=== PATIENT | male | born 1950 | race Caucasian/White ===

== ENCOUNTER 2017-11-10 11:09 | Inpatient (IN) | payer MEDICARE, SELFPAY ==
[2017-11-10] VITALS (29 sets, daily range): BP systolic 94–154; BP diastolic 46–95; PULSE 80–116; RESP 12–24; TEMP 36.6–37.8; O2SAT 67–99; BMI 50.5; BMI 50.2
--- NOTE | 2017-11-10 11:15 | EKG12_ITS ---
Test Reason : SOB Blood Pressure : / mmHG Vent. Rate : 111 BPM Atrial Rate : 111 BPM P-R Int : 150 ms QRS Dur : 100 ms QT Int : 326 ms P-R-T Axes : 054 042 058 degrees QTc Int : 443 ms Sinus tachycardia Low voltage QRS Borderline ECG Confirmed by BRENDAN LUIS, MCKINLEY ([id number]), editor news CAROLINE CAMARENA ([id number]) on 11/13/2017 8:38:24 AM Referred By: JAMES Confirmed By:MCKINLEY CARDONA MD
--- NOTE | 2017-11-10 11:15 | RAD_ITS ---
STUDY: X-RAY CHEST REASON FOR EXAM: Male, 67 years old. Shortness of breath TECHNIQUE: Single AP portable view of the chest. COMPARISON: None. FINDINGS: Hypoinflated lungs. Patchy airspace disease in both lower lobes likely represents vascular congestion. Developing right lower lobe infiltrate. There is borderline cardiomegaly. Normal mediastinum and gustavo. Normal visualized pulmonary arteries. Normal visualized aortic arch and descending thoracic aorta. Normal visualized thoracic spine. Normal visualized ribs, clavicles, and shoulders. There is no demonstrated abnormality of the visualized soft tissue structures of the upper abdomen. RAD/Chest 1 View (Portable) IMPRESSION: Hypoinflated lungs. Patchy airspace disease in both lower lobes. Probable right lower lobe infiltrate Electronically Signed: Jose Antonio Perrin DO at 12:41 EST Tel , Service support ,
--- NOTE | 2017-11-10 11:26 | NURSING ---
CALLED FOR POST SURGERY LABS AND DC SUMMARY
[2017-11-10] MEDS: Ipratropium/Albuterol Sulfate 3 ML AMPUL.NEB INHALATION (11:36)
[2017-11-10] MEDS: 0.9% Normal Saline 1,000 ML 1000 ML IV (11:36)
--- NOTE | 2017-11-10 11:47 | NURSING ---
VASCULAR CALLED BACK. SHE IS IN THE HOSPITAL
--- NOTE | 2017-11-10 11:47 | NURSING ---
RECEIVED FAX FROM [facility]
[2017-11-10 11:55] LABS: Absolute Lymphocyte Count 1.48 X10^3/ul (0.83-4.51); Absolute Neutrophil Count 11.4 X10^3/uL (2.0-7.7); Basophil# 0.03 X10^3/uL; Basophil% 0.2 % (0-1); Eosinophil# 0.16 X10^3/uL; Eosinophils% 1.1 % (0-5); Hematocrit 38.9 % (40-54); Lymphocyte # 1.48 X10^3/ul (4.0); Lymphocyte % 10.2 % (19-41); Mean Corp Hgb Conc 30.8 g/gl (32-36); Mean Corpuscular Hgb 29.1 pg (27.0-32.0); Mean Corpuscular Volume 94.2 fL (80-94); Monocyte# 1.28 X10^3/uL; Monocyte% 8.8 % (0-10); Neutrophil # 11.42 X10^3/uL (2.7-7.7); Neutrophil % 78.8 % (47-70); Platelet Count 220 K/mm3 (150-450); RBC Distribution Width CV 14.3 % (11.6-14.6); RBC Distribution Width SD 48.3 fl (35.1-43.9); Red Blood Count 4.13 M/mm3 (4.6-6.2); White Blood Count 14.5 K/mm3 (4.4-11.0)
[2017-11-10 11:57] LABS: Differential Indicated SCAN CRITERIA MET; POSITIVE COUNT NO; POSITIVE DIFFERENTIAL NO; POSITIVE MORPHOLOGY YES
[2017-11-10 12:00] LABS: ALB/GLOB Ratio 0.7 RATIO (0.9-2.4); AST(SGOT) 44 U/L (15-37); Alanine Aminotransfer ALT/SGPT 41 U/L (16-61); Albumin, Serum 2.7 g/dL (3.2-5.0); Alkaline Phosphatase 98 U/L (45-117); Anion Gap 9 (5-15); BUN 39 mg/dL (7-18); BUN/Creat Ratio 18.2 RATIO (10-20); Calcium,Total 7.9 mg/dL (8.5-10.1); Chloride 109 mmol/L (98-107); Creatinine, Serum 2.14 mg/dL (0.70-1.30); EST Glomerular Filtration Rate 33 mL/min (>60); Est Glom Filt Rate - Afr Amer 40 mL/min (>60); Estimated Creatinine Clearance 31.75 ml/min; Globulin 3.7 g/dL (2.2-4.2); Glucose 159 mg/dL (74-106); Potassium 4.4 mmol/L (3.5-5.1); Protein, Total 6.4 g/dL (6.4-8.2); Sodium Level 142 mmol/L (136-145)
--- NOTE | 2017-11-10 12:10 | VDLE_ITS ---
Reason For Study: Edema/Pain RIGHT LEFT GSV is normal. GSV is normal. CFV is compressible, spontaneous, phasic, CFV is compressible, spontaneous, phasic, competent and demonstrates normal competent, and demonstrates normal augmentation. augmentation. FV is compressible, spontaneous, phasic, FV is compressible, spontaneous, phasic, competent and demonstrates normal competent and demonstrates normal augmentation. augmentation. POP V is compressible, spontaneous, phasic, POP V is compressible, spontaneous, phasic, competent and demonstrates normal competent and demonstrates normal augmentation. augmentation. T/P Trunk is compressible. T/P Trunk is compressible. PTV is compressible. PTV is compressible. RT PerV is compressible. LT PerV is compressible. Rt GSV mislabeled as Rt PeroV. Difficult to visualize distal Lt FV due to Procedure swelling and patient body habitus; relied on Exam performed portable in ED. color doppler. A preliminary report was called and/or faxed to Dr. Larson. Interpretation Summary No evidence for acute deep venous thrombosis bilateral lower extremities with patent and compressible bilateral great saphenous veins. Technically difficult examnination secondary to body habitus and swelling. Ordering Physician: Maciej Larson Referring Physician: Chhaya Bills Performed By: Katja Smith, SARAN, RVT
[2017-11-10 12:11] LABS: Lactic Acid 2.5 mmol/L (0.4-2.0)
--- NOTE | 2017-11-10 12:12 | ED.RN ---
LACTATE 2.5. AWARE.
[2017-11-10 12:16] LABS: Allen Test POS; Base Excess -6 mmol/L (-2 to +2); Bicarbonate 21.6 mmol/L (22-26); Blood Gas Specimen Type ART; O2 Delivery Device Nasal Can; PO2 62 mmHG (75-100); SITE R Radial; SO2 86 % (95-99); Time Given 1208; Total Carbon Dioxide 23 mmol/L; pCO2 51.5 mmHg (35-45); pH 7.23 (7.35-7.45)
[2017-11-10] MEDS: 0.9% Normal Saline 1,000 ML 999 ML IV (13:07)
--- NOTE | 2017-11-10 13:08 | NURSING ---
DR RONAL RAMIREZ
--- NOTE | 2017-11-10 13:14 | NURSING ---
ICU ACUTE RESP FAILURE, PNEUMONIA SEMENTI
--- NOTE | 2017-11-10 13:22 | ED.DCSUM_ITS ---
- ER Visit Summary Date of Service: 11/10/17 Chief Complaint: Shortness of breath and cough History of Present Illness: The patient is a 67 M who is postop left knee replacement 5 days ago at [facility] presenting with productive cough and shortness of breath that started last evening. He apparently had some respiratory issues in the immediate postoperative course and he was felt to likely have untreated obstructive sleep apnea. His creatinine increased as high as 1.4 while he was in the hospital as well. He was essentially back at baseline when he returned home this past Sunday. Starting yesterday, he began having a productive cough of yellow sputum and was complaining of shortness of breath. He had altered mental status throughout the evening that was much worse this morning when he was quite confused according to his . On arrival, his pulse ox is in the 50s and he is in fairly significant respiratory distress. Physical Examination: Pulse ox is in the low 60s on room air. He is in severe distress. Neck is supple. He is tachycardic. No murmur. Breath sounds diminished at the bases. Abdomen not distended or tender. Left knee incision clean, dry, and intact. Strong pulses in all extremities. No tenderness along the venous system. He is alert to self and hospital but is somewhat confused. He is still following commands however. Test Results: He has bibasilar infiltrates on chest x-ray as well as a leukocytosis. His creatinine is elevated at 2.4. Pulmonary embolism is certainly high on my differential and we discussed the risks and benefits of performing a CT angiogram with his elevated creatinine. Since his symptoms appear to be more infectious at this time, especially in light of the bilateral infiltrates on chest x-ray, I elected to perform bilateral ultrasounds of his lower extremity is to rule out DVT. There were both negative. No evidence of DVT. This makes pulmonary embolism much less likely and I do not think it is worth the risk of performing a CTA at this time. He was started on BiPAP because on his ABG, he was hypoxic in the 80s as well as hypoxemic. He improved markedly after starting BiPAP in terms of his mental status and was nearly back at baseline however he was unable to be weaned. He was covered with broad-spectrum antibiotics for healthcare associated pneumonia and admitted to the ICU. Emergency Department Course and Treatment: He was admitted to the ICU, critical care time 40 minutes Treatment Plan: IV antibiotics, admit to ICU, continue BiPAP Disposition: Admit to ICU in critical but improved condition Impression: Initial encounter for acute respiratory failure secondary to healthcare associated pneumonia, sepsis This note was generated with [employer] dictation software. It may contain incorrect words, spelling, and punctuation that were not noted in review of the chart prior to signing ED Disposition - Plan for ED Patient: Chief Complaint: Shortness of Breath Referrals: Chhaya Bills MD [Primary Care Provider] -
--- NOTE | 2017-11-10 13:49 | NURSING ---
ICU 6
--- NOTE | 2017-11-10 15:06 | CT_ITS ---
STUDY: CT CHEST WITHOUT CONTRAST REASON FOR EXAM: Male, 67 years old. Acute respiratory failure with hypoxemia RADIATION DOSAGE (If Supplied By Facility): CTDIvol = ( ) mGy, DLP = ( ) mGycm TECHNIQUE: Transaxial imaging was performed without the administration of intravenous contrast material. Pulmonary embolism cannot be excluded without IV contrast Individualized dose optimization techniques were used for this CT. COMPARISON: None. FINDINGS: The lungs are adequately inflated. Patchy airspace disease noted in both lower lobes; right greater than left suggesting infection. Aspiration pneumonia cannot be excluded. No effusions at this time. Normal heart and pericardium. Normal mediastinum. Normal hilar regions. Normal unenhanced pulmonary arteries. Normal aorta arch and descending thoracic aorta. There are multi-level degenerative changes of the thoracic spine. There is no demonstrated abnormality of the visualized upper abdomen. CT/Chest without Contrast IMPRESSION: Bibasilar infiltrates and patchy airspace disease; right greater than left. Likely infection Electronically Signed: Jose Antonio Perrin DO at 16:06 EST Tel , Service support ,
--- NOTE | 2017-11-10 15:23 | PCM.HP.STD ---
Problem List (1) HCAP (healthcare-associated pneumonia) Status: Acute (2) Acute respiratory failure with hypoxia and hypercapnia Status: Acute (3) Morbid obesity Status: Chronic (4) Osteoarthritis Status: Chronic (5) Hypertension Status: Chronic (6) Acute kidney injury Status: Acute (7) Anemia Status: Acute Qualifiers: Anemia type: other cause (8) Benzodiazepine dependence Status: Chronic (9) Hypothyroidism Status: Chronic (10) Obstructive sleep apnea Status: Suspected (11) Severe sepsis Status: Acute (12) Status post total right knee replacement Status: Acute Comment: 11/05/[address] Jase Lopez at [facility] (13) Former smoker Status: Chronic (14) Chronic anxiety Status: Chronic History of Present Illness Date of Admission: 11/10/17 Chief Complaint: Shortness of breath associated with cough and confusion The patient is a 67 year old M with a past medical history of morbid obesity, osteoarthritis, hypertension, hypothyroidism, chronic back pain with radicular pain into his legs and chronic diazepam use who had a left TKR on 11/05/17 at [facility] done by Dr. Lopez. Post operative course was complicated by mental status changes and respiratory issues that were attributed to suspected ROSIO. He has never had a sleep study. He is currently on multiple sedating medications that include gabapentin 600 mg 3 times daily, Flexeril 10 mg 3 times daily, alprazolam ER 1 mg daily and morphine sulfate ER 10 milligrams twice daily. He presented to the emergency room at [facility] on 11/10/2017 with complaint of shortness of breath, confusion and cough. Vital signs at presentation to the emergency room are temperature 97.8, pulse rate 116, blood pressure 125/64, respiratory rate 24 and he was 67% saturated on room air. Significant lab included an elevated white blood cell count at 14.5 with 79% neutrophils. Hemoglobin was 12 and platelets were 220,000. ABG on a 6 L nasal cannula showed pH of 7.23, PCO2 of 51 and a PO2 of 62. Serum bicarb was 24 and the BUN was 39 with a creatinine of 2.14. Lactic acid was 2.5 and LFTs were unremarkable. Chest x-ray was taken in expiration and is a poor study. Cannot rule out pneumonia versus pulmonary edema. Influenza swab was negative and 2 blood cultures were drawn in the emergency room. He was given vancomycin and Zosyn in the emergency room. He was placed on BiPAP and currently he is alert and appropriate. Past Medical History Past Medical History (Chronic Problems): Chronic Problems Morbid obesity (Chronic) Osteoarthritis (Chronic) Hypertension (Chronic) Benzodiazepine dependence (Chronic) Hypothyroidism (Chronic) Former smoker (Chronic) Chronic anxiety (Chronic) Allergies bacitracin [From Neosporin ([id number])] Allergy (Verified 07/18/14 16:28) Rash bacitracin zinc [From Neosporin ([id number])] Allergy (Verified 07/18/14 16:28) Rash neomycin sulfate [From Neosporin ([id number])] Allergy (Verified 07/18/14 16:28) Rash Penicillins [PCN] Allergy (Verified 07/18/14 16:28) Rash polymyxin B [From Neosporin ([id number])] Allergy (Verified 07/18/14 16:28) Rash Home Medications: Ambulatory Orders Medication Instructions Recorded Albuterol Sulfate [Ventolin Hfa] 2 inh INHALATION DAILY 11/10/17 Alprazolam [Xanax Xr] 1 mg PO DAILY 11/10/17 Aspirin 325 mg PO BID 11/10/17 Aspirin 325 mg PO DAILY@0800 11/10/17 Cyclobenzaprine [Flexeril] 10 mg PO TID 11/10/17 Fluconazole 150 mg PO QWEEK 11/10/17 Gabapentin [Neurontin] 600 mg PO TID 11/10/17 Hydrocodone/Acetaminophen 1 each PO BID 11/10/17 [Hydrocodon-Acetaminophn 10-325] Ibuprofen [Motrin] 800 mg PO Q8H 11/10/17 Levothyroxine [Synthroid] 150 mcg PO DAILY 11/10/17 Lisinopril [Zestril] 1 tab PO DAILY 11/10/17 Morphine Sulfate [Morphine Sulfate 15 mg PO BID 11/10/17 ER] Oxycodone HCl/Acetaminophen 1 - 2 tablet PO Q4H PRN PRN 11/10/17 [Percocet 5/325] Paroxetine HCl [Paxil] 40 mg PO DAILY 11/10/17 Topiramate [Topamax] 25 mg PO QHS 11/10/17 Verapamil [Calan Sr] 1 tab PO DAILY 11/10/17 Surgical History: total knee arthroplasty Psychiatric History: Anxiety Lives: Spouse/ Significant Other Smoking Status: Former smoker Tobacco Use: Non-smoker Alcohol: Rare Drugs: None - *Family History Maternal History Items: No pertinent history Paternal History Items: No pertinent history Review of Systems Constitutional: Denies: Anorexia, Chills, Fever HEENT: Denies: Difficulty Hearing, Difficulty Swallowing Cardiovascular: Reports: Edema. Denies: Chest Pain, Light Headedness, Orthopnea, Palpitations, Paroxysmal Noc. Dyspnea, Syncope Respiratory: Reports: Cough, Shortness of Breath, Sputum production. Denies: Wheezing Gastrointestinal: Denies: Abdominal Pain, Nausea, Vomiting Genitourinary: Denies: Dysuria Musculoskeletal: Reports: Leg Pain - Left knee - he is day #5 postop L TKR Skin: Reports: Wounds - Left knee secondary to L TKR on 11/05/17. Denies: Jaundice, Rash Neurological: Reports: Confusion. Denies: Difficulty swallowing, Focal weakness, Seizures Psychiatric: Denies: Anxiety, Depression, Homicidal Ideations, Suicidal Ideations Endocrine: Denies: Hx of Thyroiditis Hematologic/ Lymphatic: Denies: Hx of blood clot VTE Information - Inpt Only VTE Present on Admission: No VTE Mechan Device Prophylaxis: SCD's, Knee High ALBERT Hose VTE Pharm Prophylaxis ordered?: Yes Patient Problems: Active and Suspected Problems HCAP (healthcare-associated pneumonia) (Acute) Acute respiratory failure with hypoxia and hypercapnia (Acute) Acute kidney injury (Acute) Anemia (Acute) Obstructive sleep apnea (Suspected) Severe sepsis (Acute) Status post total right knee replacement (Acute) 11/05/[address] Jase Lopez at [facility] - Physical Exam General: Alert, Cooperative, Confused, - - On BIPAP HEENT: Atraumatic, PERRLA, EOMI, Normocephalic Oral: Moist Mucosa Neck: Supple, Trachea Midline, - - short thick neck Lungs: Clear to auscultation, No rhonchi, No wheeze, No rales, Diminished Cardiovascular: Regular Rhythm, Normal S1, Normal S2, No murmurs, No Gallop, Tachycardic, - - he has increased AP diameter of the chst Abdomen: Bowel Sounds Present, Soft, Non Tender, Obese Extremities: No cyanosis, Edema, Peripheral Pulses Normal, - - incision over the Left knee is intact... small amount of pink discoloration around the dressing.....no dried DC on the dressing Skin: No rashes, No breakdown Musculoskeletal: Arthritic Changes Neurological: Cranial nerves II-XII grossly intact, Neuro grossly intact Vital Signs Temp Pulse Resp BP Pulse Ox 97.8 F 102 H 16 140/78 H 97 11/10/17 11:10 11/10/17 14:08 11/10/17 14:08 11/10/17 14:08 11/10/17 14:08 Oxygen Delivery Method Bi-pap Laboratory Tests Past 24 Hrs 11/10/17 15:10 MRSA (PCR) Pending Assessment/Plan Active and Suspected Problems HCAP (healthcare-associated pneumonia) (Acute) Acute respiratory failure with hypoxia and hypercapnia (Acute) Acute kidney injury (Acute) Anemia (Acute) Obstructive sleep apnea (Suspected) Severe sepsis (Acute) Status post total right knee replacement (Acute) 11/05/[address] Jase Lopez at [facility] Impressions 1. Severe sepsis due to hospital-acquired pneumonia 2. Acute respiratory failure with hypoxia and hypercapnia 3. Respiratory acidosis 4. Sleep disordered breathing-suspect ROSIO 5. Morbid obesity 6. Hypertension 7. Hypothyroidism 8. Anemia-likely secondary to blood loss from recent left total knee replacement 9. Acute kidney injury 10. Glucose intolerance with a hemoglobin A1c of 6.5 11. Metabolic encephalopathy secondary to acute respiratory failure and hospital-acquired pneumonia Admitted to the intensive care unit and continue BiPAP and adjust settings as needed Cefepime and vancomycin day #1 DVT prophylaxis with Lovenox 30 mg subcu daily, SCDs and ALBERT angele Postvoid bladder scan to rule out urine retention as etiology of elevated creatinine Consult Dr. Dakota Ken to participate in management Will need PFTs and PSG going forward N.p.o. tonight except for meds recheck lab in the a.m. When he is started on a diet will start on a calorie diet Consult dietitian when the patient is less confused for education regarding carbohydrate control and weight loss Discontinue Flexeril, decrease the dose of gabapentin and discontinue MS Contin. Will utilize a fentanyl patch and as needed OxyIR for pain control Albuterol aerosols as needed for wheezing Echocardiogram Sunday to evaluate for pulmonary hypertension and right heart function Bilateral venous ultrasounds of the lower extremities are negative for DVT-low suspicion for pulmonary embolus. CT scan is consistent with bibasilar pneumonia, right greater than left IS
--- NOTE | 2017-11-10 15:31 | HP.PCM_ITS ---
Problem List (1) HCAP (healthcare-associated pneumonia) Status: Acute (2) Acute respiratory failure with hypoxia and hypercapnia Status: Acute (3) Morbid obesity Status: Chronic (4) Osteoarthritis Status: Chronic (5) Hypertension Status: Chronic (6) Acute kidney injury Status: Acute (7) Anemia Status: Acute Qualifiers: Anemia type: other cause (8) Benzodiazepine dependence Status: Chronic (9) Hypothyroidism Status: Chronic (10) Obstructive sleep apnea Status: Suspected (11) Severe sepsis Status: Acute (12) Status post total right knee replacement Status: Acute Comment: 11/05/[address] Jase Lopez at [facility] (13) Former smoker Status: Chronic (14) Chronic anxiety Status: Chronic History of Present Illness Date of Admission: 11/10/17 Chief Complaint: Shortness of breath associated with cough and confusion The patient is a 67 year old M with a past medical history of morbid obesity, osteoarthritis, hypertension, hypothyroidism, chronic back pain with radicular pain into his legs and chronic diazepam use who had a left TKR on 11/05/17 at [facility] done by Dr. Lopez. Post operative course was complicated by mental status changes and respiratory issues that were attributed to suspected ROSIO. He has never had a sleep study. He is currently on multiple sedating medications that include gabapentin 600 mg 3 times daily, Flexeril 10 mg 3 times daily, alprazolam ER 1 mg daily and morphine sulfate ER 10 milligrams twice daily. He presented to the emergency room at [facility] on 11/10/2017 with complaint of shortness of breath, confusion and cough. Vital signs at presentation to the emergency room are temperature 97.8, pulse rate 116, blood pressure 125/64, respiratory rate 24 and he was 67% saturated on room air. Significant lab included an elevated white blood cell count at 14.5 with 79% neutrophils. Hemoglobin was 12 and platelets were 220, 000. ABG on a 6 L nasal cannula showed pH of 7.23, PCO2 of 51 and a PO2 of 62. Serum bicarb was 24 and the BUN was 39 with a creatinine of 2.14. Lactic acid was 2.5 and LFTs were unremarkable. Chest x-ray was taken in expiration and is a poor study. Cannot rule out pneumonia versus pulmonary edema. Influenza swab was negative and 2 blood cultures were drawn in the emergency room. He was given vancomycin and Zosyn in the emergency room. He was placed on BiPAP and currently he is alert and appropriate. Past Medical History Past Medical History (Chronic Problems): Chronic Problems Morbid obesity (Chronic) Osteoarthritis (Chronic) Hypertension (Chronic) Benzodiazepine dependence (Chronic) Hypothyroidism (Chronic) Former smoker (Chronic) Chronic anxiety (Chronic) Allergies bacitracin [From Neosporin ([id number])] Allergy (Verified 07/18/14 16:28) Rash bacitracin zinc [From Neosporin ([id number])] Allergy (Verified 07/18/14 16: 28) Rash neomycin sulfate [From Neosporin ([id number]-ryo-matcs)] Allergy (Verified 07/18/14 16: 28) Rash Penicillins [PCN] Allergy (Verified 07/18/14 16:28) Rash polymyxin B [From Neosporin ([id number])] Allergy (Verified 07/18/14 16:28) Rash Home Medications: Ambulatory Orders Medication Instructions Recorded Albuterol Sulfate [Ventolin Hfa] 2 inh INHALATION DAILY 11/10/17 Alprazolam [Xanax Xr] 1 mg PO DAILY 11/10/17 Aspirin 325 mg PO BID 11/10/17 Aspirin 325 mg PO DAILY@0800 11/10/17 Cyclobenzaprine [Flexeril] 10 mg PO TID 11/10/17 Fluconazole 150 mg PO QWEEK 11/10/17 Gabapentin [Neurontin] 600 mg PO TID 11/10/17 Hydrocodone/Acetaminophen 1 each PO BID 11/10/17 [Hydrocodon-Acetaminophn 10-325] Ibuprofen [Motrin] 800 mg PO Q8H 11/10/17 Levothyroxine [Synthroid] 150 mcg PO DAILY 11/10/17 Lisinopril [Zestril] 1 tab PO DAILY 11/10/17 Morphine Sulfate [Morphine Sulfate 15 mg PO BID 11/10/17 ER] Oxycodone HCl/Acetaminophen 1 - 2 tablet PO Q4H PRN PRN 11/10/17 [Percocet 5/325] Paroxetine HCl [Paxil] 40 mg PO DAILY 11/10/17 Topiramate [Topamax] 25 mg PO QHS 11/10/17 Verapamil [Calan Sr] 1 tab PO DAILY 11/10/17 Surgical History: total knee arthroplasty Psychiatric History: Anxiety Lives: Spouse/ Significant Other Smoking Status: Former smoker Tobacco Use: Non-smoker Alcohol: Rare Drugs: None - *Family History Maternal History Items: No pertinent history Paternal History Items: No pertinent history Review of Systems Constitutional: Denies: Anorexia, Chills, Fever HEENT: Denies: Difficulty Hearing, Difficulty Swallowing Cardiovascular: Reports: Edema. Denies: Chest Pain, Light Headedness, Orthopnea , Palpitations, Paroxysmal Noc. Dyspnea, Syncope Respiratory: Reports: Cough, Shortness of Breath, Sputum production. Denies: Wheezing Gastrointestinal: Denies: Abdominal Pain, Nausea, Vomiting Genitourinary: Denies: Dysuria Musculoskeletal: Reports: Leg Pain - Left knee - he is day #5 postop L TKR Skin: Reports: Wounds - Left knee secondary to L TKR on 11/05/17. Denies: Jaundice, Rash Neurological: Reports: Confusion. Denies: Difficulty swallowing, Focal weakness , Seizures Psychiatric: Denies: Anxiety, Depression, Homicidal Ideations, Suicidal Ideations Endocrine: Denies: Hx of Thyroiditis Hematologic/ Lymphatic: Denies: Hx of blood clot VTE Information - Inpt Only VTE Present on Admission: No VTE Mechan Device Prophylaxis: SCD's, Knee High ALBERT Hose VTE Pharm Prophylaxis ordered?: Yes Patient Problems: Active and Suspected Problems HCAP (healthcare-associated pneumonia) (Acute) Acute respiratory failure with hypoxia and hypercapnia (Acute) Acute kidney injury (Acute) Anemia (Acute) Obstructive sleep apnea (Suspected) Severe sepsis (Acute) Status post total right knee replacement (Acute) 11/05/[address] Jase Lopez at [facility] - Physical Exam General: Alert, Cooperative, Confused, - - On BIPAP HEENT: Atraumatic, PERRLA, EOMI, Normocephalic Oral: Moist Mucosa Neck: Supple, Trachea Midline, - - short thick neck Lungs: Clear to auscultation, No rhonchi, No wheeze, No rales, Diminished Cardiovascular: Regular Rhythm, Normal S1, Normal S2, No murmurs, No Gallop, Tachycardic, - - he has increased AP diameter of the chst Abdomen: Bowel Sounds Present, Soft, Non Tender, Obese Extremities: No cyanosis, Edema, Peripheral Pulses Normal, - - incision over the Left knee is intact... small amount of pink discoloration around the dressing.....no dried DC on the dressing Skin: No rashes, No breakdown Musculoskeletal: Arthritic Changes Neurological: Cranial nerves II-XII grossly intact, Neuro grossly intact Vital Signs Temp Pulse Resp BP Pulse Ox 97.8 F 102 H 16 140/78 H 97 11/10/17 11:10 11/10/17 14:08 11/10/17 14:08 11/10/17 14:08 11/10/17 14:08 Oxygen Delivery Method Bi-pap Laboratory Tests Past 24 Hrs 11/10/17 15:10 MRSA (PCR) Pending Assessment/Plan Active and Suspected Problems HCAP (healthcare-associated pneumonia) (Acute) Acute respiratory failure with hypoxia and hypercapnia (Acute) Acute kidney injury (Acute) Anemia (Acute) Obstructive sleep apnea (Suspected) Severe sepsis (Acute) Status post total right knee replacement (Acute) 11/05/[address] Jase Lopez at [facility] Impressions 1. Severe sepsis due to hospital-acquired pneumonia 2. Acute respiratory failure with hypoxia and hypercapnia 3. Respiratory acidosis 4. Sleep disordered breathing-suspect ROSIO 5. Morbid obesity 6. Hypertension 7. Hypothyroidism 8. Anemia-likely secondary to blood loss from recent left total knee replacement 9. Acute kidney injury 10. Glucose intolerance with a hemoglobin A1c of 6.5 11. Metabolic encephalopathy secondary to acute respiratory failure and hospital-acquired pneumonia Admitted to the intensive care unit and continue BiPAP and adjust settings as needed Cefepime and vancomycin day #1 DVT prophylaxis with Lovenox 30 mg subcu daily, SCDs and ALBERT angele Postvoid bladder scan to rule out urine retention as etiology of elevated creatinine Consult Dr. Dakota Ken to participate in management Will need PFTs and PSG going forward N.p.o. tonight except for meds recheck lab in the a.m. When he is started on a diet will start on a calorie diet Consult dietitian when the patient is less confused for education regarding carbohydrate control and weight loss Discontinue Flexeril, decrease the dose of gabapentin and discontinue MS Contin. Will utilize a fentanyl patch and as needed OxyIR for pain control Albuterol aerosols as needed for wheezing Echocardiogram Sunday to evaluate for pulmonary hypertension and right heart function Bilateral venous ultrasounds of the lower extremities are negative for DVT-low suspicion for pulmonary embolus. CT scan is consistent with bibasilar pneumonia , right greater than left IS
[2017-11-10 15:33] LABS: Reflex Lactate? Y
[2017-11-10] MEDS: oxyCODONE 5 MG Tablet PO ×2 (16:35→21:00)
[2017-11-10] MEDS: fentaNYL 25 MCG Patch TRANSDERM. (16:36)
[2017-11-10] MEDS: 0.45% Normal Saline 1,000 ML 100 ML IV (16:36)
[2017-11-10] MEDS: 0.9% NaCl Peripheral Flush Adult/Peds IV ×2 (16:36→21:06)
[2017-11-10 16:58] LABS: M R Staph aureus DNA By PCR Negative (Negative); Probe Check PASS; Specimen Processing Control PASS
[2017-11-10 17:05] LABS: Hemoglobin A1c 6.5 % (4.2-6.3)
[2017-11-10 17:25] LABS: Allen Test POS; Base Excess -3 mmol/L (-2 to +2); Bicarbonate 23.6 mmol/L (22-26); Blood Gas Specimen Type ART; EPAP 6; FI02 30; IPAP 12; PO2 70 mmHG (75-100); RR 22; SITE L Radial; SO2 91 % (95-99); Time Given 1717; Total Carbon Dioxide 25 mmol/L; pCO2 50.2 mmHg (35-45); pH 7.28 (7.35-7.45)
[2017-11-10] MEDS: Gabapentin 100 MG Capsule 200 MG PO (17:41)
--- NOTE | 2017-11-10 17:43 | CPS ---
settings changed after ABG.
[2017-11-10] MEDS: guaiFENesin 1,200 MG Tablet 1200 MG PO (21:00)
[2017-11-10] MEDS: Topiramate 25 MG Tablet PO (21:00)
--- NOTE | 2017-11-10 21:51 | NURSING ---
Teaching of pt's chronic conditions postponed until pt clinical status less critical.
[2017-11-11] VITALS (37 sets, daily range): BP systolic 120–182; BP diastolic 58–122; PULSE 85–117; RESP 12–25; TEMP 35.7–37.7; O2SAT 92–100
[2017-11-11] MEDS: CHLORHEXIDINE GLUC 2% CLOTH 1 EACH TOWELETTE TOPICAL (01:17)
[2017-11-11] MEDS: oxyCODONE 5 MG Tablet PO ×3 (01:17→11:23)
[2017-11-11] MEDS: 0.45% Normal Saline 1,000 ML 100 ML IV ×2 (02:03→12:57)
[2017-11-11 04:53] LABS: Anion Gap 6 (5-15); BUN 30 mg/dL (7-18); BUN/Creat Ratio 24.2 RATIO (10-20); Calcium,Total 7.9 mg/dL (8.5-10.1); Chloride 108 mmol/L (98-107); Cholesterol 116 mg/dL (200); Creatinine, Serum 1.24 mg/dL (0.70-1.30); EST Glomerular Filtration Rate 62 mL/min (>60); Est Glom Filt Rate - Afr Amer 75 mL/min (>60); Estimated Creatinine Clearance 54.79 ml/min; Glucose 129 mg/dL (74-106); High Density Lipoprotein 37 mg/dL; Phosphorus 2.5 mg/dL (2.5-4.9); Potassium 4.4 mmol/L (3.5-5.1); Sodium Level 140 mmol/L (136-145); Triglycerides 99 mg/dL; Very Low Density Lipoprotein 20 mg/dL (5-40)
[2017-11-11 05:00] LABS: Hematocrit 35.3 % (40-54); Hemoglobin 11.1 g/dl (13.0-16.5); Mean Corp Hgb Conc 31.4 g/gl (32-36); Mean Corpuscular Hgb 29.6 pg (27.0-32.0); Mean Corpuscular Volume 94.1 fL (80-94); Mean Platelet Vol. 9.2 fl (6.2-12.0); POSITIVE COUNT NO; POSITIVE DIFFERENTIAL NO; POSITIVE MORPHOLOGY NO; Platelet Count 211 K/mm3 (150-450); RBC Distribution Width SD 45.8 fl (35.1-43.9); Red Blood Count 3.75 M/mm3 (4.6-6.2)
[2017-11-11 05:01] LABS: Absolute Lymphocyte Count 0.93 X10^3/ul (0.83-4.51); Basophil# 0.03 X10^3/uL; Basophil% 0.2 % (0-1); Eosinophil# 0.43 X10^3/uL; Eosinophils% 3.3 % (0-5); Lymphocyte # 0.93 X10^3/ul (4.0); Lymphocyte % 7.2 % (19-41); Monocyte# 1.37 X10^3/uL; Monocyte% 10.6 % (0-10); Neutrophil % 77.2 % (47-70)
--- NOTE | 2017-11-11 05:17 | CON.PCM_ITS ---
Reason for Consult Date of Consultation: 11/11/17 Reason for Consultation: Respiratory failure History of Present Illness: The patient is a 67-year-old male, with a history as outlined below, who presented to the emergency department on November 10 with complaints of shortness of breath and cough. The patient recently underwent a left total knee replacement on November [address] [facility] [address] Lopez. Postoperatively, the patient developed respiratory issues related to sedating medication use in the setting of suspected sleep disordered breathing. The patient is currently utilizing extensive number of sedating medications in his home environment. All the patient has never undergone a polysomnogram, he does voice concern over the potential presence of sleep disordered breathing and in particular obstructive sleep apnea. He does have a prior smoking history. On presentation to the emergency department, the patient was noted to be afebrile, tachycardic and hemodynamically stable. Laboratory evaluation revealed an elevated white blood cell count to 15,000. Initial arterial blood gas on nasal cannula revealed acute hypercarbic and hypoxemic respiratory failure with a pH of 7.23, PCO2 of 51 and PO2 of 62. Chemistry profile was notable for acute kidney injury with a creatinine of 2.14. Serum lactate was mildly elevated to 2.5. AST was increased to 44. A CT chest without contrast was obtained and revealed evidence of bilateral lower lobe pneumonia. The patient was given supplemental IV fluids and started on broad-spectrum antimicrobials. Given his respiratory status, he was started on BiPAP therapy. He was subsequently transferred to the medical intensive care unit for ongoing management. Past Medical History Past Medical History (Chronic Problems): Chronic Problems Morbid obesity (Chronic) Osteoarthritis (Chronic) Hypertension (Chronic) Benzodiazepine dependence (Chronic) Hypothyroidism (Chronic) Former smoker (Chronic) Chronic anxiety (Chronic) Allergies bacitracin [From Neosporin ([id number])] Allergy (Verified 07/18/14 16:28) Rash bacitracin zinc [From Neosporin (mly-svj-[id number])] Allergy (Verified 07/18/14 16: 28) Rash neomycin sulfate [From Neosporin (yye-dyf-cdhvs)] Allergy (Verified 07/18/14 16: 28) Rash Penicillins [PCN] Allergy (Verified 07/18/14 16:28) Rash polymyxin B [From Neosporin ([id number]-qhk-[id number])] Allergy (Verified 07/18/14 16:28) Rash Home Medications: Ambulatory Orders Medication Instructions Recorded Albuterol Sulfate [Ventolin Hfa] 2 inh INHALATION DAILY 11/10/17 Alprazolam [Xanax Xr] 1 mg PO DAILY 11/10/17 Aspirin 325 mg PO BID 11/10/17 Aspirin 325 mg PO DAILY@0800 11/10/17 Cyclobenzaprine [Flexeril] 10 mg PO TID 11/10/17 Fluconazole 150 mg PO QWEEK 11/10/17 Gabapentin [Neurontin] 600 mg PO TID 11/10/17 Hydrocodone/Acetaminophen 1 each PO BID 11/10/17 [Hydrocodon-Acetaminophn 10-325] Ibuprofen [Motrin] 800 mg PO Q8H 11/10/17 Levothyroxine [Synthroid] 150 mcg PO DAILY 11/10/17 Lisinopril [Zestril] 1 tab PO DAILY 11/10/17 Morphine Sulfate [Morphine Sulfate 15 mg PO BID 11/10/17 ER] Oxycodone HCl/Acetaminophen 1 - 2 tablet PO Q4H PRN PRN 11/10/17 [Percocet 5/325] Paroxetine HCl [Paxil] 40 mg PO DAILY 11/10/17 Topiramate [Topamax] 25 mg PO QHS 11/10/17 Verapamil [Calan Sr] 1 tab PO DAILY 11/10/17 Surgical History: total knee arthroplasty Psychiatric History: Anxiety Lives: Spouse/ Significant Other Smoking Status: Former smoker Tobacco Use: Non-smoker Alcohol: Rare Drugs: None - *Family History Maternal History Items: No pertinent history Paternal History Items: No pertinent history Review of Systems Constitutional: Denies: Chills, Fever Eyes: Denies: Blurred vision, Double vision HEENT: Denies: Head Aches, Sinus Congestion, Sinus Drainage Cardiovascular: Denies: Chest Pain, Palpitations Respiratory: Reports: Cough, Shortness of Breath Gastrointestinal: Denies: Abdominal Pain, Nausea, Vomiting Genitourinary: Denies: Dysuria Musculoskeletal: Reports: Leg Pain Skin: Denies: Rash, Wounds Neurological: Reports: Confusion Psychiatric: Reports: Anxiety, Depression Hematologic/ Lymphatic: Denies: Easy Bruising, Easy Bleeding Patient Problems: Active and Suspected Problems HCAP (healthcare-associated pneumonia) (Acute) Acute respiratory failure with hypoxia and hypercapnia (Acute) Acute kidney injury (Acute) Anemia (Acute) Obstructive sleep apnea (Suspected) Severe sepsis (Acute) Status post total right knee replacement (Acute) 11/05/[address] Jase Lopez at [facility] Objective: The patient's most recent lab work, culture data and imaging studies have all been personally reviewed. Strep and urine Legionella antigens were both negative. Expectorated sputum culture is pending. Rapid influenza screen was negative. Blood cultures are pending. - Physical Exam General: - - Somnolent but arousable to verbal stimulation on BiPAP HEENT: Atraumatic, PERRLA, Normocephalic Oral: No Gingival or Mucosal Lesions/ Ulcerations, Dry Mucosa Neck: Supple, No Nodes, Trachea Midline, - - Large neck circumference with redundant soft tissue. Lungs: No rhonchi, No wheeze, Diminished, Short of Breath Cardiovascular: Normal S1, Normal S2, No murmurs, Tachycardic Abdomen: Bowel Sounds Present, Soft, Non Tender, Obese Extremities: No clubbing, No cyanosis, No edema Skin: - - Well-healing incision over left knee Musculoskeletal: No Muscle Wasting Lymphatic: No Cervical, Supraclavicular, or Inguinal Adenopathy Neurological: Neuro grossly intact Vital Signs Temp Pulse Resp BP Pulse Ox 96.9 F L 101 H 22 H 151/92 H 96 11/11/17 04:00 11/11/17 05:00 11/11/17 05:00 11/11/17 05:00 11/11/17 05:00 Oxygen Flow Rate 6 Oxygen Delivery Method Bi-pap Weight: 320 lb 12.361 oz Body Mass Index (BMI) 50.2 Intake and Output for Last 24 Hours 11/09/17 11/10/17 11/11/17 23:59 23:59 23:59 Intake Total 1699 / 1699 Output Total 800 / 800 Balance 899 / 899 Microbiology Past 72 Hours 11/10/17 23:50 Streptococcus pneumoniae Antigen (M - Final Urine, Clean Catch 11/10/17 23:50 Legionella Antigen - Final Urine, Clean Catch Laboratory Tests Past 24 Hrs 11/10/17 11/10/17 11/10/17 15:10 16:00 17:22 WBC RBC Hgb Hct MCV MCH MCHC RDW RDW Differential Plt Count MPV Immature Gran % (Auto) Neut % (Auto) Lymph % (Auto) [place] % (Auto) Eos % (Auto) Baso % (Auto) Absolute Neuts (auto) Absolute Lymphs (auto) Total Counted Specimen Type ART Sample Site L Radial pH 7.28 L Bicarbonate Actual 23.6 POC Total CO2 25 Base Excess -3 L O2 Saturation 91 L O2 % 30 ABG pCO2 50.2 H ABG pO2 70 L Niranjan Test POS Respiration Rate 22 O2 Delivery Device Bi / C PAP EPAP 6 IPAP 12 Blood Gas Notified Whom [facility] Blood Gas Notified Time 1717 Sodium Potassium Chloride Carbon Dioxide Anion Gap BUN Creatinine Estim Creat Clear Calc Est GFR (MDRD) Af Amer Est GFR (MDRD) Non-Af BUN/Creatinine Ratio Glucose Lactic Acid 1.0 Calcium Phosphorus Magnesium Triglycerides Cholesterol LDL Cholesterol VLDL Cholesterol HDL Cholesterol MRSA (PCR) Negative 11/11/17 11/11/17 04:00 04:00 WBC 13.0 H RBC 3.75 L Hgb 11.1 L Hct 35.3 L MCV 94.1 H MCH 29.6 MCHC 31.4 L RDW 14.0 RDW Differential 45.8 H Plt Count 211 MPV 9.2 Immature Gran % (Auto) 1.500 H Neut % (Auto) 77.2 H Lymph % (Auto) 7.2 L [place] % (Auto) 10.6 H Eos % (Auto) 3.3 Baso % (Auto) 0.2 Absolute Neuts (auto) 10.0 H Absolute Lymphs (auto) 0.93 Total Counted Not Reportable Specimen Type Sample Site pH Bicarbonate Actual POC Total CO2 Base Excess O2 Saturation O2 % ABG pCO2 ABG pO2 Niranjan Test Respiration Rate O2 Delivery Device EPAP IPAP Blood Gas Notified Whom Blood Gas Notified Time Sodium 140 Potassium 4.4 Chloride 108 H Carbon Dioxide 26.0 Anion Gap 6 BUN 30 H Creatinine 1.24 Estim Creat Clear Calc 54.79 Est GFR (MDRD) Af Amer 75 Est GFR (MDRD) Non-Af 62 BUN/Creatinine Ratio 24.2 H Glucose 129 H Lactic Acid Calcium 7.9 L Phosphorus 2.5 Magnesium 2.0 Triglycerides 99 Cholesterol 116 LDL Cholesterol 59 VLDL Cholesterol 20 HDL Cholesterol 37 L MRSA (PCR) Clinical Impression(s) from Imaging Studies Chest X-Ray 11/10/17 11:15 IMPRESSION: Hypoinflated lungs. Patchy airspace disease in both lower lobes. Probable right lower lobe infiltrate Electronically Signed: Jose Antonio Perrin DO at 12:41 EST Tel , Service support , Chest CT 11/10/17 15:06 IMPRESSION: Bibasilar infiltrates and patchy airspace disease; right greater than left. Likely infection Electronically Signed: Jose Antonio Perrin DO at 16:06 EST Tel , Service support , Assessment/Plan Active and Suspected Problems HCAP (healthcare-associated pneumonia) (Acute) Acute respiratory failure with hypoxia and hypercapnia (Acute) Acute kidney injury (Acute) Anemia (Acute) Obstructive sleep apnea (Suspected) Severe sepsis (Acute) Status post total right knee replacement (Acute) 11/05/[address] Jase Lopez at [facility] RECOMMENDATIONS: 1. Continue BiPAP with naps and nightly. The patient can be given a break this morning. 2. Scale back sedating medication utilization. 3. Continue antibiotics, pending finalized infectious workup 4. Start Pepcid and continue Lovenox for prophylaxis 5. Encourage incentive spirometer use and mobilize patient as tolerated IMPRESSIONS: 1. Acute hypoxemic and hypercarbic respiratory failure Concern for underlying aspiration/healthcare associated pneumonia along with respiratory depression induced by polypharmacy. Sedating medications have been scaled back accordingly. The patient appears to be responding to BiPAP therapy. Continue to monitor blood gas accordingly. The patient can be given a break from noninvasive positive pressure ventilation this morning. However, would recommend continued BiPAP utilization with naps and nightly. 2. Sepsis secondary to aspiration/HCAP Continue antibiotics, pending finalized infectious workup. Avoid oversedation. 3. Hypercarbic encephalopathy Improving with the use of BiPAP. As above, recommend limiting sedating medications. 4. Suspected sleep disordered breathing Strongly recommend outpatient pulmonary follow-up and dedicated polysomnogram upon discharge. 5. Acute kidney injury Likely prerenal in etiology, as the patient responded to volume resuscitation. Urine output remains appropriate. There is no indication for renal replacement therapy. 6. Morbid obesity/hypertension/hypothyroidism Complicates care, management, recovery and prognosis. Continue home medications as indicated. Physical therapy to evaluate patient. This note was generated with Dragon dictation software. It may contain incorrect words, spelling, and punctuation that were not noted in checking the note before signing. Code Visit Inpatient E&M: 44080 Init Hosp L3
[2017-11-11] MEDS: Enoxaparin 30 MG/0.3 ML Syringe SC (05:23)
[2017-11-11] MEDS: Levothyroxine 150 MCG Tablet PO (05:23)
[2017-11-11] MEDS: 0.9% NaCl Peripheral Flush Adult/Peds IV (05:27)
[2017-11-11] MEDS: Gabapentin 100 MG Capsule 200 MG PO ×3 (08:15→17:08)
[2017-11-11] MEDS: Verapamil SR 240 MG Tablet PO (09:08)
[2017-11-11] MEDS: Lisinopril 10 MG Tablet PO (09:08)
[2017-11-11] MEDS: guaiFENesin 1,200 MG Tablet 1200 MG PO ×2 (09:08→21:23)
--- NOTE | 2017-11-11 10:19 | PCM.PROGNOTE ---
Patient Problems: Active and Suspected Problems HCAP (healthcare-associated pneumonia) (Acute) Acute respiratory failure with hypoxia and hypercapnia (Acute) Acute kidney injury (Acute) Anemia (Acute) Obstructive sleep apnea (Suspected) Severe sepsis (Acute) Status post total right knee replacement (Acute) 11/05/[address] Jase Lopez at [facility] Subjective: The patient is a 67 year old M with a past medical history of morbid obesity, osteoarthritis, hypertension, hypothyroidism, chronic back pain with radicular pain into his legs and chronic diazepam use who had a left TKR on 11/05/17 at [facility] done by Dr. Lopez. Post operative course was complicated by mental status changes and respiratory issues that were attributed to suspected ROSIO. He was admitted to [facility] ICU on 11/10/2017 with acute combined respiratory failure and placed on BiPAP. Chest CT showed patchy infiltrates. He is being treated for hospital-acquired pneumonia. Legionella and streptococcal antigens were negative. Sputum culture is positive for normal respiratory karyn. There were 3+ white blood cells on the Gram stain. T-max is 100?F. Blood pressures are high and not adequately controlled. Patient tolerated BiPAP through the night. He is currently on a 3 L nasal cannula and maintaining a 93-94% saturation but is having pursed lip breathing and mild conversational dyspnea. Respiratory rate is ranging from 19-25. Fluid balance since admission is +946. All lab was personally reviewed. White blood cell count today is down to 13,000 with 77% neutrophils. Hemoglobin is 11.1 and platelets are 211,000. BMP shows a serum bicarb of 26, up from 24 yesterday. BUN is 30 and the creatinine is down to 1.24 with mild hydration. Repeat lactic acid was 1.0. Hemoglobin A1c is 6.5. Lipid panel shows triglycerides of 99, total cholesterol 116, LDL 59 and the HDL is 37. MRSA nasal swab was negative. Vancomycin was discontinued. He is complaining of 9/10 pain in his left knee and also some pain in his chest when coughing. He is currently on a fentanyl patch 25 mcg and OxyIR and has been getting 10 mg regularly. His tells me that he always weighed between 220-225 but a few years ago he fell out of a tree and his ankle foot and then has had both knees done and he is now mostly immobile and is always hungry. He is on Alprazolam and Paxil but Paxil tends to stimulate appetite. Dr. Bills has spent a good deal f time with Vance discussing diet and she put him on Topamax in an attempt to suppress his appetite but it has not been effective. He was ordered PT at home.....he would benefit from PT in the pool to offload his weight but either Dr. Lopez or Dr. Bills would need to refer him for PT in the pool at [facility] - Physical Exam General: - - He wakes up easily. He is still somewhat confused but is oriented X 3 HEENT: Atraumatic, PERRLA, EOMI, Normocephalic Oral: Dry Mucosa Neck: Supple, No Nodes, No Nuchal Rigidity, Trachea Midline Lungs: No wheeze, No rales, Diminished, Tachypneic, - - pursed lip breathing and mild conversational dypnea on the NC Cardiovascular: Regular Rhythm, Normal S1, Normal S2, No murmurs, No Gallop, Tachycardic, - - heart sounds are distant due to body habitus Abdomen: Bowel Sounds Present, Soft, Non Tender, Obese Extremities: No clubbing, No cyanosis, No edema Skin: No rashes, No breakdown Neurological: Cranial nerves II-XII grossly intact, Neuro grossly intact Vital Signs Temp Pulse Resp BP Pulse Ox 98.4 F 117 H 19 H 151/66 H 94 11/11/17 08:00 11/11/17 10:00 11/11/17 10:00 11/11/17 10:00 11/11/17 10:00 Oxygen Flow Rate 3 Oxygen Delivery Method Nasal Cannula Weight: 323 lb 10.217 oz Body Mass Index (BMI) 50.2 Intake and Output for Last 24 Hours 11/09/17 11/10/17 11/11/17 23:59 23:59 23:59 Intake Total 1699 / 1699 747 / 747 Output Total 800 / 800 700 / 700 Balance 899 / 899 47 / 47 Microbiology Past 72 Hours 11/10/17 16:30 Gram Stain - Final Sputum, Expectorated/Coughed Respiratory Culture - Preliminary Appears to be normal respiratory karyn. Further studies to follow. 11/10/17 23:50 Streptococcus pneumoniae Antigen (M - Final Urine, Clean Catch 02/03/18 23:50 Legionella Antigen - Final Urine, Clean Catch Laboratory Tests Past 24 Hrs 11/10/17 11/10/17 11/10/17 15:10 16:00 17:22 WBC RBC Hgb Hct MCV MCH MCHC RDW RDW Differential Plt Count MPV Immature Gran % (Auto) Neut % (Auto) Lymph % (Auto) [place] % (Auto) Eos % (Auto) Baso % (Auto) Absolute Neuts (auto) Absolute Lymphs (auto) Total Counted Specimen Type ART Sample Site L Radial pH 7.28 L Bicarbonate Actual 23.6 POC Total CO2 25 Base Excess -3 L O2 Saturation 91 L O2 % 30 ABG pCO2 50.2 H ABG pO2 70 L Niranjan Test POS Respiration Rate 22 O2 Delivery Device Bi / C PAP EPAP 6 IPAP 12 Blood Gas Notified Whom [facility] Blood Gas Notified Time 1717 Sodium Potassium Chloride Carbon Dioxide Anion Gap BUN Creatinine Estim Creat Clear Calc Est GFR (MDRD) Af Amer Est GFR (MDRD) Non-Af BUN/Creatinine Ratio Glucose Lactic Acid 1.0 Calcium Phosphorus Magnesium Triglycerides Cholesterol LDL Cholesterol VLDL Cholesterol HDL Cholesterol MRSA (PCR) Negative 11/11/17 11/11/17 04:00 04:00 WBC 13.0 H RBC 3.75 L Hgb 11.1 L Hct 35.3 L MCV 94.1 H MCH 29.6 MCHC 31.4 L RDW 14.0 RDW Differential 45.8 H Plt Count 211 MPV 9.2 Immature Gran % (Auto) 1.500 H Neut % (Auto) 77.2 H Lymph % (Auto) 7.2 L [place] % (Auto) 10.6 H Eos % (Auto) 3.3 Baso % (Auto) 0.2 Absolute Neuts (auto) 10.0 H Absolute Lymphs (auto) 0.93 Total Counted Not Reportable Specimen Type Sample Site pH Bicarbonate Actual POC Total CO2 Base Excess O2 Saturation O2 % ABG pCO2 ABG pO2 Niranjan Test Respiration Rate O2 Delivery Device EPAP IPAP Blood Gas Notified Whom Blood Gas Notified Time Sodium 140 Potassium 4.4 Chloride 108 H Carbon Dioxide 26.0 Anion Gap 6 BUN 30 H Creatinine 1.24 Estim Creat Clear Calc 54.79 Est GFR (MDRD) Af Amer 75 Est GFR (MDRD) Non-Af 62 BUN/Creatinine Ratio 24.2 H Glucose 129 H Lactic Acid Calcium 7.9 L Phosphorus 2.5 Magnesium 2.0 Triglycerides 99 Cholesterol 116 LDL Cholesterol 59 VLDL Cholesterol 20 HDL Cholesterol 37 L MRSA (PCR) Assessment/Plan Active and Suspected Problems HCAP (healthcare-associated pneumonia) (Acute) Acute respiratory failure with hypoxia and hypercapnia (Acute) Acute kidney injury (Acute) Anemia (Acute) Obstructive sleep apnea (Suspected) Severe sepsis (Acute) Status post total right knee replacement (Acute) 11/05/[address] Jase Lopez at [facility] Cefepime day #2 Impressions 1. Severe sepsis due to hospital-acquired pneumonia - On Cefepime, MRSA nasal swab was negative so vancomycin was discontinued 2. Acute respiratory failure with hypoxia and hypercapnia -being maintained on BiPAP for naps and while sleeping at night 3. Respiratory acidosis 4. Sleep disordered breathing-suspect ROSIO but has never had a sleep study 5. Morbid obesity 6. Hypertension 7. Hypothyroidism - has been treated for Grave's disease in the past 8. Anemia-likely secondary to blood loss from recent left total knee replacement 11/05/17 9. Acute kidney injury - improved with fluids 10. Glucose intolerance with a hemoglobin A1c of 6.5 11. Metabolic encephalopathy secondary to acute respiratory failure and hospital-acquired pneumonia Continue cefepime BiPAP anytime he is sleeping Check a TSH Has been seen by data scientist and I recommended to him that he follow up with the [facility] program run by the dieticians after DC....will need a referral from Dr. Bills....should also get a referral from Dr. Bills for PT in the pool at [facility] and it must say for the pool on the referral, not just PT Would have Dr. Lopez check his knee this coming week Will need PFT's and psg in the future and is going to follow up with Dr. Ken within 2 weeks after DC......may need O2 at [place] Recheck BMP tomorrow I have decreased the dose of the Gabapentin due to somnolence at admission and the Flexeril and MS Contin were DC'd. Alprazolam Exar was discontinued as well but will need to monitor closely for any signs of acute benzodiazepine withdrawal. Will increase the Fentanyl to 50 mcg patch and continue the Oxy IR.....Fentanyl is the least likely to suppress the respiration. Keep NPO today because of tachypnea and pursed lip breathing and conversational dypnea - re-evaluate in the AM. BedSide swallow eval today Code Visit Inpatient E&M: 31744 Subs Hosp L3
--- NOTE | 2017-11-11 10:39 | PN_ITS ---
Patient Problems: Active and Suspected Problems HCAP (healthcare-associated pneumonia) (Acute) Acute respiratory failure with hypoxia and hypercapnia (Acute) Acute kidney injury (Acute) Anemia (Acute) Obstructive sleep apnea (Suspected) Severe sepsis (Acute) Status post total right knee replacement (Acute) 11/05/[address] Jase Lopez at [facility] Subjective: The patient is a 67 year old M with a past medical history of morbid obesity, osteoarthritis, hypertension, hypothyroidism, chronic back pain with radicular pain into his legs and chronic diazepam use who had a left TKR on 11/05/17 at [facility] done by Dr. Lopez. Post operative course was complicated by mental status changes and respiratory issues that were attributed to suspected ROSIO. He was admitted to [facility] ICU on 11/10/2017 with acute combined respiratory failure and placed on BiPAP. Chest CT showed patchy infiltrates. He is being treated for hospital-acquired pneumonia. Legionella and streptococcal antigens were negative. Sputum culture is positive for normal respiratory karyn. There were 3+ white blood cells on the Gram stain. T-max is 100?F. Blood pressures are high and not adequately controlled. Patient tolerated BiPAP through the night. He is currently on a 3 L nasal cannula and maintaining a 93-94% saturation but is having pursed lip breathing and mild conversational dyspnea. Respiratory rate is ranging from 19-25. Fluid balance since admission is +946. All lab was personally reviewed. White blood cell count today is down to 13, 000 with 77% neutrophils. Hemoglobin is 11.1 and platelets are 211,000. BMP shows a serum bicarb of 26, up from 24 yesterday. BUN is 30 and the creatinine is down to 1.24 with mild hydration. Repeat lactic acid was 1.0. Hemoglobin A1c is 6.5. Lipid panel shows triglycerides of 99, total cholesterol 116, LDL 59 and the HDL is 37. MRSA nasal swab was negative. Vancomycin was discontinued. He is complaining of 9/10 pain in his left knee and also some pain in his chest when coughing. He is currently on a fentanyl patch 25 mcg and OxyIR and has been getting 10 mg regularly. His tells me that he always weighed between 220-225 but a few years ago he fell out of a tree and his ankle foot and then has had both knees done and he is now mostly immobile and is always hungry. He is on Alprazolam and Paxil but Paxil tends to stimulate appetite. Dr. Bills has spent a good deal f time with V[place] discussing diet and she put him on Topamax in an attempt to suppress his appetite but it has not been effective. He was ordered PT at home.....he would benefit from PT in the pool to offload his weight but either Dr. Lopez or Dr. Bills would need to refer him for PT in the pool at [facility] - Physical Exam General: - - He wakes up easily. He is still somewhat confused but is oriented X 3 HEENT: Atraumatic, PERRLA, EOMI, Normocephalic Oral: Dry Mucosa Neck: Supple, No Nodes, No Nuchal Rigidity, Trachea Midline Lungs: No wheeze, No rales, Diminished, Tachypneic, - - pursed lip breathing and mild conversational dypnea on the NC Cardiovascular: Regular Rhythm, Normal S1, Normal S2, No murmurs, No Gallop, Tachycardic, - - heart sounds are distant due to body habitus Abdomen: Bowel Sounds Present, Soft, Non Tender, Obese Extremities: No clubbing, No cyanosis, No edema Skin: No rashes, No breakdown Neurological: Cranial nerves II-XII grossly intact, Neuro grossly intact Vital Signs Temp Pulse Resp BP Pulse Ox 98.4 F 117 H 19 H 151/66 H 94 11/11/17 08:00 11/11/17 10:00 11/11/17 10:00 11/11/17 10:00 11/11/17 10:00 Oxygen Flow Rate 3 Oxygen Delivery Method Nasal Cannula Weight: 323 lb 10.217 oz Body Mass Index (BMI) 50.2 Intake and Output for Last 24 Hours 11/09/17 11/10/17 11/11/17 23:59 23:59 23:59 Intake Total 1699 / 1699 747 / 747 Output Total 800 / 800 700 / 700 Balance 899 / 899 47 / 47 Microbiology Past 72 Hours 11/10/17 16:30 Gram Stain - Final Sputum, Expectorated/Coughed Respiratory Culture - Preliminary Appears to be normal respiratory karyn. Further studies to follow. 11/10/17 23:50 Streptococcus pneumoniae Antigen (M - Final Urine, Clean Catch 02/03/18 23:50 Legionella Antigen - Final Urine, Clean Catch Laboratory Tests Past 24 Hrs 11/10/17 11/10/17 11/10/17 15:10 16:00 17:22 WBC RBC Hgb Hct MCV MCH MCHC RDW RDW Differential Plt Count MPV Immature Gran % (Auto) Neut % (Auto) Lymph % (Auto) [place] % (Auto) Eos % (Auto) Baso % (Auto) Absolute Neuts (auto) Absolute Lymphs (auto) Total Counted Specimen Type ART Sample Site L Radial pH 7.28 L Bicarbonate Actual 23.6 POC Total CO2 25 Base Excess -3 L O2 Saturation 91 L O2 % 30 ABG pCO2 50.2 H ABG pO2 70 L Niranjan Test POS Respiration Rate 22 O2 Delivery Device Bi / C PAP EPAP 6 IPAP 12 Blood Gas Notified Whom [facility] Blood Gas Notified Time 1717 Sodium Potassium Chloride Carbon Dioxide Anion Gap BUN Creatinine Estim Creat Clear Calc Est GFR (MDRD) Af Amer Est GFR (MDRD) Non-Af BUN/Creatinine Ratio Glucose Lactic Acid 1.0 Calcium Phosphorus Magnesium Triglycerides Cholesterol LDL Cholesterol VLDL Cholesterol HDL Cholesterol MRSA (PCR) Negative 11/11/17 11/11/17 04:00 04:00 WBC 13.0 H RBC 3.75 L Hgb 11.1 L Hct 35.3 L MCV 94.1 H MCH 29.6 MCHC 31.4 L RDW 14.0 RDW Differential 45.8 H Plt Count 211 MPV 9.2 Immature Gran % (Auto) 1.500 H Neut % (Auto) 77.2 H Lymph % (Auto) 7.2 L [place] % (Auto) 10.6 H Eos % (Auto) 3.3 Baso % (Auto) 0.2 Absolute Neuts (auto) 10.0 H Absolute Lymphs (auto) 0.93 Total Counted Not Reportable Specimen Type Sample Site pH Bicarbonate Actual POC Total CO2 Base Excess O2 Saturation O2 % ABG pCO2 ABG pO2 Niranjan Test Respiration Rate O2 Delivery Device EPAP IPAP Blood Gas Notified Whom Blood Gas Notified Time Sodium 140 Potassium 4.4 Chloride 108 H Carbon Dioxide 26.0 Anion Gap 6 BUN 30 H Creatinine 1.24 Estim Creat Clear Calc 54.79 Est GFR (MDRD) Af Amer 75 Est GFR (MDRD) Non-Af 62 BUN/Creatinine Ratio 24.2 H Glucose 129 H Lactic Acid Calcium 7.9 L Phosphorus 2.5 Magnesium 2.0 Triglycerides 99 Cholesterol 116 LDL Cholesterol 59 VLDL Cholesterol 20 HDL Cholesterol 37 L MRSA (PCR) Assessment/Plan Active and Suspected Problems HCAP (healthcare-associated pneumonia) (Acute) Acute respiratory failure with hypoxia and hypercapnia (Acute) Acute kidney injury (Acute) Anemia (Acute) Obstructive sleep apnea (Suspected) Severe sepsis (Acute) Status post total right knee replacement (Acute) 11/05/[address] Jase Lopez at [facility] Cefepime day #2 Impressions 1. Severe sepsis due to hospital-acquired pneumonia - On Cefepime, MRSA nasal swab was negative so vancomycin was discontinued 2. Acute respiratory failure with hypoxia and hypercapnia -being maintained on BiPAP for naps and while sleeping at night 3. Respiratory acidosis 4. Sleep disordered breathing-suspect ROSIO but has never had a sleep study 5. Morbid obesity 6. Hypertension 7. Hypothyroidism - has been treated for Grave's disease in the past 8. Anemia-likely secondary to blood loss from recent left total knee replacement 11/05/17 9. Acute kidney injury - improved with fluids 10. Glucose intolerance with a hemoglobin A1c of 6.5 11. Metabolic encephalopathy secondary to acute respiratory failure and hospital-acquired pneumonia Continue cefepime BiPAP anytime he is sleeping Check a TSH Has been seen by certified cytotechnologist and I recommended to him that he follow up with the [facility] program run by the dieticians after DC....will need a referral from Dr. Bills....should also get a referral from Dr. Bills for PT in the pool at [facility] and it must say for the pool on the referral, not just PT Would have Dr. Lopez check his knee this coming week Will need PFT's and psg in the future and is going to follow up with Dr. Ken within 2 weeks after DC......may need O2 at [place] Recheck BMP tomorrow I have decreased the dose of the Gabapentin due to somnolence at admission and the Flexeril and MS Contin were DC'd. Alprazolam Exar was discontinued as well but will need to monitor closely for any signs of acute benzodiazepine withdrawal. Will increase the Fentanyl to 50 mcg patch and continue the Oxy IR.....Fentanyl is the least likely to suppress the respiration. Keep NPO today because of tachypnea and pursed lip breathing and conversational dypnea - re-evaluate in the AM. BedSide swallow eval today Code Visit Inpatient E&M: 36486 Subs Hosp L3
[2017-11-11 11:38] LABS: Thyroid Stim Hormone (TSH) 1.35 uIU/mL (0.358-3.74)
[2017-11-11 14:06] LABS: Allen Test POS; Base Excess -5 mmol/L (-2 to +2); Bicarbonate 22.8 mmol/L (22-26); Blood Gas Specimen Type ART; EPAP 6; FI02 30; IPAP 12; PO2 75 mmHG (75-100); RR 12; SITE R Radial; SO2 92 % (95-99); Time Given 1357; Total Carbon Dioxide 24 mmol/L; pCO2 53.4 mmHg (35-45); pH 7.24 (7.35-7.45)
[2017-11-11] MEDS: Ipratropium/Albuterol Sulfate 3 ML AMPUL.NEB INHALATION ×3 (14:11→23:10)
[2017-11-11] MEDS: Polyethylene Glycol 3350 17 GM PACKET PO (14:36)
[2017-11-11] MEDS: Topiramate 25 MG Tablet PO (21:23)
[2017-11-12] VITALS (32 sets, daily range): BP systolic 112–172; BP diastolic 64–107; PULSE 87–102; RESP 12–26; TEMP 36.6–37.7; O2SAT 90–98
[2017-11-12] MEDS: 0.45% Normal Saline 1,000 ML 100 ML IV (01:14)
[2017-11-12] MEDS: Ipratropium/Albuterol Sulfate 3 ML AMPUL.NEB INHALATION ×6 (02:55→22:43)
[2017-11-12 04:12] LABS: Absolute Lymphocyte Count 1.14 X10^3/ul (0.83-4.51); Absolute Neutrophil Count 8.6 X10^3/uL (2.0-7.7); Basophil# 0.03 X10^3/uL; Basophil% 0.3 % (0-1); Eosinophil# 0.37 X10^3/uL; Eosinophils% 3.2 % (0-5); Hematocrit 33.4 % (40-54); Hemoglobin 10.6 g/dl (13.0-16.5); Lymphocyte # 1.14 X10^3/ul (4.0); Lymphocyte % 9.8 % (19-41); Mean Corp Hgb Conc 31.7 g/gl (32-36); Mean Corpuscular Hgb 29.7 pg (27.0-32.0); Mean Corpuscular Volume 93.6 fL (80-94); Mean Platelet Vol. 8.8 fl (6.2-12.0); Monocyte# 1.24 X10^3/uL; Monocyte% 10.7 % (0-10); Neutrophil # 8.58 X10^3/uL (2.7-7.7); POSITIVE COUNT YES; POSITIVE DIFFERENTIAL NO; POSITIVE MORPHOLOGY YES; Platelet Count 214 K/mm3 (150-450); RBC Distribution Width SD 45.5 fl (35.1-43.9); Red Blood Count 3.57 M/mm3 (4.6-6.2); White Blood Count 11.6 K/mm3 (4.4-11.0)
[2017-11-12 04:18] LABS: Anion Gap 9 (5-15); BUN 25 mg/dL (7-18); BUN/Creat Ratio 25.1 RATIO (10-20); Chloride 106 mmol/L (98-107); EST Glomerular Filtration Rate 80 mL/min (>60); Est Glom Filt Rate - Afr Amer 96 mL/min (>60); Estimated Creatinine Clearance 67.94 ml/min; Glucose 100 mg/dL (74-106); Magnesium 2.1 mg/dL (1.6-2.6); Potassium 4.4 mmol/L (3.5-5.1); Sodium Level 141 mmol/L (136-145)
[2017-11-12 04:27] LABS: Phosphorus 2.6 mg/dL (2.5-4.9)
[2017-11-12] MEDS: Enoxaparin 40 MG/0.4 ML Syringe SC (06:14)
[2017-11-12] MEDS: Levothyroxine 150 MCG Tablet PO (06:16)
[2017-11-12] MEDS: CHLORHEXIDINE GLUC 2% CLOTH 1 EACH TOWELETTE TOPICAL (06:16)
[2017-11-12] MEDS: 0.9% NaCl Peripheral Flush Adult/Peds IV (07:26)
[2017-11-12] MEDS: Gabapentin 100 MG Capsule 200 MG PO ×3 (07:27→17:02)
--- NOTE | 2017-11-12 10:13 | PCM.PROGNOTE ---
Patient Problems: Active and Suspected Problems HCAP (healthcare-associated pneumonia) (Acute) Acute respiratory failure with hypoxia and hypercapnia (Acute) Acute kidney injury (Acute) Anemia (Acute) Obstructive sleep apnea (Suspected) Severe sepsis (Acute) Status post total right knee replacement (Acute) 11/05/[address] Jase Lopez at [facility] Subjective: Chief complaint: Follow-up after admission for hospital-acquired pneumonia with severe sepsis, acute hypoxic and hypercapnic respiratory failure, acute kidney injury and anemia. Patient seen and examined. No acute events overnight. His was at the bedside. He reported improvement of his breathing, remained on 3 L of oxygen. He complained of mild cough with minimal sputum. Denied chest pain or palpitation. Denied abdominal pain, nausea vomiting. Maximum temperature overnight was 99.5, blood pressure slightly elevated, pulse ox is 97% on 3 L. - Physical Exam General: Alert, Oriented x3, Cooperative, - - Mildly short of breath. HEENT: Atraumatic, PERRLA, EOMI Oral: Moist Mucosa, No Gingival or Mucosal Lesions/ Ulcerations Neck: Supple, No JVD, Negative Carotid Bruits, Trachea Midline, Thyroid Normal Size and Texture Lungs: No wheeze, No rales, Diminished, Rhonchi, - - Decreased breath sounds bilateral, scattered rhonchi. Cardiovascular: Regular rate, Regular Rhythm, Normal S1, Normal S2, PMI Normal Abdomen: Bowel Sounds Present, Soft, Non Tender, Non-Distended, No Hepato-splenomegaly Extremities: No clubbing, No cyanosis, Edema - Nonpitting edema. Skin: No rashes, No breakdown Lymphatic: No Cervical, Supraclavicular, or Inguinal Adenopathy Neurological: Cranial nerves II-XII grossly intact, Neuro grossly intact Psych/Mental Status: Normal Affect, Appropriate Vital Signs Temp Pulse Resp BP Pulse Ox 99.5 F H 94 21 H 159/85 H 97 11/12/17 09:00 11/12/17 09:00 11/12/17 09:00 11/12/17 09:00 11/12/17 09:00 Oxygen Flow Rate 3 Oxygen Delivery Method Nasal Cannula Weight: 320 lb 1.779 oz Body Mass Index (BMI) 50.2 Intake and Output for Last 24 Hours 11/10/17 11/11/17 11/12/17 23:59 23:59 23:59 Intake Total 1699 / 1699 2307 / 2307 1317 / 1317 Output Total 800 / 800 1375 / 1375 700 / 700 Balance 899 / 899 932 / 932 617 / 617 Microbiology Past 72 Hours 11/11/17 07:39 Respiratory Panel (PCR) - Final Mucosa - Nose 11/10/17 16:30 Gram Stain - Final Sputum, Expectorated/Coughed Respiratory Culture - Preliminary Appears to be normal respiratory karyn. Further studies to follow. 11/10/17 23:50 Streptococcus pneumoniae Antigen (M - Final Urine, Clean Catch 11/10/17 23:50 Legionella Antigen - Final Urine, Clean Catch Laboratory Tests Past 24 Hrs 11/11/17 11/11/17 11/12/17 04:00 13:58 03:53 WBC RBC Hgb Hct MCV MCH MCHC RDW RDW Differential Plt Count MPV Immature Gran % (Auto) Neut % (Auto) Lymph % (Auto) [place] % (Auto) Eos % (Auto) Baso % (Auto) Absolute Neuts (auto) Absolute Lymphs (auto) Total Counted Diff Path Review Specimen Type ART Sample Site R Radial pH 7.24 L Bicarbonate Actual 22.8 POC Total CO2 24 Base Excess -5 L O2 Saturation 92 L O2 % 30 ABG pCO2 53.4 H ABG pO2 75 Niranjan Test POS Respiration Rate 12 O2 Delivery Device Bi / C PAP EPAP 6 IPAP 12 Blood Gas Notified Whom ICU Blood Gas Notified Time 1357 Sodium 141 Potassium 4.4 Chloride 106 Carbon Dioxide 26.0 Anion Gap 9 BUN 25 H Creatinine 1.00 Estim Creat Clear Calc 67.94 Est GFR (MDRD) Af Amer 96 Est GFR (MDRD) Non-Af 80 BUN/Creatinine Ratio 25.1 H Glucose 100 Calcium 8.0 L Phosphorus Magnesium 2.1 TSH 1.35 11/12/17 11/12/17 03:53 03:53 WBC 11.6 H RBC 3.57 L Hgb 10.6 L Hct 33.4 L MCV 93.6 MCH 29.7 MCHC 31.7 L RDW 14.0 RDW Differential 45.5 H Plt Count 214 MPV 8.8 Immature Gran % (Auto) 2.000 H Neut % (Auto) 74.0 H Lymph % (Auto) 9.8 L [place] % (Auto) 10.7 H Eos % (Auto) 3.2 Baso % (Auto) 0.3 Absolute Neuts (auto) 8.6 H Absolute Lymphs (auto) 1.14 Total Counted Not Reportable Diff Path Review May foll Specimen Type Sample Site pH Bicarbonate Actual POC Total CO2 Base Excess O2 Saturation O2 % ABG pCO2 ABG pO2 Niranjan Test Respiration Rate O2 Delivery Device EPAP IPAP Blood Gas Notified Whom Blood Gas Notified Time Sodium Potassium Chloride Carbon Dioxide Anion Gap BUN Creatinine Estim Creat Clear Calc Est GFR (MDRD) Af Amer Est GFR (MDRD) Non-Af BUN/Creatinine Ratio Glucose Calcium Phosphorus 2.6 Magnesium TSH Assessment/Plan Active and Suspected Problems HCAP (healthcare-associated pneumonia) (Acute) Acute respiratory failure with hypoxia and hypercapnia (Acute) Acute kidney injury (Acute) Anemia (Acute) Obstructive sleep apnea (Suspected) Severe sepsis (Acute) Status post total right knee replacement (Acute) 11/05/[address] Jase Lopez at [facility] This is a 67 years old male patient admitted because of shortness of breath, productive cough and confusion, found to have severe sepsis due to healthcare associated pneumonia, acute hypoxic hypercapnic respiratory failure, acute kidney injury and anemia. #1 healthcare associated pneumonia versus aspiration/severe sepsis: Patient was on IV antibiotics empirically for 48 hours. Today, antibiotics discontinued, patient remained afebrile. White blood cell count is trending down. Pneumococcal and Legionella antigen were negative. Nasal swab for influenza a and B were negative. Respiratory panel for viruses were negative. Blood cultures pending. Sputum cultures pending. Plan: Transfer to PCU, continue current treatment. #2 acute hypoxic and hypercapnic respiratory failure/respiratory acidosis: Secondary to above in addition to suspected obstructive sleep apnea and morbid obesity. Patient has been tolerating BiPAP. This morning, his pulse ox is 94% on 3 L. ABG from yesterday reviewed, showed pH of 7.34, PCO2 of 53 and PCO2 of 75. #3 acute kidney injury: Secondary to acute illness and infection. Creatinine improved, came down to 1 mg/dL today. Admission creatinine was 2.14. #4 acute metabolic encephalopathy: Secondary to acute illness and infection. Today, he is alert and oriented ?3. His mentioned that his mentation also improving, less confused. #5 anemia: This is fairly acute which is likely because of blood loss during recent surgery that he had. Today's hemoglobin is 10.6 g/dL, Stable, no indication for transfusion. #6 hypertension: Blood pressure stable, continue current medications. #7 hypothyroidism: Continue levothyroxine. TSH was normal. #8 suspected obstructive sleep apnea: Recommend sleep study as outpatient. #9 DVT prophylaxis: Subcu Lovenox. This note was generated with [employer] dictation software. It may contain incorrect words, spelling, and punctuation that were not noted in checking the note before signing. Code Visit Inpatient E&M: 31039 Subs Hosp L2
--- NOTE | 2017-11-12 10:21 | PN_ITS ---
Subjective: Patient did okay overnight. Patient was able to tolerate BiPAP therapy without complication. Patient did need to be redirected a couple times overnight. Patient with no complaints this morning, but is CAM positive. Patient continues to have fentanyl patch. Patient did have to have a Lake placed secondary to urinary retention. Patient's was updated at the bedside during family rounds. Objective: CT scan of the chest was personally reviewed and does show bilateral infiltrates. General: Alert, Cooperative, No apparent distress, Disoriented, - - Morbidly obese. HEENT: Atraumatic, PERRLA, EOMI, Normocephalic, - - Right scleral injection without icterus Oral: Moist Mucosa, No Gingival or Mucosal Lesions/ Ulcerations, - - Mallampati 4 Neck: Supple, No Nodes, Trachea Midline, - - Redundant tissue noted of the neck Lungs: No rhonchi, No wheeze, No rales, Diminished, - - Symmetric expansion. No dullness to percussion. Cardiovascular: Regular rate, Regular Rhythm, Normal S1, Normal S2, No murmurs, No rub noted, No Gallop Abdomen: Bowel Sounds Present, Soft, Non Tender, Non-Distended, Obese Extremities: No clubbing, No cyanosis, Edema - 2+ Skin: No rashes, No breakdown, Incision - Left knee is clean, dry and intact. Musculoskeletal: No Muscle Wasting Lymphatic: No Cervical, Supraclavicular, or Inguinal Adenopathy Neurological: Cranial nerves II-XII grossly intact, Neuro grossly intact, Motor Exam 5/5 strength throughout Psych/Mental Status: Flat Affect Vital Signs Temp Pulse Resp BP Pulse Ox 37.5 C H 94 21 H 159/85 H 97 11/12/17 09:00 11/12/17 09:00 11/12/17 09:00 11/12/17 09:00 11/12/17 09:00 Oxygen Flow Rate 3 Oxygen Delivery Method Nasal Cannula Weight: 145.2 kg Body Mass Index (BMI) 50.2 Intake and Output for Last 24 Hours 11/10/17 11/11/17 11/12/17 23:59 23:59 23:59 Intake Total 1699 / 1699 2307 / 2307 1317 / 1317 Output Total 800 / 800 1375 / 1375 700 / 700 Balance 899 / 899 932 / 932 617 / 617 Labs (Last 48 Hours) 11/10/17 11/10/17 11/10/17 15:10 16:00 17:22 WBC RBC Hgb Hct MCV MCH MCHC RDW RDW Differential Plt Count MPV Immature Gran % (Auto) Neut % (Auto) Lymph % (Auto) Hartley % (Auto) Eos % (Auto) Baso % (Auto) Absolute Neuts (auto) Absolute Lymphs (auto) Total Counted Diff Path Review Specimen Type ART Sample Site L Radial pH 7.28 L Bicarbonate Actual 23.6 POC Total CO2 25 Base Excess -3 L O2 Saturation 91 L O2 % 30 ABG pCO2 50.2 H ABG pO2 70 L Niranjan Test POS Respiration Rate 22 O2 Delivery Device Bi / C PAP EPAP 6 IPAP 12 Blood Gas Notified Whom [facility] Blood Gas Notified Time 1717 Sodium Potassium Chloride Carbon Dioxide Anion Gap BUN Creatinine Estim Creat Clear Calc Est GFR (MDRD) Af Amer Est GFR (MDRD) Non-Af BUN/Creatinine Ratio Glucose Lactic Acid 1.0 Calcium Phosphorus Magnesium Triglycerides Cholesterol LDL Cholesterol VLDL Cholesterol HDL Cholesterol TSH MRSA (PCR) Negative 11/11/17 11/11/17 11/11/17 04:00 04:00 04:00 WBC 13.0 H RBC 3.75 L Hgb 11.1 L Hct 35.3 L MCV 94.1 H MCH 29.6 MCHC 31.4 L RDW 14.0 RDW Differential 45.8 H Plt Count 211 MPV 9.2 Immature Gran % (Auto) 1.500 H Neut % (Auto) 77.2 H Lymph % (Auto) 7.2 L Hartley % (Auto) 10.6 H Eos % (Auto) 3.3 Baso % (Auto) 0.2 Absolute Neuts (auto) 10.0 H Absolute Lymphs (auto) 0.93 Total Counted Not Reportable Diff Path Review Specimen Type Sample Site pH Bicarbonate Actual POC Total CO2 Base Excess O2 Saturation O2 % ABG pCO2 ABG pO2 Niranjan Test Respiration Rate O2 Delivery Device EPAP IPAP Blood Gas Notified Whom Blood Gas Notified Time Sodium 140 Potassium 4.4 Chloride 108 H Carbon Dioxide 26.0 Anion Gap 6 BUN 30 H Creatinine 1.24 Estim Creat Clear Calc 54.79 Est GFR (MDRD) Af Amer 75 Est GFR (MDRD) Non-Af 62 BUN/Creatinine Ratio 24.2 H Glucose 129 H Lactic Acid Calcium 7.9 L Phosphorus 2.5 Magnesium 2.0 Triglycerides 99 Cholesterol 116 LDL Cholesterol 59 VLDL Cholesterol 20 HDL Cholesterol 37 L TSH 1.35 MRSA (PCR) 11/11/17 11/12/17 11/12/17 13:58 03:53 03:53 WBC 11.6 H RBC 3.57 L Hgb 10.6 L Hct 33.4 L MCV 93.6 MCH 29.7 MCHC 31.7 L RDW 14.0 RDW Differential 45.5 H Plt Count 214 MPV 8.8 Immature Gran % (Auto) 2.000 H Neut % (Auto) 74.0 H Lymph % (Auto) 9.8 L Hartley % (Auto) 10.7 H Eos % (Auto) 3.2 Baso % (Auto) 0.3 Absolute Neuts (auto) 8.6 H Absolute Lymphs (auto) 1.14 Total Counted Not Reportable Diff Path Review May foll Specimen Type ART Sample Site R Radial pH 7.24 L Bicarbonate Actual 22.8 POC Total CO2 24 Base Excess -5 L O2 Saturation 92 L O2 % 30 ABG pCO2 53.4 H ABG pO2 75 Niranjan Test POS Respiration Rate 12 O2 Delivery Device Bi / C PAP EPAP 6 IPAP 12 Blood Gas Notified Whom ICU MD Blood Gas Notified Time 1357 Sodium 141 Potassium 4.4 Chloride 106 Carbon Dioxide 26.0 Anion Gap 9 BUN 25 H Creatinine 1.00 Estim Creat Clear Calc 67.94 Est GFR (MDRD) Af Amer 96 Est GFR (MDRD) Non-Af 80 BUN/Creatinine Ratio 25.1 H Glucose 100 Lactic Acid Calcium 8.0 L Phosphorus Magnesium 2.1 Triglycerides Cholesterol LDL Cholesterol VLDL Cholesterol HDL Cholesterol TSH MRSA (PCR) 11/12/17 03:53 WBC RBC Hgb Hct MCV MCH MCHC RDW RDW Differential Plt Count MPV Immature Gran % (Auto) Neut % (Auto) Lymph % (Auto) Hartley % (Auto) Eos % (Auto) Baso % (Auto) Absolute Neuts (auto) Absolute Lymphs (auto) Total Counted Diff Path Review Specimen Type Sample Site pH Bicarbonate Actual POC Total CO2 Base Excess O2 Saturation O2 % ABG pCO2 ABG pO2 Niranjan Test Respiration Rate O2 Delivery Device EPAP IPAP Blood Gas Notified Whom Blood Gas Notified Time Sodium Potassium Chloride Carbon Dioxide Anion Gap BUN Creatinine Estim Creat Clear Calc Est GFR (MDRD) Af Amer Est GFR (MDRD) Non-Af BUN/Creatinine Ratio Glucose Lactic Acid Calcium Phosphorus 2.6 Magnesium Triglycerides Cholesterol LDL Cholesterol VLDL Cholesterol HDL Cholesterol TSH MRSA (PCR) Microbiology 11/11/17 07:39 Mucosa - Nose Respiratory Panel (PCR) - Final 11/10/17 16:30 Sputum, Expectorated/Coughed Gram Stain - Final 11/10/17 16:30 Sputum, Expectorated/Coughed Respiratory Culture - Preliminary Appears to be normal respiratory karyn. Further studies to follow. 11/10/17 23:50 Urine, Clean Catch Streptococcus pneumoniae Antigen (M - Final 11/10/17 23:50 Urine, Clean Catch Legionella Antigen - Final Assessment/Plan Active and Suspected Problems HCAP (healthcare-associated pneumonia) (Acute) Acute respiratory failure with hypoxia and hypercapnia (Acute) Acute kidney injury (Acute) Anemia (Acute) Obstructive sleep apnea (Suspected) Severe sepsis (Acute) Status post total right knee replacement (Acute) 11/05/[address] Jase Lopez at [facility] RECOMMENDATIONS: 1. Continue BiPAP with naps and nightly. Breaks as tolerated through the day. 2. Continue with fentanyl only, monitor for withdrawal. 3. Continue antibiotics, pending finalized infectious workup 4. Continue Pepcid and continue Lovenox for prophylaxis 5. Encourage incentive spirometer use and mobilize patient as tolerated IMPRESSIONS: 1. Acute hypoxemic and hypercarbic respiratory failure Concern for underlying aspiration/healthcare associated pneumonia along with respiratory depression induced by polypharmacy. Sedating medications have been scaled back accordingly. The patient appears to be responding to BiPAP therapy. Continue to monitor blood gas accordingly. Patient should continue with BiPAP utilization during naps and with sleep. Patient is improved compared to yesterday.. 2. Sepsis secondary to aspiration/HCAP Patient treated empirically for 48 hours. Patient currently off of antibiotics. We will continue to monitor clinically. Patient with no fevers noted overnight. 3. Hypercarbic encephalopathy Patient not seen initially, but is currently responding at this time. Patient is slow to respond, but shows no signs of respiratory distress. As necessary for decreased mentation. 4. Suspected sleep disordered breathing Strongly recommend outpatient pulmonary follow-up and dedicated polysomnogram upon discharge. 5. Acute kidney injury RESOLVED> unclear if prerenal in etiology versus possible postobstructive. Patient did have a Lake placed secondary to urinary retention. Patient to be placed on Flomax therapy. Possibly discontinue Lake tomorrow. Electrolyte repletion as indicated. 6. Morbid obesity/hypertension/hypothyroidism Complicates care, management, recovery and prognosis. Continue home medications as indicated. Physical therapy to evaluate patient. This note was generated with [employer] dictation software. It may contain incorrect words, spelling, and punctuation that were not noted in checking the note before signing. Code Visit Inpatient E&M: 32757 Subs Hosp L3
--- NOTE | 2017-11-12 10:21 | CASEMGMT ---
See NIK STERN Assessment. DC Plan: return home with [facility] for physical therapy. - Will need evaluation for Home oxygen prior to dc. -Resume [facility] for PT (RN can be added if appropriate). NIK STERN called to update re: pt admission. - is able to assist pt with care, driving, getting prescriptions. Jo-Ann LAWRENCE RN ACM
[2017-11-12] MEDS: guaiFENesin 1,200 MG Tablet 1200 MG PO ×2 (10:36→21:54)
[2017-11-12] MEDS: Polyethylene Glycol 3350 17 GM PACKET PO (10:36)
[2017-11-12] MEDS: Verapamil SR 240 MG Tablet PO (10:36)
[2017-11-12] MEDS: Lisinopril 10 MG Tablet PO (10:37)
[2017-11-12] MEDS: oxyCODONE 5 MG Tablet PO (12:38)
[2017-11-12 15:14] LABS: Pathologist Review Reviewed
[2017-11-12] MEDS: Tamsulosin HCl 0.4 MG Capsule PO (17:02)
[2017-11-12] MEDS: Topiramate 25 MG Tablet PO (21:54)
[2017-11-13] VITALS (11 sets, daily range): BP systolic 150–162; BP diastolic 78–81; PULSE 91–99; RESP 12–18; TEMP 36.9–37; O2SAT 84–95
[2017-11-13] MEDS: Ipratropium/Albuterol Sulfate 3 ML AMPUL.NEB INHALATION ×3 (02:57→11:23)
[2017-11-13] MEDS: Levothyroxine 150 MCG Tablet PO (05:21)
[2017-11-13] MEDS: Enoxaparin 40 MG/0.4 ML Syringe SC (05:21)
[2017-11-13 05:54] LABS: Hematocrit 34.1 % (40-54); Hemoglobin 10.8 g/dl (13.0-16.5); Mean Corp Hgb Conc 31.7 g/gl (32-36); Mean Corpuscular Hgb 29.2 pg (27.0-32.0); Mean Corpuscular Volume 92.2 fL (80-94); Mean Platelet Vol. 8.8 fl (6.2-12.0); Platelet Count 258 K/mm3 (150-450); RBC Distribution Width CV 14.2 % (11.6-14.6); RBC Distribution Width SD 46.1 fl (35.1-43.9); White Blood Count 10.8 K/mm3 (4.4-11.0)
[2017-11-13 05:55] LABS: Differential Indicated MANUAL DIFF; POSITIVE COUNT YES; POSITIVE DIFFERENTIAL NO; POSITIVE MORPHOLOGY YES
[2017-11-13] MEDS: oxyCODONE 5 MG Tablet PO (06:15)
[2017-11-13 06:18] LABS: Eosinophil 3 % (0-5); Lymphocyte 4 % (19-41); Metamyelocyte 3 % (0-1); Monocyte 6 % (0-10); Neutrophil-Band 2 % (0-5); Neutrophil-Segmented 82 % (47-70); Platelet Estimate ADEQUATE (ADEQ); Red Cell Morphology NORM C+C NORMAL (NORM C&C); Total Cells Counted 100 (MANUAL DIFF)
[2017-11-13 06:19] LABS: Absolute Lymphocyte Count 0.43 X10^3/ul (0.83-4.51); Absolute Neutrophil Count 9.1 X10^3/uL (2.0-7.7); Lymphocyte # 0.43 X10^3/ul (4.0); Neutrophil # 9.07 X10^3/uL (2.7-7.7)
[2017-11-13] MEDS: levoFLOXacin 750 MG Tablet PO (06:58)
--- NOTE | 2017-11-13 07:51 | PCM.PROGNOTE ---
Patient Problems: Active and Suspected Problems HCAP (healthcare-associated pneumonia) (Acute) Acute respiratory failure with hypoxia and hypercapnia (Acute) Acute kidney injury (Acute) Anemia (Acute) Obstructive sleep apnea (Suspected) Severe sepsis (Acute) Status post total right knee replacement (Acute) 11/05/[address] Jase Lopez at [facility] Subjective: Chief complaint: Follow-up after admission for healthcare associated pneumonia with severe sepsis, acute hypoxic hypercarbic respiratory failure, acute kidney injury and anemia. Patient seen and examined. No acute events overnight. Shortness of breath is stable and improving, has been tolerating BiPAP overnight. His vital signs are stable, pulse ox is 94% on 2 L. - Physical Exam General: Alert, Oriented x3, Cooperative, - - Minimal shortness of breath. HEENT: Atraumatic, PERRLA, EOMI Oral: Moist Mucosa, No Gingival or Mucosal Lesions/ Ulcerations Neck: Supple, No JVD, Negative Carotid Bruits, Thyroid Normal Size and Texture Lungs: Clear to auscultation, No wheeze, No rales, Diminished Cardiovascular: Regular rate, Regular Rhythm, Normal S1, Normal S2, PMI Normal Abdomen: Bowel Sounds Present, Soft, Non Tender, Non-Distended, No Hepato-splenomegaly, Obese Extremities: No clubbing, No cyanosis, Edema - Trace edema, stasis dermatitis. Skin: No rashes, No breakdown Neurological: Cranial nerves II-XII grossly intact, Motor Exam 5/5 strength throughout Psych/Mental Status: Normal Affect, Appropriate Vital Signs Temp Pulse Resp BP Pulse Ox 98.6 F 94 18 162/81 H 94 11/13/17 06:00 11/13/17 07:06 11/13/17 06:00 11/13/17 06:00 11/13/17 06:00 Oxygen Flow Rate 2 Oxygen Delivery Method Nasal Cannula Weight: 328 lb 6.4 oz Body Mass Index (BMI) 50.2 Intake and Output for Last 24 Hours 11/11/17 11/12/17 11/13/17 23:59 23:59 23:59 Intake Total 2307 / 2307 1884 / 1884 600 / 600 Output Total 1375 / 1375 1999 / 1999 450 / 450 Balance 932 / 932 -116 / -116 150 / 150 Microbiology Past 72 Hours 11/10/17 16:30 Gram Stain - Final Sputum, Expectorated/Coughed Respiratory Culture - Final Moraxella(Donte.)Catarrhalis 11/11/17 07:39 Respiratory Panel (PCR) - Final Mucosa - Nose 11/10/17 23:50 Streptococcus pneumoniae Antigen (M - Final Urine, Clean Catch 11/10/17 23:50 Legionella Antigen - Final Urine, Clean Catch Laboratory Tests Past 24 Hrs 11/12/17 11/13/17 03:53 05:15 WBC 10.8 RBC 3.70 L Hgb 10.8 L Hct 34.1 L MCV 92.2 MCH 29.2 MCHC 31.7 L RDW 14.2 RDW Differential 46.1 H Plt Count 258 MPV 8.8 Neut % (Auto) Not Reportable Absolute Neuts (auto) 9.1 H Absolute Lymphs (auto) 0.43 L Total Counted 100 Neutrophils % (Manual) 82 H Band Neutrophils % 2 Lymphocytes % (Manual) 4 L Monocytes % (Manual) 6 Eosinophils % (Manual) 3 Metamyelocytes % 3 H Diff Path Review Reviewed May foll Platelet Estimate ADEQUATE RBC Morphology NORM C+C Assessment/Plan Active and Suspected Problems HCAP (healthcare-associated pneumonia) (Acute) Acute respiratory failure with hypoxia and hypercapnia (Acute) Acute kidney injury (Acute) Anemia (Acute) Obstructive sleep apnea (Suspected) Severe sepsis (Acute) Status post total right knee replacement (Acute) 11/05/[address] Jase Lopez at [facility] This is a 67 years old male patient admitted because of shortness of breath, productive cough and confusion, found to have severe sepsis due to healthcare associated pneumonia, acute hypoxic hypercapnic respiratory failure, acute kidney injury and anemia. #1 healthcare associated pneumonia versus aspiration/severe sepsis: At this time, he is on oral Levaquin. He remained afebrile overnight, other vital signs are stable, pulse ox is 94% on 2 L. White blood cell count is back to normal. Pneumococcal and Legionella antigen were negative. Nasal swab for influenza a and B were negative. Respiratory panel for viruses were negative. Blood cultures with no growth in 48 hours.. Sputum cultures showed Moraxella catarrhalis, sensitivity reviewed. Plan: Continue same treatment, possible DC home versus placement to detention facility later today or tomorrow. #2 acute hypoxic and hypercapnic respiratory failure/respiratory acidosis: Secondary to above in addition to suspected obstructive sleep apnea and morbid obesity. Patient has been tolerating BiPAP. This morning, his pulse ox is 94% on 2 L. Oxygen requirement has been decreasing, improving. #3 acute kidney injury: Secondary to acute illness and infection. Creatinine improved, came down to 1 mg/dL yesterday. Admission creatinine was 2.14. #4 acute metabolic encephalopathy: Secondary to acute illness and infection. Today, he is alert and oriented ?3. His mentioned that his mentation also improving, less confused. #5 anemia: This is fairly acute which is likely because of blood loss during recent surgery that he had. Today's hemoglobin is 10.8 g/dL, Stable, no indication for transfusion. #6 hypertension: Blood pressure stable, continue current medications. #7 hypothyroidism: Continue levothyroxine. TSH was normal. #8 suspected obstructive sleep apnea: Recommend sleep study as outpatient. #9 DVT prophylaxis: Subcu Lovenox. This note was generated with [employer] dictation software. It may contain incorrect words, spelling, and punctuation that were not noted in checking the note before signing.
--- NOTE | 2017-11-13 07:56 | PN_ITS ---
Patient Problems: Active and Suspected Problems HCAP (healthcare-associated pneumonia) (Acute) Acute respiratory failure with hypoxia and hypercapnia (Acute) Acute kidney injury (Acute) Anemia (Acute) Obstructive sleep apnea (Suspected) Severe sepsis (Acute) Status post total right knee replacement (Acute) 11/05/[address] Jase Lopez at [facility] Subjective: Chief complaint: Follow-up after admission for healthcare associated pneumonia with severe sepsis, acute hypoxic hypercarbic respiratory failure, acute kidney injury and anemia. Patient seen and examined. No acute events overnight. Shortness of breath is stable and improving, has been tolerating BiPAP overnight. His vital signs are stable, pulse ox is 94% on 2 L. - Physical Exam General: Alert, Oriented x3, Cooperative, - - Minimal shortness of breath. HEENT: Atraumatic, PERRLA, EOMI Oral: Moist Mucosa, No Gingival or Mucosal Lesions/ Ulcerations Neck: Supple, No JVD, Negative Carotid Bruits, Thyroid Normal Size and Texture Lungs: Clear to auscultation, No wheeze, No rales, Diminished Cardiovascular: Regular rate, Regular Rhythm, Normal S1, Normal S2, PMI Normal Abdomen: Bowel Sounds Present, Soft, Non Tender, Non-Distended, No Hepato- splenomegaly, Obese Extremities: No clubbing, No cyanosis, Edema - Trace edema, stasis dermatitis. Skin: No rashes, No breakdown Neurological: Cranial nerves II-XII grossly intact, Motor Exam 5/5 strength throughout Psych/Mental Status: Normal Affect, Appropriate Vital Signs Temp Pulse Resp BP Pulse Ox 98.6 F 94 18 162/81 H 94 11/13/17 06:00 11/13/17 07:06 11/13/17 06:00 11/13/17 06:00 11/13/17 06:00 Oxygen Flow Rate 2 Oxygen Delivery Method Nasal Cannula Weight: 328 lb 6.4 oz Body Mass Index (BMI) 50.2 Intake and Output for Last 24 Hours 11/11/17 11/12/17 11/13/17 23:59 23:59 23:59 Intake Total 2307 / 2307 1884 / 1884 600 / 600 Output Total 1375 / 1375 1999 / 1999 450 / 450 Balance 932 / 932 -116 / -116 150 / 150 Microbiology Past 72 Hours 11/10/17 16:30 Gram Stain - Final Sputum, Expectorated/Coughed Respiratory Culture - Final Moraxella(Donte.)Catarrhalis 11/11/17 07:39 Respiratory Panel (PCR) - Final Mucosa - Nose 11/10/17 23:50 Streptococcus pneumoniae Antigen (M - Final Urine, Clean Catch 11/10/17 23:50 Legionella Antigen - Final Urine, Clean Catch Laboratory Tests Past 24 Hrs 11/12/17 11/13/17 03:53 05:15 WBC 10.8 RBC 3.70 L Hgb 10.8 L Hct 34.1 L MCV 92.2 MCH 29.2 MCHC 31.7 L RDW 14.2 RDW Differential 46.1 H Plt Count 258 MPV 8.8 Neut % (Auto) Not Reportable Absolute Neuts (auto) 9.1 H Absolute Lymphs (auto) 0.43 L Total Counted 100 Neutrophils % (Manual) 82 H Band Neutrophils % 2 Lymphocytes % (Manual) 4 L Monocytes % (Manual) 6 Eosinophils % (Manual) 3 Metamyelocytes % 3 H Diff Path Review Reviewed May foll Platelet Estimate ADEQUATE RBC Morphology NORM C+C Assessment/Plan Active and Suspected Problems HCAP (healthcare-associated pneumonia) (Acute) Acute respiratory failure with hypoxia and hypercapnia (Acute) Acute kidney injury (Acute) Anemia (Acute) Obstructive sleep apnea (Suspected) Severe sepsis (Acute) Status post total right knee replacement (Acute) 11/05/[address] Jase Lopez at [facility] This is a 67 years old male patient admitted because of shortness of breath, productive cough and confusion, found to have severe sepsis due to healthcare associated pneumonia, acute hypoxic hypercapnic respiratory failure, acute kidney injury and anemia. #1 healthcare associated pneumonia versus aspiration/severe sepsis: At this time , he is on oral Levaquin. He remained afebrile overnight, other vital signs are stable, pulse ox is 94% on 2 L. White blood cell count is back to normal. Pneumococcal and Legionella antigen were negative. Nasal swab for influenza a and B were negative. Respiratory panel for viruses were negative. Blood cultures with no growth in 48 hours.. Sputum cultures showed Moraxella catarrhalis, sensitivity reviewed. Plan: Continue same treatment, possible DC home versus placement to longterm facility later today or tomorrow. #2 acute hypoxic and hypercapnic respiratory failure/respiratory acidosis: Secondary to above in addition to suspected obstructive sleep apnea and morbid obesity. Patient has been tolerating BiPAP. This morning, his pulse ox is 94% on 2 L. Oxygen requirement has been decreasing, improving. #3 acute kidney injury: Secondary to acute illness and infection. Creatinine improved, came down to 1 mg/dL yesterday. Admission creatinine was 2.14. #4 acute metabolic encephalopathy: Secondary to acute illness and infection. Today, he is alert and oriented ?3. His mentioned that his mentation also improving, less confused. #5 anemia: This is fairly acute which is likely because of blood loss during recent surgery that he had. Today's hemoglobin is 10.8 g/dL, Stable, no indication for transfusion. #6 hypertension: Blood pressure stable, continue current medications. #7 hypothyroidism: Continue levothyroxine. TSH was normal. #8 suspected obstructive sleep apnea: Recommend sleep study as outpatient. #9 DVT prophylaxis: Subcu Lovenox. This note was generated with [employer] dictation software. It may contain incorrect words, spelling, and punctuation that were not noted in checking the note before signing.
[2017-11-13] MEDS: Gabapentin 100 MG Capsule 200 MG PO ×2 (09:13→12:09)
[2017-11-13] MEDS: Verapamil SR 240 MG Tablet PO (09:13)
[2017-11-13] MEDS: Lisinopril 10 MG Tablet PO (09:14)
[2017-11-13] MEDS: guaiFENesin 1,200 MG Tablet 1200 MG PO (09:14)
[2017-11-13] MEDS: Polyethylene Glycol 3350 17 GM PACKET PO (09:14)
--- NOTE | 2017-11-13 09:39 | PCM.PN.INT ---
Subjective: Patient transferred out of the intensive care unit yesterday. No acute issues were reported overnight. Patient feels subjectively improved compared to previous. Patient continues to have a periodic cough and appears more interactive today compared to yesterday. No pain is reported. Objective: Patient sputum cultures come back with Moraxella catarrhalis. General: Alert, Cooperative, No apparent distress, - - Morbidly obese. Speaking in full sentences. HEENT: Atraumatic, PERRLA, EOMI, Normocephalic, - - Pleural icterus or injection noted. No breakdown of the mask interface noted. Oral: Moist Mucosa, No Gingival or Mucosal Lesions/ Ulcerations Neck: Supple, No JVD, No Nodes, Trachea Midline Lungs: No rhonchi, No rales, Diminished, Wheezes - At end exhalation, - - Symmetric expansion. No dullness to percussion. Cardiovascular: Regular rate, Regular Rhythm, Normal S1, Normal S2, No murmurs, No rub noted, No Gallop Abdomen: Bowel Sounds Present, Soft, Non Tender, Non-Distended, Obese Extremities: No clubbing, No cyanosis, Capillary Refill Less than 3 Seconds, Edema Skin: No rashes, No breakdown, Incision - Clean, dry and intact Musculoskeletal: No Tenderness to Palpation of Joints or Extremities Lymphatic: No Cervical, Supraclavicular, or Inguinal Adenopathy Neurological: Cranial nerves II-XII grossly intact, Neuro grossly intact, Motor Exam 5/5 strength throughout Psych/Mental Status: Normal Affect, Appropriate Vital Signs Temp Pulse Resp BP Pulse Ox 37.0 C 93 16 162/81 H 94 11/13/17 06:00 11/13/17 07:09 11/13/17 07:09 11/13/17 06:00 11/13/17 07:09 Oxygen Flow Rate 2 Oxygen Delivery Method Nasal Cannula Weight: 148.96 kg Body Mass Index (BMI) 50.2 Intake and Output for Last 24 Hours 11/11/17 11/12/17 11/13/17 23:59 23:59 23:59 Intake Total 2307 / 2307 1884 / 1884 600 / 600 Output Total 1375 / 1375 1999 / 1999 450 / 450 Balance 932 / 932 -116 / -116 150 / 150 Labs (Last 48 Hours) 11/11/17 11/11/17 11/12/17 04:00 13:58 03:53 WBC RBC Hgb Hct MCV MCH MCHC RDW RDW Differential Plt Count MPV Immature Gran % (Auto) Neut % (Auto) Lymph % (Auto) [place] % (Auto) Eos % (Auto) Baso % (Auto) Absolute Neuts (auto) Absolute Lymphs (auto) Total Counted Neutrophils % (Manual) Band Neutrophils % Lymphocytes % (Manual) Monocytes % (Manual) Eosinophils % (Manual) Metamyelocytes % Diff Path Review Platelet Estimate RBC Morphology Specimen Type ART Sample Site R Radial pH 7.24 L Bicarbonate Actual 22.8 POC Total CO2 24 Base Excess -5 L O2 Saturation 92 L O2 % 30 ABG pCO2 53.4 H ABG pO2 75 Niranjan Test POS Respiration Rate 12 O2 Delivery Device Bi / C PAP EPAP 6 IPAP 12 Blood Gas Notified Whom ICU Blood Gas Notified Time 1357 Sodium 141 Potassium 4.4 Chloride 106 Carbon Dioxide 26.0 Anion Gap 9 BUN 25 H Creatinine 1.00 Estim Creat Clear Calc 67.94 Est GFR (MDRD) Af Amer 96 Est GFR (MDRD) Non-Af 80 BUN/Creatinine Ratio 25.1 H Glucose 100 Calcium 8.0 L Phosphorus Magnesium 2.1 TSH 1.35 11/12/17 11/12/17 11/13/17 03:53 03:53 05:15 WBC 11.6 H 10.8 RBC 3.57 L 3.70 L Hgb 10.6 L 10.8 L Hct 33.4 L 34.1 L MCV 93.6 92.2 MCH 29.7 29.2 MCHC 31.7 L 31.7 L RDW 14.0 14.2 RDW Differential 45.5 H 46.1 H Plt Count 214 258 MPV 8.8 8.8 Immature Gran % (Auto) 2.000 H Neut % (Auto) 74.0 H Not Reportable Lymph % (Auto) 9.8 L Ziebach % (Auto) 10.7 H Eos % (Auto) 3.2 Baso % (Auto) 0.3 Absolute Neuts (auto) 8.6 H 9.1 H Absolute Lymphs (auto) 1.14 0.43 L Total Counted Not Reportable 100 Neutrophils % (Manual) 82 H Band Neutrophils % 2 Lymphocytes % (Manual) 4 L Monocytes % (Manual) 6 Eosinophils % (Manual) 3 Metamyelocytes % 3 H Diff Path Review Reviewed February foll Platelet Estimate ADEQUATE RBC Morphology NORM C+C Specimen Type Sample Site pH Bicarbonate Actual POC Total CO2 Base Excess O2 Saturation O2 % ABG pCO2 ABG pO2 Niranjan Test Respiration Rate O2 Delivery Device EPAP IPAP Blood Gas Notified Whom Blood Gas Notified Time Sodium Potassium Chloride Carbon Dioxide Anion Gap BUN Creatinine Estim Creat Clear Calc Est GFR (MDRD) Af Amer Est GFR (MDRD) Non-Af BUN/Creatinine Ratio Glucose Calcium Phosphorus 2.6 Magnesium TSH Microbiology 11/10/17 16:30 Sputum, Expectorated/Coughed Gram Stain - Final 11/10/17 16:30 Sputum, Expectorated/Coughed Respiratory Culture - Final Moraxella(Donte.)Catarrhalis 11/11/17 07:39 Mucosa - Nose Respiratory Panel (PCR) - Final Assessment/Plan Active and Suspected Problems HCAP (healthcare-associated pneumonia) (Acute) Acute respiratory failure with hypoxia and hypercapnia (Acute) Acute kidney injury (Acute) Anemia (Acute) Obstructive sleep apnea (Suspected) Severe sepsis (Acute) Status post total right knee replacement (Acute) 11/05/[address] Jase Lopez at [facility] RECOMMENDATIONS: 1. Continue BiPAP with naps and nightly. 2. Continue with fentanyl only, monitor for withdrawal. 3. Complete 5 days of antibiotic therapy 4. Continue Pepcid and continue Lovenox for prophylaxis 5. Encourage incentive spirometer use and mobilize patient as tolerated IMPRESSIONS: 1. Acute hypoxemic and hypercarbic respiratory failure Concern for underlying aspiration/healthcare associated pneumonia along with respiratory depression induced by polypharmacy. Sedating medications have been scaled back accordingly. The patient appears to be responding to BiPAP therapy. Continue to monitor blood gas accordingly. Patient should continue with BiPAP utilization during naps and with sleep. Patient is improved compared to yesterday. Patient is growing Moraxella from the sputum culture and that should be treated with 5 days of antibiotics. 2. Sepsis secondary to aspiration/HCAP Patient treated empirically for 48 hours. Patient was off of antibiotics, but these were reinitiated secondary to cultures coming back positive with a pathologic organism. We will continue to monitor clinically. Patient with no fevers noted overnight. 3. Hypercarbic encephalopathy Patient not seen initially, but is currently responding at this time. Patient is quicker to respond, but shows no signs of respiratory distress. ABG as necessary for decreased mentation. 4. Suspected sleep disordered breathing Strongly recommend outpatient pulmonary follow-up and dedicated polysomnogram upon discharge. 5. Acute kidney injury RESOLVED> unclear if prerenal in etiology versus possible postobstructive. Patient did have a Lake placed secondary to urinary retention. Patient to be placed on Flomax therapy. Possibly discontinue Lake tomorrow. Electrolyte repletion as indicated. 6. Morbid obesity/hypertension/hypothyroidism/recent knee surgery Complicates care, management, recovery and prognosis. Continue home medications as indicated. Physical therapy to evaluate patient. This note was generated with [employer] dictation software. It may contain incorrect words, spelling, and punctuation that were not noted in checking the note before signing. Code Visit Inpatient E&M: 14509 Subs Hosp L2
--- NOTE | 2017-11-13 11:18 | DCINST_ITS ---
- Discharge Diagnoses Current Active Problems: Current Active and Chronic Problems HCAP (healthcare-associated pneumonia) (Acute) Acute respiratory failure with hypoxia and hypercapnia (Acute) Morbid obesity (Chronic) Osteoarthritis (Chronic) Hypertension (Chronic) Acute kidney injury (Acute) Anemia (Acute) Benzodiazepine dependence (Chronic) Hypothyroidism (Chronic) Severe sepsis (Acute) Status post total right knee replacement (Acute) 11/05/[address] Jase Lopez at [facility] Former smoker (Chronic) Chronic anxiety (Chronic) You will use the following diet at home:: Cardiac Your food should be the consistency of: Regular Weight Bearing Status: Weight bearing as tolerated Call your doctor if you observe: Fever of 101 or Higher, Shortness of breath, Dizziness, Fainting spells, Chest pain, Increased palpitations (irregular heartbeat), Uncontrolled pain Allergies/Adverse Reactions: Allergies bacitracin [From Neosporin ([id number])] Allergy (Verified 07/18/14 16:28) Rash bacitracin zinc [From Neosporin ([id number])] Allergy (Verified 07/18/14 16: 28) Rash neomycin sulfate [From Neosporin ([id number])] Allergy (Verified 07/18/14 16: 28) Rash Penicillins [PCN] Allergy (Verified 07/18/14 16:28) Rash polymyxin B [From Neosporin ([id number])] Allergy (Verified 07/18/14 16:28) Rash Medications to take at Discharge Albuterol Sulfate [Ventolin Hfa] 2 inh INHALATION DAILY 11/10/17 Aspirin 325 mg PO DAILY@0800 11/10/17 Cyclobenzaprine [Flexeril] 10 mg PO TID 11/10/17 Fluconazole 150 mg PO QWEEK 11/10/17 Levothyroxine [Synthroid] 150 mcg PO DAILY 11/10/17 Lisinopril [Zestril] 1 tab PO DAILY 11/10/17 Paroxetine HCl [Paxil] 40 mg PO DAILY 11/10/17 Verapamil [Calan Sr] 1 tab PO DAILY 11/10/17 ALPRAZolam [Xanax] 0.5 mg PO BID PRN PRN #30 tab 11/13/17 BuPROPion [Wellbutrin] 75 mg PO BID #30 tab 11/13/17 Fentanyl [Duragesic] 50 mcg TRANSDERM. Q3D #7 patch 11/13/17 Gabapentin [Neurontin] 200 mg PO TIDCM #30 cap 11/13/17 Levofloxacin [Levaquin] 750 mg PO DAILY@0600 #5 tab 11/13/17 Oxycodone [Oxyir] 5 - 10 mg PO Q4H PRN PRN #30 tab 11/13/17 Oxygen, Home [Home Oxygen] 2 lpm NASAL CONT #1 unit 11/13/17 Polyethylene Glycol 3350 [Miralax] 17 gm PO DAILY #30 packet 11/13/17 Tamsulosin HCl [Flomax] 0.4 mg PO DAILY@1730 #30 cap 11/13/17 The following prescriptions were given: Oxycodone [Oxyir] 5 - 10 mg PO Q4H PRN PRN #30 tab PRN Reason: Severe Pain (6-07/17) ALPRAZolam [Xanax] 0.5 mg PO BID PRN PRN #30 tab PRN Reason: Anxiety/Agitation Fentanyl [Duragesic] 50 mcg TRANSDERM. Q3D #7 patch Levofloxacin [Levaquin] 750 mg PO DAILY@0600 #5 tab Oxygen, Home [Home Oxygen] 2 lpm NASAL CONT #1 unit Polyethylene Glycol 3350 [Miralax] 17 gm PO DAILY #30 packet Tamsulosin HCl [Flomax] 0.4 mg PO DAILY@1730 #30 cap BuPROPion [Wellbutrin] 75 mg PO BID #30 tab Gabapentin [Neurontin] 200 mg PO TIDCM #30 cap Primary Care Physician: Chhaya Bills MD [Primary Care Provider] - Please follow up with your Primary Care Physician in: 1 week or as scheduled. Please Follow Up With: Dany Mike MD When: 2 weeks. please call his office.
--- NOTE | 2017-11-13 11:25 | CASEMGMT ---
This RN CM placed call to [facility] and per Denita, pt had not actually started PT with them and a new order is required. Order placed for RN, PT/OT at this time. Referral will be faxed to [facility] after F2F signed by Dr. Malik. Ranjit ZARAGOZA CM
--- NOTE | 2017-11-13 12:22 | CASEMGMT ---
Referral faxed to [facility] at this time with order, face sheet and F2F. Ranjit ZARAGOZA CM
[2017-11-13 14:53] LABS: Pathologist Review Reviewed
--- NOTE | 2017-11-13 15:54 | CASEMGMT ---
Addendum entered by Charleen Kennedy 11/13/17 16:18: Per pt's , they have a tank to use to go home. F2F faxed to [facility] at this time. Call to Kaelyn at [facility] to verify received and to notify them that they will just need home set up for pt, voices understanding at this time. Ranjit ZARAGOZA CM Original Note: Referral faxed to [facility] for home oxygen at this time. Awaiting F2F by Dr. Malik and then will fax as well. Call placed to [facility] to verify referral received and per Denita, referral received and she is aware that pt is discharging today, voices no concerns. Pt updated on all at this time and voices understanding. Ranjit ZARAGOZA CM
--- NOTE | 2017-11-14 11:45 | PCM.DC.SUM ---
Discharge Date and Diagnosis Date of Admission: 11/10/17 Date of Discharge: 11/13/17 - Primary Discharge Diagnosis #1 Moraxella catarrhalis healthcare associated versus aspiration pneumonia #2 severe sepsis. #3 acute hypoxic and hypercapnic respiratory failure/respiratory acidosis. #4 acute kidney injury. #5 acute metabolic encephalopathy, resolved. - Secondary Discharge Diagnosis Chronic Problems Hypothyroidism (Chronic) Benzodiazepine dependence (Chronic) Hypertension (Chronic) Osteoarthritis (Chronic) Morbid obesity (Chronic) Chronic anxiety (Chronic) Former smoker (Chronic) Hospital Course and Treatment Imaging Results: Clinical Impression(s) from Imaging Studies Chest X-Ray 11/10/17 11:15 IMPRESSION: Hypoinflated lungs. Patchy airspace disease in both lower lobes. Probable right lower lobe infiltrate Electronically Signed: Jose Antonio Perrin DO at 12:41 EST Tel , Service support , Chest CT 11/10/17 15:06 IMPRESSION: Bibasilar infiltrates and patchy airspace disease; right greater than left. Likely infection Electronically Signed: Jose Antonio Perrin DO at 16:06 EST Tel , Service support , Dr. Ken/Dr. Mike, critical care. Operations: None Procedures: EKG Summary of Care Provided: The patient is a 67 year old M admitted because of shortness of breath, productive cough and confusion and he was found to have healthcare associated versus aspiration pneumonia with severe sepsis, complicated by acute hypoxic and hypercapnic respiratory failure as well as acute kidney injury. Initially, patient was treated in intensive care unit with IV antibiotics, bronchodilators and BiPAP therapy. His initial ABG revealed pH of 7.23, PCO2 of 51 and PO2 of 62. With IV antibiotic therapy, patient symptoms improved and his white blood cell count returned back to normal. Pneumococcal and Legionella antigen were negative. Nasal swab for influenza a and B were negative. Blood culture showed no growth in 48 hours. Sputum culture revealed oxacillin catarrhalis. Patient was switched to oral Levaquin. His BMP was normal. His lactic acid return back to normal. Ambulatory pulse oximeter revealed that his pulse ox dropped down to 84% with ambulation on room air and he did qualify for home oxygen to be able to ambulate freely at home. Patient was on multiple pain medications for chronic back pain as well as for recent history of left total knee replacement. His pain medication adjusted and he was discharged on fentanyl patch as well as oxycodone as needed for pain. Previously, patient was on MS Contin as well as Percocet and Vicodin. Patient was on Topamax and I am not sure why exactly he was on Topamax which was discontinued and was started on Wellbutrin. Patient discharged home with home health in a stable medical condition, discharged on home oxygen at 2 L, discharged on Levaquin 750 mg p.o. daily to complete 7 days of treatment, dose of Neurontin decreased down to 200 mg p.o. 3 times daily, Topamax discontinued, Wellbutrin initiated, discharged on fentanyl patch every 3 days and oxycodone as needed for pain, plan to follow-up with PCP in 1 week and follow-up with pulmonology in 2 weeks and patient will probably need outpatient sleep study. Weight Bearing Status: Weight bearing as tolerated Call your doctor if you observe: Fever of 101 or Higher, Shortness of breath, Dizziness, Fainting spells, Chest pain, Increased palpitations (irregular heartbeat), Uncontrolled pain Home Medications: Medications to take at Discharge Albuterol Sulfate [Ventolin Hfa] 2 inh INHALATION DAILY 11/10/17 Aspirin 325 mg PO DAILY@0800 11/10/17 Cyclobenzaprine [Flexeril] 10 mg PO TID 11/10/17 Fluconazole 150 mg PO QWEEK 11/10/17 Levothyroxine [Synthroid] 150 mcg PO DAILY 11/10/17 Lisinopril [Zestril] 1 tab PO DAILY 11/10/17 Paroxetine HCl [Paxil] 40 mg PO DAILY 11/10/17 Verapamil [Calan Sr] 1 tab PO DAILY 11/10/17 ALPRAZolam [Xanax] 0.5 mg PO BID PRN PRN #30 tab 11/13/17 BuPROPion [Wellbutrin] 75 mg PO BID #30 tab 11/13/17 Fentanyl [Duragesic] 50 mcg TRANSDERM. Q3D #7 patch 11/13/17 Gabapentin [Neurontin] 200 mg PO TIDCM #30 cap 11/13/17 Levofloxacin [Levaquin] 750 mg PO DAILY@0600 #5 tab 11/13/17 Oxycodone [Oxyir] 5 - 10 mg PO Q4H PRN PRN #30 tab 11/13/17 Oxygen, Home [Home Oxygen] 2 lpm NASAL CONT #1 unit 11/13/17 Polyethylene Glycol 3350 [Miralax] 17 gm PO DAILY #30 packet 11/13/17 Tamsulosin HCl [Flomax] 0.4 mg PO DAILY@1730 #30 cap 11/13/17 Following Prescrptions Were Given to Patient: Oxycodone [Oxyir] 5 - 10 mg PO Q4H PRN PRN #30 tab PRN Reason: Severe Pain (-07/17) ALPRAZolam [Xanax] 0.5 mg PO BID PRN PRN #30 tab PRN Reason: Anxiety/Agitation Fentanyl [Duragesic] 50 mcg TRANSDERM. Q3D #7 patch Levofloxacin [Levaquin] 750 mg PO DAILY@0600 #5 tab Oxygen, Home [Home Oxygen] 2 lpm NASAL CONT #1 unit Polyethylene Glycol 3350 [Miralax] 17 gm PO DAILY #30 packet Tamsulosin HCl [Flomax] 0.4 mg PO DAILY@1730 #30 cap BuPROPion [Wellbutrin] 75 mg PO BID #30 tab Gabapentin [Neurontin] 200 mg PO TIDCM #30 cap Primary Care Physician: Chhaya Bills MD [Primary Care Provider] - Please follow up with your Primary Care Physician in: 1 week or as scheduled. Please Follow Up With: Dany Mike MD When: 2 weeks. please call his office. Disposition: Home with Home Health Minutes spent on discharge:: 35 Patient Condition:: Stable Meaningful Use Info Meaningful Use Diagnoses (Choose all that apply): None applicable Code Visit Inpatient E&M: 14764 Disch Hosp
== END 2017-11-13 16:48 | disposition home health service (06) | DRG 871 ==
LOC: ED 13:47 → ICU 13:50 → PCU 11-13 07:36 → ICU 11-13 13:24 → PCU 11-13 13:24
PROVIDERS: Internal Medicine Critical Care Medicine; Admitting Provider Internal Medicine; Emergency Provider Emergency Medicine; Family Provider Internal Medicine; PCP Internal Medicine; Visit Provider Hospitalist
DX: A41.9 Sepsis, unspecified organism (principal); J96.02 Acute respiratory failure with hypercapnia; J69.0 Pneumonitis due to inhalation of food and vomit; J96.01 Acute respiratory failure with hypoxia; N17.9 Acute kidney failure, unspecified; G93.41 Metabolic encephalopathy; J15.6 Pneumonia due to other Gram-negative bacteria; F13.20 Sedative, hypnotic or anxiolytic dependence, uncomplicated; Z68.43 Body mass index [BMI] 50.0-59.9, adult; R65.20 Severe sepsis without septic shock; E66.01 Morbid (severe) obesity due to excess calories; M19.90 Unspecified osteoarthritis, unspecified site; I10 Essential (primary) hypertension; E03.9 Hypothyroidism, unspecified; Y95 Nosocomial condition; M54.9 Dorsalgia, unspecified; G89.29 Other chronic pain; Z96.651 Presence of right artificial knee joint; Z79.899 Other long term (current) drug therapy; Z87.891 Personal history of nicotine dependence; F41.9 Anxiety disorder, unspecified; D64.9 Anemia, unspecified
CPT/HCPCS: 36415; 36600; 71045; 71250; 80048; 80053; 80061; 82803; 83036; 83605; 83735; 84100; 84443; 84484; 85025; 87040; 87070; 87205; 87449; 87633; 87641; 87804; 93005; 93970; 94002; 94003; 94640; 97110; 97162; 97166; 97530; 97535; 97802; 99284; J7030; A4216

== ENCOUNTER → 2017-12-18 10:35 | Outpatient (CLI) | payer MEDICARE, SELFPAY | PROVIDERS: Family Provider Internal Medicine; PCP Internal Medicine; Visit Provider Nurse Practitioner Acute Care | DX: Z46.89 Encounter for fitting and adjustment of other specified devices (principal) ==

== ENCOUNTER → 2017-12-21 07:55 | Outpatient (CLI) | payer MEDICARE, SELFPAY ==
--- NOTE | 2017-12-21 10:47 | PFT ---
INTRODUCTION: The patient is a 67-year-old male currently under the care of Desirae Campos NP that presents for pulmonary function testing secondary to a diagnosis of respiratory failure. Respiratory therapy reports good patient effort reports no other concerns. Bronchodilators were used during testing. INTERPRETATION: Forced expiration spirometry demonstrates the presence of a moderately severe large airways obstructive ventilatory defect. There was a significant response to aerosolized bronchodilators noted based on change in FVC. Spirograms are of good quality and do not plateau indicating slow emptying of the lungs. Body plethysmography was performed and reveals an elevated RV to 128% of predicted, indicative of air trapping. Diffusing capacity by single breath CO is moderately reduced at 61% of predicted. IMPRESSION: These pulmonary function studies demonstrate the presence of an irreversible moderately severe large airways obstructive ventilatory defect with associated air trapping and reduction in diffusing capacity. There are no previous pulmonary function studies available for comparison.
== END ==
PROVIDERS: Family Provider Internal Medicine; PCP Internal Medicine; Visit Provider Nurse Practitioner Acute Care
DX: J96.01 Acute respiratory failure with hypoxia (principal); J96.02 Acute respiratory failure with hypercapnia
CPT/HCPCS: 94060; 94726; 94729

== ENCOUNTER → 2017-12-24 10:42 | Outpatient (CLI) | payer MEDICARE, SELFPAY ==
[2017-12-24 11:22] VITALS: PULSE 105; PULSE 107; PULSE 114; PULSE 117; PULSE 130; PULSE 135; PULSE 136; O2SAT 91; O2SAT 92; O2SAT 93; O2SAT 95; O2SAT 97
--- NOTE | 2017-12-25 06:05 | WT_ITS ---
PSN 6 Minute Walk Test - 6 Minute Walk Test 6 Minute Walk Test: 6 Minute Walk Test PSN:6-Minute Walk Test Start: 12/24/17 11: 21 Freq: Status: Active Protocol: RESP.6MINW Document 12/24/17 11:22 BELIA (Rec: 12/24/17 11:24 BELIA [id number]) 6 Minute Walk Test Date Performed 12/24/17 Time Performed 10:55 Height 5 ft 8 in Weight: 127.006 kg Weight in Pounds 280.[address]: Desirae Campos Assistive device used: Cane Pre-test Oxygen Delivery Method Room Air Pulse Ox (%) 97 Pulse Rate (60-100 beats/min) 105 H Dyspnea Aydee Scale (0-10) 0.5 Exertion Aydee Scale (6-20) 6 1st minute Oxygen Delivery Method Room Air Pulse Ox (%) 95 Pulse Rate (60-100 beats/min) 114 H 2nd minute Oxygen Delivery Method Room Air Pulse Ox (%) 93 Pulse Rate (60-100 beats/min) 117 H 3rd minute Oxygen Delivery Method Room Air Pulse Ox (%) 91 Pulse Rate (60-100 beats/min) 130 H 4th minute Oxygen Delivery Method Room Air Pulse Ox (%) 92 Pulse Rate (60-100 beats/min) 136 H 5th minute Oxygen Delivery Method Room Air Pulse Ox (%) 93 Pulse Rate (60-100 beats/min) 135 H 6th minute Oxygen Delivery Method Room Air Pulse Ox (%) 95 Pulse Rate (60-100 beats/min) 130 H Dyspnea Aydee Scale (0-10) 3 Exertion Aydee Scale (6-20) 14 Post-test Oxygen Delivery Method Room Air Pulse Ox (%) 97 Pulse Rate (60-100 beats/min) 107 H Full Laps Walked 8 Partial Lap, Number of Tiles Walked 20 Total Distance Walked (ft) 492 - Interpretation Interpretation: The patient was able to ambulate only 492 feet over the course of 6 minutes on room air with the assistance of a cane. Patient did experience significant desaturation from 97% to as low as 91% with ambulation. Significant tachycardia with a peak heart rate of 136 bpm were noted during testing. These findings are consistent with a multifactorial limitation exercise tolerance. - Recommendations Recommendations: No supplemental oxygen is indicated at this time. However, patient will need to be followed closely given level of desaturation. Patient would benefit from weight loss.
== END ==
PROVIDERS: Family Provider Internal Medicine; PCP Internal Medicine; Visit Provider Nurse Practitioner Acute Care
DX: J96.01 Acute respiratory failure with hypoxia (principal); J96.02 Acute respiratory failure with hypercapnia
CPT/HCPCS: 94618

== ENCOUNTER → 2018-03-29 12:56 | Outpatient (CLI) | payer MEDICARE, SELFPAY ==
[2018-03-29 14:03] LABS: Vancomycin, Trough Level 7.9 ug/mL (5.0-15.0)
[2018-03-29 14:04] LABS: Vancomycin, Peak Level 24.3 ug/mL
== END ==
LOC: LABSPEC 12:57 → HHLAB 12:58
PROVIDERS: Family Provider Internal Medicine; PCP Internal Medicine; Visit Provider Internal Medicine Infectious Disease
DX: Z79.2 Long term (current) use of antibiotics (principal)
CPT/HCPCS: 80202

== ENCOUNTER → 2018-03-31 09:41 | Outpatient (CLI) | payer MEDICARE, SELFPAY ==
[2018-03-31 10:03] LABS: Anion Gap 5 (5-15); BUN 15 mg/dL (7-18); BUN/Creat Ratio 14.4 RATIO (10-20); Calcium,Total 8.4 mg/dL (8.5-10.1); Chloride 107 mmol/L (98-107); Creatinine, Serum 1.04 mg/dL (0.70-1.30); EST Glomerular Filtration Rate 76 mL/min (>60); Est Glom Filt Rate - Afr Amer 92 mL/min (>60); Glucose 103 mg/dL (74-106); Potassium 4.2 mmol/L (3.5-5.1); Sodium Level 143 mmol/L (136-145)
[2018-03-31 10:05] LABS: Vancomycin, Trough Level 7.4 ug/mL (5.0-15.0)
[2018-03-31 10:43] LABS: Hematocrit 36.2 % (40-54); Hemoglobin 11.4 g/dl (13.0-16.5); Mean Corp Hgb Conc 31.5 g/gl (32-36); Mean Corpuscular Hgb 28.9 pg (27.0-32.0); Mean Corpuscular Volume 91.6 fL (80-94); Mean Platelet Vol. 8.4 fl (6.2-12.0); Platelet Count 250 K/mm3 (150-450); RBC Distribution Width CV 13.6 % (11.6-14.6); RBC Distribution Width SD 45.6 fl (35.1-43.9); Red Blood Count 3.95 M/mm3 (4.6-6.2); White Blood Count 7.9 K/mm3 (4.4-11.0)
[2018-03-31 10:58] LABS: Differential Indicated MANUAL DIFF; POSITIVE COUNT YES; POSITIVE DIFFERENTIAL NO; POSITIVE MORPHOLOGY YES
[2018-03-31 11:10] LABS: Eosinophil 3 % (0-5); Lymphocyte 24 % (19-41); Metamyelocyte 1 % (0-1); Monocyte 3 % (0-10); Myelocyte 2 (0-0); Neutrophil-Segmented 67 % (47-70); Platelet Estimate ADEQUATE (ADEQ); Red Cell Morphology NORM C+C NORMAL (NORM C&C); Total Cells Counted 100 (MANUAL DIFF)
[2018-03-31 11:11] LABS: Absolute Neutrophil Count 5.5 X10^3/uL (2.0-7.7)
[2018-03-31 11:12] LABS: Erythrocyte Sedimentation Rate 24 mm/hr (0-20)
[2018-04-02 11:37] LABS: Pathologist Review Reviewed
== END ==
PROVIDERS: Family Provider Internal Medicine; PCP Internal Medicine; Visit Provider Internal Medicine Infectious Disease
DX: M00.9 Pyogenic arthritis, unspecified (principal)
CPT/HCPCS: 80048; 80202; 85025; 85652; 86140

== ENCOUNTER 2018-04-02 11:50 | Outpatient (RCR) | payer MEDICARE, SELFPAY ==
[2018-04-04 09:14] LABS: Absolute Lymphocyte Count 1.19 X10^3/ul (0.83-4.51); Absolute Neutrophil Count 5.8 X10^3/uL (2.0-7.7); Basophil# 0.03 X10^3/uL; Basophil% 0.3 % (0-1); Eosinophil# 0.59 X10^3/uL; Eosinophils% 6.6 % (0-5); Lymphocyte # 1.19 X10^3/ul (4.0); Lymphocyte % 13.3 % (19-41); Mean Corp Hgb Conc 31.6 g/gl (32-36); Mean Corpuscular Hgb 28.4 pg (27.0-32.0); Mean Platelet Vol. 8.5 fl (6.2-12.0); Monocyte% 12.3 % (0-10); Neutrophil # 5.84 X10^3/uL (2.7-7.7); Neutrophil % 65.6 % (47-70); Platelet Count 262 K/mm3 (150-450); RBC Distribution Width CV 14.1 % (11.6-14.6); RBC Distribution Width SD 46.1 fl (35.1-43.9); Red Blood Count 4.22 M/mm3 (4.6-6.2); White Blood Count 8.9 K/mm3 (4.4-11.0)
[2018-04-04 09:15] LABS: Anion Gap 5 (5-15); BUN 17 mg/dL (7-18); BUN/Creat Ratio 14.8 RATIO (10-20); Calcium,Total 8.6 mg/dL (8.5-10.1); Chloride 109 mmol/L (98-107); Creatinine, Serum 1.15 mg/dL (0.70-1.30); EST Glomerular Filtration Rate 68 mL/min (>60); Est Glom Filt Rate - Afr Amer 82 mL/min (>60); Glucose 115 mg/dL (74-106); Sodium Level 143 mmol/L (136-145); Vancomycin, Trough Level 7.6 ug/mL (5.0-15.0)
[2018-04-04 09:23] LABS: POSITIVE COUNT NO; POSITIVE DIFFERENTIAL NO; POSITIVE MORPHOLOGY NO
[2018-04-04 09:24] LABS: Erythrocyte Sedimentation Rate 29 mm/hr (0-20)
== END 2018-04-06 23:59 ==
LOC: HHLAB 11:50
PROVIDERS: Family Provider Internal Medicine; PCP Internal Medicine; Visit Provider Internal Medicine Infectious Disease
DX: M00.869 Arthritis due to other bacteria, unspecified knee (principal)
CPT/HCPCS: 80048; 80202; 85025; 85652; 86140

== ENCOUNTER 2018-04-29 11:14 | Outpatient (RCR) | payer MEDICARE, SELFPAY ==
[2018-04-08 13:03] LABS: Erythrocyte Sedimentation Rate 25 mm/hr (0-20)
[2018-04-08 13:07] LABS: Anion Gap 6 (5-15); BUN 20 mg/dL (7-18); BUN/Creat Ratio 15.6 RATIO (10-20); Calcium,Total 8.4 mg/dL (8.5-10.1); Chloride 109 mmol/L (98-107); Creatinine, Serum 1.28 mg/dL (0.70-1.30); EST Glomerular Filtration Rate 60 mL/min (>60); Est Glom Filt Rate - Afr Amer 72 mL/min (>60); Glucose 112 mg/dL (74-106); Potassium 4.7 mmol/L (3.5-5.1); Sodium Level 142 mmol/L (136-145)
[2018-04-08 13:10] LABS: Absolute Lymphocyte Count 1.06 X10^3/ul (0.83-4.51); Absolute Neutrophil Count 5.5 X10^3/uL (2.0-7.7); Basophil# 0.03 X10^3/uL; Basophil% 0.4 % (0-1); Eosinophil# 0.71 X10^3/uL; Eosinophils% 8.7 % (0-5); Hematocrit 37.9 % (40-54); Hemoglobin 11.9 g/dl (13.0-16.5); Lymphocyte # 1.06 X10^3/ul (4.0); Lymphocyte % 13.1 % (19-41); Mean Corp Hgb Conc 31.4 g/gl (32-36); Mean Corpuscular Hgb 28.5 pg (27.0-32.0); Mean Corpuscular Volume 90.9 fL (80-94); Mean Platelet Vol. 8.8 fl (6.2-12.0); Monocyte# 0.75 X10^3/uL; Monocyte% 9.2 % (0-10); Neutrophil # 5.51 X10^3/uL (2.7-7.7); Neutrophil % 67.9 % (47-70); Platelet Count 271 K/mm3 (150-450); RBC Distribution Width CV 14.4 % (11.6-14.6); RBC Distribution Width SD 47.2 fl (35.1-43.9); Red Blood Count 4.17 M/mm3 (4.6-6.2); White Blood Count 8.1 K/mm3 (4.4-11.0)
[2018-04-08 13:11] LABS: POSITIVE COUNT NO; POSITIVE DIFFERENTIAL NO; POSITIVE MORPHOLOGY NO
[2018-04-15 11:44] LABS: Absolute Lymphocyte Count 1.08 X10^3/ul (0.83-4.51); Absolute Neutrophil Count 4.9 X10^3/uL (2.0-7.7); Basophil# 0.04 X10^3/uL; Basophil% 0.5 % (0-1); Eosinophil# 0.92 X10^3/uL; Eosinophils% 11.8 % (0-5); Hematocrit 39.2 % (40-54); Hemoglobin 12.7 g/dl (13.0-16.5); Lymphocyte # 1.08 X10^3/ul (4.0); Lymphocyte % 13.9 % (19-41); Mean Corp Hgb Conc 32.4 g/gl (32-36); Mean Corpuscular Hgb 29.6 pg (27.0-32.0); Mean Corpuscular Volume 91.4 fL (80-94); Mean Platelet Vol. 9.2 fl (6.2-12.0); Monocyte# 0.83 X10^3/uL; Monocyte% 10.7 % (0-10); Neutrophil # 4.88 X10^3/uL (2.7-7.7); Neutrophil % 62.6 % (47-70); Platelet Count 271 K/mm3 (150-450); RBC Distribution Width SD 46.4 fl (35.1-43.9); Red Blood Count 4.29 M/mm3 (4.6-6.2); White Blood Count 7.8 K/mm3 (4.4-11.0)
[2018-04-15 11:47] LABS: Erythrocyte Sedimentation Rate 26 mm/hr (0-20)
[2018-04-15 11:48] LABS: POSITIVE COUNT NO; POSITIVE DIFFERENTIAL NO; POSITIVE MORPHOLOGY NO
[2018-04-15 12:36] LABS: Anion Gap 7 (5-15); BUN 14 mg/dL (7-18); BUN/Creat Ratio 12.8 RATIO (10-20); Calcium,Total 8.7 mg/dL (8.5-10.1); Chloride 106 mmol/L (98-107); Creatinine, Serum 1.09 mg/dL (0.70-1.30); EST Glomerular Filtration Rate 72 mL/min (>60); Est Glom Filt Rate - Afr Amer 87 mL/min (>60); Glucose 119 mg/dL (74-106); Potassium 4.3 mmol/L (3.5-5.1); Sodium Level 144 mmol/L (136-145)
[2018-04-15 12:39] LABS: Vancomycin, Trough Level 16.9 ug/mL (5.0-15.0)
[2018-04-22 13:56] LABS: Erythrocyte Sedimentation Rate 9 mm/hr (0-20); Vancomycin, Trough Level 20.1 ug/mL (5.0-15.0)
[2018-04-22 13:57] LABS: Absolute Lymphocyte Count 0.98 X10^3/ul (0.83-4.51); Absolute Neutrophil Count 4.2 X10^3/uL (2.0-7.7); Basophil# 0.04 X10^3/uL; Basophil% 0.6 % (0-1); Eosinophil# 0.81 X10^3/uL; Eosinophils% 11.7 % (0-5); Hemoglobin 13.9 g/dl (13.0-16.5); Lymphocyte # 0.98 X10^3/ul (4.0); Lymphocyte % 14.1 % (19-41); Mean Corp Hgb Conc 33.1 g/gl (32-36); Mean Corpuscular Hgb 29.8 pg (27.0-32.0); Mean Corpuscular Volume 90.1 fL (80-94); Mean Platelet Vol. 9.5 fl (6.2-12.0); Monocyte# 0.83 X10^3/uL; Neutrophil % 60.6 % (47-70); Platelet Count 251 K/mm3 (150-450); RBC Distribution Width CV 13.9 % (11.6-14.6); RBC Distribution Width SD 45.7 fl (35.1-43.9); Red Blood Count 4.66 M/mm3 (4.6-6.2); White Blood Count 6.9 K/mm3 (4.4-11.0)
[2018-04-22 13:58] LABS: Anion Gap 9 (5-15); BUN 29 mg/dL (7-18); BUN/Creat Ratio 21.8 RATIO (10-20); Calcium,Total 8.6 mg/dL (8.5-10.1); Chloride 104 mmol/L (98-107); Creatinine, Serum 1.33 mg/dL (0.70-1.30); EST Glomerular Filtration Rate 57 mL/min (>60); Est Glom Filt Rate - Afr Amer 69 mL/min (>60); Glucose 110 mg/dL (74-106); Sodium Level 144 mmol/L (136-145)
[2018-04-22 14:10] LABS: POSITIVE COUNT NO; POSITIVE DIFFERENTIAL NO; POSITIVE MORPHOLOGY NO
[2018-04-29 11:49] LABS: Erythrocyte Sedimentation Rate 7 mm/hr (0-20)
[2018-04-29 11:54] LABS: Anion Gap 6 (5-15); BUN 24 mg/dL (7-18); BUN/Creat Ratio 17.1 RATIO (10-20); Calcium,Total 9.1 mg/dL (8.5-10.1); Chloride 102 mmol/L (98-107); EST Glomerular Filtration Rate 54 mL/min (>60); Est Glom Filt Rate - Afr Amer 65 mL/min (>60); Glucose 119 mg/dL (74-106); Potassium 4.7 mmol/L (3.5-5.1); Sodium Level 142 mmol/L (136-145)
[2018-04-29 11:55] LABS: Absolute Lymphocyte Count 1.12 X10^3/ul (0.83-4.51); Absolute Neutrophil Count 5.2 X10^3/uL (2.0-7.7); Basophil# 0.02 X10^3/uL; Basophil% 0.3 % (0-1); Eosinophil# 0.62 X10^3/uL; Eosinophils% 7.9 % (0-5); Hematocrit 40.6 % (40-54); Hemoglobin 13.1 g/dl (13.0-16.5); Lymphocyte # 1.12 X10^3/ul (4.0); Lymphocyte % 14.4 % (19-41); Mean Corp Hgb Conc 32.3 g/gl (32-36); Mean Corpuscular Hgb 29.3 pg (27.0-32.0); Mean Corpuscular Volume 90.8 fL (80-94); Monocyte# 0.85 X10^3/uL; Monocyte% 10.9 % (0-10); Neutrophil # 5.16 X10^3/uL (2.7-7.7); Neutrophil % 66.1 % (47-70); Platelet Count 233 K/mm3 (150-450); RBC Distribution Width CV 13.6 % (11.6-14.6); Red Blood Count 4.47 M/mm3 (4.6-6.2); White Blood Count 7.8 K/mm3 (4.4-11.0)
[2018-04-29 11:56] LABS: POSITIVE COUNT NO; POSITIVE DIFFERENTIAL NO; POSITIVE MORPHOLOGY NO; Vancomycin, Trough Level 15.7 ug/mL (5.0-15.0)
== END 2018-05-07 23:59 ==
LOC: HHLAB 11:14
PROVIDERS: Family Provider Internal Medicine; PCP Internal Medicine; Visit Provider Internal Medicine Infectious Disease
DX: T84.53XA Infection and inflammatory reaction due to internal right knee prosthesis, initial encounter (principal); Z45.2 Encounter for adjustment and management of vascular access device; Z51.81 Encounter for therapeutic drug level monitoring
CPT/HCPCS: 80048; 80202; 85025; 85652; 86140

== ENCOUNTER → 2019-01-16 | Outpatient (CLI) | payer MEDICARE, SELFPAY ==
[2019-01-16 14:52] VITALS: BMI 50.2
[2019-01-16 16:20] LABS: RBC /Synovial Fluid 0.004 10^6/uL (0); Synovial Fld Mononuclear WBC % 7.1 %; Synovial Fld Polynuclear WBC # 8.127 10^3/ul; Synovial Fld Polynuclear WBC % 92.9 %
[2019-01-16 17:09] LABS: AUTO B FLUID DILUENT BKGD CT WBC <0.1 RBC <0.01 (W<.1,R<.01)
[2019-01-16 17:12] LABS: Appearance /Synovial Fluid Hazy (CLEAR); Color / Synovial Fluid Yellow (Pale Yellow); Viscosity / Synovial Fluid Sl. Viscous (HIGH)
[2019-01-16 17:36] LABS: Erythrocyte Sedimentation Rate 14 mm/hr (0-20)
[2019-01-16 17:38] LABS: Absolute Lymphocyte Count 0.78 X10^3/ul (0.83-4.51); Absolute Neutrophil Count 8.3 X10^3/uL (2.0-7.7); Basophil# 0.03 X10^3/uL; Basophil% 0.3 % (0-1); Eosinophil# 0.63 X10^3/uL; Hematocrit 46.8 % (40-54); Hemoglobin 14.8 g/dl (13.0-16.5); Lymphocyte # 0.78 X10^3/ul (4.0); Lymphocyte % 7.4 % (19-41); Mean Corp Hgb Conc 31.6 g/gl (32-36); Mean Corpuscular Hgb 28.1 pg (27.0-32.0); Mean Corpuscular Volume 88.8 fL (80-94); Mean Platelet Vol. 10.1 fl (6.2-12.0); Monocyte# 0.69 X10^3/uL; Monocyte% 6.6 % (0-10); Neutrophil # 8.28 X10^3/uL (2.7-7.7); Platelet Count 238 K/mm3 (150-450); RBC Distribution Width CV 13.9 % (11.6-14.6); RBC Distribution Width SD 44.7 fl (35.1-43.9); Red Blood Count 5.27 M/mm3 (4.6-6.2); White Blood Count 10.5 K/mm3 (4.4-11.0)
[2019-01-16 17:44] LABS: POSITIVE COUNT NO; POSITIVE DIFFERENTIAL NO; POSITIVE MORPHOLOGY NO
[2019-01-16 17:53] LABS: Body Fluid QC Type(s) BF4Q
[2019-01-16 18:14] LABS: Lymph 2 %; Monocyte /Synovial Fluid 5 %; Neutrophil 93 % (0-25)
[2019-01-17 11:57] LABS: Pathologist Comment Reviewed
== END | disposition home or self-care (01) ==
LOC: MTLAB 14:54
PROVIDERS: Family Provider Internal Medicine; PCP Internal Medicine; Referring Provider Specialist; Visit Provider Specialist
DX: M25.561 Pain in right knee (principal); M25.461 Effusion, right knee; Z96.651 Presence of right artificial knee joint
CPT/HCPCS: 36415; 85025; 85652; 86140; 87015; 87070; 87075; 87077; 87101; 87116; 87186; 87205; 87206; 89050; 89051

== ENCOUNTER 2019-01-29 21:33 | Emergency (ER) | payer MEDICARE, SELFPAY ==
[2019-01-29 13:19] VITALS: BMI 46.8
[2019-01-29 21:33] VITALS: BP 125/57; PULSE 96; RESP 16; TEMP 36.5; O2SAT 92; BMI 45.4
[2019-01-29 22:04] VITALS: BP 149/86; PULSE 97; RESP 18; O2SAT 88
--- NOTE | 2019-01-29 22:28 | RAD_ITS ---
STUDY: X-RAY - RIGHT KNEE REASON FOR EXAM: Male, 68 years old. Knee replacement. Infection. TECHNIQUE: 2 view(s) of the knee. COMPARISON: None. FINDINGS: Normal visualized distal femur. Normal visualized proximal tibia and fibula. Normal proximal tibiofibular articulation. There is no demonstrated fracture. There is a satisfactory appearance of the tibial and femoral components of a total knee arthroplasty. Normal alignment. No evidence for loosening. Normal appearance and position of the patella. The soft tissue structures are unremarkable. RAD/Knee 1 or 2 Views IMPRESSION: No definite acute abnormality. Electronically Signed: Salty Schroeder MD at 23:14 EDT , Service support ,
--- NOTE | 2019-01-29 22:28 | EKG12_ITS ---
Test Reason : HYPOTENSION Blood Pressure : / mmHG Vent. Rate : 100 BPM Atrial Rate : 100 BPM P-R Int : 142 ms QRS Dur : 080 ms QT Int : 334 ms P-R-T Axes : 057 062 056 degrees QTc Int : 430 ms Normal sinus rhythm Normal ECG Confirmed by CHRISSY LUIS, BROOK ([id number]), television news video editor JUVENAL RUBIN ([id number]) on 02/03/2019 10:51:28 AM Referred By: MR Confirmed By:BROOK LOWE MD
[2019-01-29 23:02] LABS: Bacteria 0 SEEN /hpf (None Seen); Mucous, Urine 0 SEEN /hpf (<or=2+); Red Blood Cells-Urine 0 SEEN /hpf (0-5); Squamous Epithelial Cells - UA 0 SEEN /hpf (0-5); White Blood Cells 0 SEEN /hpf (0-5)
[2019-01-29 23:12] LABS: Absolute Neutrophil Count 8.5 X10^3/uL (2.0-7.7); Basophil# 0.04 X10^3/uL; Basophil% 0.4 % (0-1); Eosinophil# 0.39 X10^3/uL; Eosinophils% 3.5 % (0-5); Hematocrit 44.2 % (40-54); Hemoglobin 14.4 g/dl (13.0-16.5); Lymphocyte % 9.7 % (19-41); Mean Corp Hgb Conc 32.6 g/gl (32-36); Mean Corpuscular Hgb 29.6 pg (27.0-32.0); Mean Corpuscular Volume 90.9 fL (80-94); Mean Platelet Vol. 9.5 fl (6.2-12.0); Monocyte# 1.19 X10^3/uL; Monocyte% 10.5 % (0-10); Neutrophil # 8.52 X10^3/uL (2.7-7.7); Neutrophil % 75.4 % (47-70); POSITIVE COUNT NO; POSITIVE DIFFERENTIAL NO; POSITIVE MORPHOLOGY NO; Platelet Count 240 K/mm3 (150-450); RBC Distribution Width CV 14.5 % (11.6-14.6); RBC Distribution Width SD 48.5 fl (35.1-43.9); Red Blood Count 4.86 M/mm3 (4.6-6.2); White Blood Count 11.3 K/mm3 (4.4-11.0)
[2019-01-29 23:16] LABS: Color, Urine Yellow (Yellow); Glucose, Dipstick Normal (Normal); Ketone-Dipstick Negative (Negative); Leukocyte Esterase-Dipstick 25 /ul (Negative); Nitrite-Dipstick Negative (Negative); Occult Blood-Urine Negative /ul (Negative); Protein-Dipstick 15 mg/dl (Negative); Urine Clarity Clear (Clear); Urine Urobilinogen Normal (Normal)
[2019-01-29 23:17] LABS: Urine Bilirubin Dipstick 1 mg/dL (Negative)
[2019-01-29 23:28] LABS: Anion Gap 7 (5-15); BUN 65 mg/dL (7-18); BUN/Creat Ratio 16.3 RATIO (10-20); Calcium,Total 8.5 mg/dL (8.5-10.1); Chloride 104 mmol/L (98-107); Creatinine, Serum 3.99 mg/dL (0.70-1.30); EST Glomerular Filtration Rate 16 mL/min (>60); Est Glom Filt Rate - Afr Amer 19 mL/min (>60); Glucose 130 mg/dL (74-106); Potassium 5.2 mmol/L (3.5-5.1); Sodium Level 137 mmol/L (136-145)
[2019-01-29 23:38] LABS: Lactic Acid 2.3 mmol/L (0.4-2.0)
--- NOTE | 2019-01-29 23:38 | ED.RN ---
lab called with critical lab results. Lactic acid 2.3. Dr. Dsouza made aware. No new orders at this time
--- NOTE | 2019-01-29 23:49 | ED.VIS.GEN ---
History of Present Illness Chief Complaint: Hypotension Informant: Patient Onset: Today Context: Sudden Onset Timing: Waxes and wanes Current Severity: gone Maximum Severity: Moderate Narrative: Patient presenting for evaluation secondary to hypotension. 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 He currently is undergoing preoperative testing for placement of antibiotic spacers in his knee. Patient was at his preoperative testing appointment and was noted to be hypotensive with blood pressures of 80s over 60s. Patient states that he really was asymptomatic with that and denied being lightheaded having chest pain shortness of breath. The pain in his knee was at baseline and he currently is on antibiotics for that. Patient reports that [facility] took his blood pressure there and was also noted to be hypotensive. He contacted his primary care physician who recommended that he take his blood pressure a couple times at home and if he is persistently hypotensive he needs to come in to be ruled out for sepsis. He was persistently hypotensive at home, so he is presenting to the emergency department now. He denies any other infectious signs or symptoms. Review of systems otherwise negative. Past Medical History - Allergies and Home Meds Allergies/Adverse Reactions: Allergies bacitracin [From Neosporin ([id number])] Allergy (Verified 01/29/19 21:36) Rash bacitracin zinc [From Neosporin ([id number]-dis-hcdmn)] Allergy (Verified 01/29/19 21:36) Rash doxycycline Allergy (Verified 01/29/19 21:36) Rash neomycin sulfate [From Neosporin (ayi-xoo-[id number])] Allergy (Verified 01/29/19 21:36) Rash Penicillins [PCN] Allergy (Verified 01/29/19 21:36) Rash polymyxin B [From Neosporin (cir-fld-watex)] Allergy (Verified 01/29/19 21:36) Rash Primary Care Physician: Chhaya Bills MD [Primary Care Provider] - Surgical History: total knee arthroplasty Smoking Status: Former smoker - Family History Maternal Family History: Family History (Last Updated 12/10/17 @ 08:22 by Ashley Newsome) Mother Diabetes Family History: Reports: No pertinent history Paternal Family History: Family History (Last Updated 12/10/17 @ 08:22 by Ashley Newsome) Mother Diabetes Family History: Reports: No pertinent history Review of Systems All systems negative except as indicated General: Denies: Fever ENT: Denies: Sore throat Cardiovascular: Denies: Chest pain, Palpitations Respiratory: Denies: Dyspnea, Cough Gastrointestinal: Denies: Nausea, Vomiting Musculoskeletal: Reports: Extremity Pain Skin: Denies: Rash Neurological: Denies: Headache Physical Exam Vital Signs/Narrative: Vital Signs Temp Pulse Resp BP Pulse Ox 01/29/19 22:04 97 18 149/86 H 88 01/29/19 21:33 97.7 F L 96 16 125/57 H 92 General: Well nourished, Well developed, No Acute Distress Eyes: Perrl, EOMI ENT: Moist mucous membranes, No rhinorrhea Neck: Supple, Nontender Cardiovascular: Regular rate, Regular rhythm, No murmurs, - - 2+ radial pulses bilaterally symmetric Respiratory: No distress - Patient is not dyspneic, and is on his baseline nasal cannula, CTA bilaterally, Chest nontender Abdomen: Soft, Nontender, Nondistended, Normal bowel sounds Extremities: - - Right knee exam shows warmth and erythema of the joint with tenderness to palpation. Skin: Normal color, No rash Neurological: Alert, Oriented x3, Cranial nerves II-XII grossly intact, Normal Strength, Normal Sensation Psychological: Normal affect, Normal Mood Diagnostic/Tx/Re-eval - Medical Decision Making Patient presented for evaluation secondary to hypotension. Upon arrival to the emergency department and the patient's entire stay in the emergency department he was never hypotensive and typically had blood pressures in the 140s to 120s. Patient was evaluated for the possibility of sepsis. He was found to have a slight leukocytosis of 11. Lactic acid was mildly elevated at 2.3. Patient has chronic kidney disease, his renal function appears at baseline. His potassium was 5.2. Urinalysis was negative. Neck x-ray shows chronic changes. I discussed patient's case in telephone with his orthopedics physician Dr. Thompson, and he states that the patient's cultures are sensitive to doxycycline and he currently is on that and he does not recommend that the patient requires admission for emergent incision and drainage of the knee. Patient does not meet sepsis criteria at this point. I believe that he is appropriate for discharge. Patient is recommended to follow-up with primary care and orthopedics. ED Disposition - Plan for ED Patient: Disposition: Home or Assisted Living Diagnosis: Chronic infection of right knee, Transient hypotension, Chronic kidney disease Instructions: ED Hypotension All Causes Referrals: Chhaya Bills MD [Primary Care Provider] - Jalen Thompson MD [STAFF PHYSICIAN] - (As scheduled)
--- NOTE | 2019-01-29 23:54 | ED.DCSUM_ITS ---
History of Present Illness Chief Complaint: Hypotension Informant: Patient Onset: Today Context: Sudden Onset Timing: Waxes and wanes Current Severity: gone Maximum Severity: Moderate Narrative: Patient presenting for evaluation secondary to hypotension. 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 He currently is undergoing preoperative testing for placement of antibiotic spacers in his knee. Patient was at his preoperative testing appointment and was noted to be hypotensive with blood pressures of 80s over 60s. Patient states that he really was asymptomatic with that and denied being lightheaded having chest pain shortness of breath. The pain in his knee was at baseline and he currently is on antibiotics for that. Patient reports that [facility] took his blood pressure there and was also noted to be hypotensive. He contacted his primary care physician who recommended that he take his blood pressure a couple times at home and if he is persistently hypotensive he needs to come in to be ruled out for sepsis. He was persistently hypotensive at home, so he is presenting to the emergency department now. He denies any other infectious signs or symptoms. Review of systems otherwise negative. Past Medical History - Allergies and Home Meds Allergies/Adverse Reactions: Allergies bacitracin [From Neosporin (nwb-zof-irsit)] Allergy (Verified 01/29/19 21:36) Rash bacitracin zinc [From Neosporin (ruz-oim-bqqdp)] Allergy (Verified 01/29/19 21:36) Rash doxycycline Allergy (Verified 01/29/19 21:36) Rash neomycin sulfate [From Neosporin (qef-eqq-hzdhz)] Allergy (Verified 01/29/19 21:36) Rash Penicillins [PCN] Allergy (Verified 01/29/19 21:36) Rash polymyxin B [From Neosporin ([id number]-vkx-wfbjt)] Allergy (Verified 01/29/19 21:36) Rash Primary Care Physician: Chhaya Bills MD [Primary Care Provider] - Surgical History: total knee arthroplasty Smoking Status: Former smoker - Family History Maternal Family History: Family History (Last Updated 12/10/17 @ 08:22 by Ashley Newsome) Mother Diabetes Family History: Reports: No pertinent history Paternal Family History: Family History (Last Updated 12/10/17 @ 08:22 by Ashley Newsome) Mother Diabetes Family History: Reports: No pertinent history Review of Systems All systems negative except as indicated General: Denies: Fever ENT: Denies: Sore throat Cardiovascular: Denies: Chest pain, Palpitations Respiratory: Denies: Dyspnea, Cough Gastrointestinal: Denies: Nausea, Vomiting Musculoskeletal: Reports: Extremity Pain Skin: Denies: Rash Neurological: Denies: Headache Physical Exam Vital Signs/Narrative: Vital Signs Temp Pulse Resp BP Pulse Ox 01/29/19 22:04 97 18 149/86 H 88 01/29/19 21:33 97.7 F L 96 16 125/57 H 92 General: Well nourished, Well developed, No Acute Distress Eyes: Perrl, EOMI ENT: Moist mucous membranes, No rhinorrhea Neck: Supple, Nontender Cardiovascular: Regular rate, Regular rhythm, No murmurs, - - 2+ radial pulses bilaterally symmetric Respiratory: No distress - Patient is not dyspneic, and is on his baseline nasal cannula, CTA bilaterally, Chest nontender Abdomen: Soft, Nontender, Nondistended, Normal bowel sounds Extremities: - - Right knee exam shows warmth and erythema of the joint with tenderness to palpation. Skin: Normal color, No rash Neurological: Alert, Oriented x3, Cranial nerves II-XII grossly intact, Normal Strength, Normal Sensation Psychological: Normal affect, Normal Mood Diagnostic/Tx/Re-eval - Medical Decision Making Patient presented for evaluation secondary to hypotension. Upon arrival to the emergency department and the patient's entire stay in the emergency department he was never hypotensive and typically had blood pressures in the 140s to 120s. Patient was evaluated for the possibility of sepsis. He was found to have a slight leukocytosis of 11. Lactic acid was mildly elevated at 2.3. Patient has chronic kidney disease, his renal function appears at baseline. His potassium was 5.2. Urinalysis was negative. Neck x-ray shows chronic changes. I discussed patient's case in telephone with his orthopedics physician Dr. Thompson, and he states that the patient's cultures are sensitive to doxycycline and he currently is on that and he does not recommend that the patient requires admission for emergent incision and drainage of the knee. Patient does not meet sepsis criteria at this point. I believe that he is appropriate for discharge. Patient is recommended to follow-up with primary care and orthopedics. ED Disposition - Plan for ED Patient: Disposition: Home or Assisted Living Diagnosis: Chronic infection of right knee, Transient hypotension, Chronic kidney disease Instructions: ED Hypotension All Causes Referrals: Chhaya Bills MD [Primary Care Provider] - Jalen Thompson MD [STAFF PHYSICIAN] - (As scheduled)
[2019-01-30 00:38] VITALS: BP 124/61; PULSE 78; RESP 19; O2SAT 94
[2019-01-30] MEDS: HYDROcodone Bitartrate/Apap 5/325 Tablet PO (00:43)
[2019-01-30 03:04] LABS: Reflex Lactate? Y
== END 2019-01-30 00:45 | disposition home or self-care (01) ==
PROVIDERS: Emergency Provider Emergency Medicine; Family Provider Internal Medicine; PCP Internal Medicine
DX: I95.9 Hypotension, unspecified (principal); T84.53XA Infection and inflammatory reaction due to internal right knee prosthesis, initial encounter; N18.9 Chronic kidney disease, unspecified; Z96.651 Presence of right artificial knee joint; Z79.2 Long term (current) use of antibiotics
CPT/HCPCS: 73560; 80048; 81001; 83605; 84484; 85025; 93005; 99283; A4216

== ENCOUNTER 2019-01-31 23:37 | Inpatient (IN) | payer MEDICARE, SELFPAY ==
[2019-01-31 23:38] VITALS: BP 146/75; PULSE 89; RESP 16; TEMP 36.2; O2SAT 95; BMI 45.6
--- NOTE | 2019-01-31 23:53 | EKG12_ITS ---
Test Reason : ABNORMAL LABS Blood Pressure : / mmHG Vent. Rate : 081 BPM Atrial Rate : 081 BPM P-R Int : 166 ms QRS Dur : 092 ms QT Int : 338 ms P-R-T Axes : 059 049 056 degrees QTc Int : 392 ms Normal sinus rhythm Low voltage QRS Borderline ECG Confirmed by CHRISSY LUIS, BROOK ([id number]), editor farm journal JUVENAL RUBIN ([id number]) on 02/03/2019 11:55:54 AM Referred By: NENITA Confirmed By:BROOK LOWE MD
[2019-02-01] VITALS (14 sets, daily range): BP systolic 113–153; BP diastolic 55–75; PULSE 72–90; RESP 12–18; TEMP 36.5–36.9; O2SAT 90–97; BMI 47.2
[2019-02-01 00:13] LABS: Absolute Lymphocyte Count 0.74 X10^3/ul (0.83-4.51); Absolute Neutrophil Count 8.5 X10^3/uL (2.0-7.7); Basophil# 0.03 X10^3/uL; Basophil% 0.3 % (0-1); Eosinophil# 0.14 X10^3/uL; Eosinophils% 1.4 % (0-5); Hematocrit 40.6 % (40-54); Hemoglobin 13.2 g/dl (13.0-16.5); Lymphocyte # 0.74 X10^3/ul (4.0); Lymphocyte % 7.3 % (19-41); Mean Corp Hgb Conc 32.5 g/gl (32-36); Mean Corpuscular Hgb 29.3 pg (27.0-32.0); Mean Platelet Vol. 9.4 fl (6.2-12.0); Monocyte# 0.78 X10^3/uL; Monocyte% 7.7 % (0-10); Neutrophil # 8.45 X10^3/uL (2.7-7.7); Neutrophil % 82.8 % (47-70); Platelet Count 232 K/mm3 (150-450); RBC Distribution Width CV 14.3 % (11.6-14.6); RBC Distribution Width SD 46.6 fl (35.1-43.9); Red Blood Count 4.51 M/mm3 (4.6-6.2); White Blood Count 10.2 K/mm3 (4.4-11.0)
[2019-02-01 00:15] LABS: POSITIVE COUNT NO; POSITIVE DIFFERENTIAL NO; POSITIVE MORPHOLOGY NO
[2019-02-01 00:18] LABS: Anion Gap 7 (5-15); BUN 79 mg/dL (7-18); BUN/Creat Ratio 19.6 RATIO (10-20); Calcium,Total 8.5 mg/dL (8.5-10.1); Chloride 103 mmol/L (98-107); Creatinine, Serum 4.04 mg/dL (0.70-1.30); EST Glomerular Filtration Rate 16 mL/min (>60); Est Glom Filt Rate - Afr Amer 19 mL/min (>60); Estimated Creatinine Clearance 16.59 ml/min; Glucose 112 mg/dL (74-106); Potassium 6.5 mmol/L (3.5-5.1); Sodium Level 132 mmol/L (136-145)
--- NOTE | 2019-02-01 00:18 | ED.RN ---
DR GUTIERRES NOTIFIED OF K+ RESULTS
[2019-02-01] MEDS: Albuterol 2.5 MG/3 ML VIAL.NEB. INHALATION ×2 (00:29→20:00)
[2019-02-01] MEDS: Dextrose 50%-Water 25 GM/50 ML DISP.SYRIN IV (00:53)
[2019-02-01] MEDS: Sodium Polystyrene Sulfonate 15 GM/60 ML UDC 30 GM PO (01:02)
--- NOTE | 2019-02-01 01:41 | PCM.HP.STD ---
Problem List (1) Hyperkalemia Status: Acute (2) Acute renal failure Status: Acute (3) History of total bilateral knee replacement (TKR) Status: Resolved (4) Hypothyroidism Status: Chronic (5) Hypertension Status: Chronic (6) Morbid obesity Status: Chronic History of Present Illness Date of Admission: 02/01/19 Chief Complaint: Abnormal labs The patient is a 68 year old M with PMH as below who presents with abnormal labs. He had outpatient labs done and was found to have a potassium of 6.5 as well as a worst creatinine at 4.04, and his primary care physician sent him into the hospital. He states that for about a year now he has been on multiple different antibiotics because he cut his leg on the right and that led to a right knee infection with hardware. He is slated to have surgery in a week for removal of hardware and the insertion of an antibiotic spacer and has been on Bactrim double strength twice daily for the last few weeks to months. He was also on Lasix at least since the summertime when his creatinine was at its normal baseline of 1.4, and he was just recently started on metformin. He had labs done a few days ago and his creatinine was found to be elevated and his primary care doctor had stopped his Lasix however his renal function is continued to worsen. He is otherwise asymptomatic though he does have right knee pain secondary to the infection which is being managed by infectious disease and outside hospital as well as orthopedic surgery. In the ER he received albuterol and Kayexalate, and EKG was unremarkable. Past Medical History Past Medical History (Chronic Problems): Chronic Problems Hypothyroidism (Chronic) Benzodiazepine dependence (Chronic) Hypertension (Chronic) Osteoarthritis (Chronic) Morbid obesity (Chronic) Chronic anxiety (Chronic) Former smoker (Chronic) Medical History: Medical History (Last Reviewed 12/10/17 @ 08:07 by Ashley Newsome) Hypothyroidism (Chronic) E03.9 Benzodiazepine dependence (Chronic) F13.20 Anemia (Acute) D64.9 Acute kidney injury (Acute) N17.9 Hypertension (Chronic) I10 Osteoarthritis (Chronic) M19.90 Morbid obesity (Chronic) E66.01 Acute respiratory failure with hypoxia and hypercapnia (Acute) J96.01, J96.02 Chronic anxiety (Chronic) F41.9 Former smoker (Chronic) Z87.891 Severe sepsis (Acute) A41.9, R65.20 Obstructive sleep apnea (Suspected) G47.33 HCAP (healthcare-associated pneumonia) (Acute) J18.9 Allergies bacitracin [From Neosporin ([id number])] Allergy (Verified 01/31/19 23:40) Rash bacitracin zinc [From Neosporin ([id number])] Allergy (Verified 01/31/19 23:40) Rash doxycycline Allergy (Verified 01/31/19 23:40) Rash neomycin sulfate [From Neosporin ([id number])] Allergy (Verified 01/31/19 23:40) Rash Penicillins [PCN] Allergy (Verified 01/31/19 23:40) Rash polymyxin B [From Neosporin (dvq-sns-pzxdt)] Allergy (Verified 01/31/19 23:40) Rash Home Medications: Ambulatory Orders Medication Instructions Recorded Albuterol Sulfate [Ventolin Hfa] 2 inh INHALATION DAILY PRN 11/10/17 Cyclobenzaprine [Flexeril] 10 mg PO TID PRN 11/10/17 Fluconazole 150 mg PO QWEEK 11/10/17 Levothyroxine [Synthroid] 150 mcg PO DAILY 11/10/17 Lisinopril [Zestril] 1 tab PO DAILY 11/10/17 Paroxetine HCl [Paxil] 40 mg PO DAILY 11/10/17 Verapamil [Calan Sr] 1 tab PO DAILY 11/10/17 ALPRAZolam [Xanax] 1 mg PO BID PRN PRN 01/29/19 Docusate Sodium [Stool Softener] 100 mg PO QHS 01/29/19 Fluticasone 0.05% [Flonase Nasal 2 spray NASAL DAILY PRN 01/29/19 [place]] Fluticasone 110 Mcg [Flovent (SP)] 2 puff INHALATION BID 01/29/19 Furosemide [Lasix] 20 mg PO QODAY 01/29/19 Gabapentin [Neurontin] 600 mg PO TIDCM 01/29/19 Hydrocodone/Acetaminophen 1 each PO TID PRN 01/29/19 [Hydrocodon-Acetaminophn 10-325] Ibuprofen 800 mg PO TID PRN 01/29/19 Melatonin 5 mg PO QHS PRN 01/29/19 Metformin HCl 500 mg PO DAILY 01/29/19 Sulfamethoxazole/Trimethoprim 1 each PO BID 01/29/19 [Bactrim Ds Tablet] Tamsulosin HCl [Flomax] 0.4 mg PO DAILY@1730 01/29/19 Surgical History: Surgical History (Last Updated 12/10/17 @ 08:22 by Ashley Newsome) History of total bilateral knee replacement (TKR) (Resolved) Z96.653 Status post total right knee replacement (Acute) Z96.651 11/05/[address] Jase Lopez at [facility] Surgical History: total knee arthroplasty Smoking Status: Former smoker Tobacco Use: Cigarettes Alcohol: None Drugs: None - *Family History Maternal Family History: Family History (Last Updated 12/10/17 @ 08:22 by Ashley Newsome) Mother Diabetes History Items: No pertinent history Paternal Family History: Family History (Last Updated 12/10/17 @ 08:22 by Ashley Newsome) Mother Diabetes History Items: No pertinent history Review of Systems Constitutional: Denies: Chills, Fever, Weight Change HEENT: Denies: Head Aches, Sinus Congestion, Sinus Drainage Cardiovascular: Denies: Chest Pain, Palpitations Respiratory: Denies: Cough, Shortness of breath at rest, Sputum production Gastrointestinal: Denies: Abdominal Pain, Nausea, Vomiting Genitourinary: Denies: Dysuria Musculoskeletal: Reports: Joint swelling, Joint Tenderness. Denies: Joint Pain Skin: Denies: Rash, Wounds Neurological: Denies: Numbness, Tingling, Focal weakness Psychiatric: Denies: Anxiety, Depression Hematologic/ Lymphatic: Denies: Easy Bruising, Easy Bleeding VTE Information - Inpt Only VTE Present on Admission: No Patient Problems: Active and Suspected Problems (Last Reviewed 12/10/17 @ 08:07 by Ashley Newsome) Hyperkalemia (Acute) Acute renal failure (Acute) - Physical Exam General: Alert, Oriented x3, Cooperative, No apparent distress HEENT: Atraumatic, PERRLA, EOMI, Normocephalic Oral: Moist Mucosa Neck: Supple, No JVD, Trachea Midline Lungs: Clear to auscultation, Normal air movement, No rhonchi, No wheeze, No rales Cardiovascular: Regular rate, Regular Rhythm, Normal S1, Normal S2, No murmurs Abdomen: Soft, Non Tender, Non-Distended, No Hepato-splenomegaly, Obese Extremities: No edema, Capillary Refill Less than 3 Seconds Skin: No rashes, No breakdown, - - Erythema of the right knee that is very slight Musculoskeletal: Tenderness - To palpation of his right knee and when standing Neurological: Neuro grossly intact, Sensory exam intact to light touch and pain Psych/Mental Status: Normal Affect, Appropriate Vital Signs Temp Pulse Resp BP Pulse Ox 98.4 F 75 18 153/66 H 97 02/01/19 01:35 02/01/19 01:35 02/01/19 01:35 02/01/19 01:35 02/01/19 01:35 Oxygen Flow Rate (L/min) 3 Oxygen Delivery Method Nasal Cannula Weight: 301 lb 5.95 oz Body Mass Index (BMI) 47.2 Laboratory Tests Past 24 Hrs 01/31/19 01/31/19 23:45 23:45 WBC 10.2 RBC 4.51 L Hgb 13.2 Hct 40.6 MCV 90.0 MCH 29.3 MCHC 32.5 RDW 14.3 RDW Differential 46.6 H Plt Count 232 MPV 9.4 Immature Gran % (Auto) 0.500 Neut % (Auto) 82.8 H Lymph % (Auto) 7.3 L [place] % (Auto) 7.7 Eos % (Auto) 1.4 Baso % (Auto) 0.3 Absolute Neuts (auto) 8.5 H Absolute Lymphs (auto) 0.74 L Total Counted Not Reportable Sodium 132 L Potassium 6.5 H* Chloride 103 Carbon Dioxide 22.0 Anion Gap 7 BUN 79 H Creatinine 4.04 H Estim Creat Clear Calc 16.59 Est GFR (MDRD) Af Amer 19 L Est GFR (MDRD) Non-Af 16 L BUN/Creatinine Ratio 19.6 Glucose 112 H Calcium 8.5 Assessment/Plan All Active Problems (Last Reviewed 12/10/17 @ 08:07 by Ashley Newsome) Hyperkalemia (Acute) Acute renal failure (Acute) History of total bilateral knee replacement (TKR) (Resolved) Anemia (Acute) Acute kidney injury (Acute) Acute respiratory failure with hypoxia and hypercapnia (Acute) Status post total right knee replacement (Acute) Severe sepsis (Acute) HCAP (healthcare-associated pneumonia) (Acute) 1. Acute renal failure with hyperkalemia -Back in April his creatinine was 1.40 and and his creatinine now is 4.04, and it has risen over the last few days -Is likely multifactorial secondary to his Bactrim, Lasix, and metformin -We will obtain a renal ultrasound as well as urine electrolytes and a UA to help determine if this is an interstitial nephritis secondary to medications -Currently his EKG is unremarkable we will continue with IV fluids and he has received a dose of Kayexalate as well as albuterol, insulin, and glucose -Repeat BMP in the morning 2. Graves' disease status post thyroidectomy with hypothyroidism -Stable, TSH 2 days ago was 2.56 -Continue with Synthroid at his current home dose 3. DM2 -Currently on metformin at home however given his worsening renal function will hold -Transition to insulin while in the hospital 4. Knee osteoarthritis status post bilateral knee replacements with a current right knee infection -We will have to hold his Bactrim as this is a major contributor to renal failure, can likely transition to clindamycin -No role for orthopedic surgery at the moment -He continue with his narcotics for pain control, but will have to hold his Neurontin as this is renally excreted 5. Depression/anxiety -Stable -Continue his Xanax and Paxil 6. HTN -SBP is stable currently - we will hold his lisinopril given his renal function DVT: Heparin Code Visit Inpatient E&M: 47751 Init Hosp L3
--- NOTE | 2019-02-01 01:46 | HP.PCM_ITS ---
Problem List (1) Hyperkalemia Status: Acute (2) Acute renal failure Status: Acute (3) History of total bilateral knee replacement (TKR) Status: Resolved (4) Hypothyroidism Status: Chronic (5) Hypertension Status: Chronic (6) Morbid obesity Status: Chronic History of Present Illness Date of Admission: 02/01/19 Chief Complaint: Abnormal labs The patient is a 68 year old M with PMH as below who presents with abnormal labs. He had outpatient labs done and was found to have a potassium of 6.5 as well as a worst creatinine at 4.04, and his primary care physician sent him into the hospital. He states that for about a year now he has been on multiple different antibiotics because he cut his leg on the right and that led to a right knee infection with hardware. He is slated to have surgery in a week for removal of hardware and the insertion of an antibiotic spacer and has been on Bactrim double strength twice daily for the last few weeks to months. He was also on Lasix at least since the summertime when his creatinine was at its sushila l baseline of 1.4, and he was just recently started on metformin. He had labs done a few days ago and his creatinine was found to be elevated and his primary care doctor had stopped his Lasix however his renal function is continued to worsen. He is otherwise asymptomatic though he does have right knee pain secondary to the infection which is being managed by infectious disease and outside hospital as well as orthopedic surgery. In the ER he received albuterol and Kayexalate, and EKG was unremarkable. Past Medical History Past Medical History (Chronic Problems): Chronic Problems Hypothyroidism (Chronic) Benzodiazepine dependence (Chronic) Hypertension (Chronic) Osteoarthritis (Chronic) Morbid obesity (Chronic) Chronic anxiety (Chronic) Former smoker (Chronic) Medical History: Medical History (Last Reviewed 12/10/17 @ 08:07 by Ashley Newsome) Hypothyroidism (Chronic) E03.9 Benzodiazepine dependence (Chronic) F13.20 Anemia (Acute) D64.9 Acute kidney injury (Acute) N17.9 Hypertension (Chronic) I10 Osteoarthritis (Chronic) M19.90 Morbid obesity (Chronic) E66.01 Acute respiratory failure with hypoxia and hypercapnia (Acute) J96.01, J96.02 Chronic anxiety (Chronic) F41.9 Former smoker (Chronic) Z87.891 Severe sepsis (Acute) A41.9, R65.20 Obstructive sleep apnea (Suspected) G47.33 HCAP (healthcare-associated pneumonia) (Acute) J18.9 Allergies bacitracin [From Neosporin ([id number]-vqp-[id number])] Allergy (Verified 01/31/19 23:40) Rash bacitracin zinc [From Neosporin ([id number]-byx-vgvxr)] Allergy (Verified 01/31/19 23:40) Rash doxycycline Allergy (Verified 01/31/19 23:40) Rash neomycin sulfate [From Neosporin (ayn-clj-astut)] Allergy (Verified 01/31/19 23:40) Rash Penicillins [PCN] Allergy (Verified 01/31/19 23:40) Rash polymyxin B [From Neosporin ([id number]-hun-pfojw)] Allergy (Verified 01/31/19 23:40) Rash Home Medications: Ambulatory Orders Medication Instructions Recorded Albuterol Sulfate [Ventolin Hfa] 2 inh INHALATION DAILY PRN 11/10/17 Cyclobenzaprine [Flexeril] 10 mg PO TID PRN 11/10/17 Fluconazole 150 mg PO QWEEK 11/10/17 Levothyroxine [Synthroid] 150 mcg PO DAILY 11/10/17 Lisinopril [Zestril] 1 tab PO DAILY 11/10/17 Paroxetine HCl [Paxil] 40 mg PO DAILY 11/10/17 Verapamil [Calan Sr] 1 tab PO DAILY 11/10/17 ALPRAZolam [Xanax] 1 mg PO BID PRN PRN 01/29/19 Docusate Sodium [Stool Softener] 100 mg PO QHS 01/29/19 Fluticasone 0.05% [Flonase Nasal 2 spray NASAL DAILY PRN 01/29/19 [place]] Fluticasone 110 Mcg [Flovent (SP)] 2 puff INHALATION BID 01/29/19 Furosemide [Lasix] 20 mg PO QODAY 01/29/19 Gabapentin [Neurontin] 600 mg PO TIDCM 01/29/19 Hydrocodone/Acetaminophen 1 each PO TID PRN 01/29/19 [Hydrocodon-Acetaminophn 10-325] Ibuprofen 800 mg PO TID PRN 01/29/19 Melatonin 5 mg PO QHS PRN 01/29/19 Metformin HCl 500 mg PO DAILY 04/24/19 Sulfamethoxazole/Trimethoprim 1 each PO BID 01/29/19 [Bactrim Ds Tablet] Tamsulosin HCl [Flomax] 0.4 mg PO DAILY@1730 01/29/19 Surgical History: Surgical History (Last Updated 12/10/17 @ 08:22 by Ashley Newsome) History of total bilateral knee replacement (TKR) (Resolved) Z96.653 Status post total right knee replacement (Acute) Z96.651 11/05/[address] Jase Lopez at [facility] Surgical History: total knee arthroplasty Smoking Status: Former smoker Tobacco Use: Cigarettes Alcohol: None Drugs: None - *Family History Maternal Family History: Family History (Last Updated 12/10/17 @ 08:22 by Ashley Newsome) Mother Diabetes History Items: No pertinent history Paternal Family History: Family History (Last Updated 12/10/17 @ 08:22 by Ashley Newsome) Mother Diabetes History Items: No pertinent history Review of Systems Constitutional: Denies: Chills, Fever, Weight Change HEENT: Denies: Head Aches, Sinus Congestion, Sinus Drainage Cardiovascular: Denies: Chest Pain, Palpitations Respiratory: Denies: Cough, Shortness of breath at rest, Sputum production Gastrointestinal: Denies: Abdominal Pain, Nausea, Vomiting Genitourinary: Denies: Dysuria Musculoskeletal: Reports: Joint swelling, Joint Tenderness. Denies: Joint Pain Skin: Denies: Rash, Wounds Neurological: Denies: Numbness, Tingling, Focal weakness Psychiatric: Denies: Anxiety, Depression Hematologic/ Lymphatic: Denies: Easy Bruising, Easy Bleeding VTE Information - Inpt Only VTE Present on Admission: No Patient Problems: Active and Suspected Problems (Last Reviewed 12/10/17 @ 08:07 by Ashley Newsome) Hyperkalemia (Acute) Acute renal failure (Acute) - Physical Exam General: Alert, Oriented x3, Cooperative, No apparent distress HEENT: Atraumatic, PERRLA, EOMI, Normocephalic Oral: Moist Mucosa Neck: Supple, No JVD, Trachea Midline Lungs: Clear to auscultation, Normal air movement, No rhonchi, No wheeze, No rales Cardiovascular: Regular rate, Regular Rhythm, Normal S1, Normal S2, No murmurs Abdomen: Soft, Non Tender, Non-Distended, No Hepato-splenomegaly, Obese Extremities: No edema, Capillary Refill Less than 3 Seconds Skin: No rashes, No breakdown, - - Erythema of the right knee that is very slight Musculoskeletal: Tenderness - To palpation of his right knee and when standing Neurological: Neuro grossly intact, Sensory exam intact to light touch and pain Psych/Mental Status: Normal Affect, Appropriate Vital Signs Temp Pulse Resp BP Pulse Ox 98.4 F 75 18 153/66 H 97 02/01/19 01:35 02/01/19 01:35 02/01/19 01:35 02/01/19 01:35 02/01/19 01:35 Oxygen Flow Rate (L/min) 3 Oxygen Delivery Method Nasal Cannula Weight: 301 lb 5.95 oz Body Mass Index (BMI) 47.2 Laboratory Tests Past 24 Hrs 01/31/19 01/31/19 23:45 23:45 WBC 10.2 RBC 4.51 L Hgb 13.2 Hct 40.6 MCV 90.0 MCH 29.3 MCHC 32.5 RDW 14.3 RDW Differential 46.6 H Plt Count 232 MPV 9.4 Immature Gran % (Auto) 0.500 Neut % (Auto) 82.8 H Lymph % (Auto) 7.3 L [place] % (Auto) 7.7 Eos % (Auto) 1.4 Baso % (Auto) 0.3 Absolute Neuts (auto) 8.5 H Absolute Lymphs (auto) 0.74 L Total Counted Not Reportable Sodium 132 L Potassium 6.5 H* Chloride 103 Carbon Dioxide 22.0 Anion Gap 7 BUN 79 H Creatinine 4.04 H Estim Creat Clear Calc 16.59 Est GFR (MDRD) Af Amer 19 L Est GFR (MDRD) Non-Af 16 L BUN/Creatinine Ratio 19.6 Glucose 112 H Calcium 8.5 Assessment/Plan All Active Problems (Last Reviewed 12/10/17 @ 08:07 by Ashley Newsome) Hyperkalemia (Acute) Acute renal failure (Acute) History of total bilateral knee replacement (TKR) (Resolved) Anemia (Acute) Acute kidney injury (Acute) Acute respiratory failure with hypoxia and hypercapnia (Acute) Status post total right knee replacement (Acute) Severe sepsis (Acute) HCAP (healthcare-associated pneumonia) (Acute) 1. Acute renal failure with hyperkalemia -Back in April his creatinine was 1.40 and and his creatinine now is 4.04, and it has risen over the last few days -Is likely multifactorial secondary to his Bactrim, Lasix, and metformin -We will obtain a renal ultrasound as well as urine electrolytes and a UA to help determine if this is an interstitial nephritis secondary to medications -Currently his EKG is unremarkable we will continue with IV fluids and he has received a dose of Kayexalate as well as albuterol, insulin, and glucose -Repeat BMP in the morning 2. Graves' disease status post thyroidectomy with hypothyroidism -Stable, TSH 2 days ago was 2.56 -Continue with Synthroid at his current home dose 3. DM2 -Currently on metformin at home however given his worsening renal function will hold -Transition to insulin while in the hospital 4. Knee osteoarthritis status post bilateral knee replacements with a current right knee infection -We will have to hold his Bactrim as this is a major contributor to renal failure, can likely transition to clindamycin -No role for orthopedic surgery at the moment -He continue with his narcotics for pain control, but will have to hold his Neurontin as this is renally excreted 5. Depression/anxiety -Stable -Continue his Xanax and Paxil 6. HTN -SBP is stable currently - we will hold his lisinopril given his renal function DVT: Heparin Code Visit Inpatient E&M: 42316 Init Hosp L3
--- NOTE | 2019-02-01 02:12 | ED.DCSUM_ITS ---
- ER Visit Summary Date of Service: 02/01/19 Chief Complaint: Elevated potassium History of Present Illness: The patient is a [address] Bills. He reports that he had blood work drawn yesterday that showed he had an elevated potassium and creatinine. He was called and told to come to emergency [facility]. He denies any complaints at this time. States that he does have a history of kidney problems and had an elevated potassium years ago. But is not had a problem since then. Patient does have a chronic right knee infection and finished antibiotics 4 weeks ago. He is currently on Bactrim. He is supposed to have surgery with a spacer placed in [address] Thompson. He reports that he is not having any constitutional symptoms. No fever, chills, nausea, or vomiting. He reports that his knee is not red or more painful than usual. Physical Examination: Vitals: Stable. Afebrile. General: Well-nourished and well-developed. Head: Normocephalic atraumatic. Neck: Supple, no lymphadenopathy. No JVD. Nontender. Cardiovascular: Regular rate and rhythm. No murmurs. Respiratory: No respiratory distress. Clear to auscultation bilaterally. Abdominal: Soft, nontender, nondistended, normal bowel sounds. No guarding, rebound, or peritoneal signs. Back: Nontender. Extremities: Nontender, no edema. Right knee has full range of motion without any difficulty. There is no overlying erythema or warmth. Skin: Normal color, no rash. Neurologic: Alert and oriented ?3. Cranial nerves II through XII are intact. Normal strength and sensation. Psych: Normal affect. Test Results: EKG is sinus at 81 with a normal QRS at 92 ms. CBC shows a seg ment neutrophils 83 Sher set to 7. Chem-7 shows a sodium 132, potassium 6.5, glucose 112, BUN 79, creatinine of 4.04. Emergency Department Course and Treatment: Patient was given albuterol aerosol. He was given insulin D50 IV. He is given Kayexalate p.o. He is resting comfortably. Treatment Plan: Patient was discussed with Dr. Bragg. He will be admitted to the hospital for further evaluation and treatment. Disposition: Admitted in improved condition. Impression: 1. Hyperkalemia. 2. Acute renal insufficiency. This note was generated with Mango dictation software. It may contain incorrect words, spelling, and punctuation that were not noted in review of the chart prior to signing ED Disposition - Plan for ED Patient: Disposition: Acute Care Hospital [facility]
[2019-02-01] MEDS: 0.9% Normal Saline 1,000 ML 125 ML IV ×3 (02:14→17:35)
[2019-02-01 02:29] LABS: Bacteria 0 SEEN /hpf (None Seen); Mucous, Urine 0 SEEN /hpf (<or=2+); Red Blood Cells-Urine 0 SEEN /hpf (0-5); Squamous Epithelial Cells - UA 0 SEEN /hpf (0-5); White Blood Cells 0 SEEN /hpf (0-5)
[2019-02-01 02:30] LABS: Color, Urine Yellow (Yellow); Glucose, Dipstick Normal (Normal); Ketone-Dipstick Negative (Negative); Leukocyte Esterase-Dipstick Negative /ul (Negative); Nitrite-Dipstick Negative (Negative); Occult Blood-Urine Negative /ul (Negative); Protein-Dipstick 15 mg/dl (Negative); Urine Bilirubin Dipstick Negative (Negative); Urine Clarity Clear (Clear); Urine Urobilinogen Normal (Normal)
[2019-02-01 02:34] LABS: Urine Chloride 13 mmol/L (Not Establ.); Urine Sodium 24 mmol/L (Not Establ.)
--- NOTE | 2019-02-01 05:55 | US_ITS ---
STUDY: RENAL ULTRASOUND - COMPLETE REASON FOR EXAM: Male, 68 years old. Acute renal failure TECHNIQUE: Ultrasound evaluation of the kidneys was performed with real-time and static finney-scale imaging. COMPARISON: None. FINDINGS: RIGHT KIDNEY: Normal location of the right kidney, which is normal in size. The right kidney measures 10.8 x 4.5 x 5.8 cm. There is a normal cortex of the right kidney. The renal cortex measures 1.3 cm. There is no right renal mass or cyst. There are no right renal calculi. There is no right hydronephrosis. DISTAL RIGHT URETER: There is non-visualization of the distal right ureter. LEFT KIDNEY: Normal location of the left kidney, which is normal in size. The left kidney measures 9.6 x 3.9 x 5.5 cm. There is a normal cortex of the left kidney. The renal cortex measures 1.5 cm. There is a 2.2 cm cyst. There are no left renal calculi. There is no left hydronephrosis. DISTAL LEFT URETER: There is non-visualization of the distal left ureter. Nonvisualization of the urinary bladder. US/Kidney and Bladder IMPRESSION: Left renal cyst. Electronically Signed: Armando Bennett DO at 10:41 EDT Tel [phone], Service support ,
[2019-02-01] MEDS: Heparin Injection (Vial) 5,000 UNIT/ML VIAL 5000 UNIT SC ×3 (06:05→22:44)
[2019-02-01 07:15] LABS: Bedside Glucose 152 mg/dL (70-110)
[2019-02-01 08:33] LABS: Absolute Neutrophil Count 5.9 X10^3/uL (2.0-7.7); Basophil# 0.02 X10^3/uL; Basophil% 0.3 % (0-1); Eosinophil# 0.32 X10^3/uL; Eosinophils% 4.1 % (0-5); Hematocrit 38.5 % (40-54); Hemoglobin 12.2 g/dl (13.0-16.5); Lymphocyte % 11.4 % (19-41); Mean Corp Hgb Conc 31.7 g/gl (32-36); Mean Corpuscular Hgb 28.6 pg (27.0-32.0); Mean Corpuscular Volume 90.2 fL (80-94); Mean Platelet Vol. 9.7 fl (6.2-12.0); Monocyte% 8.9 % (0-10); Neutrophil # 5.92 X10^3/uL (2.7-7.7); Neutrophil % 74.9 % (47-70); Platelet Count 193 K/mm3 (150-450); RBC Distribution Width CV 14.3 % (11.6-14.6); RBC Distribution Width SD 46.3 fl (35.1-43.9); Red Blood Count 4.27 M/mm3 (4.6-6.2); White Blood Count 7.9 K/mm3 (4.4-11.0)
[2019-02-01 08:46] LABS: POSITIVE COUNT NO; POSITIVE DIFFERENTIAL NO; POSITIVE MORPHOLOGY NO
[2019-02-01 08:49] LABS: Anion Gap 8 (5-15); BUN 76 mg/dL (7-18); BUN/Creat Ratio 20.7 RATIO (10-20); Calcium,Total 8.2 mg/dL (8.5-10.1); Chloride 105 mmol/L (98-107); Creatinine, Serum 3.67 mg/dL (0.70-1.30); EST Glomerular Filtration Rate 18 mL/min (>60); Est Glom Filt Rate - Afr Amer 21 mL/min (>60); Estimated Creatinine Clearance 18.26 ml/min; Glucose 139 mg/dL (74-106); Potassium 5.3 mmol/L (3.5-5.1); Sodium Level 135 mmol/L (136-145)
[2019-02-01] MEDS: Sodium Polystyrene Sulfonate 15 GM/60 ML UDC PO (11:03)
--- NOTE | 2019-02-01 11:36 | PCM.PN.HOSP ---
Patient Problems: Active and Suspected Problems (Last Reviewed 12/10/17 @ 08:07 by Ashley Newsome) Hyperkalemia (Acute) Acute renal failure (Acute) Subjective: Patient seen and examined. Had no complaints this morning. Review of systems otherwise negative. Labs and vitals reviewed. Vitals/I&O's: Vital Signs Temp Pulse Resp BP Pulse Ox 97.7 F L 72 18 136/56 H 97 02/01/19 06:00 02/01/19 07:08 02/01/19 06:00 02/01/19 06:00 02/01/19 06:00 Oxygen Flow Rate (L/min) 3 Oxygen Delivery Method Nasal Cannula Weight: 301 lb 5.95 oz Body Mass Index (BMI) 47.2 Intake and Output for Last 24 Hours 01/30/19 01/31/19 02/01/19 23:59 23:59 23:59 Intake Total 1148 / 1148 Output Total 650 / 650 Balance 498 / 498 General: Alert, Oriented x3, Cooperative, No apparent distress HEENT: Atraumatic, PERRLA, EOMI, Normocephalic Oral: Moist Mucosa Neck: Supple, No JVD, Negative Carotid Bruits Lungs: Clear to auscultation, Normal air movement, No rhonchi, No wheeze, No rales Cardiovascular: Regular rate, Regular Rhythm, Normal S1, Normal S2, No murmurs Abdomen: Bowel Sounds Present, Soft, Non Tender, Non-Distended, No Hepato-splenomegaly Extremities: No clubbing, No cyanosis, No edema, Capillary Refill Less than 3 Seconds Skin: No rashes, No breakdown Musculoskeletal: No Tenderness to Palpation of Joints or Extremities Lymphatic: No Cervical, Supraclavicular, or Inguinal Adenopathy Neurological: Cranial nerves II-XII grossly intact, Neuro grossly intact, Motor Exam 5/5 strength throughout Psych/Mental Status: Normal Affect, Appropriate, Alert and oriented to time, place, person, mood and affect Laboratory Results 01/31/19 23:45: Sodium 132 L, Potassium 6.5 H*, Chloride 103, Carbon Dioxide 22.0, Anion Gap 7, BUN 79 H, Creatinine 4.04 H, Estim Creat Clear Calc 16.59, Est GFR (MDRD) Af Amer 19 L, Est GFR (MDRD) Non-Af 16 L, BUN/Creatinine Ratio 19.6, Glucose 112 H, Calcium 8.5 01/31/19 23:45: WBC 10.2, RBC 4.51 L, Hgb 13.2, Hct 40.6, MCV 90.0, MCH 29.3, MCHC 32.5, RDW 14.3, RDW Differential 46.6 H, Plt Count 232, MPV 9.4, Immature Gran % (Auto) 0.500, Neut % (Auto) 82.8 H, Lymph % (Auto) 7.3 L, [place] % (Auto) 7.7, Eos % (Auto) 1.4, Baso % (Auto) 0.3, Absolute Neuts (auto) 8.5 H, Absolute Lymphs (auto) 0.74 L, Total Counted Not Reportable 02/01/19 02:20: Urine Color Yellow, Urine Clarity Clear, Urine pH 6.0, Ur Specific [place] 1.020, Urine Protein 15 H, Urine Glucose (UA) Normal, Urine Ketones Negative, Urine Occult Blood Negative, Urine Nitrite Negative, Urine Bilirubin Negative, Urine Urobilinogen Normal, Ur Leukocyte Esterase Negative, Urine RBC 0 SEEN, Urine WBC 0 SEEN, Ur Squamous Epith Cells 0 SEEN, Urine Bacteria 0 SEEN, Urine Mucus 0 SEEN 02/01/19 02:20: Ur Random Sodium 24, Urine Potassium 33.0, Urine Chloride 13 02/01/19 06:59: POC Glucose 152 H 02/01/19 07:32: WBC 7.9, RBC 4.27 L, Hgb 12.2 L, Hct 38.5 L, MCV 90.2, MCH 28.6, MCHC 31.7 L, RDW 14.3, RDW Differential 46.3 H, Plt Count 193, MPV 9.7, Immature Gran % (Auto) 0.400, Neut % (Auto) 74.9 H, Lymph % (Auto) 11.4 L, [place] % (Auto) 8.9, Eos % (Auto) 4.1, Baso % (Auto) 0.3, Absolute Neuts (auto) 5.9, Absolute Lymphs (auto) 0.90, Total Counted Not Reportable 02/01/19 07:32: Sodium 135 L, Potassium 5.3 H, Chloride 105, Carbon Dioxide 22.0, Anion Gap 8, BUN 76 H, Creatinine 3.67 H, Estim Creat Clear Calc 18.26, Est GFR (MDRD) Af Amer 21 L, Est GFR (MDRD) Non-Af 18 L, BUN/Creatinine Ratio 20.7 H, Glucose 139 H, Calcium 8.2 L Diagnostic Data Renal Ultrasound 02/01/19 05:55 IMPRESSION: Left renal cyst. Electronically Signed: Armandomeeta Bennett DO at 10:41 EDT Tel [phone], Service support , Current Medications Heparin Sodium (Porcine) (Heparin Na) 5,000 unit SC Q8 [facility] Last Admin: 02/01/19 06:05 Dose: 5,000 unit Sodium Chloride () 1,000 mls @ 125 mls/hr IV .Q8H [facility] Last Admin: 02/01/19 11:02 Dose: 125 mls/hr Magnesium Hydroxide (Milk Of Magnesia) 30 ml PO DAILY PRN PRN Reason: Constipation Sodium Chloride () 5 - 15 ml IV UD PRN PRN Reason: SALINE FLUSH Medical Necessity - Tobacco Use Smoking Status: Former smoker Tobacco Use: Cigarettes Assessment/Plan All Active Problems (Last Reviewed 12/10/17 @ 08:07 by Ashley Newsome) Hyperkalemia (Acute) Acute renal failure (Acute) History of total bilateral knee replacement (TKR) (Resolved) Anemia (Acute) Acute kidney injury (Acute) Acute respiratory failure with hypoxia and hypercapnia (Acute) Status post total right knee replacement (Acute) Severe sepsis (Acute) HCAP (healthcare-associated pneumonia) (Acute) 1. DEANDRA on CKD, likely medication induced and also pre-renal CR was 4.04 on admission, with baseline ~ 1.4 Cr today is 3.67 was thought to be multifactorial, due to bactrim and lasix intake bactrim and lasix on hold. renal USG showed left renal cyst will check FeUrea to ascertain cause of kidney damage continue hydrating with IVF normal saline and trend Cr 2. Hyperkalemia: Potassium was 6.5 on admission and he received 30gram of Kayexalate. Potassium today is 5.3. Will repeat Kayexalate monitor. 3. Graves disease s/p thyroidectomy and resultant hypothyroidism on synthroid 4. Type 2 diabetes mellitus: Metformin on hold on account of acute on CKD will start on ISS accuchecks ACHS 5. Knee osteoarthritis s/p bilateral knee replacement Has had infection of right knee prosthesis and has been on antibiotics for a while. Bactrim currently held. No complaints with knee at the moment. to follow up with orthopedic surgery and ID upon discharge 6. Hypertension: Lisinopril held on account of impaired kidney function. Blood pressure fairly controlled. Will monitor. IV hydralazine PRN. 7. Depression and anxiety: Paxil and Xanax. DVT prophylaxis: Heparin sc 5000mg every 8 hrs. Code Visit Inpatient E&M: 40651 Subs Hosp L3
--- NOTE | 2019-02-01 11:46 | PN_ITS ---
Patient Problems: Active and Suspected Problems (Last Reviewed 12/10/17 @ 08:07 by Ashley Newsome) Hyperkalemia (Acute) Acute renal failure (Acute) Subjective: Patient seen and examined. Had no complaints this morning. Review of systems otherwise negative. Labs and vitals reviewed. Vitals/I&O's: Vital Signs Temp Pulse Resp BP Pulse Ox 97.7 F L 72 18 136/56 H 97 02/01/19 06:00 02/01/19 07:08 02/01/19 06:00 02/01/19 06:00 02/01/19 06:00 Oxygen Flow Rate (L/min) 3 Oxygen Delivery Method Nasal Cannula Weight: 301 lb 5.95 oz Body Mass Index (BMI) 47.2 Intake and Output for Last 24 Hours 01/30/19 01/31/19 02/01/19 23:59 23:59 23:59 Intake Total 1148 / 1148 Output Total 650 / 650 Balance 498 / 498 General: Alert, Oriented x3, Cooperative, No apparent distress HEENT: Atraumatic, PERRLA, EOMI, Normocephalic Oral: Moist Mucosa Neck: Supple, No JVD, Negative Carotid Bruits Lungs: Clear to auscultation, Normal air movement, No rhonchi, No wheeze, No rales Cardiovascular: Regular rate, Regular Rhythm, Normal S1, Normal S2, No murmurs Abdomen: Bowel Sounds Present, Soft, Non Tender, Non-Distended, No Hepato- splenomegaly Extremities: No clubbing, No cyanosis, No edema, Capillary Refill Less than 3 Seconds Skin: No rashes, No breakdown Musculoskeletal: No Tenderness to Palpation of Joints or Extremities Lymphatic: No Cervical, Supraclavicular, or Inguinal Adenopathy Neurological: Cranial nerves II-XII grossly intact, Neuro grossly intact, Motor Exam 5/5 strength throughout Psych/Mental Status: Normal Affect, Appropriate, Alert and oriented to time, place, person, mood and affect Laboratory Results 01/31/19 23:45: Sodium 132 L, Potassium 6.5 H*, Chloride 103, Carbon Dioxide 22.0, Anion Gap 7, BUN 79 H, Creatinine 4.04 H, Estim Creat Clear Calc 16.59, Est GFR (MDRD) Af Amer 19 L, Est GFR (MDRD) Non-Af 16 L, BUN/Creatinine Ratio 19.6, Glucose 112 H, Calcium 8.5 01/31/19 23:45: WBC 10.2, RBC 4.51 L, Hgb 13.2, Hct 40.6, MCV 90.0, MCH 29.3, MCHC 32.5, RDW 14.3, RDW Differential 46.6 H, Plt Count 232, MPV 9.4, Immature Gran % (Auto) 0.500, Neut % (Auto) 82.8 H, Lymph % (Auto) 7.3 L, [place] % (Auto) 7.7, Eos % (Auto) 1.4, Baso % (Auto) 0.3, Absolute Neuts (auto) 8.5 H, Absolute Lymphs (auto) 0.74 L, Total Counted Not Reportable 02/01/19 02:20: Urine Color Yellow, Urine Clarity Clear, Urine pH 6.0, Ur Specific [place] 1.020, Urine Protein 15 H, Urine Glucose (UA) Normal, Urine Ketones Negative, Urine Occult Blood Negative, Urine Nitrite Negative, Urine Bilirubin Negative, Urine Urobilinogen Normal, Ur Leukocyte Esterase Negative, Urine RBC 0 SEEN, Urine WBC 0 SEEN, Ur Squamous Epith Cells 0 SEEN, Urine Bacteria 0 SEEN, Urine Mucus 0 SEEN 02/01/19 02:20: Ur Random Sodium 24, Urine Potassium 33.0, Urine Chloride 13 02/01/19 06:59: POC Glucose 152 H 02/01/19 07:32: WBC 7.9, RBC 4.27 L, Hgb 12.2 L, Hct 38.5 L, MCV 90.2, MCH 28.6, MCHC 31.7 L, RDW 14.3, RDW Differential 46.3 H, Plt Count 193, MPV 9.7, Immature Gran % (Auto) 0.400, Neut % (Auto) 74.9 H, Lymph % (Auto) 11.4 L, [place] % (Auto) 8.9, Eos % (Auto) 4.1, Baso % (Auto) 0.3, Absolute Neuts (auto) 5.9, Absolute Lymphs (auto) 0.90, Total Counted Not Reportable 02/01/19 07:32: Sodium 135 L, Potassium 5.3 H, Chloride 105, Carbon Dioxide 22.0, Anion Gap 8, BUN 76 H, Creatinine 3.67 H, Estim Creat Clear Calc 18.26, Est GFR (MDRD) Af Amer 21 L, Est GFR (MDRD) Non-Af 18 L, BUN/Creatinine Ratio 20.7 H, Glucose 139 H, Calcium 8.2 L Diagnostic Data Renal Ultrasound 02/01/19 05:55 IMPRESSION: Left renal cyst. Electronically Signed: Armandomeeta Bennett DO at 10:41 EDT Tel [phone], Service support , Current Medications Heparin Sodium (Porcine) (Heparin Na) 5,000 unit SC Q8 [facility] Last Admin: 02/01/19 06:05 Dose: 5,000 unit Sodium Chloride () 1,000 mls @ 125 mls/hr IV .Q8H [facility] Last Admin: 02/01/19 11:02 Dose: 125 mls/hr Magnesium Hydroxide (Milk Of Magnesia) 30 ml PO DAILY PRN PRN Reason: Constipation Sodium Chloride () 5 - 15 ml IV UD PRN PRN Reason: SALINE FLUSH Medical Necessity - Tobacco Use Smoking Status: Former smoker Tobacco Use: Cigarettes Assessment/Plan All Active Problems (Last Reviewed 12/10/17 @ 08:07 by Ashley Newsome) Hyperkalemia (Acute) Acute renal failure (Acute) History of total bilateral knee replacement (TKR) (Resolved) Anemia (Acute) Acute kidney injury (Acute) Acute respiratory failure with hypoxia and hypercapnia (Acute) Status post total right knee replacement (Acute) Severe sepsis (Acute) HCAP (healthcare-associated pneumonia) (Acute) 1. DEANDRA on CKD, likely medication induced and also pre-renal * CR was 4.04 on admission, with baseline ~ 1.4 * Cr today is 3.67 * was thought to be multifactorial, due to bactrim and lasix intake * bactrim and lasix on hold. * renal USG showed left renal cyst * will check FeUrea to ascertain cause of kidney damage * continue hydrating with IVF normal saline and trend Cr * 2. Hyperkalemia: Potassium was 6.5 on admission and he received 30gram of Kayexalate. Potassium today is 5.3. Will repeat Kayexalate monitor. 3. Graves disease s/p thyroidectomy and resultant hypothyroidism * on synthroid * 4. Type 2 diabetes mellitus: * Metformin on hold on account of acute on CKD * will start on ISS * accuchecks ACHS * 5. Knee osteoarthritis s/p bilateral knee replacement * Has had infection of right knee prosthesis and has been on antibiotics for a while. Bactrim currently held. * No complaints with knee at the moment. * to follow up with orthopedic surgery and ID upon discharge * 6. Hypertension: * Lisinopril held on account of impaired kidney function. * Blood pressure fairly controlled. Will monitor. * IV hydralazine PRN. * 7. Depression and anxiety: Paxil and Xanax. DVT prophylaxis: Heparin sc 5000mg every 8 hrs. Code Visit Inpatient E&M: 47279 Subs Hosp L3
[2019-02-01] MEDS: Verapamil SR 240 MG Tablet PO (13:18)
[2019-02-01] MEDS: Tamsulosin HCl 0.4 MG Capsule PO (13:18)
[2019-02-01] MEDS: Levothyroxine 150 MCG Tablet PO (13:18)
[2019-02-01] MEDS: Paroxetine 20 MG Tablet 40 MG PO (13:18)
[2019-02-01] MEDS: HYDROcodone Bitartrate/Apap 5/325 Tablet PO ×2 (14:27→22:44)
[2019-02-01 15:38] LABS: Urea Nitrogen, Urine 499 mg/dL (NO RANGE EST.)
[2019-02-01 16:21] LABS: Bedside Glucose 112 mg/dL (70-110)
--- NOTE | 2019-02-01 16:56 | CM.UR ---
RN CM Assessment Met face to face with patient for initial transition planning/care coordination assessment. Introduced myself and my role. Verb understanding and agreement for assessment. Presentation: sent to ER by pcp d/t elevated potassium & creatinine. PCP: Sanju Specialists: Donna Sherman Pharmacy[facility] Benef[facility]: yes LNOK: , [place] Home: Split level. ADLs: Needs help with meals, househould chores. Transportation: states he drives. DME: walker, hosp bed, shower chair, w/c, handheld shower, grab bars, high toilet. SNF/HHC: has been in SNF but couldn't remember name. We had prev send out personal touch [facility] Passport/waiver underground roof bolter: denies Advance Directives: None on file. Declines at this time. DC PLAN: Home. Denies any needs. Case management will remain available should any needs arise. Matthew Perez RN, [facility].
[2019-02-01] MEDS: Budesonide Respules 0.5 MG/2 ML AMPUL.NEB. INHALATION (20:00)
[2019-02-01 23:10] LABS: Bedside Glucose 113 mg/dL (70-110)
[2019-02-01] MEDS: Fluticasone 0.05% 1 SPRAY NASAL.SRY 2 SPRAY NASAL (23:12)
[2019-02-02] VITALS (11 sets, daily range): BP systolic 139–145; BP diastolic 59–75; PULSE 80–94; RESP 17–22; TEMP 36.6–37.2; O2SAT 94–99
[2019-02-02] MEDS: 0.9% Normal Saline 1,000 ML 125 ML IV ×2 (01:44→09:58)
[2019-02-02] MEDS: ALPRAZolam 0.5 MG Tablet 1 MG PO ×2 (01:49→16:10)
[2019-02-02] MEDS: Heparin Injection (Vial) 5,000 UNIT/ML VIAL 5000 UNIT SC ×3 (05:28→21:35)
[2019-02-02] MEDS: Levothyroxine 150 MCG Tablet PO (05:28)
[2019-02-02] MEDS: HYDROcodone Bitartrate/Apap 5/325 Tablet PO ×2 (06:48→20:07)
[2019-02-02] MEDS: Budesonide Respules 0.5 MG/2 ML AMPUL.NEB. INHALATION ×2 (07:13→20:29)
[2019-02-02] MEDS: Albuterol 2.5 MG/3 ML VIAL.NEB. INHALATION (07:13)
[2019-02-02 07:37] LABS: Absolute Lymphocyte Count 0.71 X10^3/ul (0.83-4.51); Absolute Neutrophil Count 5.4 X10^3/uL (2.0-7.7); Basophil# 0.03 X10^3/uL; Basophil% 0.4 % (0-1); Eosinophil# 0.47 X10^3/uL; Eosinophils% 6.2 % (0-5); Hematocrit 37.8 % (40-54); Hemoglobin 12.2 g/dl (13.0-16.5); Lymphocyte # 0.71 X10^3/ul (4.0); Lymphocyte % 9.4 % (19-41); Mean Corp Hgb Conc 32.3 g/gl (32-36); Mean Corpuscular Hgb 29.1 pg (27.0-32.0); Mean Corpuscular Volume 90.2 fL (80-94); Mean Platelet Vol. 9.1 fl (6.2-12.0); Monocyte# 0.98 X10^3/uL; Monocyte% 12.9 % (0-10); Neutrophil # 5.36 X10^3/uL (2.7-7.7); Neutrophil % 70.8 % (47-70); Platelet Count 196 K/mm3 (150-450); RBC Distribution Width CV 14.3 % (11.6-14.6); RBC Distribution Width SD 46.9 fl (35.1-43.9); Red Blood Count 4.19 M/mm3 (4.6-6.2); White Blood Count 7.6 K/mm3 (4.4-11.0)
[2019-02-02 07:43] LABS: POSITIVE COUNT NO; POSITIVE DIFFERENTIAL NO; POSITIVE MORPHOLOGY NO
[2019-02-02 07:50] LABS: Anion Gap 4 (5-15); BUN 51 mg/dL (7-18); BUN/Creat Ratio 21.8 RATIO (10-20); Calcium,Total 8.5 mg/dL (8.5-10.1); Chloride 112 mmol/L (98-107); Creatinine, Serum 2.34 mg/dL (0.70-1.30); EST Glomerular Filtration Rate 30 mL/min (>60); Est Glom Filt Rate - Afr Amer 36 mL/min (>60); Estimated Creatinine Clearance 28.64 ml/min; Glucose 113 mg/dL (74-106); Potassium 5.6 mmol/L (3.5-5.1); Sodium Level 140 mmol/L (136-145)
[2019-02-02] MEDS: Verapamil SR 240 MG Tablet PO (09:58)
[2019-02-02] MEDS: Paroxetine 20 MG Tablet 40 MG PO (09:58)
[2019-02-02 10:36] LABS: Bedside Glucose 101 mg/dL (70-110)
--- NOTE | 2019-02-02 10:44 | PCM.PN.HOSP ---
Patient Problems: Active and Suspected Problems (Last Reviewed 12/10/17 @ 08:07 by Ashley Newsome) Hyperkalemia (Acute) Acute renal failure (Acute) Subjective: Patient seen and examined. He had no complaints. Review of systems otherwise negative. Labs and vitals reviewed. Vitals/I&O's: Vital Signs Temp Pulse Resp BP Pulse Ox 98.4 F 90 18 145/59 H 94 02/02/19 10:23 02/02/19 10:23 02/02/19 10:23 02/02/19 10:23 02/02/19 10:23 Oxygen Flow Rate (L/min) 3 Oxygen Delivery Method Room Air Weight: 301 lb 5.95 oz Body Mass Index (BMI) 47.2 Intake and Output for Last 24 Hours 01/31/19 02/01/19 02/02/19 23:59 23:59 23:59 Intake Total 3186 / 3186 1151 / 1151 Output Total 2740 / 2740 1200 / 1200 Balance 446 / 446 -49 / -49 General: Alert, Oriented x3, Cooperative, No apparent distress HEENT: Atraumatic, PERRLA, EOMI, Normocephalic Oral: Moist Mucosa Neck: Supple, No JVD, Negative Carotid Bruits Lungs: Clear to auscultation, Normal air movement, No rhonchi, No wheeze, No rales Cardiovascular: Regular rate, Regular Rhythm, Normal S1, Normal S2, No murmurs Abdomen: Bowel Sounds Present, Soft, Non Tender, Non-Distended, No Hepato-splenomegaly Extremities: No clubbing, No cyanosis, No edema, Capillary Refill Less than 3 Seconds Skin: No rashes, No breakdown Musculoskeletal: No Tenderness to Palpation of Joints or Extremities Lymphatic: No Cervical, Supraclavicular, or Inguinal Adenopathy Neurological: Cranial nerves II-XII grossly intact, Neuro grossly intact, Motor Exam 5/5 strength throughout Psych/Mental Status: Normal Affect, Appropriate, Alert and oriented to time, place, person, mood and affect Laboratory Results 02/01/19 14:55: Urine Urea Nitrogen 499 02/01/19 14:56: Urine Creatinine 42.70 02/01/19 16:12: POC Glucose 112 H 02/01/19 22:41: POC Glucose 113 H 02/02/19 06:47: POC Glucose 101 02/02/19 07:07: WBC 7.6, RBC 4.19 L, Hgb 12.2 L, Hct 37.8 L, MCV 90.2, MCH 29.1, MCHC 32.3, RDW 14.3, RDW Differential 46.9 H, Plt Count 196, MPV 9.1, Immature Gran % (Auto) 0.300, Neut % (Auto) 70.8 H, Lymph % (Auto) 9.4 L, [place] % (Auto) 12.9 H, Eos % (Auto) 6.2 H, Baso % (Auto) 0.4, Absolute Neuts (auto) 5.4, Absolute Lymphs (auto) 0.71 L, Total Counted Not Reportable 02/02/19 07:07: Sodium 140, Potassium 5.6 H, Chloride 112 H, Carbon Dioxide 24.0, Anion Gap 4 L, BUN 51 H, Creatinine 2.34 H, Estim Creat Clear Calc 28.64, Est GFR (MDRD) Af Amer 36 L, Est GFR (MDRD) Non-Af 30 L, BUN/Creatinine Ratio 21.8 H, Glucose 113 H, Calcium 8.5 Current Medications Hydrocodone Bitart/Acetaminophen ([place] 5mg-325mg) 1 tablet PO TID PRN PRN Reason: PAIN Last Admin: 02/02/19 06:48 Dose: 1 tablet Albuterol Sulfate (Ventolin Aerosols) 2.5 mg INHALATION DAILY PRN PRN Reason: SHORTNESS OF BREATH Last Admin: 02/02/19 07:13 Dose: 2.5 mg Alprazolam (Xanax) 1 mg PO BID PRN PRN PRN Reason: ANXIETY/AGITATION Last Admin: 02/02/19 01:49 Dose: 1 mg Budesonide (Pulmicort Aerosol) 0.5 mg INHALATION Q12H.RT ANIYAH Last Admin: 02/02/19 07:13 Dose: 0.5 mg Cyclobenzaprine HCl (Flexeril) 10 mg PO TID PRN PRN Reason: PAIN Dextrose (D50w Syringe) 0 gm IV X1 PRN; Protocol PRN Reason: Hypoglycemia Docusate Sodium (Colace) 100 mg PO QHS ANIYAH Last Admin: 02/01/19 22:42 Dose: Not Given Fluconazole (Fluconazole) 150 mg PO Capps@2200 ANIYAH Fluticasone Propionate (Flonase Nasal [place]) 2 spray NASAL DAILY PRN PRN Reason: ALLERGIES Last Admin: 02/01/19 23:12 Dose: 2 spray Glucagon () 1 mg IM .X1 PRN PRN Reason: Hypoglycemia Heparin Sodium (Porcine) (Heparin Na) 5,000 unit SC Q8 [facility] Last Admin: 02/02/19 05:28 Dose: 5,000 unit Sodium Chloride () 1,000 mls @ 150 mls/hr IV .Q6H40M [facility] Insulin Human Lispro (Humalog Kwikpen (Bkc)) 0 unit SQ ACHS [facility]; Protocol Last Admin: 02/02/19 06:48 Dose: Not Given Levothyroxine Sodium (Synthroid) 150 mcg PO DAILY@0600 [facility] Last Admin: 02/02/19 05:28 Dose: 150 mcg Magnesium Hydroxide (Milk Of Magnesia) 30 ml PO DAILY PRN PRN Reason: Constipation Melatonin (Melatonin) 5 mg PO QHS PRN PRN Reason: SLEEP Paroxetine HCl (Paxil) 40 mg PO DAILY [facility] Last Admin: 02/02/19 09:58 Dose: 40 mg Sodium Chloride () 5 - 15 ml IV UD PRN PRN Reason: SALINE FLUSH Sodium Polystyrene Sulfonate (Kayexalate) 30 gm PO X1 ONE Stop: 02/02/19 10:44 Tamsulosin HCl (Flomax) 0.4 mg PO DAILY@1730 [facility] Last Admin: 02/01/19 13:18 Dose: 0.4 mg Verapamil HCl (Calan Sr) 240 mg PO DAILY [facility] Last Admin: 02/02/19 09:58 Dose: 240 mg Medical Necessity - Tobacco Use Smoking Status: Former smoker Tobacco Use: Cigarettes Assessment/Plan All Active Problems (Last Reviewed 12/10/17 @ 08:07 by Ashley Newsome) Hyperkalemia (Acute) Acute renal failure (Acute) History of total bilateral knee replacement (TKR) (Resolved) Anemia (Acute) Acute kidney injury (Acute) Acute respiratory failure with hypoxia and hypercapnia (Acute) Status post total right knee replacement (Acute) Severe sepsis (Acute) HCAP (healthcare-associated pneumonia) (Acute) 1. DEANDRA on CKD, likely medication induced and also pre-renal CR was 4.04 on admission, with baseline ~ 1.4 Cr today is down to 2.34 was thought to be multifactorial, due to bactrim and lasix intake bactrim and lasix on hold. renal USG showed left renal cyst FeUrea was 56.4%, indicating intrinsic renal disease continue hydrating with IVF normal saline and trend Cr 2. Hyperkalemia: K today is 5.6. Will give PO kayexalate 30gram once and monitor 3. Graves disease s/p thyroidectomy and resultant hypothyroidism on synthroid 4. Type 2 diabetes mellitus: Metformin on hold on account of DEANDRA on CKD will start on ISS accuchecks ACHS 5. Knee osteoarthritis s/p bilateral knee replacement Has had infection of right knee prosthesis and has been on antibiotics for a while. Bactrim currently held. No complaints with knee at the moment. to follow up with orthopedic surgery and ID upon discharge; says he was due to have surgery on February [address] Hernández. To inform Dr Hernández that patient is on admission, as surgery may be postponed. 6. Hypertension: Lisinopril held on account of impaired kidney function. Blood pressure fairly controlled. Will monitor. IV hydralazine PRN. 7. Depression and anxiety: Paxil and Xanax. DVT prophylaxis: Heparin sc 5000mg every 8 hrs. Code Visit Inpatient E&M: 83138 Subs Hosp L3
--- NOTE | 2019-02-02 10:53 | PN_ITS ---
Patient Problems: Active and Suspected Problems (Last Reviewed 12/10/17 @ 08:07 by Ashley Newsome) Hyperkalemia (Acute) Acute renal failure (Acute) Subjective: Patient seen and examined. He had no complaints. Review of systems otherwise negative. Labs and vitals reviewed. Vitals/I&O's: Vital Signs Temp Pulse Resp BP Pulse Ox 98.4 F 90 18 145/59 H 94 02/02/19 10:23 02/02/19 10:23 02/02/19 10:23 02/02/19 10:23 02/02/19 10:23 Oxygen Flow Rate (L/min) 3 Oxygen Delivery Method Room Air Weight: 301 lb 5.95 oz Body Mass Index (BMI) 47.2 Intake and Output for Last 24 Hours 01/31/19 02/01/19 02/02/19 23:59 23:59 23:59 Intake Total 3186 / 3186 1151 / 1151 Output Total 2740 / 2740 1200 / 1200 Balance 446 / 446 -49 / -49 General: Alert, Oriented x3, Cooperative, No apparent distress HEENT: Atraumatic, PERRLA, EOMI, Normocephalic Oral: Moist Mucosa Neck: Supple, No JVD, Negative Carotid Bruits Lungs: Clear to auscultation, Normal air movement, No rhonchi, No wheeze, No rales Cardiovascular: Regular rate, Regular Rhythm, Normal S1, Normal S2, No murmurs Abdomen: Bowel Sounds Present, Soft, Non Tender, Non-Distended, No Hepato- splenomegaly Extremities: No clubbing, No cyanosis, No edema, Capillary Refill Less than 3 Seconds Skin: No rashes, No breakdown Musculoskeletal: No Tenderness to Palpation of Joints or Extremities Lymphatic: No Cervical, Supraclavicular, or Inguinal Adenopathy Neurological: Cranial nerves II-XII grossly intact, Neuro grossly intact, Motor Exam 5/5 strength throughout Psych/Mental Status: Normal Affect, Appropriate, Alert and oriented to time, place, person, mood and affect Laboratory Results 02/01/19 14:55: Urine Urea Nitrogen 499 02/01/19 14:56: Urine Creatinine 42.70 02/01/19 16:12: POC Glucose 112 H 02/01/19 22:41: POC Glucose 113 H 02/02/19 06:47: POC Glucose 101 02/02/19 07:07: WBC 7.6, RBC 4.19 L, Hgb 12.2 L, Hct 37.8 L, MCV 90.2, MCH 29.1, MCHC 32.3, RDW 14.3, RDW Differential 46.9 H, Plt Count 196, MPV 9.1, Immature Gran % (Auto) 0.300, Neut % (Auto) 70.8 H, Lymph % (Auto) 9.4 L, [place] % (Auto) 1 2.9 H, Eos % (Auto) 6.2 H, Baso % (Auto) 0.4, Absolute Neuts (auto) 5.4, Absolute Lymphs (auto) 0.71 L, Total Counted Not Reportable 02/02/19 07:07: Sodium 140, Potassium 5.6 H, Chloride 112 H, Carbon Dioxide 24.0, Anion Gap 4 L, BUN 51 H, Creatinine 2.34 H, Estim Creat Clear Calc 28.64, Est GFR (MDRD) Af Amer 36 L, Est GFR (MDRD) Non-Af 30 L, BUN/Creatinine Ratio 21.8 H, Glucose 113 H, Calcium 8.5 Current Medications Hydrocodone Bitart/Acetaminophen ([place] 5mg-325mg) 1 tablet PO TID PRN PRN Reason: PAIN Last Admin: 02/02/19 06:48 Dose: 1 tablet Albuterol Sulfate (Ventolin Aerosols) 2.5 mg INHALATION DAILY PRN PRN Reason: SHORTNESS OF BREATH Last Admin: 02/02/19 07:13 Dose: 2.5 mg Alprazolam (Xanax) 1 mg PO BID PRN PRN PRN Reason: ANXIETY/AGITATION Last Admin: 02/02/19 01:49 Dose: 1 mg Budesonide (Pulmicort Aerosol) 0.5 mg INHALATION Q12H.RT ANIYAH Last Admin: 02/02/19 07:13 Dose: 0.5 mg Cyclobenzaprine HCl (Flexeril) 10 mg PO TID PRN PRN Reason: PAIN Dextrose (D50w Syringe) 0 gm IV X1 PRN; Protocol PRN Reason: Hypoglycemia Docusate Sodium (Colace) 100 mg PO QHS ANIYAH Last Admin: 02/01/19 22:42 Dose: Not Given Fluconazole (Fluconazole) 150 mg PO Capps@2200 ANIYAH Fluticasone Propionate (Flonase Nasal [place]) 2 spray NASAL DAILY PRN PRN Reason: ALLERGIES Last Admin: 02/01/19 23:12 Dose: 2 spray Glucagon () 1 mg IM .X1 PRN PRN Reason: Hypoglycemia Heparin Sodium (Porcine) (Heparin Na) 5,000 unit SC Q8 [facility] Last Admin: 02/02/19 05:28 Dose: 5,000 unit Sodium Chloride () 1,000 mls @ 150 mls/hr IV .Q6H40M [facility] Insulin Human Lispro (Humalog Kwikpen (Bkc)) 0 unit SQ ACHS [facility]; Protocol Last Admin: 02/02/19 06:48 Dose: Not Given Levothyroxine Sodium (Synthroid) 150 mcg PO DAILY@0600 [facility] Last Admin: 02/02/19 05:28 Dose: 150 mcg Magnesium Hydroxide (Milk Of Magnesia) 30 ml PO DAILY PRN PRN Reason: Constipation Melatonin (Melatonin) 5 mg PO QHS PRN PRN Reason: SLEEP Paroxetine HCl (Paxil) 40 mg PO DAILY [facility] Last Admin: 02/02/19 09:58 Dose: 40 mg Sodium Chloride () 5 - 15 ml IV UD PRN PRN Reason: SALINE FLUSH Sodium Polystyrene Sulfonate (Kayexalate) 30 gm PO X1 ONE Stop: 02/02/19 10:44 Tamsulosin HCl (Flomax) 0.4 mg PO DAILY@1730 [facility] Last Admin: 02/01/19 13:18 Dose: 0.4 mg Verapamil HCl (Calan Sr) 240 mg PO DAILY [facility] Last Admin: 02/02/19 09:58 Dose: 240 mg Medical Necessity - Tobacco Use Smoking Status: Former smoker Tobacco Use: Cigarettes Assessment/Plan All Active Problems (Last Reviewed 12/10/17 @ 08:07 by Ashley Newsome) Hyperkalemia (Acute) Acute renal failure (Acute) History of total bilateral knee replacement (TKR) (Resolved) Anemia (Acute) Acute kidney injury (Acute) Acute respiratory failure with hypoxia and hypercapnia (Acute) Status post total right knee replacement (Acute) Severe sepsis (Acute) HCAP (healthcare-associated pneumonia) (Acute) 1. DEANDRA on CKD, likely medication induced and also pre-renal * CR was 4.04 on admission, with baseline ~ 1.4 * Cr today is down to 2.34 * was thought to be multifactorial, due to bactrim and lasix intake * bactrim and lasix on hold. * renal USG showed left renal cyst * FeUrea was 56.4%, indicating intrinsic renal disease * continue hydrating with IVF normal saline and trend Cr * 2. Hyperkalemia: K today is 5.6. Will give PO kayexalate 30gram once and monitor 3. Graves disease s/p thyroidectomy and resultant hypothyroidism * on synthroid * 4. Type 2 diabetes mellitus: * Metformin on hold on account of DEANDRA on CKD * will start on ISS * accuchecks ACHS * 5. Knee osteoarthritis s/p bilateral knee replacement * Has had infection of right knee prosthesis and has been on antibiotics for a while. Bactrim currently held. * No complaints with knee at the moment. * to follow up with orthopedic surgery and ID upon discharge; says he was due to have surgery on February [address] Hernández. * To inform Dr Hernández that patient is on admission, as surgery may be postponed. * 6. Hypertension: * Lisinopril held on account of impaired kidney function. * Blood pressure fairly controlled. Will monitor. * IV hydralazine PRN. * 7. Depression and anxiety: Paxil and Xanax. DVT prophylaxis: Heparin sc 5000mg every 8 hrs. Code Visit Inpatient E&M: 20007 [facility] Hosp L3
[2019-02-02 11:05] LABS: Bedside Glucose 130 mg/dL (70-110)
[2019-02-02] MEDS: Sodium Polystyrene Sulfonate 15 GM/60 ML UDC 30 GM PO (12:11)
[2019-02-02] MEDS: Tamsulosin HCl 0.4 MG Capsule PO (16:09)
[2019-02-02] MEDS: Fluticasone 0.05% 1 SPRAY NASAL.SRY 2 SPRAY NASAL (16:09)
[2019-02-02] MEDS: 0.9% Normal Saline 1,000 ML 150 ML IV (16:11)
[2019-02-02 16:26] LABS: Bedside Glucose 116 mg/dL (70-110)
[2019-02-02] MEDS: FLUCONAZOLE 150 MG TABLET PO (21:34)
[2019-02-02] MEDS: MELATONIN 10 MG TABLET 5 MG PO (21:35)
[2019-02-03] VITALS (10 sets, daily range): BP systolic 143–160; BP diastolic 65–78; PULSE 70–86; RESP 16–20; TEMP 36.8–37.2; O2SAT 92–97
[2019-02-03] MEDS: 0.9% Normal Saline 1,000 ML 150 ML IV ×4 (00:45→13:35)
[2019-02-03 01:21] LABS: Bedside Glucose 77 mg/dL (70-110)
[2019-02-03] MEDS: 0.9% NaCl Peripheral Flush Adult/Peds IV (01:51)
[2019-02-03] MEDS: DiphenhydrAMINE 25 MG Capsule PO (01:51)
[2019-02-03] MEDS: Heparin Injection (Vial) 5,000 UNIT/ML VIAL 5000 UNIT SC ×3 (05:12→21:37)
[2019-02-03] MEDS: Levothyroxine 150 MCG Tablet PO (05:12)
[2019-02-03 05:37] LABS: Absolute Lymphocyte Count 0.81 X10^3/ul (0.83-4.51); Absolute Neutrophil Count 4.8 X10^3/uL (2.0-7.7); Basophil# 0.02 X10^3/uL; Basophil% 0.3 % (0-1); Eosinophil# 0.56 X10^3/uL; Eosinophils% 7.9 % (0-5); Hematocrit 36.6 % (40-54); Hemoglobin 11.9 g/dl (13.0-16.5); Lymphocyte # 0.81 X10^3/ul (4.0); Lymphocyte % 11.4 % (19-41); Mean Corp Hgb Conc 32.5 g/gl (32-36); Mean Corpuscular Hgb 29.2 pg (27.0-32.0); Mean Corpuscular Volume 89.9 fL (80-94); Mean Platelet Vol. 9.3 fl (6.2-12.0); Monocyte% 12.6 % (0-10); Neutrophil # 4.81 X10^3/uL (2.7-7.7); Neutrophil % 67.5 % (47-70); Platelet Count 200 K/mm3 (150-450); RBC Distribution Width CV 14.1 % (11.6-14.6); RBC Distribution Width SD 45.5 fl (35.1-43.9); Red Blood Count 4.07 M/mm3 (4.6-6.2); White Blood Count 7.1 K/mm3 (4.4-11.0)
[2019-02-03 05:45] LABS: POSITIVE COUNT NO; POSITIVE DIFFERENTIAL NO; POSITIVE MORPHOLOGY NO
[2019-02-03 05:53] LABS: Anion Gap 4 (5-15); BUN 32 mg/dL (7-18); BUN/Creat Ratio 21.9 RATIO (10-20); Calcium,Total 8.4 mg/dL (8.5-10.1); Chloride 115 mmol/L (98-107); Creatinine, Serum 1.46 mg/dL (0.70-1.30); EST Glomerular Filtration Rate 51 mL/min (>60); Est Glom Filt Rate - Afr Amer 62 mL/min (>60); Glucose 94 mg/dL (74-106); Potassium 5.3 mmol/L (3.5-5.1); Sodium Level 144 mmol/L (136-145)
[2019-02-03] MEDS: HYDROcodone Bitartrate/Apap 5/325 Tablet PO ×2 (07:01→16:09)
[2019-02-03] MEDS: Budesonide Respules 0.5 MG/2 ML AMPUL.NEB. INHALATION ×2 (07:42→18:57)
[2019-02-03 07:51] LABS: Bedside Glucose 112 mg/dL (70-110)
[2019-02-03] MEDS: Paroxetine 20 MG Tablet 40 MG PO (09:51)
[2019-02-03] MEDS: Fluticasone 0.05% 1 SPRAY NASAL.SRY 2 SPRAY NASAL (09:51)
[2019-02-03] MEDS: Verapamil SR 240 MG Tablet PO (09:51)
[2019-02-03 11:21] LABS: Bedside Glucose 128 mg/dL (70-110)
[2019-02-03] MEDS: ALPRAZolam 0.5 MG Tablet 1 MG PO ×2 (13:35→21:36)
[2019-02-03] MEDS: Tamsulosin HCl 0.4 MG Capsule PO (16:09)
[2019-02-03 16:11] LABS: Bedside Glucose 112 mg/dL (70-110)
--- NOTE | 2019-02-03 16:12 | PCM.PN.HOSP ---
Patient Problems: Active and Suspected Problems (Last Reviewed 12/10/17 @ 08:07 by Ashley Newsome) Hyperkalemia (Acute) Acute renal failure (Acute) Subjective: The patient was admitted with acute kidney injury with hyperkalemia. K still 5.3. Creatinine improved but still 1.46. BUN 32. Patient has been on Bactrim for long time secondary to knee joint prosthetic infection. Discussed with Dr. Thompson and want ID consult to replacement for Bactrim. Vitals/I&O's: Vital Signs Temp Pulse Resp BP Pulse Ox 98.9 F 75 18 147/77 H 95 02/03/19 15:00 02/03/19 15:18 02/03/19 15:00 02/03/19 15:00 02/03/19 15:00 Oxygen Flow Rate (L/min) 2 Oxygen Delivery Method Room Air Weight: 301 lb 5.95 oz Body Mass Index (BMI) 47.2 Intake and Output for Last 24 Hours 02/01/19 02/02/19 02/03/19 23:59 23:59 23:59 Intake Total 3186 / 3186 5411 / 5411 1909 / 1909 Output Total 2740 / 2740 4685 / 4685 1350 / 1350 Balance 446 / 446 726 / 726 559 / 559 General: Alert, Oriented x3, Cooperative HEENT: Atraumatic, PERRLA, EOMI, Normocephalic Neck: Supple, No JVD, Negative Carotid Bruits Lungs: Clear to auscultation, No rhonchi, No wheeze, No rales, Diminished Cardiovascular: Regular rate, Regular Rhythm, Normal S1, Normal S2, No murmurs Abdomen: Bowel Sounds Present, Soft, Non Tender, Non-Distended Extremities: Capillary Refill Less than 3 Seconds, Edema Skin: No rashes, No breakdown Musculoskeletal: No Tenderness to Palpation of Joints or Extremities Lymphatic: No Cervical, Supraclavicular, or Inguinal Adenopathy Neurological: Cranial nerves II-XII grossly intact, Deep Tendon Reflexes 2+/4 and Symmetrical, Neuro grossly intact Psych/Mental Status: Normal Affect, Appropriate Laboratory Results 02/02/19 16:08: POC Glucose 116 H 02/02/19 21:29: POC Glucose 77 02/03/19 05:04: WBC 7.1, RBC 4.07 L, Hgb 11.9 L, Hct 36.6 L, MCV 89.9, MCH 29.2, MCHC 32.5, RDW 14.1, RDW Differential 45.5 H, Plt Count 200, MPV 9.3, Immature Gran % (Auto) 0.300, Neut % (Auto) 67.5, Lymph % (Auto) 11.4 L, [place] % (Auto) 12.6 H, Eos % (Auto) 7.9 H, Baso % (Auto) 0.3, Absolute Neuts (auto) 4.8, Absolute Lymphs (auto) 0.81 L, Total Counted Not Reportable 02/03/19 05:04: Sodium 144, Potassium 5.3 H, Chloride 115 H, Carbon Dioxide 25.0, Anion Gap 4 L, BUN 32 H, Creatinine 1.46 H, Estim Creat Clear Calc 45.90, Est GFR (MDRD) Af Amer 62, Est GFR (MDRD) Non-Af 51 L, BUN/Creatinine Ratio 21.9 H, Glucose 94, Calcium 8.4 L 02/03/19 07:00: POC Glucose 112 H 02/03/19 11:18: POC Glucose 128 H 02/03/19 15:58: POC Glucose 112 H Current Medications Hydrocodone Bitart/Acetaminophen ([place] 5mg-325mg) 1 tablet PO TID PRN PRN Reason: PAIN Last Admin: 02/03/19 16:09 Dose: 1 tablet Albuterol Sulfate (Ventolin Aerosols) 2.5 mg INHALATION DAILY PRN PRN Reason: SHORTNESS OF BREATH Last Admin: 02/02/19 07:13 Dose: 2.5 mg Alprazolam (Xanax) 1 mg PO BID PRN PRN PRN Reason: ANXIETY/AGITATION Last Admin: 02/03/19 13:35 Dose: 1 mg Budesonide (Pulmicort Aerosol) 0.5 mg INHALATION Q12H.RT ANIYAH Last Admin: 02/03/19 07:42 Dose: 0.5 mg Cyclobenzaprine HCl (Flexeril) 10 mg PO TID PRN PRN Reason: PAIN Dextrose (D50w Syringe) 0 gm IV X1 PRN; Protocol PRN Reason: Hypoglycemia Docusate Sodium (Colace) 100 mg PO QHS ANIYAH Last Admin: 02/02/19 21:32 Dose: Not Given Fluconazole (Fluconazole) 150 mg PO Capps@2200 [facility] Last Admin: 02/02/19 21:34 Dose: 150 mg Fluticasone Propionate (Flonase Nasal [place]) 2 spray NASAL DAILY PRN PRN Reason: ALLERGIES Last Admin: 02/03/19 09:51 Dose: 2 spray Glucagon () 1 mg IM .X1 PRN PRN Reason: Hypoglycemia Heparin Sodium (Porcine) (Heparin Na) 5,000 unit SC Q8 [facility] Last Admin: 02/03/19 13:35 Dose: 5,000 unit Sodium Chloride () 1,000 mls @ 150 mls/hr IV .Q6H40M [facility] Last Admin: 02/03/19 13:35 Dose: 150 mls/hr Insulin Human Lispro (Humalog Kwikpen (Bkc)) 0 unit SQ ACHS [facility]; Protocol Last Admin: 02/03/19 11:26 Dose: Not Given Levothyroxine Sodium (Synthroid) 150 mcg PO DAILY@0600 [facility] Last Admin: 02/03/19 05:12 Dose: 150 mcg Magnesium Hydroxide (Milk Of Magnesia) 30 ml PO DAILY PRN PRN Reason: Constipation Melatonin (Melatonin) 5 mg PO QHS PRN PRN Reason: SLEEP Last Admin: 02/02/19 21:35 Dose: 5 mg Paroxetine HCl (Paxil) 40 mg PO DAILY [facility] Last Admin: 02/03/19 09:51 Dose: 40 mg Sodium Chloride () 5 - 15 ml IV UD PRN PRN Reason: SALINE FLUSH Last Admin: 02/03/19 01:51 Dose: 10 ml Tamsulosin HCl (Flomax) 0.4 mg PO DAILY@1730 [facility] Last Admin: 02/03/19 16:09 Dose: 0.4 mg Verapamil HCl (Calan Sr) 240 mg PO DAILY [facility] Last Admin: 02/03/19 09:51 Dose: 240 mg Medical Necessity - Tobacco Use Smoking Status: Former smoker Tobacco Use: Cigarettes Assessment/Plan All Active Problems (Last Reviewed 12/10/17 @ 08:07 by Ashley Newsome) Hyperkalemia (Acute) Acute renal failure (Acute) History of total bilateral knee replacement (TKR) (Resolved) Anemia (Acute) Acute kidney injury (Acute) Acute respiratory failure with hypoxia and hypercapnia (Acute) Status post total right knee replacement (Acute) Severe sepsis (Acute) HCAP (healthcare-associated pneumonia) (Acute) This is a 68-year-old gentleman with history of bilateral TKR with infection of right knee after he cut his right knee and has been on multiple antibiotics for almost 1 year, most recent on Bactrim. He was also on Lasix, metformin. He was admitted with abnormal labs done by PCP showed acute kidney injury and hyperkalemia. . DEANDRA on CKD, likely medication induced and also pre-renal CR was 4.04 on admission, with baseline ~ 1.4 BUN/creatinine improving, 32/1.46. was thought to be multifactorial, due to bactrim and lasix and Bactrim which are being on hold. renal USG showed left renal cyst FeUrea was 56.4%, indicating intrinsic renal disease continue hydrating with IVF normal saline and trend Cr 2. Hyperkalemia: K today is 5.3. Kayexalate was given. Follow-up BMP tomorrow morning 3. Graves disease s/p thyroidectomy and resultant hypothyroidism on synthroid 4. Type 2 diabetes mellitus: Metformin on hold on account of DEANDRA on CKD on ISS accuchecks ACHS 5. Knee osteoarthritis s/p bilateral knee replacement Has had infection of right knee prosthesis and has been on antibiotics for a while. Bactrim currently held. No complaints with knee at the moment. Discussed with orthopedic surgeon, Dr. Thompson. He wanted ID consult to further recommend antibiotic replacement for Bactrim. Recommended that surgery needs to be postponed at least for 1 week until his kidney function returns to normal. Discussed with ID, Dr. Gaines. 6. Hypertension: Lisinopril held on account of impaired kidney function. Blood pressure fairly controlled. monitor. IV hydralazine PRN. 7. Depression and anxiety: Paxil and Xanax. DVT prophylaxis: Heparin sc 5000mg every 8 hrs. Code Visit Inpatient E&M: [id number] [facility] Hosp L3
--- NOTE | 2019-02-03 16:19 | PN_ITS ---
Patient Problems: Active and Suspected Problems (Last Reviewed 12/10/17 @ 08:07 by Ashley Newsome) Hyperkalemia (Acute) Acute renal failure (Acute) Subjective: The patient was admitted with acute kidney injury with hyperkalemia. K still 5.3. Creatinine improved but still 1.46. BUN 32. Patient has been on Bactrim for long time secondary to knee joint prosthetic infection. Discussed with Dr. Thompson and want ID consult to replacement for Bactrim. Vitals/I&O's: Vital Signs Temp Pulse Resp BP Pulse Ox 98.9 F 75 18 147/77 H 95 02/03/19 15:00 02/03/19 15:18 02/03/19 15:00 02/03/19 15:00 02/03/19 15:00 Oxygen Flow Rate (L/min) 2 Oxygen Delivery Method Room Air Weight: 301 lb 5.95 oz Body Mass Index (BMI) 47.2 Intake and Output for Last 24 Hours 02/01/19 02/02/19 02/03/19 23:59 23:59 23:59 Intake Total 3186 / 3186 5411 / 5411 1909 / 1909 Output Total 2740 / 2740 4685 / 4685 1350 / 1350 Balance 446 / 446 726 / 726 559 / 559 General: Alert, Oriented x3, Cooperative HEENT: Atraumatic, PERRLA, EOMI, Normocephalic Neck: Supple, No JVD, Negative Carotid Bruits Lungs: Clear to auscultation, No rhonchi, No wheeze, No rales, Diminished Cardiovascular: Regular rate, Regular Rhythm, Normal S1, Normal S2, No murmurs Abdomen: Bowel Sounds Present, Soft, Non Tender, Non-Distended Extremities: Capillary Refill Less than 3 Seconds, Edema Skin: No rashes, No breakdown Musculoskeletal: No Tenderness to Palpation of Joints or Extremities Lymphatic: No Cervical, Supraclavicular, or Inguinal Adenopathy Neurological: Cranial nerves II-XII grossly intact, Deep Tendon Reflexes 2+/4 and Symmetrical, Neuro grossly intact Psych/Mental Status: Normal Affect, Appropriate Laboratory Results 02/02/19 16:08: POC Glucose 116 H 02/02/19 21:29: POC Glucose 77 02/03/19 05:04: WBC 7.1, RBC 4.07 L, Hgb 11.9 L, Hct 36.6 L, MCV 89.9, MCH 29.2, MCHC 32.5, RDW 14.1, RDW Differential 45.5 H, Plt Count 200, MPV 9.3, Immature Gran % (Auto) 0.300, Neut % (Auto) 67.5, Lymph % (Auto) 11.4 L, [place] % (Auto) 12.6 H, Eos % (Auto) 7.9 H, Baso % (Auto) 0.3, Absolute Neuts (auto) 4.8, Absolute Lymphs (auto) 0.81 L, Total Counted Not Reportable 02/03/19 05:04: Sodium 144, Potassium 5.3 H, Chloride 115 H, Carbon Dioxide 25.0, Anion Gap 4 L, BUN 32 H, Creatinine 1.46 H, Estim Creat Clear Calc 45.90, Est GFR (MDRD) Af Amer 62, Est GFR (MDRD) Non-Af 51 L, BUN/Creatinine Ratio 21.9 H, Glucose 94, Calcium 8.4 L 02/03/19 07:00: POC Glucose 112 H 02/03/19 11:18: POC Glucose 128 H 02/03/19 15:58: POC Glucose 112 H Current Medications Hydrocodone Bitart/Acetaminophen ([place] 5mg-325mg) 1 tablet PO TID PRN PRN Reason: PAIN Last Admin: 02/03/19 16:09 Dose: 1 tablet Albuterol Sulfate (Ventolin Aerosols) 2.5 mg INHALATION DAILY PRN PRN Reason: SHORTNESS OF BREATH Last Admin: 02/02/19 07:13 Dose: 2.5 mg Alprazolam (Xanax) 1 mg PO BID PRN PRN PRN Reason: ANXIETY/AGITATION Last Admin: 02/03/19 13:35 Dose: 1 mg Budesonide (Pulmicort Aerosol) 0.5 mg INHALATION Q12H.RT ANIYAH Last Admin: 02/03/19 07:42 Dose: 0.5 mg Cyclobenzaprine HCl (Flexeril) 10 mg PO TID PRN PRN Reason: PAIN Dextrose (D50w Syringe) 0 gm IV X1 PRN; Protocol PRN Reason: Hypoglycemia Docusate Sodium (Colace) 100 mg PO QHS ANIYAH Last Admin: 02/02/19 21:32 Dose: Not Given Fluconazole (Fluconazole) 150 mg PO Capps@2200 [facility] Last Admin: 02/02/19 21:34 Dose: 150 mg Fluticasone Propionate (Flonase Nasal [place]) 2 spray NASAL DAILY PRN PRN Reason: ALLERGIES Last Admin: 02/03/19 09:51 Dose: 2 spray Glucagon () 1 mg IM .X1 PRN PRN Reason: Hypoglycemia Heparin Sodium (Porcine) (Heparin Na) 5,000 unit SC Q8 [facility] Last Admin: 02/03/19 13:35 Dose: 5,000 unit Sodium Chloride () 1,000 mls @ 150 mls/hr IV .Q6H40M [facility] Last Admin: 02/03/19 13:35 Dose: 150 mls/hr Insulin Human Lispro (Humalog Kwikpen (Bkc)) 0 unit SQ ACHS [facility]; Protocol Last Admin: 02/03/19 11:26 Dose: Not Given Levothyroxine Sodium (Synthroid) 150 mcg PO DAILY@0600 [facility] Last Admin: 02/03/19 05:12 Dose: 150 mcg Magnesium Hydroxide (Milk Of Magnesia) 30 ml PO DAILY PRN PRN Reason: Constipation Melatonin (Melatonin) 5 mg PO QHS PRN PRN Reason: SLEEP Last Admin: 02/02/19 21:35 Dose: 5 mg Paroxetine HCl (Paxil) 40 mg PO DAILY [facility] Last Admin: 02/03/19 09:51 Dose: 40 mg Sodium Chloride () 5 - 15 ml IV UD PRN PRN Reason: SALINE FLUSH Last Admin: 02/03/19 01:51 Dose: 10 ml Tamsulosin HCl (Flomax) 0.4 mg PO DAILY@1730 [facility] Last Admin: 02/03/19 16:09 Dose: 0.4 mg Verapamil HCl (Calan Sr) 240 mg PO DAILY [facility] Last Admin: 02/03/19 09:51 Dose: 240 mg Medical Necessity - Tobacco Use Smoking Status: Former smoker Tobacco Use: Cigarettes Assessment/Plan All Active Problems (Last Reviewed 12/10/17 @ 08:07 by Ashley Newsome) Hyperkalemia (Acute) Acute renal failure (Acute) History of total bilateral knee replacement (TKR) (Resolved) Anemia (Acute) Acute kidney injury (Acute) Acute respiratory failure with hypoxia and hypercapnia (Acute) Status post total right knee replacement (Acute) Severe sepsis (Acute) HCAP (healthcare-associated pneumonia) (Acute) This is a 68-year-old gentleman with history of bilateral TKR with infection of right knee after he cut his right knee and has been on multiple antibiotics for almost 1 year, most recent on Bactrim. He was also on Lasix, metformin. He was admitted with abnormal labs done by PCP showed acute kidney injury and hyperkalemia. . DEANDRA on CKD, likely medication induced and also pre-renal * CR was 4.04 on admission, with baseline ~ 1.4 * BUN/creatinine improving, 32/1.46. * was thought to be multifactorial, due to bactrim and lasix and Bactrim which are being on hold. * renal USG showed left renal cyst * FeUrea was 56.4%, indicating intrinsic renal disease * continue hydrating with IVF normal saline and trend Cr 2. Hyperkalemia: K today is 5.3. Kayexalate was given. Follow-up BMP tomorrow morning 3. Graves disease s/p thyroidectomy and resultant hypothyroidism * on synthroid * 4. Type 2 diabetes mellitus: * Metformin on hold on account of DEANDRA on CKD * on ISS * accuchecks ACHS * 5. Knee osteoarthritis s/p bilateral knee replacement * Has had infection of right knee prosthesis and has been on antibiotics for a while. Bactrim currently held. * No complaints with knee at the moment. * Discussed with orthopedic surgeon, Dr. Thompson. He wanted ID consult to further recommend antibiotic replacement for Bactrim. Recommended that surgery needs to be postponed at least for 1 week until his kidney function returns to normal. * Discussed with ID, Dr. Gaines. 6. Hypertension: * Lisinopril held on account of impaired kidney function. * Blood pressure fairly controlled. monitor. * IV hydralazine PRN. 7. Depression and anxiety: Paxil and Xanax. DVT prophylaxis: Heparin sc 5000mg every 8 hrs. Code Visit Inpatient E&M: [id number] [facility] Hosp L3
--- NOTE | 2019-02-03 16:57 | PCM.HP.ID ---
Problem List (1) Acute renal failure Status: Acute Reason for Consult: PJI Consulted by: Dr. Thompson History of Present Illness: The patient is a 68 year old M with R knee pain, swelling after prior replacement. Had been on doxycycline for past year but worsened sx. Had aspiration done 01/16/19 which showed mSSE. Changed to bactrim, developed rash, swelling, DEANDRA. Admitted, stopped abx, feeling better, Cr improved. Reports hives with PCN, but no issue with amox or keflex. Full ROS performed and neg except as noted above. No rash or drainage on R knee. - Medical History Past Medical History (Chronic Problems): Chronic Problems Hypothyroidism (Chronic) Benzodiazepine dependence (Chronic) Hypertension (Chronic) Osteoarthritis (Chronic) Morbid obesity (Chronic) Chronic anxiety (Chronic) Former smoker (Chronic) Allergies/Adverse Reactions: Allergies bacitracin [From Neosporin ([id number]-cin-pvlii)] Allergy (Verified 01/31/19 23:40) Rash bacitracin zinc [From Neosporin ([id number]-gcx-sytsu)] Allergy (Verified 01/31/19 23:40) Rash doxycycline Allergy (Verified 01/31/19 23:40) Rash neomycin sulfate [From Neosporin ([id number]-nbt-[id number])] Allergy (Verified 01/31/19 23:40) Rash Penicillins [PCN] Allergy (Verified 01/31/19 23:40) Rash polymyxin B [From Neosporin ([id number]-pll-[id number])] Allergy (Verified 01/31/19 23:40) Rash Home Medications: Ambulatory Orders Medication Instructions Recorded Albuterol Sulfate [Ventolin Hfa] 2 inh INHALATION DAILY PRN 11/10/17 Cyclobenzaprine [Flexeril] 10 mg PO TID PRN 11/10/17 Fluconazole 150 mg PO QWEEK 11/10/17 Levothyroxine [Synthroid] 150 mcg PO DAILY 11/10/17 Lisinopril [Zestril] 1 tab PO DAILY 11/10/17 Paroxetine HCl [Paxil] 40 mg PO DAILY 11/10/17 Verapamil [Calan Sr] 1 tab PO DAILY 11/10/17 ALPRAZolam [Xanax] 1 mg PO BID PRN PRN 01/29/19 Docusate Sodium [Stool Softener] 100 mg PO QHS 01/29/19 Fluticasone 0.05% [Flonase Nasal 2 spray NASAL DAILY PRN 01/29/19 [place]] Fluticasone 110 Mcg [Flovent (SP)] 2 puff INHALATION BID 01/29/19 Furosemide [Lasix] 20 mg PO QODAY 01/29/19 Gabapentin [Neurontin] 600 mg PO TIDCM 01/29/19 Hydrocodone/Acetaminophen 1 each PO TID PRN 01/29/19 [Hydrocodon-Acetaminophn 10-325] Ibuprofen 800 mg PO TID PRN 01/29/19 Melatonin 5 mg PO QHS PRN 01/29/19 Metformin HCl 500 mg PO DAILY 01/29/19 Sulfamethoxazole/Trimethoprim 1 each PO BID 01/29/19 [Bactrim Ds Tablet] Tamsulosin HCl [Flomax] 0.4 mg PO DAILY@1730 01/29/19 - Social History SMOKING STATUS:: Former smoker Vital Signs Temp Pulse Resp BP Pulse Ox 98.9 F 75 18 147/77 H 95 02/03/19 15:00 02/03/19 15:18 02/03/19 15:00 02/03/19 15:00 02/03/19 15:00 Oxygen Flow Rate (L/min) 2 Oxygen Delivery Method Room Air Weight: 136.7 kg Body Mass Index (BMI) 47.2 Laboratory Tests Past 24 Hrs 02/03/19 02/03/19 05:04 05:04 WBC 7.1 RBC 4.07 L Hgb 11.9 L Hct 36.6 L MCV 89.9 MCH 29.2 MCHC 32.5 RDW 14.1 RDW Differential 45.5 H Plt Count 200 MPV 9.3 Immature Gran % (Auto) 0.300 Neut % (Auto) 67.5 Lymph % (Auto) 11.4 L [place] % (Auto) 12.6 H Eos % (Auto) 7.9 H Baso % (Auto) 0.3 Absolute Neuts (auto) 4.8 Absolute Lymphs (auto) 0.81 L Total Counted Not Reportable Sodium 144 Potassium 5.3 H Chloride 115 H Carbon Dioxide 25.0 Anion Gap 4 L BUN 32 H Creatinine 1.46 H Estim Creat Clear Calc 45.90 Est GFR (MDRD) Af Amer 62 Est GFR (MDRD) Non-Af 51 L BUN/Creatinine Ratio 21.9 H Glucose 94 Calcium 8.4 L - Other Studies Radiology: [] reviewed Other Studies: [] Route of nutrition/ use of supplements: [] Nutritional Intake: [] IV Site: [] Lake Catheter: [] - Physical Exam General: Alert, Oriented x3, Cooperative, No apparent distress HEENT: Atraumatic, PERRLA, EOMI Neck: Supple, No Nodes Lungs: Clear to auscultation, Normal air movement Cardiovascular: Regular rate, Regular Rhythm Abdomen: Soft, Non Tender, Non-Distended Extremities: Edema - mild Skin: No rashes, Rash Present IV Site: Peripheral, without redness Musculoskeletal: - - R knee mild swelling, no redness or drainage Neurological: Cranial nerves II-XII grossly intact - Assessment/Plan Antibiotics: [] Assessment/Plan: [] Active and Suspected Problems (Last Reviewed 12/10/17 @ 08:07 by Ashley Newsome) Hyperkalemia (Acute) Acute renal failure (Acute) R knee PJI - aspiration 01/16/19 with very rare MSSE. DEANDRA with bactrim. Ok for d/c home on keflex 500mg q8h for 2-3 week course until he is scheduled for surgery with Dr. Thompson. Will follow, thank you.
--- NOTE | 2019-02-03 17:03 | CON.PCM_ITS ---
Problem List (1) Acute renal failure Status: Acute Reason for Consult: PJI Consulted by: Dr. Thompson History of Present Illness: The patient is a 68 year old M with R knee pain, swelling after prior replacement. Had been on doxycycline for past year but worsened sx. Had aspiration done 01/16/19 which showed mSSE. Changed to bactrim, developed rash, swelling, DEANDRA. Admitted, stopped abx, feeling better, Cr improved. Reports hives with PCN, but no issue with amox or keflex. Full ROS performed and neg except as noted above. No rash or drainage on R knee. - Medical History Past Medical History (Chronic Problems): Chronic Problems Hypothyroidism (Chronic) Benzodiazepine dependence (Chronic) Hypertension (Chronic) Osteoarthritis (Chronic) Morbid obesity (Chronic) Chronic anxiety (Chronic) Former smoker (Chronic) Allergies/Adverse Reactions: Allergies bacitracin [From Neosporin (kns-cns-kojvs)] Allergy (Verified 01/31/19 23:40) Rash bacitracin zinc [From Neosporin (hzf-kll-pdlto)] Allergy (Verified 01/31/19 23:40) Rash doxycycline Allergy (Verified 01/31/19 23:40) Rash neomycin sulfate [From Neosporin (dzp-itt-fezkt)] Allergy (Verified 01/31/19 23:40) Rash Penicillins [PCN] Allergy (Verified 01/31/19 23:40) Rash polymyxin B [From Neosporin (now-fyg-bkxxr)] Allergy (Verified 01/31/19 23:40) Rash Home Medications: Ambulatory Orders Medication Instructions Recorded Albuterol Sulfate [Ventolin Hfa] 2 inh INHALATION DAILY PRN 11/10/17 Cyclobenzaprine [Flexeril] 10 mg PO TID PRN 11/10/17 Fluconazole 150 mg PO QWEEK 11/10/17 Levothyroxine [Synthroid] 150 mcg PO DAILY 11/10/17 Lisinopril [Zestril] 1 tab PO DAILY 11/10/17 Paroxetine HCl [Paxil] 40 mg PO DAILY 11/10/17 Verapamil [Calan Sr] 1 tab PO DAILY 11/10/17 ALPRAZolam [Xanax] 1 mg PO BID PRN PRN 01/29/19 Docusate Sodium [Stool Softener] 100 mg PO QHS 01/29/19 Fluticasone 0.05% [Flonase Nasal 2 spray NASAL DAILY PRN 01/29/19 [place]] Fluticasone 110 Mcg [Flovent (SP)] 2 puff INHALATION BID 01/29/19 Furosemide [Lasix] 20 mg PO QODAY 01/29/19 Gabapentin [Neurontin] 600 mg PO TIDCM 01/29/19 Hydrocodone/Acetaminophen 1 each PO TID PRN 01/29/19 [Hydrocodon-Acetaminophn 10-325] Ibuprofen 800 mg PO TID PRN 01/29/19 Melatonin 5 mg PO QHS PRN 01/29/19 Metformin HCl 500 mg PO DAILY 01/29/19 Sulfamethoxazole/Trimethoprim 1 each PO BID 01/29/19 [Bactrim Ds Tablet] Tamsulosin HCl [Flomax] 0.4 mg PO DAILY@1730 01/29/19 - Social History SMOKING STATUS:: Former smoker Vital Signs Temp Pulse Resp BP Pulse Ox 98.9 F 75 18 147/77 H 95 02/03/19 15:00 02/03/19 15:18 02/03/19 15:00 02/03/19 15:00 02/03/19 15:00 Oxygen Flow Rate (L/min) 2 Oxygen Delivery Method Room Air Weight: 136.7 kg Body Mass Index (BMI) 47.2 Laboratory Tests Past 24 Hrs 02/03/19 02/03/19 05:04 05:04 WBC 7.1 RBC 4.07 L Hgb 11.9 L Hct 36.6 L MCV 89.9 MCH 29.2 MCHC 32.5 RDW 14.1 RDW Differential 45.5 H Plt Count 200 MPV 9.3 Immature Gran % (Auto) 0.300 Neut % (Auto) 67.5 Lymph % (Auto) 11.4 L [place] % (Auto) 12.6 H Eos % (Auto) 7.9 H Baso % (Auto) 0.3 Absolute Neuts (auto) 4.8 Absolute Lymphs (auto) 0.81 L Total Counted Not Reportable Sodium 144 Potassium 5.3 H Chloride 115 H Carbon Dioxide 25.0 Anion Gap 4 L BUN 32 H Creatinine 1.46 H Estim Creat Clear Calc 45.90 Est GFR (MDRD) Af Amer 62 Est GFR (MDRD) Non-Af 51 L BUN/Creatinine Ratio 21.9 H Glucose 94 Calcium 8.4 L - Other Studies Radiology: [] reviewed Other Studies: [] Route of nutrition/ use of supplements: [] Nutritional Intake: [] IV Site: [] Lake Catheter: [] - Physical Exam General: Alert, Oriented x3, Cooperative, No apparent distress HEENT: Atraumatic, PERRLA, EOMI Neck: Supple, No Nodes Lungs: Clear to auscultation, Normal air movement Cardiovascular: Regular rate, Regular Rhythm Abdomen: Soft, Non Tender, Non-Distended Extremities: Edema - mild Skin: No rashes, Rash Present IV Site: Peripheral, without redness Musculoskeletal: - - R knee mild swelling, no redness or drainage Neurological: Cranial nerves II-XII grossly intact - Assessment/Plan Antibiotics: [] Assessment/Plan: [] Active and Suspected Problems (Last Reviewed 12/10/17 @ 08:07 by Ashley Newsome) Hyperkalemia (Acute) Acute renal failure (Acute) R knee PJI - aspiration 01/16/19 with very rare MSSE. DEANDRA with bactrim. Ok for d/c home on keflex 500mg q8h for 2-3 week course until he is scheduled for surgery with Dr. Thompson. Will follow, thank you.
[2019-02-03] MEDS: Cephalexin 500 MG Capsule PO ×2 (17:26→21:38)
[2019-02-03 22:20] LABS: Bedside Glucose 93 mg/dL (70-110)
[2019-02-03] MEDS: 0.9% Normal Saline 1,000 ML 75 ML IV (23:43)
[2019-02-04] MEDS: HYDROcodone Bitartrate/Apap 5/325 Tablet PO ×2 (00:59→08:43)
[2019-02-04 03:00] VITALS: BP 152/67; PULSE 74; PULSE 83; RESP 20; TEMP 37; O2SAT 95
[2019-02-04 06:44] LABS: Anion Gap 5 (5-15); BUN 19 mg/dL (7-18); BUN/Creat Ratio 15.6 RATIO (10-20); Calcium,Total 8.6 mg/dL (8.5-10.1); Chloride 114 mmol/L (98-107); Creatinine, Serum 1.22 mg/dL (0.70-1.30); EST Glomerular Filtration Rate 63 mL/min (>60); Est Glom Filt Rate - Afr Amer 76 mL/min (>60); Estimated Creatinine Clearance 54.93 ml/min; Glucose 115 mg/dL (74-106); Potassium 4.5 mmol/L (3.5-5.1); Sodium Level 143 mmol/L (136-145)
[2019-02-04] MEDS: Heparin Injection (Vial) 5,000 UNIT/ML VIAL 5000 UNIT SC (06:45)
[2019-02-04] MEDS: Levothyroxine 150 MCG Tablet PO (06:46)
[2019-02-04] MEDS: Cephalexin 500 MG Capsule PO (06:46)
[2019-02-04 06:55] LABS: Bedside Glucose 135 mg/dL (70-110)
[2019-02-04 07:25] VITALS: PULSE 75
[2019-02-04 07:39] VITALS: PULSE 71; RESP 16; O2SAT 92
[2019-02-04] MEDS: Budesonide Respules 0.5 MG/2 ML AMPUL.NEB. INHALATION (07:39)
[2019-02-04] MEDS: ALPRAZolam 0.5 MG Tablet 1 MG PO (08:44)
[2019-02-04] MEDS: Verapamil SR 240 MG Tablet PO (08:47)
[2019-02-04] MEDS: Paroxetine 20 MG Tablet 40 MG PO (08:47)
[2019-02-04 08:53] VITALS: BP 167/70; PULSE 86; RESP 18; TEMP 36.6; O2SAT 96
--- NOTE | 2019-02-04 10:27 | DCINST_ITS ---
- Discharge Diagnoses Current Active Problems: Current Active and Chronic Problems (Last Reviewed 12/10/17 @ 08:07 by Ashley Newsome) Hyperkalemia (Acute) Acute renal failure (Acute) You will use the following diet at home:: Cardiac Your food should be the consistency of: Regular Discharge Activity: May Not Drive Call your doctor if you observe: Fever of 101 or Higher, Numbness or Tingling, Inability to urinate, Inability to have a bowel movement, Shortness of breath, Swelling in the ankles, Chest pain, Increased palpitations (irregular heartbeat), Calf discomfort, Uncontrolled pain Allergies/Adverse Reactions: Allergies bacitracin [From Neosporin (ljo-msb-wehms)] Allergy (Verified 01/31/19 23:40) Rash bacitracin zinc [From Neosporin (cta-hso-bsiur)] Allergy (Verified 01/31/19 23:40) Rash doxycycline Allergy (Verified 01/31/19 23:40) Rash neomycin sulfate [From Neosporin (hez-ted-nhegr)] Allergy (Verified 01/31/19 23:40) Rash Penicillins [PCN] Allergy (Verified 01/31/19 23:40) Rash polymyxin B [From Neosporin (gdy-zly-ilwju)] Allergy (Verified 01/31/19 23:40) Rash Medications to take at Discharge Albuterol Sulfate [Ventolin Hfa] 2 inh INHALATION DAILY PRN 11/10/17 Cyclobenzaprine [Flexeril] 10 mg PO TID PRN 11/10/17 Fluconazole 150 mg PO QWEEK 11/10/17 Levothyroxine [Synthroid] 150 mcg PO DAILY 11/10/17 Lisinopril [Zestril] 1 tab PO DAILY 11/10/17 Paroxetine HCl [Paxil] 40 mg PO DAILY 11/10/17 Verapamil [Calan Sr] 1 tab PO DAILY 11/10/17 ALPRAZolam [Xanax] 1 mg PO BID PRN PRN 01/29/19 Docusate Sodium [Stool Softener] 100 mg PO QHS 01/29/19 Fluticasone 0.05% [Flonase Nasal [place]] 2 spray NASAL DAILY PRN 01/29/19 Fluticasone 110 Mcg [Flovent 110 Mcg] 2 puff INHALATION BID 01/29/19 Gabapentin [Neurontin] 600 mg PO TIDCM 01/29/19 Hydrocodone/Acetaminophen [Hydrocodon-Acetaminophn 10-325] 1 each PO TID PRN 01/29/19 Melatonin 5 mg PO QHS PRN 01/29/19 Tamsulosin HCl [Flomax] 0.4 mg PO DAILY@1730 01/29/19 Cephalexin [Keflex] 500 mg PO Q8 #42 capsule 02/04/19 Furosemide [Lasix] 20 mg PO QODAY #0 02/04/19 Metformin HCl 500 mg PO DAILY #0 02/04/19 The following prescriptions were given: Cephalexin [Keflex] 500 mg PO Q8 #42 capsule Primary Care Physician: Chhaya Bills MD [Primary Care Provider] - Please follow up with your Primary Care Physician in: in 2 weeks Test Results: Test results from this visit will be discussed in further detail at your follow- up appointment, if applicable. Please Follow Up With: Jalen Thompson MD When: in 1-2 weeks Please Follow Up With: Ashish Gaines MD When: in 2 week
--- NOTE | 2019-02-04 10:28 | DS.PCM_ITS ---
Discharge Date and Diagnosis Date of Admission: 02/01/19 Date of Discharge: 02/04/19 - Primary Discharge Diagnosis Active and Suspected Problems (Last Reviewed 12/10/17 @ 08:07 by Ashley Newsome) Hyperkalemia (Acute) Acute renal failure (Acute) - Secondary Discharge Diagnosis Chronic Problems Hypothyroidism (Chronic) Benzodiazepine dependence (Chronic) Hypertension (Chronic) Osteoarthritis (Chronic) Morbid obesity (Chronic) Chronic anxiety (Chronic) Former smoker (Chronic) Hospital Course and Treatment Summary of Care Provided: [] This is a 68-year-old gentleman with history of bilateral TKR with infection of right knee after he cut his right knee and has been on multiple antibiotics for almost 1 year, most recent on Bactrim. He was also on Lasix, me tformin. He was admitted with abnormal labs done by PCP showed acute kidney injury and hyperkalemia. . DEANDRA on CKD, likely medication induced and also pre-renal * CR was 4.04 on admission, with baseline ~ 1.4 * BUN/creatinine improving, last 190/1.22. Resolved at baseline. * was thought to be multifactorial, due to bactrim and lasix and Bactrim which are being on hold. * renal USG showed left renal cyst * FeUrea was 56.4%, indicating intrinsic renal disease * The fluid discontinued. 2. Hyperkalemia: Kayexalate was given. Resolved. K4.5 today. 3. Graves disease s/p thyroidectomy and resultant hypothyroidism * on synthroid 4. Type 2 diabetes mellitus: * Metformin on hold on account of DEANDRA on CKD * on ISS * accuchecks ACHS * Was advised to hold further for 2 more days. 5. Knee osteoarthritis s/p bilateral knee replacement * Has had infection of right knee prosthesis and has been on antibiotics for a while. Bactrim currently held. * No complaints with knee at the moment. * Discussed with orthopedic surgeon, Dr. Thompson. He wanted ID consult to further recommend antibiotic replacement for Bactrim. Recommended that surgery needs to be postponed at least for 1 week until his kidney function returns to normal. * Prescription for Keflex 500 mg every 8 hourly given for 2 to 3 weeks until he sees Dr. Thompson and plan for surgery. 6. Hypertension: * Lisinopril held on account of impaired kidney function. * Blood pressure fairly controlled. monitor. * IV hydralazine PRN. * Lisinopril resumed on discharge meds reconciliation 7. Depression and anxiety: Paxil and Xanax. DVT prophylaxis: Heparin sc 5000mg every 8 hrs. Discharge medication reconciliation done. Discharge follow-up instructions completed. Discharge process discussed with the patient and all questions were answered to patient's satisfaction. Lisinopril was resumed. Lasix 20 mg as needed every other day for leg swelling. Bactrim is discontinued. Patient was advised warm compression for right eye stye. Patient is already on antibiotic Keflex. Follow-up with ID and Dr. Thompson. Total time spent, exact 35 minutes on discharge meds reconciliation, examination, review of imaging and blood test and discussion with the patient on follow-up instructions. Subjective: Patient seen and examined. Complain of some irritation in right eyelid May be stye. Objective: General: Alert, Oriented x3, Cooperative HEENT: Atraumatic, PERRLA, EOMI, Normocephalic. Right eye stye. Some irritation Neck: Supple, No JVD, Negative Carotid Bruits Lungs: Clear to auscultation, No rhonchi, No wheeze, No rales, Diminished Cardiovascular: Regular rate, Regular Rhythm, Normal S1, Normal S2, No murmurs Abdomen: Bowel Sounds Present, Soft, Non Tender, Non-Distended Extremities: Capillary Refill Less than 3 Seconds, Edema Skin: No rashes, No breakdown Musculoskeletal: No Tenderness to Palpation of Joints or Extremities Lymphatic: No Cervical, Supraclavicular, or Inguinal Adenopathy Neurological: Cranial nerves II-XII grossly intact, Deep Tendon Reflexes 2+/4 and Symmetrical, Neuro grossly intact Psych/Mental Status: Normal Affect, Appropriate - Physical Exam Vital Signs Temp Pulse Resp BP Pulse Ox 97.8 F 86 18 167/70 H 96 02/04/19 08:53 02/04/19 08:53 02/04/19 08:53 02/04/19 08:53 02/04/19 08:53 Oxygen Flow Rate (L/min) 2 Oxygen Delivery Method Room Air Weight: 301 lb 5.95 oz Body Mass Index (BMI) 47.2 Intake and Output for Last 24 Hours 02/02/19 02/03/19 02/04/19 23:59 23:59 23:59 Intake Total 5411 / 5411 3350 / 3350 518 / 518 Output Total 4685 / 4685 3525 / 3525 575 / 575 Balance 726 / 726 -175 / -175 -57 / -57 Laboratory Tests Past 24 Hrs 02/04/19 06:15 Sodium 143 Potassium 4.5 Chloride 114 H Carbon Dioxide 24.0 Anion Gap 5 BUN 19 H Creatinine 1.22 Estim Creat Clear Calc 54.93 Est GFR (MDRD) Af Amer 76 Est GFR (MDRD) Non-Af 63 BUN/Creatinine Ratio 15.6 Glucose 115 H Calcium 8.6 POC Glucose 02/04/19 02/03/19 02/03/19 06:45 21:30 15:58 POC Glucose 135 H 93 112 H 02/03/19 11:18 POC Glucose 128 H Discharge Activity: May Not Drive Call your doctor if you observe: Fever of 101 or Higher, Numbness or Tingling, Inability to urinate, Inability to have a bowel movement, Shortness of breath, Swelling in the ankles, Chest pain, Increased palpitations (irregular heartbeat), Calf discomfort, Uncontrolled pain Home Medications: Medications to take at Discharge Albuterol Sulfate [Ventolin Hfa] 2 inh INHALATION DAILY PRN 11/10/17 Cyclobenzaprine [Flexeril] 10 mg PO TID PRN 11/10/17 Fluconazole 150 mg PO QWEEK 11/10/17 Levothyroxine [Synthroid] 150 mcg PO DAILY 11/10/17 Lisinopril [Zestril] 1 tab PO DAILY 11/10/17 Paroxetine HCl [Paxil] 40 mg PO DAILY 11/10/17 Verapamil [Calan Sr] 1 tab PO DAILY 11/10/17 ALPRAZolam [Xanax] 1 mg PO BID PRN PRN 01/29/19 Docusate Sodium [Stool Softener] 100 mg PO QHS 01/29/19 Fluticasone 0.05% [Flonase Nasal [place]] 2 spray NASAL DAILY PRN 01/29/19 Fluticasone 110 Mcg [Flovent 110 Mcg] 2 puff INHALATION BID 01/29/19 Gabapentin [Neurontin] 600 mg PO TIDCM 01/29/19 Hydrocodone/Acetaminophen [Hydrocodon-Acetaminophn 10-325] 1 each PO TID PRN 01/29/19 Melatonin 5 mg PO QHS PRN 01/29/19 Tamsulosin HCl [Flomax] 0.4 mg PO DAILY@1730 01/29/19 Cephalexin [Keflex] 500 mg PO Q8 #42 capsule 02/04/19 Furosemide [Lasix] 20 mg PO QODAY #0 02/04/19 Metformin HCl 500 mg PO DAILY #0 02/04/19 Following Prescrptions Were Given to Patient: Cephalexin [Keflex] 500 mg PO Q8 #42 capsule Primary Care Physician: Chhaya Bills MD [Primary Care Provider] - Please follow up with your Primary Care Physician in: in 2 weeks Please Follow Up With: Jalen Thompson MD When: in 1-2 weeks Please Follow Up With: Ashish Gaines MD When: in 2 week Medical Necessity - Tobacco Use Smoking Status: Former smoker Tobacco Use: Cigarettes Meaningful Use Info Meaningful Use Diagnoses (Choose all that apply): None applicable Code Visit Inpatient E&M: 74479 Disch Hosp
--- NOTE | 2019-02-04 10:42 | PCM.PN.ID ---
Patient Problems: Active and Suspected Problems (Last Reviewed 12/10/17 @ 08:07 by Ashley Newsome) Hyperkalemia (Acute) Acute renal failure (Acute) Subjective: Feeling ok, R knee mild soreness, no fever. Thinks he may be getting a stye in R eye with some irritation in eyelid. - Physical Exam General: Alert, Cooperative, No apparent distress Lungs: Clear to auscultation, Normal air movement Cardiovascular: Regular rate, Regular Rhythm Abdomen: Soft, Non Tender, Non-Distended Musculoskeletal: - - R knee mild swelling and soreness Vital Signs Temp Pulse Resp BP Pulse Ox 97.8 F 86 18 167/70 H 96 02/04/19 08:53 02/04/19 08:53 02/04/19 08:53 02/04/19 08:53 02/04/19 08:53 Oxygen Flow Rate (L/min) 2 Oxygen Delivery Method Room Air Weight: 136.7 kg Body Mass Index (BMI) 47.2 Intake and Output for Last 24 Hours 02/02/19 02/03/19 02/04/19 23:59 23:59 23:59 Intake Total 5411 / 5411 3350 / 3350 518 / 518 Output Total 4685 / 4685 3525 / 3525 575 / 575 Balance 726 / 726 -175 / -175 -57 / -57 Laboratory Tests Past 24 Hrs 02/04/19 06:15 Sodium 143 Potassium 4.5 Chloride 114 H Carbon Dioxide 24.0 Anion Gap 5 BUN 19 H Creatinine 1.22 Estim Creat Clear Calc 54.93 Est GFR (MDRD) Af Amer 76 Est GFR (MDRD) Non-Af 63 BUN/Creatinine Ratio 15.6 Glucose 115 H Calcium 8.6 POC Glucose 02/04/19 02/03/19 02/03/19 06:45 21:30 15:58 POC Glucose 135 H 93 112 H 02/03/19 11:18 POC Glucose 128 H Medical Necessity - Tobacco Use Smoking Status: Former smoker Tobacco Use: Cigarettes Route of nutrition/ use of supplements: [] Nutritional Intake: [] IV Site: [] Lake Catheter: [] - Assessment/Plan Antibiotics: [] Assessment/Plan: [] Active and Suspected Problems (Last Reviewed 12/10/17 @ 08:07 by Ashley Newsome) Hyperkalemia (Acute) Acute renal failure (Acute) R knee PJI - aspiration 01/16/19 with very rare MSSE. DEANDRA with bactrim. Ok for d/c home on keflex 500mg q8h for 2-3 week course until he is scheduled for surgery with Dr. Thompson. thi - recommend warm compresses, optho followup if it does not improve Will follow
== END 2019-02-04 10:53 | disposition home or self-care (01) | DRG 683 ==
LOC: ED 02-01 00:24 → PCU 02-01 00:56
PROVIDERS: Student in an Organized Health Care Education/Training Program; Admitting Provider Family Medicine; Emergency Provider Emergency Medicine; Family Provider Internal Medicine; PCP Internal Medicine; Visit Provider Internal Medicine
DX: N17.9 Acute kidney failure, unspecified (principal); F13.20 Sedative, hypnotic or anxiolytic dependence, uncomplicated; Z68.42 Body mass index [BMI] 45.0-49.9, adult; T84.53XA Infection and inflammatory reaction due to internal right knee prosthesis, initial encounter; E87.5 Hyperkalemia; I12.9 Hypertensive chronic kidney disease with stage 1 through stage 4 chronic kidney disease, or unspecified chronic kidney disease; E11.22 Type 2 diabetes mellitus with diabetic chronic kidney disease; N18.3 Chronic kidney disease, stage 3 (moderate); N14.1 Nephropathy induced by other drugs, medicaments and biological substances; T50.1X5A Adverse effect of loop [high-ceiling] diuretics, initial encounter; T37.0X5A Adverse effect of sulfonamides, initial encounter; E89.0 Postprocedural hypothyroidism; F41.9 Anxiety disorder, unspecified; E66.01 Morbid (severe) obesity due to excess calories; M19.90 Unspecified osteoarthritis, unspecified site; Z96.653 Presence of artificial knee joint, bilateral; J44.9 Chronic obstructive pulmonary disease, unspecified; Z79.51 Long term (current) use of inhaled steroids; Z79.899 Other long term (current) drug therapy; Z79.2 Long term (current) use of antibiotics; Z87.891 Personal history of nicotine dependence; Z79.84 Long term (current) use of oral hypoglycemic drugs; F32.9 Major depressive disorder, single episode, unspecified; I95.9 Hypotension, unspecified; N28.1 Cyst of kidney, acquired; H00.013 Hordeolum externum right eye, unspecified eyelid
CPT/HCPCS: 36415; 73560; 76770; 80048; 81001; 82436; 82570; 82962; 83605; 84133; 84300; 84484; 84540; 85025; 93005; 94640; 99283; 99285; J7030; A4216

== ENCOUNTER 2019-02-12 07:38 | Inpatient (IN) | payer MEDICARE, SELFPAY ==
[2019-01-16 14:52] VITALS: BMI 50.2
[2019-01-29 13:19] VITALS: BP 102/44; PULSE 78; RESP 18; TEMP 36.1; O2SAT 95
--- NOTE | 2019-01-29 13:53 | SDCEKG_ITS ---
Test Reason : Blood Pressure : / mmHG Vent. Rate : 074 BPM Atrial Rate : 074 BPM P-R Int : 170 ms QRS Dur : 082 ms QT Int : 344 ms P-R-T Axes : 043 020 041 degrees QTc Int : 381 ms Normal sinus rhythm Normal ECG Confirmed by CHRISSY LUIS, BROOK ([id number]), editor trade journal CAROLINE CAMARENA ([id number]) on 01/31/2019 7:03:11 AM Referred By: Jalen Thompson Confirmed By:BROOK LOWE MD
[2019-01-29 14:47] LABS: Hemoglobin A1c 6.5 % (4.2-6.3)
[2019-01-29 15:11] LABS: Anion Gap 7 (5-15); BUN 58 mg/dL (7-18); BUN/Creat Ratio 16.4 RATIO (10-20); Calcium,Total 9.1 mg/dL (8.5-10.1); Chloride 105 mmol/L (98-107); Creatinine, Serum 3.54 mg/dL (0.70-1.30); EST Glomerular Filtration Rate 18 mL/min (>60); Est Glom Filt Rate - Afr Amer 22 mL/min (>60); Estimated Creatinine Clearance 18.27 ml/min; Glucose 146 mg/dL (74-106); Potassium 5.9 mmol/L (3.5-5.1); Sodium Level 137 mmol/L (136-145); Thyroid Stim Hormone (TSH) 2.56 uIU/mL (0.358-3.74)
--- NOTE | 2019-01-30 11:07 | PCM.HP.BLA ---
History and Physical DATE OF SURGERY: 02/05/2019 SCHEDULED PROCEDURE: Explant right total knee with placement of antibiotic spacer HISTORY OF PRESENT ILLNESS: Preoperative history and physical exam was performed on January 29, 2019. This is a 68-year-old male who initially had a right total knee replacement done by Dr. Jase Lopez on June 25, 2018. Patient had to undergo an irrigation and debridement with polyethylene exchange by Dr. Jase Lopez on March 23, 2018. Patient was on IV antibiotics for 6 weeks following surgery followed by doxycycline that was discontinued approximately 5 weeks ago. Upon stopping the antibiotics patient had increased pain in the right knee. He also had the flu. Patient does complain of instability. Patient was seen by Dr. Jalne Thompson in which cultures were obtained and were positive for infection. Patient's ESR and CRP were elevated. Synovial white blood cell was elevated. Cultures were positive for staph epi. NovaSure was positive. Patient has a medical history pertinent for hypertension, type 2 diabetes mellitus, chronic obstructive pulmonary disease. Patient denies any recent fevers, chills. After discussion with Dr. Jalen Thompson, the patient does wish to proceed with a explant right total knee with placement of antibiotic spacer. Patient has been treated by his primary care physician Dr. Bills in which he has been on [place] 10 mg/325 mg for pain. REVIEW OF SYSTEMS: ROS: Const: Denies change in appetite, fever and weight change. CV: Denies chest pain, heart murmur and irregular heartbeat. Resp: Denies cough, pneumonia, shortness of breath, tuberculosis and wheezing. GI: Denies constipation, diarrhea, heartburn, nausea, rectal itching, bloody stools and vomiting. : Denies incontinence. Musculo: Denies leg swelling, pain, trouble walking and weakness. Skin: Reports tattoo, but denies Raynaud's and history of shingles. Neuro: Reports tremor but denies ambulatory dysfunction, dizziness and numbness/tingling. Psych: Reports anxiety, but denies insomnia and stress. Dylan/Lymph: Denies anemia, bleeding/bruising tendency and past transfusion. Reviewed and updated. PAST MEDICAL HISTORY: Advance Care Plan: No Advance Directives Effective Date: 07/04/2017 PMH: Medical Problems: Arthritis, High Blood Pressure Thyroid Disease - THYROID REMOVED Diabetes, Chornic Obstructive Pulmonary Disease (COPD) Accidents: Fracture - LT FOOT RT ARM Surgical Hx: LT Leg, LT Foot, RT Leg Knee Replacement RT - (06/25/2017) [email or web address] LT TKR - (11/05/2017) TANJA @ [facility] RT Knee I&D W/Poly Exchange - (03/25/2018) TANJA @ [facility] Anesthesia Complications: Mental Impairment Assistive Devices: Glasses, Dentures Reviewed and updated. SOCIAL HISTORY: SH: Marital: .Occupation: Retired.Work Status: Retired.Hand Dominance: Right-handed. Personal Habits: Smoking: Patient is a former smoker.Cigarette Use: Former Cigarette Smoker.Smokeless Tobacco: Current Smokeless Tobacco User.E-Cigarette Use: Never used.Alcohol: Has consumed alcohol in the past.Drug Use: Denies Use.Enjoy Exercising: Never Exercises. Reviewed and updated. VITALS: Ht: 66 Wt: 291lb Wt k.998 BMI: 47.0 BP: 112/66 Pulse: 76 Resp: 20 T: 97.2 T: 36.2C ALLERGIES: Neosporin Penicillin MEDICATIONS: Bactrim DS 800-160 mg 1 by mouth twice a day, Paroxetine HCL 40 mg 1 tab PO daily, Lisinopril 10 mg 1 tab PO daily, Fluticasone Propionate 50 mcg/Act 2 sprays each nostril daily, Alprazolam 1 mg one PO daily, Cialis 10 mg prn, Gabapentin 600 mg 1 tab PO tid, Hydrocodone-Acetaminophen 10-325 mg 1po bid, prn pain, Tamsulosin HCL 0.4 mg 1po qday, Furosemide 20 mg 1 tab PO bid, Flovent HFA 110 mcg/Act 2 puffs PO bid, Levothyroxine Sodium 150 mcg 1 tab PO daily, Verapamil HCL ER 240 mg 1 cap PO daily, Ibuprofen 800 mg 1 by mouth three times a day, Ventolin HFA 108 (90 Base) mcg/Act 2 puffs PO every hour prn, Stool Softener 2 caps PO qhs, Melatonin 5 mg 1 cap PO qhs, Metformin HCL 500 mg 1 tab PO daily PRE-OP EXAM: General appearance:NORMAL Other: Eyes: Conjunctivae and lids: NORMAL Pupils: ERR Ears, Nose, Mouth, and Throat: NORMAL Other: Inspection of lips, teeth and gums: NORMAL Other: Neck: Examination of neck: no masses noted. Respiratory: Assessment of respiratory effort: NORMAL Other: Auscultation of lungs: clear to auscultation no wheezes, rhonchi or rales. Cardiovascular: Auscultation of heart: regular rate and rhythm, no murmurs, gallops or rubs. Gastrointestinal: Exam of abdomen: soft, nontender, nondistended bowel sounds present. PHYSICAL EXAMINATION: Patient does walk with an antalgic gait. Patient's previous incision is well-healed without signs of erythema. There is slight warmth to the right knee. Patient has positive effusion right knee. Range of motion right knee: 0 of extension to 120 flexion. Patient has positive sag sign. Increased translation with anterior/posterior drawer testing. There is laxity medially and laterally with varus valgus stress test. Sensation intact to light touch. Neurovascularly intact. IMAGING STUDIES: Previous x-rays of the right knee reveals well aligned total knee replacement. There is a stable lucency under the medial aspect of the tibial flange. Lateral view there is significant posterior sag of the tibia on the femur. Synovasure was positive Labwork on January 16, 2019: CRP 49.7, ESR 14 IMPRESSION: 1. Infected right total knee arthroplasty 2. Hypertension 3. Type 2 diabetes mellitus 4. Chronic obstructive pulmonary disease PLAN: Dr. Jalen Thompson did discuss and review with the patient all treatment options including surgical versus nonsurgical options. Patient does wish to proceed with the above-stated procedure. Potential risks, benefits, and complications of the procedure were discussed in detail including but not limited to , infection, nerve and blood vessel damage, persistent pain, numbness, tingling, paresthesias, blood clot, pulmonary embolism, and requirement for possible further surgery. The patient expressed full understanding and has no further questions for the doctor. Patient does agree to proceed with the above-stated procedure and has signed the surgery consent form. This dictation was created using voice recognition software. Phonetic and/or grammatical errors may exist.. ___ I have re-examined the patient. There are no clinical changes since date of exam. ___ See progress notes for changes. ___ Dictated on admission Date: Time: Signature:
[2019-02-01 01:20] VITALS: BMI 47.2
[2019-02-12] VITALS (25 sets, daily range): BP systolic 48–155; BP diastolic 27–84; PULSE 70–105; RESP 16–20; TEMP 36.4–37.4; O2SAT 89–98; BMI 46.8
[2019-02-12] MEDS: Acetaminophen 500 MG Tablet 1000 MG PO ×3 (08:22→21:52)
[2019-02-12 08:24] LABS: Anion Gap 8 (5-15); BUN 27 mg/dL (7-18); BUN/Creat Ratio 17.9 RATIO (10-20); Calcium,Total 9.4 mg/dL (8.5-10.1); Chloride 104 mmol/L (98-107); Creatinine, Serum 1.51 mg/dL (0.70-1.30); EST Glomerular Filtration Rate 49 mL/min (>60); Est Glom Filt Rate - Afr Amer 60 mL/min (>60); Estimated Creatinine Clearance 42.84 ml/min; Glucose 119 mg/dL (74-106); Potassium 4.4 mmol/L (3.5-5.1); Sodium Level 139 mmol/L (136-145)
[2019-02-12] MEDS: Celecoxib 200 MG Capsule 400 MG PO (08:26)
[2019-02-12] MEDS: Lactated Ringers 1,000 ML 999 ML IV (08:30)
[2019-02-12] MEDS: oxyCODONE HCl Cr 10 MG Tablet PO (08:44)
[2019-02-12] MEDS: Vancomycin IV 1,000 MG/20 ML Vial 6000 MG OPERA.SITE (10:09)
--- NOTE | 2019-02-12 11:35 | PCM.OPRPT ---
Report of Operation Date of Procedure: 02/12/19 Pre-Operative Diagnosis: Chronic infection right total knee Post-Operative Diagnosis: Chronic infection right total knee Surgery/Procedure Performed:: Explant right total knee with placement of antibiotic spacer. Placement of nonbiodegradable and a bike delivery system. Description of Surgical Findings:: Stable knee with good range of motion. Complete synovectomy. mis specialist: Re Lee Type of Anesthesia:: Spinal Anesthesiologist: Emmanuel Bunn Special Medications: TXA, clindamycin Specimen's removed: 3 separate specimens were sent to micrology Estimated Blood Loss (mL): 250 Fluids Replaced: 2200 mL crystalloid Description of Procedure: 68 yo m history of right TKA in May 2017. Patient had subsequent infection with irrigation debridement polyethylene exchange followed by long-term oral antibiotics in March 2018. Presents with recurrence of knee on step pain and swelling after completing his course of oral antibiotics. After aspirating the knee patient's results were consistent with infection. Reviewed options were discussed the patient. Based on acuity of the symptoms and organism irrigation debridement with polyethylene exchange is recommended. Risks and benefits of the procedure were discussed with the patient including but not limited to blood loss, DVTs, PEs, neurovascular damage, infection, general risk of anesthesia including loss of life. Demonstrated understanding and was able to sign informed consent. On the date of procedure patient's R lower extremity was marked in the preoperative area. The patient was then taken back to the operating room where the patient was placed on the table in the supine position. All bony prominences were identified a well-padded. Anesthesia assumed control of the C-spine and airway and remained controlled throughout the remainder of the procedure. A tourniquet was placed on the operative thigh and the leg was prepped in a sterile fashion. The surgeon then scrubbed at this time .Upon reentering the room left lower extremity was draped in a standard orthopedic fashion. A timeout was then called and everyone agreed upon the side, the site, the procedure to be performed, patient's identity and antibiotics given. A midline skin incision was made and sharp dissection was taken down through skin subcutaneous tissue and fat. Appropriate flaps were elevated medially and laterally. His arthrotomy was identified and the standard medial parapatellar incision was made and the patella was subluxed laterally. The standard deep MCL release was done. At this point an aggressive synovectomy commenced. Our attention was first turned towards the subpatellar pouch and all suspicious synovium and tissues were debrided. We then directed our attention towards medial lateral gutters were these tissues were aggressively debrided. Knee was then flexed up the polyethylene was removed. Once polyethylene was removed we did the remainder of the synovium in the medial and lateral gutters and along the lateral structures and MCL. We then debrided the posterior knee. Knee was flexed up and culture was taken from the femoral notch. And also there was a membrane beneath the tibial baseplate that was removed and sent for culture. at this time our attention was directed towards the femoral component. Osteotomes and precipitating saw were used to break up the bone cement interface. Once was adequately broken up a bone tamp was used to remove the distal femoral component. We then directed our attention to the tibia where again osteotomes and suffocating so were used to break up the bone cement interface. Once this was done the tibial baseplate could be removed easily. Excess cement was removed. Cleanup cuts were made on the femur and tibia. The remainder of the synovectomy was completed in the medial and lateral as well as posterior knee. Once this was done the patella was everted and the patella button was removed using a saw. Peg was removed using a bur. Once this was done the canals are reamed the femoral canal was reamed to 16 mm tibial canal was reamed to 14 mm. Once this was done we started making our cement pegs on the back table while my medical receptionist medical assistant used 6 L of normal saline to irrigate throughout the wound with low-pressure lavage and the wound was once again explored. Tourniquet was let down and hemostasis was obtained as well as possible. All remaining tissue that was suspicious was seen in the wound was once again irrigated with normal saline. We then trialed a size CR triathlon distal femur with a 19 mm polyethylene. This showed balance knee with good range of motion for the spacer. Finals were then opened while the cement was allowed to continue curing for the dowels and cement for the components was mixed with 6 g of vancomycin total. The back of the polyethylene implant was prepared. The dowels after being cured were placed down the femoral and tibial canals. The tibia was then cemented into place, the knee was flexed up and the femur was put into place. He was placed in extension pressurizing the cement. Cement was allowed to cure. Wound was once again irrigated out with normal saline. Lateral drain was placed . The wound was closed in a layer eckert fashion using #1 PDS sutures for the arthrotomy, 2-0 interrupted Vicryl for the subcuticular layer and 3-0 nylon for final skin closure. A sterile compressive dressing was then placed. The patient was then awakened from anesthesia, transferred to the [facility] and transferred to the PACU for recovery. Post op plan Patient is 50% weightbearing. Knee immobilizer for 2 weeks while wound heals. A 2-week postop visit remove sutures if wound is appropriate and begin range of motion without restrictions. He will be 50% weightbearing while this implant is in. Infectious diseases consulted for antibiotic management patient has multiple anabiotic allergies/intolerances.Once infection is cleared patient is gone through course of IV antibiotics and antibiotic holiday plan will be to reimplant a new knee replacement. Grafts/Implants Used: [place] CR size 5 distal femur, 19 mm poly - Complications No intraoperative complications - Admit VTE Documentation VTE Present on Admission: No VTE Mechan Device Prophylaxis: SCD's, Thigh High ALBERT Hose VTE Pharm Prophylaxis ordered?: Yes
--- NOTE | 2019-02-12 11:45 | OP.PCM_ITS ---
Report of Operation Date of Procedure: 02/12/19 Pre-Operative Diagnosis: Chronic infection right total knee Post-Operative Diagnosis: Chronic infection right total knee Surgery/Procedure Performed:: Explant right total knee with placement of antibiotic spacer. Placement of nonbiodegradable and a bike delivery system. Description of Surgical Findings:: Stable knee with good range of motion. Complete synovectomy. clinical support specialist: Re Lee Type of Anesthesia:: Spinal Anesthesiologist: Emmanuel Bunn Special Medications: TXA, clindamycin Specimen's removed: 3 separate specimens were sent to micrology Estimated Blood Loss (mL): 250 Fluids Replaced: 2200 mL crystalloid Description of Procedure: 68 yo m history of right TKA in May 2017. Patient had subsequent infection with irrigation debridement polyethylene exchange followed by long-term oral antibiotics in March 2018. Presents with recurrence of knee on step pain and swelling after completing his course of oral antibiotics. After aspirating the knee patient's results were consistent with infection. Reviewed options were discussed the patient. Based on acuity of the symptoms and organism irrigation debridement with polyethylene exchange is recommended. Risks and benefits of the procedure were discussed with the patient including but not limited to blood loss, DVTs, PEs, neurovascular damage, infection, general risk of anesthesia including loss of life. Demonstrated understanding and was able to sign informed consent. On the date of procedure patient's R lower extremity was marked in the preoperative area. The patient was then taken back to the operating room where the patient was placed on the table in the supine position. All bony prominences were identified a well-padded. Anesthesia assumed control of the C-spine and airway and remained controlled throughout the remainder of the procedure. A tourniquet was placed on the operative thigh and the leg was prepped in a sterile fashion. The surgeon then scrubbed at this time .Upon reentering the room left lower extremity was draped in a standard orthopedic fashion. A timeout was then called and everyone agreed upon the side, the site, the procedure to be performed, patient's identity and antibiotics given. A midline skin incision was made and sharp dissection was taken down through skin subcutaneous tissue and fat. Appropriate flaps were elevated medially and laterally. His arthrotomy was identified and the standard medial parapatellar incision was made and the patella was subluxed laterally. The standard deep MCL release was done. At this point an aggressive synovectomy commenced. Our attention was first turned towards the subpatellar pouch and all suspicious synovium and tissues were debrided. We then directed our attention towards medial lateral gutters were these tissues were aggressively debrided. Knee was then flexed up the polyethylene was removed. Once polyethylene was removed we did the remainder of the synovium in the medial and lateral gutters and along the lateral structures and MCL. We then debrided the posterior knee. Knee was flexed up and culture was taken from the femoral notch. And also there was a membrane beneath the tibial baseplate that was removed and sent for culture. at this time our attention was directed towards the femoral component. Osteotomes and precipitating saw were used to break up the bone cement interface. Once was adequately broken up a bone tamp was used to remove the distal femoral component. We then directed our attention to the tibia where again osteotomes and suffocating so were used to break up the bone cement in terface. Once this was done the tibial baseplate could be removed easily. Excess cement was removed. Cleanup cuts were made on the femur and tibia. The remainder of the synovectomy was completed in the medial and lateral as well as posterior knee. Once this was done the patella was everted and the patella button was removed using a saw. Peg was removed using a bur. Once this was done the canals are reamed the femoral canal was reamed to 16 mm tibial canal was reamed to 14 mm. Once this was done we started making our cement pegs on the back table while my billing assistant used 6 L of normal saline to irrigate throughout the wound with low-pressure lavage and the wound was once again explored. Tourniquet was let down and hemostasis was obtained as well as possible. All remaining tissue that was suspicious was seen in the wound was once again irrigated with normal saline. We then trialed a size CR triathlon distal femur with a 19 mm polyethylene. This showed balance knee with good ra nge of motion for the spacer. Finals were then opened while the cement was allowed to continue curing for the dowels and cement for the components was mixed with 6 g of vancomycin total. The back of the polyethylene implant was prepared. The dowels after being cured were placed down the femoral and tibial canals. The tibia was then cemented into place, the knee was flexed up and the femur was put into place. He was placed in extension pressurizing the cement. Cement was allowed to cure. Wound was once again irrigated out with normal saline. Lateral drain was placed . The wound was closed in a layer eckert fashion using #1 PDS sutures for the arthrotomy, 2-0 interrupted Vicryl for the subcuticular layer and 3-0 nylon for final skin closure. A sterile compressive dressing was then placed. The patient was then awakened from anesthesia, transferred to the [facility] and transferred to the PACU for recovery. Post op plan Patient is 50% weightbearing. Knee immobilizer for 2 weeks while wound heals. A 2-week postop visit remove sutures if wound is appropriate and begin range of motion without restrictions. He will be 50% weightbearing while this implant is in. Infectious diseases consulted for antibiotic management patient has multiple anabiotic allergies/intolerances.Once infection is cleared patient is gone through course of IV antibiotics and antibiotic holiday plan will be to reimplant a new knee replacement. Grafts/Implants Used: [place] CR size 5 distal femur, 19 mm poly - Complications No intraoperative complications - Admit VTE Documentation VTE Present on Admission: No VTE Mechan Device Prophylaxis: SCD's, Thigh High ALBERT Hose VTE Pharm Prophylaxis ordered?: Yes
[2019-02-12 12:00] LABS: Bedside Glucose 114 mg/dL (70-110)
[2019-02-12] MEDS: Scopolamine 1mg/72hr Patch 1 PATCH TD (12:09)
--- NOTE | 2019-02-12 12:50 | RAD_ITS ---
STUDY: X-RAY - RIGHT KNEE REASON FOR EXAM: Male, 68 years old. Right knee postoperative, portable. TECHNIQUE: Frontal and lateral view(s) of the knee. COMPARISON: None. FINDINGS: Arthroplasty components appear to be normally seated and articulated. There is no acute fracture. Expected postsurgical features in the surrounding soft tissues. RAD/Knee 1 or 2 Views IMPRESSION: Appropriate postsurgical features. Correlate with operative technique. Electronically Signed: Ken Pool MD at 15:51 EDT Tel , Service support ,
[2019-02-12] MEDS: 0.9% NaCl Peripheral Flush Adult/Peds IV (13:57)
[2019-02-12] MEDS: Ketorolac 15 MG/ML Vial IV (13:58)
[2019-02-12] MEDS: oxyCODONE 5 MG Tablet PO ×3 (14:23→23:24)
[2019-02-12] MEDS: DiphenhydrAMINE 25 MG Capsule 50 MG PO (15:17)
[2019-02-12] MEDS: HYDROmorphone 1 MG/ML Syringe IV (15:18)
--- NOTE | 2019-02-12 15:40 | PCM.HP.ID ---
Problem List (1) Prosthetic joint infection Status: Acute Reason for Consult: PJI Consulted by: Dr. Thompson History of Present Illness: The patient is a 68 year old M with R TKA 05/2017, L TKA 10/2017, developed R knee PJI 03/2018, given iv abx then long course of doxy. Came off doxy, then 01/2019 had increased pain and swelling. Aspiration cx with MSSE. Put on bactrim, developed DEANDRA and required admit. Discharged on keflex for past 2.5 weeks, did ok, but developed itchy red rash. Keflex stopped 02/10, rash slowly improving. Taken to OR today by Dr. Thompson for debridement and spacer placement. Pain currently not controlled. No fever, no n/v/d. Full ROS performed and neg except as noted above. - Medical History Past Medical History (Chronic Problems): Chronic Problems Hypothyroidism (Chronic) Benzodiazepine dependence (Chronic) Hypertension (Chronic) Osteoarthritis (Chronic) Morbid obesity (Chronic) Chronic anxiety (Chronic) Former smoker (Chronic) Allergies/Adverse Reactions: Allergies bacitracin [From Neosporin ([id number])] Allergy (Verified 02/12/19 13:41) Rash bacitracin zinc [From Neosporin ([id number])] Allergy (Verified 02/12/19 13:41) Rash cephalexin [From Keflex] Allergy (Verified 02/12/19 13:41) Rash doxycycline Allergy (Verified 02/12/19 13:41) Rash morphine Allergy (Verified 02/12/19 13:41) Other KIDNEY ISSUES neomycin sulfate [From Neosporin ([id number])] Allergy (Verified 02/12/19 13:41) Rash Penicillins [PCN] Allergy (Verified 02/12/19 13:41) Rash polymyxin B [From Neosporin ([id number])] Allergy (Verified 02/12/19 13:41) Rash Home Medications: Ambulatory Orders Medication Instructions Recorded Albuterol Sulfate [Ventolin Hfa] 2 inh INHALATION DAILY PRN 11/10/17 Cyclobenzaprine [Flexeril] 10 mg PO TID PRN 11/10/17 Fluconazole 150 mg PO QWEEK 11/10/17 Levothyroxine [Synthroid] 150 mcg PO DAILY 11/10/17 Lisinopril [Zestril] 1 tab PO DAILY 11/10/17 Paroxetine HCl [Paxil] 40 mg PO DAILY 11/10/17 Verapamil [Calan Sr] 1 tab PO DAILY 11/10/17 ALPRAZolam [Xanax] 1 mg PO BID PRN PRN 01/29/19 Docusate Sodium [Stool Softener] 100 mg PO QHS 01/29/19 Fluticasone 0.05% [Flonase Nasal 2 spray NASAL DAILY PRN 01/29/19 [place]] Fluticasone 110 Mcg [Flovent 110 2 puff INHALATION BID 01/29/19 Mcg] Hydrocodone/Acetaminophen 1 each PO TID PRN 01/29/19 [Hydrocodon-Acetaminophn 10-325] Melatonin 5 mg PO QHS PRN 01/29/19 Tamsulosin HCl [Flomax] 0.4 mg PO DAILY 01/29/19 Furosemide [Lasix] 20 mg PO QODAY #0 02/04/19 Metformin HCl 500 mg PO DAILY #0 02/04/19 - Social History SMOKING STATUS:: Former smoker Vital Signs Temp Pulse Resp BP Pulse Ox 97.5 F L 72 18 108/63 96 02/12/19 13:45 02/12/19 13:45 02/12/19 13:45 02/12/19 13:45 02/12/19 13:45 Oxygen Flow Rate (L/min) 2 Oxygen Delivery Method Nasal Cannula Weight: 131.6 kg Body Mass Index (BMI) 46.8 Finger Stick Blood Glucose 114 Laboratory Tests Past 24 Hrs 02/12/19 07:56 Sodium 139 Potassium 4.4 Chloride 104 Carbon Dioxide 27.0 Anion Gap 8 BUN 27 H Creatinine 1.51 H Estim Creat Clear Calc 42.84 Est GFR (MDRD) Af Amer 60 Est GFR (MDRD) Non-Af 49 L BUN/Creatinine Ratio 17.9 Glucose 119 H Calcium 9.4 - Other Studies Radiology: [] reviewed Other Studies: [] Route of nutrition/ use of supplements: [] Nutritional Intake: [] IV Site: [] Lake Catheter: [] - Physical Exam General: Alert, Oriented x3, Cooperative, No apparent distress HEENT: Atraumatic, PERRLA, EOMI Neck: Supple, No Nodes Lungs: Clear to auscultation, Normal air movement Cardiovascular: Regular rate, Regular Rhythm, No murmurs Abdomen: Soft, Non Tender, Non-Distended Skin: - - some erythema on trunk and extremities IV Site: Peripheral, without redness Musculoskeletal: - - RLE bandaged Neurological: Cranial nerves II-XII grossly intact - Assessment/Plan Antibiotics: [] Assessment/Plan: [] R knee PJI - developed DEANDRA on bactrim, then itchy rash on keflex. Taken to OR 02/[address] Thompson for spacer placement. Surg cx pending. Aspiration cx 01/2019 with msse. Will continue vanc and clinda for now. Tentative plan will be for 6 weeks of iv abx at discharge. Will order picc. I am not sure what the fluconazole is covering. Will follow, thank you.
--- NOTE | 2019-02-12 15:44 | CON.PCM_ITS ---
Problem List (1) Prosthetic joint infection Status: Acute Reason for Consult: PJI Consulted by: Dr. Thompson History of Present Illness: The patient is a 68 year old M with R TKA 05/2017, L TKA 10/2017, developed R knee PJI 03/2018, given iv abx then long course of doxy. Came off doxy, then 01/2019 had increased pain and swelling. Aspiration cx with MSSE. Put on bactrim, developed DEANDRA and required admit. Discharged on keflex for past 2.5 weeks, did ok, but developed itchy red rash. Keflex stopped 02/10, rash slowly improving. Taken to OR today by Dr. Thompson for debridement and spacer placement. Pain currently not controlled. No fever, no n/v/d. Full ROS performed and neg except as noted above. - Medical History Past Medical History (Chronic Problems): Chronic Problems Hypothyroidism (Chronic) Benzodiazepine dependence (Chronic) Hypertension (Chronic) Osteoarthritis (Chronic) Morbid obesity (Chronic) Chronic anxiety (Chronic) Former smoker (Chronic) Allergies/Adverse Reactions: Allergies bacitracin [From Neosporin ([id number])] Allergy (Verified 02/12/19 13:41) Rash bacitracin zinc [From Neosporin ([id number]-[id number]-[id number])] Allergy (Verified 02/12/19 13:41) Rash cephalexin [From Keflex] Allergy (Verified 02/12/19 13:41) Rash doxycycline Allergy (Verified 02/12/19 13:41) Rash morphine Allergy (Verified 02/12/19 13:41) Other KIDNEY ISSUES neomycin sulfate [From Neosporin (urc-uif-vppin)] Allergy (Verified 02/12/19 13:41) Rash Penicillins [PCN] Allergy (Verified 02/12/19 13:41) Rash polymyxin B [From Neosporin ([id number]-bhc-[id number])] Allergy (Verified 02/12/19 13:41) Rash Home Medications: Ambulatory Orders Medication Instructions Recorded Albuterol Sulfate [Ventolin Hfa] 2 inh INHALATION DAILY PRN 11/10/17 Cyclobenzaprine [Flexeril] 10 mg PO TID PRN 11/10/17 Fluconazole 150 mg PO QWEEK 11/10/17 Levothyroxine [Synthroid] 150 mcg PO DAILY 11/10/17 Lisinopril [Zestril] 1 tab PO DAILY 11/10/17 Paroxetine HCl [Paxil] 40 mg PO DAILY 11/10/17 Verapamil [Calan Sr] 1 tab PO DAILY 11/10/17 ALPRAZolam [Xanax] 1 mg PO BID PRN PRN 01/29/19 Docusate Sodium [Stool Softener] 100 mg PO QHS 01/29/19 Fluticasone 0.05% [Flonase Nasal 2 spray NASAL DAILY PRN 01/29/19 [place]] Fluticasone 110 Mcg [Flovent 110 2 puff INHALATION BID 01/29/19 Mcg] Hydrocodone/Acetaminophen 1 each PO TID PRN 01/29/19 [Hydrocodon-Acetaminophn 10-325] Melatonin 5 mg PO QHS PRN 01/29/19 Tamsulosin HCl [Flomax] 0.4 mg PO DAILY 01/29/19 Furosemide [Lasix] 20 mg PO QODAY #0 02/04/19 Metformin HCl 500 mg PO DAILY #0 02/04/19 - Social History SMOKING STATUS:: Former smoker Vital Signs Temp Pulse Resp BP Pulse Ox 97.5 F L 72 18 108/63 96 02/12/19 13:45 02/12/19 13:45 02/12/19 13:45 02/12/19 13:45 02/12/19 13:45 Oxygen Flow Rate (L/min) 2 Oxygen Delivery Method Nasal Cannula Weight: 131.6 kg Body Mass Index (BMI) 46.8 Finger Stick Blood Glucose 114 Laboratory Tests Past 24 Hrs 02/12/19 07:56 Sodium 139 Potassium 4.4 Chloride 104 Carbon Dioxide 27.0 Anion Gap 8 BUN 27 H Creatinine 1.51 H Estim Creat Clear Calc 42.84 Est GFR (MDRD) Af Amer 60 Est GFR (MDRD) Non-Af 49 L BUN/Creatinine Ratio 17.9 Glucose 119 H Calcium 9.4 - Other Studies Radiology: [] reviewed Other Studies: [] Route of nutrition/ use of supplements: [] Nutritional Intake: [] IV Site: [] Lake Catheter: [] - Physical Exam General: Alert, Oriented x3, Cooperative, No apparent distress HEENT: Atraumatic, PERRLA, EOMI Neck: Supple, No Nodes Lungs: Clear to auscultation, Normal air movement Cardiovascular: Regular rate, Regular Rhythm, No murmurs Abdomen: Soft, Non Tender, Non-Distended Skin: - - some erythema on trunk and extremities IV Site: Peripheral, without redness Musculoskeletal: - - RLE bandaged Neurological: Cranial nerves II-XII grossly intact - Assessment/Plan Antibiotics: [] Assessment/Plan: [] R knee PJI - developed DEANDRA on bactrim, then itchy rash on keflex. Taken to OR 02/[address] Thompson for spacer placement. Surg cx pending. Aspiration cx 01/2019 with msse. Will continue vanc and clinda for now. Tentative plan will be for 6 weeks of iv abx at discharge. Will order picc. I am not sure what the fluconazole is covering. Will follow, thank you.
--- NOTE | 2019-02-12 15:52 | PN_ITS ---
<Yousuf Egan - Last Filed: 02/12/19 15:48> Patient Problems: Active and Suspected Problems (Last Reviewed 12/10/17 @ 08:07 by Ashley Newsome) Prosthetic joint infection (Acute) Subjective: Consult for medical management. Pt states he has been dealing with an infected right total knee for about a year and has failed outpatient antibiotics repeatedly despite care under infectious disease. He cannot remember who he follows as an outpatient. He grew staph epi in the past. He underwent abx spacer placement today in the OR with Dr. Thompson. He is resting comfortably in the chair at bedside. Pain control has improved greatly since the surgery. He has no numbness or tingling in the affected ext. No SOB/cough. No nausea/vomiting. Tolerating PO. No fever/chills. He was recently here 01/29-02/04 with acute kidney injury. Pt voices concerns about medications that would affect his kidneys. - Physical Exam General: Alert, Oriented x3, Cooperative HEENT: Atraumatic, PERRLA, EOMI, Normocephalic Neck: Supple, No JVD, Negative Carotid Bruits Lungs: Clear to auscultation, Normal air movement Cardiovascular: Regular rate, No murmurs Abdomen: Bowel Sounds Present, Soft, Non Tender, Obese Extremities: No edema, Capillary Refill Less than 3 Seconds Skin: No rashes, No breakdown Musculoskeletal: No Tenderness to Palpation of Joints or Extremities, - - RLE post op dressing Neurological: Cranial nerves II-XII grossly intact Psych/Mental Status: Normal Affect, Appropriate, Alert and oriented to time, place, person, mood and affect Vital Signs Temp Pulse Resp BP Pulse Ox 97.5 F L 72 18 108/63 96 02/12/19 13:45 02/12/19 13:45 02/12/19 13:45 02/12/19 13:45 02/12/19 13:45 Oxygen Flow Rate (L/min) 2 Oxygen Delivery Method Nasal Cannula Weight: 290 lb 2.053 oz Body Mass Index (BMI) 46.8 Finger Stick Blood Glucose 114 Intake and Output for Last 24 Hours 02/10/19 02/11/19 02/12/19 23:59 23:59 23:59 Intake Total 0 / 2200 Balance 2200 / 2200 Laboratory Tests Past 24 Hrs 02/12/19 07:56 Sodium 139 Potassium 4.4 Chloride 104 Carbon Dioxide 27.0 Anion Gap 8 BUN 27 H Creatinine 1.51 H Estim Creat Clear Calc 42.84 Est GFR (MDRD) Af Amer 60 Est GFR (MDRD) Non-Af 49 L BUN/Creatinine Ratio 17.9 Glucose 119 H Calcium 9.4 POC Glucose 02/12/19 11:54 POC Glucose 114 H Medical Necessity - Tobacco Use Smoking Status: Former smoker Tobacco Use: Cigarettes, Chew Assessment/Plan All Active Problems (Last Reviewed 12/10/17 @ 08:07 by Ashley Newsome) Hyperkalemia (Acute) Acute renal failure (Acute) Prosthetic joint infection (Acute) 1. 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 Prior cultures whit staph epi. ID following. No fever/leukocytosis. Will need PICC and o/p abx. Follow cultures. DC NSAIDs. 2. CKDIII with recent DEANDRA - holding potentially nephrotoxic agents. Advise changing lovenox to alternative DVT ppx due to renal function. 3. Hypothyroidism - 2/2 treatment of Graves dz with associated dysrhythmias. Synthroid 4. HTN - hold kait and trend renal function. prn hydralazine if needed. BP is low normal now. 5. Osteoarthritis - as per #1 6. DMt2 with morbid obesity - hold metformin. SSI. 7. Anxiety - paxil, xanax 8. Hx Nicotine abuse ? asthma vs COPD - continue pulmicort, albuterol. PFTs in EMR. 9. BPH - flomax 10. ROSIO DVT ppx: per ortho Thank you for the opportunity to participate in the care of this patient. This patient was seen by Yousuf Egan PA-C under the supervision of Dr. Malik <Dale Malik - Last Filed: 02/12/19 16:35> - Physical Exam Vital Signs Temp Pulse Resp BP Pulse Ox 97.5 F L 72 18 108/63 96 02/12/19 13:45 02/12/19 13:45 02/12/19 13:45 02/12/19 13:45 02/12/19 13:45 Oxygen Flow Rate (L/min) 2 Oxygen Delivery Method Nasal Cannula Weight: 290 lb 2.053 oz Body Mass Index (BMI) 46.8 Finger Stick Blood Glucose 114 Intake and Output for Last 24 Hours 02/10/19 02/11/19 02/12/19 23:59 23:59 23:59 Intake Total 2199 / 2199 Balance 2199 / 2199 Laboratory Tests Past 24 Hrs 02/12/19 07:56 Sodium 139 Potassium 4.4 Chloride 104 Carbon Dioxide 27.0 Anion Gap 8 BUN 27 H Creatinine 1.51 H Estim Creat Clear Calc 42.84 Est GFR (MDRD) Af Amer 60 Est GFR (MDRD) Non-Af 49 L BUN/Creatinine Ratio 17.9 Glucose 119 H Calcium 9.4 POC Glucose 02/12/19 11:54 POC Glucose 114 H Assessment/Plan Hospitalist note: I am seeing this patient in conjunction with Yousuf Egan. I independently seen and examined the patient. Progress note above, laboratory data and imaging studies reviewed and I concur with the above treatment plan. Patient seen and examined. He underwent explant of the right total knee with placement of antibiotic spacer for chronically infected right total knee prosthesis and I am seeing this patient in consultation for postoperative medical management. At this time, patient right knee pain is manageable with the current pain medication regimen although he has been asking of lots of pain medications according to the nursing staff. He denies any chest pain or shortness of breath. Denied abdominal pain, nausea or vomiting. His vital signs are stable. - Physical Exam General: Alert, Oriented x3, Cooperative, No apparent distress. HEENT: Atraumatic, PERRLA, EOMI. Neck: Supple, No JVD, Negative Carotid Bruits, Trachea Midline, Thyroid Normal. Lungs: Diminished breath sounds bilateral, otherwise clear, No rhonchi, No wheeze, No rales. Cardiovascular: Regular rate, Regular Rhythm, Normal S1, Normal S2, PMI Normal. Abdomen: Bowel Sounds Present, Soft, Non Tender, Non-Distended, No Hepato- splenomegaly. Extremities: No clubbing, No cyanosis, No edema Skin: No rashes, No breakdown Neurological: Neuro grossly intact Vital Signs are stable. Assessment and plan: #1 status post explant of right total kneE with placement of antibiotic spacer: This was done for chronically infected right total knee prosthesis, postoperative day 0. Patient is on IV clindamycin and IV vancomycin, cultures are pending. on IV Dilaudid for pain as well as OxyIR as needed. Orthopedic surgery is managing. #2 stage III chronic kidney disease with recent history of acute kidney injury: The skin is 1.51, it was 3.5 on January 29, 2019. Patient is on IV fluids. Plan to repeat CBC and BMP tomorrow morning. #3 other chronic medical problems: Stable, continue current medications as above. This note was generated with [employer] dictation software. It may contain incorrect words, spelling, and punctuation that were not noted in checking the note before signing. Code Visit Inpatient E&M: 38014 Subs Hosp L2
--- NOTE | 2019-02-12 16:40 | NURSING ---
bp 66/28 manually at this time. 500 cc bolus NS given per Dr. Malik's orders.
--- NOTE | 2019-02-12 17:03 | NURSING ---
repeat bp after 500 cc bolus ns is 80/44. HR 81
[2019-02-12] MEDS: Lactated Ringers 1,000 ML 90 ML IV (17:04)
[2019-02-12 17:16] LABS: Bedside Glucose 160 mg/dL (70-110)
[2019-02-12] MEDS: Glucerna Shake 120 ML LIQUID PO (17:41)
[2019-02-12] MEDS: Tamsulosin HCl 0.4 MG Capsule PO (17:42)
[2019-02-12] MEDS: Insulin Lispro 100 UNIT/ML INSULN.PEN SC (17:49)
--- NOTE | 2019-02-12 18:10 | PCM.RX.CS ---
Consult Pharmacy has been consulted to manage selected antiobiotic: Vancomycin Type of Consult: New start Suspected Infection: Other Prior Doses of Antibiotics Received/Current Regimen: NONE Labs: Sodium 139 mmol/L (136-145) 02/12/19 07:56 Potassium 4.4 mmol/L (3.5-5.1) 02/12/19 07:56 Chloride 104 mmol/L (98-107) 02/12/19 07:56 Carbon Dioxide 27.0 mmol/L (21.0-32.0) 02/12/19 07:56 Anion Gap 8 (5-15) 02/12/19 07:56 BUN 27 mg/dL (7-18) H 02/12/19 07:56 Creatinine 1.51 mg/dL (0.70-1.30) H 02/12/19 07:56 Est GFR (MDRD) Af Amer 60 mL/min (>60) 02/12/19 07:56 Est GFR (MDRD) Non-Af 49 mL/min (>60) L 02/12/19 07:56 BUN/Creatinine Ratio 17.9 RATIO (10-20) 02/12/19 07:56 Glucose 119 mg/dL (74-106) H 02/12/19 07:56 Microbiology: Microbiology 01/29/19 14:15 Swab (Method) Nasal Screen MRSA/MSSA - Final Weight used for dosin.6 kg Estimated Creatinine Clearance: 61ML/MIN Goal Trough: 15-20 mcg/mL Pharmacy Plan for Drug Dosing: PLAN/RECOMMENDATIONS 1. Vancomycin initial dose 2000mg IV x1 which was administered 02/12/19 @1742 2. Scheduled vancomycin 1500mg IV Q12hrs to start 02/13/19 @0600 3. Trough scheduled prior to 4th total dose per protocol 02/14/19 @0530 4. Pharmacy Service will continue to monitor and adjust dosing as required.
[2019-02-12] MEDS: Budesonide Respules 0.5 MG/2 ML AMPUL.NEB. INHALATION (20:22)
[2019-02-12] MEDS: ALPRAZolam 0.5 MG Tablet 1 MG PO (20:55)
[2019-02-12] MEDS: Docusate Sodium 100 MG Capsule PO (21:52)
[2019-02-12] MEDS: MELATONIN 10 MG TABLET 5 MG PO (21:55)
[2019-02-12 22:06] LABS: Bedside Glucose 141 mg/dL (70-110)
[2019-02-13] VITALS (7 sets, daily range): BP systolic 103–148; BP diastolic 66–110; PULSE 80–105; RESP 16–22; TEMP 36.6–36.8; O2SAT 96–99
[2019-02-13] MEDS: DiphenhydrAMINE 25 MG Capsule 50 MG PO ×3 (00:34→22:07)
[2019-02-13] MEDS: HYDROmorphone 1 MG/ML Syringe IV (02:50)
[2019-02-13] MEDS: 0.9% NaCl Peripheral Flush Adult/Peds IV ×3 (05:24→20:08)
[2019-02-13] MEDS: Acetaminophen 500 MG Tablet 1000 MG PO ×3 (05:24→22:02)
[2019-02-13] MEDS: Levothyroxine 150 MCG Tablet PO (05:24)
[2019-02-13] MEDS: oxyCODONE 5 MG Tablet PO ×4 (05:26→19:18)
[2019-02-13 05:28] LABS: Hematocrit 29.7 % (40-54); Hemoglobin 9.5 g/dl (13.0-16.5); Mean Corpuscular Volume 90.5 fL (80-94); Mean Platelet Vol. 8.6 fl (6.2-12.0); Platelet Count 196 K/mm3 (150-450); RBC Distribution Width CV 13.9 % (11.6-14.6); RBC Distribution Width SD 44.4 fl (35.1-43.9); Red Blood Count 3.28 M/mm3 (4.6-6.2); White Blood Count 10.5 K/mm3 (4.4-11.0)
[2019-02-13 05:29] LABS: Scan Indicated on CBC? Y/N NO
[2019-02-13 05:39] LABS: Anion Gap 6 (5-15); BUN 33 mg/dL (7-18); BUN/Creat Ratio 14.2 RATIO (10-20); Calcium,Total 7.7 mg/dL (8.5-10.1); Chloride 105 mmol/L (98-107); Creatinine, Serum 2.33 mg/dL (0.70-1.30); EST Glomerular Filtration Rate 30 mL/min (>60); Est Glom Filt Rate - Afr Amer 36 mL/min (>60); Estimated Creatinine Clearance 27.76 ml/min; Glucose 136 mg/dL (74-106); Potassium 4.4 mmol/L (3.5-5.1); Sodium Level 139 mmol/L (136-145)
[2019-02-13 06:56] LABS: Bedside Glucose 125 mg/dL (70-110)
[2019-02-13] MEDS: Budesonide Respules 0.5 MG/2 ML AMPUL.NEB. INHALATION ×2 (07:03→19:21)
[2019-02-13] MEDS: 0.9% Normal Saline 1,000 ML 100 ML IV (07:59)
[2019-02-13] MEDS: Glucerna Shake 120 ML LIQUID PO ×3 (08:05→16:52)
--- NOTE | 2019-02-13 08:43 | PCM.PN.ORT ---
Patient Problems: Active and Suspected Problems (Last Updated 02/12/19 @ 16:29 by Dale Malik MD) Prosthetic joint infection (Acute) Subjective: The patient was sitting in bed upon examination. Patient denies any chest pain, shortness of breath, dizziness, lightheadedness, nausea or vomiting, or calf pain. Pain is controlled on medications. Patient did have low blood pressure overnight and was given bolus of fluid. His blood pressure is doing much better this morning. Patient does complain of pain in the right knee but medications are helpful. He is currently in a knee immobilizer with Hemovac drain. He has limitations of 50% weightbearing right lower extremity. Infectious disease and medicine has been consulted for postoperative medical management. Patient did have problems with his kidney function prior to the surgery and currently medicine is holding nephrotoxic medications including his lisinopril and his metformin. Patient also had a reactivity to Keflex prior to surgery and does have a listed penicillin allergy. Patient is also allergic to doxycycline, neomycin, polymyxin B. Patient had to stop the Bactrim due to his kidney function. Objective: Vital signs stable and afebrile. Patient currently is on 3 L nasal oxygen at 98% saturation. Blood pressure has improved since bolus. Patient is able to plantarflex and dorsiflex actively. Sensation is intact to light touch to saphenous, sural, superficial and deep peroneal, and tibial distribution. Dressing is clean dry and intact. Hemovac drain is in place: There is been 190 cc fluid removed overnight Negative Homans bilaterally, negative signs and symptoms of DVT. - Physical Exam General: Alert, Oriented x3, Cooperative, No apparent distress Vital Signs Temp Pulse Resp BP Pulse Ox 98 F 81 18 125/76 H 96 02/13/19 05:13 02/13/19 07:03 02/13/19 07:03 02/13/19 05:13 02/13/19 07:25 Oxygen Flow Rate (L/min) 2 Oxygen Delivery Method Nasal Cannula Weight: 131.6 kg Body Mass Index (BMI) 46.8 Finger Stick Blood Glucose 114 Intake and Output for Last 24 Hours 02/11/19 02/12/19 02/13/19 23:59 23:59 23:59 Intake Total 4146 / 4146 740 / 740 Output Total 500 / 500 390 / 390 Balance 3646 / 3646 350 / 350 Laboratory Tests Past 24 Hrs 02/13/19 02/13/19 05:06 05:06 WBC 10.5 RBC 3.28 L Hgb 9.5 L Hct 29.7 L MCV 90.5 MCH 29.0 MCHC 32.0 RDW 13.9 RDW Differential 44.4 H Plt Count 196 MPV 8.6 Sodium 139 Potassium 4.4 Chloride 105 Carbon Dioxide 28.0 Anion Gap 6 BUN 33 H Creatinine 2.33 H Estim Creat Clear Calc 27.76 Est GFR (MDRD) Af Amer 36 L Est GFR (MDRD) Non-Af 30 L BUN/Creatinine Ratio 14.2 Glucose 136 H Calcium 7.7 L POC Glucose 02/13/19 02/12/19 02/12/19 06:43 21:51 16:30 POC Glucose 125 H 141 H 160 H 02/12/19 11:54 POC Glucose 114 H Medical Necessity - Tobacco Use Smoking Status: Former smoker Tobacco Use: Cigarettes, Chew Assessment/Plan All Active Problems (Last Updated 02/12/19 @ 16:29 by Dale Malik MD) Hyperkalemia (Acute) Acute renal failure (Acute) Prosthetic joint infection (Acute) 1. S/P explant right total knee with placement of antibiotic spacer POD #1 2. Continue Pain Medications: Tylenol and OxyIR 3. DVT Prophylaxis: Continue with Lovenox due to a kidney function 4. PT/OT: Continue with knee immobilizer to allow for proper wound healing for the next 2 weeks. We will continue 50% weightbearing while this implant is in. At 2-week postop visit will begin range of motion without restrictions. 5. H & H: 9.5/29.7, asymptomatic 6. Encouraged Incentive Spirometry 7. Continue postoperative medical management with medicine: Discussed case with physician and will continue to hold nephrotoxic medications. Patient has significant comorbidities consisting of hypertension, chronic kidney disease, type 2 diabetes mellitus. 8. Infectious disease consult: Continue with antibiotics per infectious disease. Appreciate their input. Patient currently on vancomycin. Patient will require PICC line and 6 weeks IV antibiotics. 9. Continue with Hemovac drain: There is been 190 cc output 10. Disposition: Due to patient's comorbidities and acute kidney complications patient will require continued stay at the hospital. We are monitoring his kidney function and holding nephrotoxic medications. Plan will be for removal of drain possibly tomorrow.
--- NOTE | 2019-02-13 09:51 | PCM.PN.HOSP ---
Patient Problems: Active and Suspected Problems (Last Updated 02/12/19 @ 16:29 by Dale Malik MD) Prosthetic joint infection (Acute) Subjective: Patient seen and examined. Today's postop day 1 of right knee explant with antibiotic spacer placement. He has had an infected total right knee replacement and had been on oral antibiotics but failed outpatient therapy. He has spacer placement on 02/22/2019. Internal medicine consulted for medical management. He was recently admitted for acute kidney injury which was thought to be medication induced that he has been on Bactrim and Lasix at that time. He denies any fever, chills, pain is well controlled. Denies any palpitations or dizziness, diarrhea vomiting. Review of systems otherwise negative. Labs and vitals reviewed. Vitals/I&O's: Vital Signs Temp Pulse Resp BP Pulse Ox 98 F 81 18 125/76 H 96 02/13/19 05:13 02/13/19 07:03 02/13/19 07:03 02/13/19 05:13 02/13/19 07:25 Oxygen Flow Rate (L/min) 2 Oxygen Delivery Method Nasal Cannula Weight: 290 lb 2.053 oz Body Mass Index (BMI) 46.8 Finger Stick Blood Glucose 114 Intake and Output for Last 24 Hours 02/11/19 02/12/19 02/13/19 23:59 23:59 23:59 Intake Total 4146 / 4146 740 / 740 Output Total 500 / 500 390 / 390 Balance 3646 / 3646 350 / 350 General: Alert, Oriented x3, Cooperative, No apparent distress HEENT: Atraumatic, PERRLA, EOMI, Normocephalic Oral: Moist Mucosa Neck: Supple, No JVD, Negative Carotid Bruits Lungs: Clear to auscultation, Normal air movement Cardiovascular: Regular rate, Regular Rhythm, Normal S1, Normal S2, No murmurs Abdomen: Bowel Sounds Present, Soft, Non Tender, Non-Distended, No Hepato-splenomegaly Extremities: - - right knee wrapped in clean dressing. both LEs in ALBERT stockings Skin: No rashes, No breakdown Musculoskeletal: No Tenderness to Palpation of Joints or Extremities Lymphatic: No Cervical, Supraclavicular, or Inguinal Adenopathy Neurological: Cranial nerves II-XII grossly intact Psych/Mental Status: Normal Affect, Appropriate, Alert and oriented to time, place, person, mood and affect Laboratory Results 02/12/19 11:54: POC Glucose 114 H 02/12/19 16:30: POC Glucose 160 H 02/12/19 21:51: POC Glucose 141 H 02/13/19 05:06: WBC 10.5, RBC 3.28 L, Hgb 9.5 L, Hct 29.7 L, MCV 90.5, MCH 29.0, MCHC 32.0, RDW 13.9, RDW Differential 44.4 H, Plt Count 196, MPV 8.6 02/13/19 05:06: Sodium 139, Potassium 4.4, Chloride 105, Carbon Dioxide 28.0, Anion Gap 6, BUN 33 H, Creatinine 2.33 H, Estim Creat Clear Calc 27.76, Est GFR (MDRD) Af Amer 36 L, Est GFR (MDRD) Non-Af 30 L, BUN/Creatinine Ratio 14.2, Glucose 136 H, Calcium 7.7 L 02/13/19 06:43: POC Glucose 125 H Diagnostic Data Knee X-Ray 02/12/19 12:50 IMPRESSION: Appropriate postsurgical features. Correlate with operative technique. Electronically Signed: Ken Pool MD at 15:51 EDT Tel , Service support , Current Medications Acetaminophen (Tylenol) 1,000 mg PO Q8 ANIYAH Last Admin: 02/13/19 05:24 Dose: 1,000 mg Albuterol Sulfate (Ventolin Aerosols) 2.5 mg INHALATION Q4H PRN PRN Reason: SHORTNESS OF BREATH Alprazolam (Xanax) 1 mg PO BID PRN PRN PRN Reason: ANXIETY/AGITATION Last Admin: 02/12/19 20:55 Dose: 1 mg Budesonide (Pulmicort Aerosol) 0.5 mg INHALATION Q12H.RT ANIYAH Last Admin: 02/13/19 07:03 Dose: 0.5 mg Cyclobenzaprine HCl (Flexeril) 10 mg PO TID PRN PRN Reason: PAIN Last Admin: 02/13/19 01:52 Dose: 10 mg Diphenhydramine HCl (Benadryl) 50 mg PO Q8H PRN PRN Reason: ITCHING Last Admin: 02/13/19 00:34 Dose: 50 mg Docusate Sodium (Colace) 100 mg PO QHS [facility] Last Admin: 02/12/19 21:52 Dose: 100 mg Enoxaparin Sodium (Lovenox) 40 mg SC DAILY [facility] Famotidine (Pepcid) 20 mg PO DAILY [facility] Fluconazole (Fluconazole) 150 mg PO Capps@2200 [facility] Fluticasone Propionate (Flonase Nasal [place]) 2 spray NASAL DAILY PRN PRN Reason: ALLERGIES Furosemide (Lasix) 20 mg PO QODAY [facility] Hydromorphone HCl (Dilaudid Inj) 0.5 - 1 mg IV Q3H PRN PRN PRN Reason: SEVERE PAIN (6-10/10) Hydromorphone HCl (Dilaudid Inj) 0.5 - 1 mg IV Q3H PRN PRN PRN Reason: SEVERE PAIN (6-10/10) Last Admin: 02/13/19 02:50 Dose: 1 mg Vancomycin IV Pharmacy to Dose (1 ea/ Sodium Chloride) 500 mls @ 250 mls/hr IV X1 PRN; Protocol PRN Reason: Rx to Dose Vancomycin HCl 1,500 mg/ (Sodium Chloride) 530 mls @ 250 mls/hr IV Q12H [facility] Last Admin: 02/13/19 05:33 Dose: 250 mls/hr Sodium Chloride () 1,000 mls @ 100 mls/hr IV .Q10H [facility] Stop: 02/13/19 17:19 Last Admin: 02/13/19 07:59 Dose: 100 mls/hr Insulin Human Lispro (Humalog Kwikpen (Bkc)) 0 unit SC ACHS [facility]; Protocol Last Admin: 02/13/19 06:44 Dose: Not Given Levothyroxine Sodium (Synthroid) 150 mcg PO DAILY@0600 [facility] Last Admin: 02/13/19 05:24 Dose: 150 mcg Melatonin (Melatonin) 5 mg PO QHS PRN PRN Reason: SLEEP Last Admin: 02/12/19 21:55 Dose: 5 mg Nutritional Formula (Lactose Free) (Glucerna Shake) 120 ml PO TIDCM [facility] Last Admin: 02/13/19 08:05 Dose: 120 ml Ondansetron HCl (Zofran) 4 mg IV Q8H PRN PRN PRN Reason: NAUSEA Oxycodone HCl (Oxyir) 5 - 10 mg PO Q4H PRN PRN PRN Reason: MOD-SEVERE PAIN (4-10/10) Last Admin: 02/13/19 05:26 Dose: 10 mg Paroxetine HCl (Paxil) 40 mg PO DAILY [facility] Promethazine HCl (Phenergan) 12.5 mg IM Q6H PRN PRN; Protocol PRN Reason: NAUSEA/VOMITING Sodium Chloride () 5 - 15 ml IV UD PRN PRN Reason: SALINE FLUSH Last Admin: 02/13/19 05:27 Dose: 10 ml Tamsulosin HCl (Flomax) 0.4 mg PO DAILY@1730 [facility] Last Admin: 02/12/19 17:42 Dose: 0.4 mg Verapamil HCl (Calan Sr) 240 mg PO DAILY [facility] Medical Necessity - Tobacco Use Smoking Status: Former smoker Tobacco Use: Cigarettes, Chew Assessment/Plan All Active Problems (Last Updated 02/12/19 @ 16:29 by Dale Malik MD) Hyperkalemia (Acute) Acute renal failure (Acute) Prosthetic joint infection (Acute) 1. Right knee prosthesis infection s/p explant and antibiotic spacer insertion today is POD 1. Pain is well controlled on clindamycin, vancomycina dn fluconazole; prior cultures grew Staph epidermidis. ID on board dari likely need PICC line for prolonged antibiotic administration cultures pending pain management as per orthopedic surgery 2. Deandra on CKD baseline Cr is 1.22. is up to 2.33 today; was 1.51 yesterday will hydrate with IVF and monitor lasix and metformin are on hold,a s well as CINDI-I 3. Hypertensin: CINDI-I on hold. On IV hydralazine prn 4. Osteoarthritis: stable. 5. HYpothyroidism: on synthroid. 6. BPH: on flomax 7. Diabetes mellitus II: metformin on hold o/a of impaired renal function. In light of recurrent DEANDRA, will consider permanently discontinuing metformin and consider other oral antidiabetics 8. Anxiety: on Xanax and Paxil 9. ROSIO: on BIPAP DVT prophylaxis; on lovenox, as per orthopedics Code Visit Inpatient E&M: 80057 Subs Hosp L3
--- NOTE | 2019-02-13 09:52 | PCM.RX.CS ---
Consult Pharmacy has been consulted to manage selected antiobiotic: Vancomycin Type of Consult: Follow-up Suspected Infection: Other Labs: Sodium 139 mmol/L (136-145) 02/13/19 05:06 Potassium 4.4 mmol/L (3.5-5.1) 02/13/19 05:06 Chloride 105 mmol/L (98-107) 02/13/19 05:06 Carbon Dioxide 28.0 mmol/L (21.0-32.0) 02/13/19 05:06 Anion Gap 6 (5-15) 02/13/19 05:06 BUN 33 mg/dL (7-18) H 02/13/19 05:06 Creatinine 2.33 mg/dL (0.70-1.30) H 02/13/19 05:06 Est GFR (MDRD) Af Amer 36 mL/min (>60) L 02/13/19 05:06 Est GFR (MDRD) Non-Af 30 mL/min (>60) L 02/13/19 05:06 BUN/Creatinine Ratio 14.2 RATIO (10-20) 02/13/19 05:06 Glucose 136 mg/dL (74-106) H 02/13/19 05:06 Microbiology: Microbiology 01/29/19 14:15 Swab (Method) Nasal Screen MRSA/MSSA - Final Goal Trough: 15-20 mcg/mL Pharmacy Plan for Drug Dosing: Upon daily assessment, the patient has had a significant change in renal function. Will hold vancomycin and check a random level prior to the next dose per protocol and assess and either continue to hold/ resume therapy as planned PLAN/RECOMMENDATIONS 1. HOLD vancomycin 1500mg IV Q12hrs 2. Random level 02/13/19 @1730, prior to next dose and will assess dosing scheme at that time 3. Pharmacy Service will continue to monitor and adjust dosing as required.
[2019-02-13] MEDS: Enoxaparin 40 MG/0.4 ML Syringe SC (10:05)
[2019-02-13] MEDS: Verapamil SR 240 MG Tablet PO (10:06)
[2019-02-13] MEDS: Furosemide 20 MG Tablet PO (10:06)
[2019-02-13] MEDS: Famotidine 20 MG Tablet PO (10:06)
[2019-02-13] MEDS: Paroxetine 20 MG Tablet 40 MG PO (10:07)
--- NOTE | 2019-02-13 10:08 | PN_ITS ---
Patient Problems: Active and Suspected Problems (Last Updated 02/12/19 @ 16:29 by Dale Malik MD) Prosthetic joint infection (Acute) Subjective: Patient seen and examined. Today's postop day 1 of right knee explant with antibiotic spacer placement. He has had an infected total right knee replacement and had been on oral antibiotics but failed outpatient therapy. He has spacer placement on 02/22/2019. Internal medicine consulted for medical management. He was recently admitted for acute kidney injury which was thought to be medication induced that he has been on Bactrim and Lasix at that time. He denies any fever, chills, pain is well controlled. Denies any palpitations or dizziness, diarrhea vomiting. Review of systems otherwise negative. Labs and vitals reviewed. Vitals/I&O's: Vital Signs Temp Pulse Resp BP Pulse Ox 98 F 81 18 125/76 H 96 02/13/19 05:13 02/13/19 07:03 02/13/19 07:03 02/13/19 05:13 02/13/19 07:25 Oxygen Flow Rate (L/min) 2 Oxygen Delivery Method Nasal Cannula Weight: 290 lb 2.053 oz Body Mass Index (BMI) 46.8 Finger Stick Blood Glucose 114 Intake and Output for Last 24 Hours 02/11/19 02/12/19 02/13/19 23:59 23:59 23:59 Intake Total 4146 / 4146 740 / 740 Output Total 500 / 500 390 / 390 Balance 3646 / 3646 350 / 350 General: Alert, Oriented x3, Cooperative, No apparent distress HEENT: Atraumatic, PERRLA, EOMI, Normocephalic Oral: Moist Mucosa Neck: Supple, No JVD, Negative Carotid Bruits Lungs: Clear to auscultation, Normal air movement Cardiovascular: Regular rate, Regular Rhythm, Normal S1, Normal S2, No murmurs Abdomen: Bowel Sounds Present, Soft, Non Tender, Non-Distended, No Hepato- splenomegaly Extremities: - - right knee wrapped in clean dressing. both LEs in ALBERT stockings Skin: No rashes, No breakdown Musculoskeletal: No Tenderness to Palpation of Joints or Extremities Lymphatic: No Cervical, Supraclavicular, or Inguinal Adenopathy Neurological: Cranial nerves II-XII grossly intact Psych/Mental Status: Normal Affect, Appropriate, Alert and oriented to time, place, person, mood and affect Laboratory Results 02/12/19 11:54: POC Glucose 114 H 02/12/19 16:30: POC Glucose 160 H 02/12/19 21:51: POC Glucose 141 H 02/13/19 05:06: WBC 10.5, RBC 3.28 L, Hgb 9.5 L, Hct 29.7 L, MCV 90.5, MCH 29.0, MCHC 32.0, RDW 13.9, RDW Differential 44.4 H, Plt Count 196, MPV 8.6 02/13/19 05:06: Sodium 139, Potassium 4.4, Chloride 105, Carbon Dioxide 28.0, Anion Gap 6, BUN 33 H, Creatinine 2.33 H, Estim Creat Clear Calc 27.76, Est GFR (MDRD) Af Amer 36 L, Est GFR (MDRD) Non-Af 30 L, BUN/Creatinine Ratio 14.2, Glucose 136 H, Calcium 7.7 L 02/13/19 06:43: POC Glucose 125 H Diagnostic Data Knee X-Ray 02/12/19 12:50 IMPRESSION: Appropriate postsurgical features. Correlate with operative technique. Electronically Signed: Ken Pool MD at 15:51 EDT Tel , Service support , Current Medications Acetaminophen (Tylenol) 1,000 mg PO Q8 ANIYAH Last Admin: 02/13/19 05:24 Dose: 1,000 mg Albuterol Sulfate (Ventolin Aerosols) 2.5 mg INHALATION Q4H PRN PRN Reason: SHORTNESS OF BREATH Alprazolam (Xanax) 1 mg PO BID PRN PRN PRN Reason: ANXIETY/AGITATION Last Admin: 02/12/19 20:55 Dose: 1 mg Budesonide (Pulmicort Aerosol) 0.5 mg INHALATION Q12H.RT ANIYAH Last Admin: 02/13/19 07:03 Dose: 0.5 mg Cyclobenzaprine HCl (Flexeril) 10 mg PO TID PRN PRN Reason: PAIN Last Admin: 02/13/19 01:52 Dose: 10 mg Diphenhydramine HCl (Benadryl) 50 mg PO Q8H PRN PRN Reason: ITCHING Last Admin: 02/13/19 00:34 Dose: 50 mg Docusate Sodium (Colace) 100 mg PO QHS [facility] Last Admin: 02/12/19 21:52 Dose: 100 mg Enoxaparin Sodium (Lovenox) 40 mg SC DAILY [facility] Famotidine (Pepcid) 20 mg PO DAILY [facility] Fluconazole (Fluconazole) 150 mg PO Capps@2200 [facility] Fluticasone Propionate (Flonase Nasal [place]) 2 spray NASAL DAILY PRN PRN Reason: ALLERGIES Furosemide (Lasix) 20 mg PO QODAY [facility] Hydromorphone HCl (Dilaudid Inj) 0.5 - 1 mg IV Q3H PRN PRN PRN Reason: SEVERE PAIN (6-10/10) Hydromorphone HCl (Dilaudid Inj) 0.5 - 1 mg IV Q3H PRN PRN PRN Reason: SEVERE PAIN (6-10/10) Last Admin: 02/13/19 02:50 Dose: 1 mg Vancomycin IV Pharmacy to Dose (1 ea/ Sodium Chloride) 500 mls @ 250 mls/hr IV X1 PRN; Protocol PRN Reason: Rx to Dose Vancomycin HCl 1,500 mg/ (Sodium Chloride) 530 mls @ 250 mls/hr IV Q12H [facility] Last Admin: 02/13/19 05:33 Dose: 250 mls/hr Sodium Chloride () 1,000 mls @ 100 mls/hr IV .Q10H [facility] Stop: 02/13/19 17:19 Last Admin: 02/13/19 07:59 Dose: 100 mls/hr Insulin Human Lispro (Humalog Kwikpen (Bkc)) 0 unit SC ACHS [facility]; Protocol Last Admin: 02/13/19 06:44 Dose: Not Given Levothyroxine Sodium (Synthroid) 150 mcg PO DAILY@0600 [facility] Last Admin: 02/13/19 05:24 Dose: 150 mcg Melatonin (Melatonin) 5 mg PO QHS PRN PRN Reason: SLEEP Last Admin: 02/12/19 21:55 Dose: 5 mg Nutritional Formula (Lactose Free) (Glucerna Shake) 120 ml PO TIDCM [facility] Last Admin: 02/13/19 08:05 Dose: 120 ml Ondansetron HCl (Zofran) 4 mg IV Q8H PRN PRN PRN Reason: NAUSEA Oxycodone HCl (Oxyir) 5 - 10 mg PO Q4H PRN PRN PRN Reason: MOD-SEVERE PAIN (4-10/10) Last Admin: 02/13/19 05:26 Dose: 10 mg Paroxetine HCl (Paxil) 40 mg PO DAILY [facility] Promethazine HCl (Phenergan) 12.5 mg IM Q6H PRN PRN; Protocol PRN Reason: NAUSEA/VOMITING Sodium Chloride () 5 - 15 ml IV UD PRN PRN Reason: SALINE FLUSH Last Admin: 02/13/19 05:27 Dose: 10 ml Tamsulosin HCl (Flomax) 0.4 mg PO DAILY@1730 [facility] Last Admin: 02/12/19 17:42 Dose: 0.4 mg Verapamil HCl (Calan Sr) 240 mg PO DAILY [facility] Medical Necessity - Tobacco Use Smoking Status: Former smoker Tobacco Use: Cigarettes, Chew Assessment/Plan All Active Problems (Last Updated 02/12/19 @ 16:29 by Dale Malik MD) Hyperkalemia (Acute) Acute renal failure (Acute) Prosthetic joint infection (Acute) 1. 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 Pain is well controlled * on clindamycin, vancomycina dn fluconazole; prior cultures grew Staph epidermidis. * ID on board dari likely need PICC line for prolonged antibiotic administration * cultures pending * pain management as per orthopedic surgery * 2. Deandra on CKD * baseline Cr is 1.22. is up to 2.33 today; was 1.51 yesterday * will hydrate with IVF and monitor * lasix and metformin are on hold,a s well as CINDI-I * 3. Hypertensin: CINDI-I on hold. On IV hydralazine prn 4. Osteoarthritis: stable. 5. HYpothyroidism: on synthroid. 6. BPH: on flomax 7. Diabetes mellitus II: * metformin on hold o/a of impaired renal function. * In light of recurrent DEANDRA, will consider permanently discontinuing metformin and consider other oral antidiabetics * 8. Anxiety: on Xanax and Paxil 9. ROSIO: on BIPAP DVT prophylaxis; on lovenox, as per orthopedics Code Visit Inpatient E&M: 35167 Subs Hosp L3
[2019-02-13] MEDS: ALPRAZolam 0.5 MG Tablet 1 MG PO (10:13)
--- NOTE | 2019-02-13 10:45 | CASEMGMT ---
NIK STERN Face to Face with patient for initial transition planning/care coordination assessment. RN JARRED introduced self and role at [facility]. Patient sitting in chair, alert and oriented. Patient willing to participate in assessment and is able to answer all questions appropriately. Care providers, pharmacy, and demographics verified. Patient wishes to discharge home, discussed possible need for SNF/TCU at discharge per therapy's recommendations. Patient said he would think about it and asked CM to discuss with . RN JARRED called and discussed need for TCU at discharge, is agreeable and per there is a bed available. ALEXANDRO Enriquez updated regarding referral for TCU PCP: Sanju Specialists: none Preferred Pharmacy: [facility] Insurance: [employer] Prescription Benefit: Yes Living Will/HPOA: None LNOK: , sons Living Arrangements: patient lives with in 2 story home with bed and bath on first floor. Transportation: DME/HHC: Patient has shower chair, BSC, raised toilet seat, cane, walker, at home. Has had HHC and IV ATBs at home in the past Disposition Plan: TCU pending precert Charleen DONOVANN, RN, CM
--- NOTE | 2019-02-13 10:56 | PN.ID_ITS ---
Patient Problems: Active and Suspected Problems (Last Updated 02/12/19 @ 16:29 by Dale Malik MD) Prosthetic joint infection (Acute) Subjective: Feeling better, pain controlled moreso, was hypotensive yesterday afternoon. Making urine. Rash improving. - Physical Exam General: Alert, Cooperative, No apparent distress Lungs: Clear to auscultation, Normal air movement Cardiovascular: Regular rate, Regular Rhythm Abdomen: Soft, Non Tender, Non-Distended Skin: Ulcer/ Wound - RLE wrapped Vital Signs Temp Pulse Resp BP Pulse Ox 98 F 81 18 125/76 H 96 02/13/19 05:13 02/13/19 07:03 02/13/19 07:03 02/13/19 05:13 02/13/19 07:25 Oxygen Flow Rate (L/min) 2 Oxygen Delivery Method Nasal Cannula Weight: 131.6 kg Body Mass Index (BMI) 46.8 Finger Stick Blood Glucose 114 Intake and Output for Last 24 Hours 02/11/19 02/12/19 02/13/19 23:59 23:59 23:59 Intake Total 4146 / 4146 740 / 740 Output Total 500 / 500 390 / 390 Balance 3646 / 3646 350 / 350 Laboratory Tests Past 24 Hrs 02/13/19 02/13/19 05:06 05:06 WBC 10.5 RBC 3.28 L Hgb 9.5 L Hct 29.7 L MCV 90.5 MCH 29.0 MCHC 32.0 RDW 13.9 RDW Differential 44.4 H Plt Count 196 MPV 8.6 Sodium 139 Potassium 4.4 Chloride 105 Carbon Dioxide 28.0 Anion Gap 6 BUN 33 H Creatinine 2.33 H Estim Creat Clear Calc 27.76 Est GFR (MDRD) Af Amer 36 L Est GFR (MDRD) Non-Af 30 L BUN/Creatinine Ratio 14.2 Glucose 136 H Calcium 7.7 L POC Glucose 02/13/19 02/12/19 02/12/19 06:43 21:51 16:30 POC Glucose 125 H 141 H 160 H 02/12/19 11:54 POC Glucose 114 H Medical Necessity - Tobacco Use Smoking Status: Former smoker Tobacco Use: Cigarettes, Chew Route of nutrition/ use of supplements: [] Nutritional Intake: [] IV Site: [] Lake Catheter: [] - Assessment/Plan Antibiotics: [] Assessment/Plan: [] R knee PJI - Initial debridement done in [place], managed by ID there (Dr. Tatum). Recently developed DEANDRA on bactrim, then itchy rash on keflex. Taken to OR 02/[address] Thompson for spacer placement. Surg cx neg so far. Aspiration cx 01/2019 with msse. Will continue vanc; completed clinda. Tentative plan will be for 6 weeks of iv vanc at discharge. Will stop fluc. Now with worsening DEANDRA after surgery and hypotension yesterday; vanc trough this afternoon. Will follow, d/w supportive employment case manager, wrote rx for labs and abx
--- NOTE | 2019-02-13 11:21 | CASEMGMT ---
Addendum entered by Charleen Enriquez 02/13/19 11:42: ALEXANDRO faxed transfer to extended care to [facility] to complete. Original Note: Social Work Note RN JARRED Forde updated this worker that pt and pt's are agreeable to TCU. ALEXANDRO placed a call to Colleen in TCU, provided referral and to submit for pre-cert. Colleen states she is able to accept pt and will submit for pre-cert. Plan: TCU pending pre-cert Charleen Enriquez INPATIENT CODER, CATARACT LENS GENERATOR
[2019-02-13] MEDS: HYDROmorphone 0.5 MG/0.5 ML SYRINGE IV ×2 (12:11→20:08)
[2019-02-13 12:21] LABS: Bedside Glucose 125 mg/dL (70-110)
[2019-02-13] MEDS: oxyCODONE HCl Cr 10 MG Tablet PO ×2 (13:25→22:01)
[2019-02-13 16:41] LABS: Bedside Glucose 99 mg/dL (70-110)
[2019-02-13] MEDS: Tamsulosin HCl 0.4 MG Capsule PO (16:52)
[2019-02-13 18:22] LABS: Vancomycin, Trough Level 22.6 ug/mL (5.0-15.0)
[2019-02-13] MEDS: MELATONIN 10 MG TABLET 5 MG PO (22:01)
[2019-02-13] MEDS: Docusate Sodium 100 MG Capsule PO (22:01)
[2019-02-13 22:16] LABS: Bedside Glucose 121 mg/dL (70-110)
[2019-02-14] VITALS (8 sets, daily range): BP systolic 116–149; BP diastolic 44–70; PULSE 74–104; RESP 18–20; TEMP 36.3–36.8; O2SAT 83–96
[2019-02-14] MEDS: oxyCODONE 5 MG Tablet PO ×4 (03:48→19:40)
[2019-02-14] MEDS: Acetaminophen 500 MG Tablet 1000 MG PO ×3 (05:14→21:06)
[2019-02-14] MEDS: Levothyroxine 150 MCG Tablet PO (05:14)
[2019-02-14 05:35] LABS: Absolute Neutrophil Count 6.9 X10^3/uL (2.0-7.7); Basophil# 0.03 X10^3/uL; Basophil% 0.3 % (0-1); Eosinophil# 0.93 X10^3/uL; Eosinophils% 9.3 % (0-5); Hematocrit 31.1 % (40-54); Hemoglobin 9.6 g/dl (13.0-16.5); Mean Corp Hgb Conc 30.9 g/gl (32-36); Mean Corpuscular Hgb 28.1 pg (27.0-32.0); Mean Corpuscular Volume 90.9 fL (80-94); Monocyte# 1.34 X10^3/uL; Monocyte% 13.4 % (0-10); Neutrophil # 6.85 X10^3/uL (2.7-7.7); Neutrophil % 68.3 % (47-70); Platelet Count 213 K/mm3 (150-450); RBC Distribution Width CV 14.2 % (11.6-14.6); RBC Distribution Width SD 45.5 fl (35.1-43.9); Red Blood Count 3.42 M/mm3 (4.6-6.2)
[2019-02-14 05:36] LABS: POSITIVE COUNT NO; POSITIVE DIFFERENTIAL NO; POSITIVE MORPHOLOGY NO
[2019-02-14 05:57] LABS: Anion Gap 5 (5-15); BUN 30 mg/dL (7-18); BUN/Creat Ratio 14.4 RATIO (10-20); Calcium,Total 8.1 mg/dL (8.5-10.1); Chloride 108 mmol/L (98-107); Creatinine, Serum 2.09 mg/dL (0.70-1.30); EST Glomerular Filtration Rate 34 mL/min (>60); Est Glom Filt Rate - Afr Amer 41 mL/min (>60); Estimated Creatinine Clearance 30.95 ml/min; Glucose 123 mg/dL (74-106); Potassium 4.6 mmol/L (3.5-5.1); Sodium Level 141 mmol/L (136-145)
[2019-02-14 06:02] LABS: Vancomycin, Random Level 14.8 ug/mL (0.0-15.0)
[2019-02-14 06:30] LABS: Bedside Glucose 121 mg/dL (70-110)
--- NOTE | 2019-02-14 07:03 | PCM.PN.ORT ---
Patient Problems: Active and Suspected Problems (Last Updated 02/12/19 @ 16:29 by Dale Malik MD) Prosthetic joint infection (Acute) Subjective: The patient was sitting in bed upon examination. Patient denies any chest pain, shortness of breath, dizziness, lightheadedness, nausea or vomiting, or calf pain. Pain is controlled on medications. Patient does report right knee pain but tells me this morning the new pain meds have been helpful. He appears to be resting comfortably. No adverse overnight events. Plan is for discharge to transitional care unit but we are waiting on pre-CERT from the insurance. Patient does have a Hemovac drain and it is slightly trending down and plan will be for removal tomorrow. Objective: Vital signs stable and afebrile. There is episode of mild tachycardia overnight. Patient is requiring 1 L of nasal oxygen. Patient is able to plantarflex and dorsiflex actively. Sensation is intact to light touch to saphenous, sural, superficial and deep peroneal, and tibial distribution. Dressing is clean dry and intact. Hemovac drain in place: There is output in canister. There is been 155 mL output since yesterday. Negative Homans bilaterally, negative signs and symptoms of DVT. - Physical Exam General: Alert, Oriented x3, Cooperative, No apparent distress Vital Signs Temp Pulse Resp BP Pulse Ox 98.1 F 87 18 122/50 H 95 02/14/19 03:43 02/14/19 03:43 02/14/19 03:43 02/14/19 03:43 02/14/19 03:43 Oxygen Flow Rate (L/min) 1 Oxygen Delivery Method Nasal Cannula Weight: 131.6 kg Body Mass Index (BMI) 46.8 Finger Stick Blood Glucose 114 Intake and Output for Last 24 Hours 02/12/19 02/13/19 02/14/19 23:59 23:59 23:59 Intake Total 4146 / 4146 740 / 740 1200 / 1200 Output Total 500 / 500 515 / 515 1580 / 1580 Balance 3646 / 3646 225 / 225 -380 / -380 Microbiology Past 72 Hours 02/12/19 11:38 Gram Stain - Final Tissue - Other Wound Culture - Preliminary No growth-Final to follow 02/12/19 11:38 Gram Stain - Final Tissue - Other Wound Culture - Preliminary No growth-Final to follow 02/12/19 11:38 Gram Stain - Final Tissue - Other Wound Culture - Preliminary No growth-Final to follow Laboratory Tests Past 24 Hrs 02/13/19 02/14/19 02/14/19 17:34 05:00 05:00 WBC 10.0 RBC 3.42 L Hgb 9.6 L Hct 31.1 L MCV 90.9 MCH 28.1 MCHC 30.9 L RDW 14.2 RDW Differential 45.5 H Plt Count 213 MPV 9.0 Immature Gran % (Auto) 0.700 Neut % (Auto) 68.3 Lymph % (Auto) 8.0 L [place] % (Auto) 13.4 H Eos % (Auto) 9.3 H Baso % (Auto) 0.3 Absolute Neuts (auto) 6.9 Absolute Lymphs (auto) 0.80 L Total Counted Not Reportable Sodium 141 Potassium 4.6 Chloride 108 H Carbon Dioxide 28.0 Anion Gap 5 BUN 30 H Creatinine 2.09 H Estim Creat Clear Calc 30.95 Est GFR (MDRD) Af Amer 41 L Est GFR (MDRD) Non-Af 34 L BUN/Creatinine Ratio 14.4 Glucose 123 H Calcium 8.1 L Vancomycin Trough 22.6 H Random Vancomycin 02/14/19 05:00 WBC RBC Hgb Hct MCV MCH MCHC RDW RDW Differential Plt Count MPV Immature Gran % (Auto) Neut % (Auto) Lymph % (Auto) [place] % (Auto) Eos % (Auto) Baso % (Auto) Absolute Neuts (auto) Absolute Lymphs (auto) Total Counted Sodium Potassium Chloride Carbon Dioxide Anion Gap BUN Creatinine Estim Creat Clear Calc Est GFR (MDRD) Af Amer Est GFR (MDRD) Non-Af BUN/Creatinine Ratio Glucose Calcium Vancomycin Trough Random Vancomycin 14.8 POC Glucose 02/14/19 02/13/19 02/13/19 06:27 22:00 16:34 POC Glucose 121 H 121 H 99 02/13/19 12:07 POC Glucose 125 H Medical Necessity - Tobacco Use Smoking Status: Former smoker Tobacco Use: Cigarettes, Chew Assessment/Plan All Active Problems (Last Updated 02/12/19 @ 16:29 by Dale Malik MD) Hyperkalemia (Acute) Acute renal failure (Acute) Prosthetic joint infection (Acute) 1. S/P explant right total knee with placement of antibiotic spacer POD #2 2. Continue Pain Medications: Tylenol and OxyIR, patient required additional OxyContin due to increased pain. Patient reports to me today that the additional pain medication has been helpful. He appears to be resting comfortably. However he does rate his pain significantly high. 3. DVT Prophylaxis: Continue with Lovenox due to a kidney function 4. PT/OT: Continue with knee immobilizer to allow for proper wound healing for the next 2 weeks. We will continue 50% weightbearing while this implant is in. At 2-week postop visit will begin range of motion without restrictions. Physical therapy planning on changing to a larger knee immobilizer for better fit 5. H & H: 9.6/31.1, asymptomatic 6. Encouraged Incentive Spirometry 7. Continue postoperative medical management with medicine: Discussed case with physician and will continue to hold nephrotoxic medications. Patient has significant comorbidities consisting of hypertension, chronic kidney disease, type 2 diabetes mellitus. Patient's creatinine has come down to 2.09 from 2.33 yesterday. 8. Infectious disease consult: Continue with antibiotics per infectious disease. Appreciate their input. Patient currently on vancomycin. Patient will require PICC line and 6 weeks IV antibiotics. 9. Continue with Hemovac drain: There is been 155 cc output, plan will be for removal of Hemovac drain tomorrow morning. 10. Disposition: Due to patient's comorbidities, pain, and acute kidney complications patient will require continued stay at the hospital. We are monitoring his kidney function and holding nephrotoxic medications. Plan will be for removal of drain possibly tomorrow morning. We are waiting for pre-CERT for discharge to the transitional care unit.
[2019-02-14] MEDS: Budesonide Respules 0.5 MG/2 ML AMPUL.NEB. INHALATION ×2 (07:42→19:09)
[2019-02-14] MEDS: Glucerna Shake 120 ML LIQUID PO ×3 (08:25→16:52)
[2019-02-14] MEDS: 0.9% NaCl Peripheral Flush Adult/Peds IV ×2 (08:25→09:50)
[2019-02-14] MEDS: Vancomycin IV 1,000 MG/200 ML BAG 200 MG IV (08:25)
[2019-02-14] MEDS: Famotidine 20 MG Tablet PO (09:48)
[2019-02-14] MEDS: Ondansetron 4 MG/2 ML Vial IV (09:48)
[2019-02-14] MEDS: oxyCODONE HCl Cr 10 MG Tablet PO (09:48)
[2019-02-14] MEDS: Paroxetine 20 MG Tablet 40 MG PO (09:48)
[2019-02-14] MEDS: Enoxaparin 40 MG/0.4 ML Syringe SC (09:49)
[2019-02-14] MEDS: Verapamil SR 240 MG Tablet PO (09:49)
--- NOTE | 2019-02-14 11:22 | CASEMGMT ---
Addendum entered by Charleen Enriquez 02/14/19 11:41: SW updated pt and Rasheead on pre-cert approval to go to TCU and that physician is thinking discharge tomorrow. Pt and Confucianist states understanding. Original Note: Addendum entered by Charleen Enriquez 02/14/19 11:32: ALEXANDRO received call from Colleen in TCU stating pre-cert has been obtained. ALEXANDRO updated Colleen that ortho is thinking discharge to TCU tomorrow. Colleen states understanding. Green sheet on chart. Original Note: Social Work Note SW placed a call to pt's Rasheeda. ALEXANDRO updated Rasheeda that pre-cert is still pending for TCU. Plan: TCU pending pre-cert Charleen Enriquez ACOUSTICAL INSTALLER, GREEN END DEPARTMENT SUPERVISOR
--- NOTE | 2019-02-14 12:44 | CASEMGMT ---
NIK CM Note: per charge nurse, quique Lincoln recommends pt have TENS unit on dc. Per [facility] and [facility], this is not covered under insurance and is available through [facility]. NIK STERN called to [facility], spoke with Hope. They have 2 models, one $ 39.99, the other $59.99 and can be bought OTC. -Call to Rasheeda. She will roller picker @ [facility] and pt will have on dc to TCU. Jo-Ann LAWRENCE RN ACM
--- NOTE | 2019-02-14 12:47 | PCM.PN.ID ---
Patient Problems: Active and Suspected Problems (Last Updated 02/12/19 @ 16:29 by Dale Malik MD) Prosthetic joint infection (Acute) Subjective: Pain better, no fever, no n/v/d with abx, making urine. - Physical Exam General: Alert, Cooperative, No apparent distress Lungs: Clear to auscultation, Normal air movement Cardiovascular: Regular rate, Regular Rhythm Abdomen: Soft, Non Tender, Non-Distended Skin: Ulcer/ Wound - RLE wrapped Vital Signs Temp Pulse Resp BP Pulse Ox 98.2 F 85 20 H 149/70 H 95 02/14/19 09:40 02/14/19 09:40 02/14/19 09:40 02/14/19 09:40 02/14/19 09:40 Oxygen Flow Rate (L/min) 3 Oxygen Delivery Method Nasal Cannula Weight: 131.6 kg Body Mass Index (BMI) 46.8 Finger Stick Blood Glucose 114 Intake and Output for Last 24 Hours 02/12/19 02/13/19 02/14/19 23:59 23:59 23:59 Intake Total 4146 / 4146 740 / 740 1200 / 1200 Output Total 500 / 500 515 / 515 1580 / 1580 Balance 3646 / 3646 225 / 225 -380 / -380 Microbiology Past 72 Hours 02/12/19 11:38 Gram Stain - Final Tissue - Other Wound Culture - Preliminary No growth-Final to follow Anaerobic Culture - Preliminary Checking for anaerobes, further studies to follow. 02/12/19 11:38 Gram Stain - Final Tissue - Other Wound Culture - Preliminary No growth-Final to follow Anaerobic Culture - Preliminary No growth in 48 hours. 02/12/19 11:38 Gram Stain - Final Tissue - Other Wound Culture - Preliminary No growth-Final to follow Anaerobic Culture - Preliminary No growth in 48 hours. Laboratory Tests Past 24 Hrs 02/13/19 02/14/19 02/14/19 17:34 05:00 05:00 WBC 10.0 RBC 3.42 L Hgb 9.6 L Hct 31.1 L MCV 90.9 MCH 28.1 MCHC 30.9 L RDW 14.2 RDW Differential 45.5 H Plt Count 213 MPV 9.0 Immature Gran % (Auto) 0.700 Neut % (Auto) 68.3 Lymph % (Auto) 8.0 L [place] % (Auto) 13.4 H Eos % (Auto) 9.3 H Baso % (Auto) 0.3 Absolute Neuts (auto) 6.9 Absolute Lymphs (auto) 0.80 L Total Counted Not Reportable Sodium 141 Potassium 4.6 Chloride 108 H Carbon Dioxide 28.0 Anion Gap 5 BUN 30 H Creatinine 2.09 H Estim Creat Clear Calc 30.95 Est GFR (MDRD) Af Amer 41 L Est GFR (MDRD) Non-Af 34 L BUN/Creatinine Ratio 14.4 Glucose 123 H Calcium 8.1 L Vancomycin Trough 22.6 H Random Vancomycin 02/14/19 05:00 WBC RBC Hgb Hct MCV MCH MCHC RDW RDW Differential Plt Count MPV Immature Gran % (Auto) Neut % (Auto) Lymph % (Auto) [place] % (Auto) Eos % (Auto) Baso % (Auto) Absolute Neuts (auto) Absolute Lymphs (auto) Total Counted Sodium Potassium Chloride Carbon Dioxide Anion Gap BUN Creatinine Estim Creat Clear Calc Est GFR (MDRD) Af Amer Est GFR (MDRD) Non-Af BUN/Creatinine Ratio Glucose Calcium Vancomycin Trough Random Vancomycin 14.8 POC Glucose 02/14/19 02/13/19 02/13/19 06:27 22:00 16:34 POC Glucose 121 H 121 H 99 Medical Necessity - Tobacco Use Smoking Status: Former smoker Tobacco Use: Cigarettes, Chew Route of nutrition/ use of supplements: [] Nutritional Intake: [] IV Site: [] Lake Catheter: [] - Assessment/Plan Antibiotics: [] Assessment/Plan: [] R knee PJI - Initial debridement done in [place], managed by ID there (Dr. Tatum). Recently developed DEANDRA on bactrim, then itchy rash on keflex. Taken to OR 02/[address] Thompson for spacer placement. Surg cx neg so far. Aspiration cx 01/2019 with msse. Continue vanc. Cr stable today. Ok for discharge on iv vanc for 6 week course, stop date 03/26/19, weekly bmp, cbc, esr, and vanc trough while on iv abx. Followup with me in 2 weeks or I can follow if he goes to TCU. Will follow, d/w case technician, wrote rx for labs and abx
--- NOTE | 2019-02-14 14:23 | PCM.PN.HOSP ---
Patient Problems: Active and Suspected Problems (Last Updated 02/12/19 @ 16:29 by Dale Malik MD) Prosthetic joint infection (Acute) Subjective: No complaints. Vitals/I&O's: Vital Signs Temp Pulse Resp BP Pulse Ox 36.8 C 85 20 H 149/70 H 95 02/14/19 09:40 02/14/19 09:40 02/14/19 09:40 02/14/19 09:40 02/14/19 09:40 Oxygen Flow Rate (L/min) 3 Oxygen Delivery Method Nasal Cannula Weight: 131.6 kg Body Mass Index (BMI) 46.8 Finger Stick Blood Glucose 114 Intake and Output for Last 24 Hours 02/12/19 02/13/19 02/14/19 23:59 23:59 23:59 Intake Total 4146 / 4146 740 / 740 1200 / 1200 Output Total 500 / 500 515 / 515 1580 / 1580 Balance 3646 / 3646 225 / 225 -380 / -380 General: Alert, No apparent distress HEENT: Atraumatic, Normocephalic Oral: Moist Mucosa, No Gingival or Mucosal Lesions/ Ulcerations Neck: No Nodes, Thyroid Normal Size and Texture Lungs: Clear to auscultation, Normal air movement, No rhonchi, No wheeze Cardiovascular: Regular rate, Regular Rhythm, Normal S1, Normal S2, No murmurs Abdomen: Bowel Sounds Present, Soft, Non Tender, Non-Distended, No Hepato-splenomegaly Extremities: No edema, No Calf Tenderness Skin: No rashes, No breakdown Psych/Mental Status: Normal Affect, Appropriate Microbiology Past 72 Hours 02/12/19 11:38 Tissue - Other Gram Stain - Final 02/12/19 11:38 Tissue - Other Wound Culture - Preliminary No growth-Final to follow 02/12/19 11:38 Tissue - Other Anaerobic Culture - Preliminary Checking for anaerobes, further studies to follow. 02/12/19 11:38 Tissue - Other Gram Stain - Final 02/12/19 11:38 Tissue - Other Wound Culture - Preliminary No growth-Final to follow 02/12/19 11:38 Tissue - Other Anaerobic Culture - Preliminary No growth in 48 hours. 02/12/19 11:38 Tissue - Other Gram Stain - Final 02/12/19 11:38 Tissue - Other Wound Culture - Preliminary No growth-Final to follow 02/12/19 11:38 Tissue - Other Anaerobic Culture - Preliminary No growth in 48 hours. Laboratory Results 02/13/19 16:34: POC Glucose 99 02/13/19 17:34: Vancomycin Trough 22.6 H 02/13/19 22:00: POC Glucose 121 H 02/14/19 05:00: WBC 10.0, RBC 3.42 L, Hgb 9.6 L, Hct 31.1 L, MCV 90.9, MCH 28.1, MCHC 30.9 L, RDW 14.2, RDW Differential 45.5 H, Plt Count 213, MPV 9.0, Immature Gran % (Auto) 0.700, Neut % (Auto) 68.3, Lymph % (Auto) 8.0 L, [place] % (Auto) 13.4 H, Eos % (Auto) 9.3 H, Baso % (Auto) 0.3, Absolute Neuts (auto) 6.9, Absolute Lymphs (auto) 0.80 L, Total Counted Not Reportable 02/14/19 05:00: Sodium 141, Potassium 4.6, Chloride 108 H, Carbon Dioxide 28.0, Anion Gap 5, BUN 30 H, Creatinine 2.09 H, Estim Creat Clear Calc 30.95, Est GFR (MDRD) Af Amer 41 L, Est GFR (MDRD) Non-Af 34 L, BUN/Creatinine Ratio 14.4, Glucose 123 H, Calcium 8.1 L 02/14/19 05:00: Random Vancomycin 14.8 02/14/19 06:27: POC Glucose 121 H Current Medications Acetaminophen (Tylenol) 1,000 mg PO Q8 ANIYAH Last Admin: 02/14/19 05:14 Dose: 1,000 mg Albuterol Sulfate (Ventolin Aerosols) 2.5 mg INHALATION Q4H PRN PRN Reason: SHORTNESS OF BREATH Alprazolam (Xanax) 1 mg PO BID PRN PRN PRN Reason: ANXIETY/AGITATION Last Admin: 02/13/19 10:13 Dose: 1 mg Budesonide (Pulmicort Aerosol) 0.5 mg INHALATION Q12H.RT ANIYAH Last Admin: 02/14/19 07:42 Dose: 0.5 mg Cyclobenzaprine HCl (Flexeril) 10 mg PO TID PRN PRN Reason: PAIN Last Admin: 02/14/19 03:48 Dose: 10 mg Diphenhydramine HCl (Benadryl) 50 mg PO Q8H PRN PRN Reason: ITCHING Last Admin: 02/13/19 22:07 Dose: 50 mg Docusate Sodium (Colace) 100 mg PO QHS [facility] [place] Last Admin: 02/13/19 22:01 Dose: 100 mg Enoxaparin Sodium (Lovenox) 40 mg SC DAILY [facility] [place] Last Admin: 02/14/19 09:49 Dose: 40 mg Famotidine (Pepcid) 20 mg PO DAILY [facility] [place] Last Admin: 02/14/19 09:48 Dose: 20 mg Fluticasone Propionate (Flonase Nasal [place]) 2 spray NASAL DAILY PRN PRN Reason: ALLERGIES Furosemide (Lasix) 20 mg PO QODAY [facility] [place] Last Admin: 02/13/19 10:06 Dose: 20 mg Vancomycin IV Pharmacy to Dose (1 ea/ Sodium Chloride) 500 mls @ 250 mls/hr IV X1 PRN; Protocol PRN Reason: Rx to Dose Vancomycin HCl (Vancomycin) 1,000 mg in 200 mls @ 200 mls/hr IV Q24H [facility] [place] Last Admin: 02/14/19 08:25 Dose: 200 mls/hr Insulin Human Lispro (Humalog Kwikpen (Bkc)) 0 unit SC ACHS [facility] [place]; Protocol Last Admin: 02/14/19 11:58 Dose: Not Given Levothyroxine Sodium (Synthroid) 150 mcg PO DAILY@0600 [facility] [place] Last Admin: 02/14/19 05:14 Dose: 150 mcg Melatonin (Melatonin) 5 mg PO QHS PRN PRN Reason: SLEEP Last Admin: 02/13/19 22:01 Dose: 5 mg Nutritional Formula (Lactose Free) (Glucerna Shake) 120 ml PO TIDCM [facility] [place] Last Admin: 02/14/19 12:07 Dose: 120 ml Ondansetron HCl (Zofran) 4 mg IV Q8H PRN PRN PRN Reason: NAUSEA Last Admin: 02/14/19 09:48 Dose: 4 mg Oxycodone HCl (Oxyir) 5 - 10 mg PO Q4H PRN PRN PRN Reason: MOD-SEVERE PAIN (4-10/10) Last Admin: 02/14/19 08:32 Dose: 10 mg Oxycodone HCl (Oxycontin) 10 mg PO QHS [facility] [place] Paroxetine HCl (Paxil) 40 mg PO DAILY [facility] [place] Last Admin: 02/14/19 09:48 Dose: 40 mg Promethazine HCl (Phenergan) 12.5 mg IM Q6H PRN PRN; Protocol PRN Reason: NAUSEA/VOMITING Sodium Chloride () 5 - 15 ml IV UD PRN PRN Reason: SALINE FLUSH Last Admin: 02/14/19 09:50 Dose: 10 ml Tamsulosin HCl (Flomax) 0.4 mg PO DAILY@1730 [facility] [place] Last Admin: 02/13/19 16:52 Dose: 0.4 mg Verapamil HCl (Calan Sr) 240 mg PO DAILY [facility] [place] Last Admin: 02/14/19 09:49 Dose: 240 mg Medical Necessity - Tobacco Use Smoking Status: Former smoker Tobacco Use: Cigarettes, Chew Assessment/Plan All Active Problems (Last Updated 02/12/19 @ 16:29 by Dale Malik MD) Hyperkalemia (Acute) Acute renal failure (Acute) Prosthetic joint infection (Acute) 1. DEANDRA improved monitor 2. Prosthetic Joint infection, right knee s/p explant with antibiotic spacer 6 weeks of IV vancomycin 3. HTN fair control lisinopril held continue verapamil 4. VTE prophylaxis enoxaparin Code Visit Inpatient E&M: 01031 Subs Hosp L2
--- NOTE | 2019-02-14 14:30 | PN_ITS ---
Patient Problems: Active and Suspected Problems (Last Updated 02/12/19 @ 16:29 by Dale Malik MD) Prosthetic joint infection (Acute) Subjective: No complaints. Vitals/I&O's: Vital Signs Temp Pulse Resp BP Pulse Ox 36.8 C 85 20 H 149/70 H 95 02/14/19 09:40 02/14/19 09:40 02/14/19 09:40 02/14/19 09:40 02/14/19 09:40 Oxygen Flow Rate (L/min) 3 Oxygen Delivery Method Nasal Cannula Weight: 131.6 kg Body Mass Index (BMI) 46.8 Finger Stick Blood Glucose 114 Intake and Output for Last 24 Hours 02/12/19 02/13/19 02/14/19 23:59 23:59 23:59 Intake Total 4146 / 4146 740 / 740 1200 / 1200 Output Total 500 / 500 515 / 515 1580 / 1580 Balance 3646 / 3646 225 / 225 -380 / -380 General: Alert, No apparent distress HEENT: Atraumatic, Normocephalic Oral: Moist Mucosa, No Gingival or Mucosal Lesions/ Ulcerations Neck: No Nodes, Thyroid Normal Size and Texture Lungs: Clear to auscultation, Normal air movement, No rhonchi, No wheeze Cardiovascular: Regular rate, Regular Rhythm, Normal S1, Normal S2, No murmurs Abdomen: Bowel Sounds Present, Soft, Non Tender, Non-Distended, No Hepato- splenomegaly Extremities: No edema, No Calf Tenderness Skin: No rashes, No breakdown Psych/Mental Status: Normal Affect, Appropriate Microbiology Past 72 Hours 02/12/19 11:38 Tissue - Other Gram Stain - Final 02/12/19 11:38 Tissue - Other Wound Culture - Preliminary No growth-Final to follow 02/12/19 11:38 Tissue - Other Anaerobic Culture - Preliminary Checking for anaerobes, further studies to follow. 02/12/19 11:38 Tissue - Other Gram Stain - Final 02/12/19 11:38 Tissue - Other Wound Culture - Preliminary No growth-Final to follow 02/12/19 11:38 Tissue - Other Anaerobic Culture - Preliminary No growth in 48 hours. 02/12/19 11:38 Tissue - Other Gram Stain - Final 02/12/19 11:38 Tissue - Other Wound Culture - Preliminary No growth-Final to follow 02/12/19 11:38 Tissue - Other Anaerobic Culture - Preliminary No growth in 48 hours. Laboratory Results 02/13/19 16:34: POC Glucose 99 02/13/19 17:34: Vancomycin Trough 22.6 H 02/13/19 22:00: POC Glucose 121 H 02/14/19 05:00: WBC 10.0, RBC 3.42 L, Hgb 9.6 L, Hct 31.1 L, MCV 90.9, MCH 28.1, MCHC 30.9 L, RDW 14.2, RDW Differential 45.5 H, Plt Count 213, MPV 9.0, Immature Gran % (Auto) 0.700, Neut % (Auto) 68.3, Lymph % (Auto) 8.0 L, [place] % (Auto) 13.4 H, Eos % (Auto) 9.3 H, Baso % (Auto) 0.3, Absolute Neuts (auto) 6.9, Absolute Lymphs (auto) 0.80 L, Total Counted Not Reportable 02/14/19 05:00: Sodium 141, Potassium 4.6, Chloride 108 H, Carbon Dioxide 28.0, Anion Gap 5, BUN 30 H, Creatinine 2.09 H, Estim Creat Clear Calc 30.95, Est GFR (MDRD) Af Amer 41 L, Est GFR (MDRD) Non-Af 34 L, BUN/Creatinine Ratio 14.4, Glucose 123 H, Calcium 8.1 L 02/14/19 05:00: Random Vancomycin 14.8 02/14/19 06:27: POC Glucose 121 H Current Medications Acetaminophen (Tylenol) 1,000 mg PO Q8 ANIYAH Last Admin: 02/14/19 05:14 Dose: 1,000 mg Albuterol Sulfate (Ventolin Aerosols) 2.5 mg INHALATION Q4H PRN PRN Reason: SHORTNESS OF BREATH Alprazolam (Xanax) 1 mg PO BID PRN PRN PRN Reason: ANXIETY/AGITATION Last Admin: 02/13/19 10:13 Dose: 1 mg Budesonide (Pulmicort Aerosol) 0.5 mg INHALATION Q12H.RT ANIYAH Last Admin: 02/14/19 07:42 Dose: 0.5 mg Cyclobenzaprine HCl (Flexeril) 10 mg PO TID PRN PRN Reason: PAIN Last Admin: 02/14/19 03:48 Dose: 10 mg Diphenhydramine HCl (Benadryl) 50 mg PO Q8H PRN PRN Reason: ITCHING Last Admin: 02/13/19 22:07 Dose: 50 mg Docusate Sodium (Colace) 100 mg PO QHS [facility] Last Admin: 02/13/19 22:01 Dose: 100 mg Enoxaparin Sodium (Lovenox) 40 mg SC DAILY [facility] Last Admin: 02/14/19 09:49 Dose: 40 mg Famotidine (Pepcid) 20 mg PO DAILY [facility] Last Admin: 02/14/19 09:48 Dose: 20 mg Fluticasone Propionate (Flonase Nasal [place]) 2 spray NASAL DAILY PRN PRN Reason: ALLERGIES Furosemide (Lasix) 20 mg PO QODAY [facility] Last Admin: 02/13/19 10:06 Dose: 20 mg Vancomycin IV Pharmacy to Dose (1 ea/ Sodium Chloride) 500 mls @ 250 mls/hr IV X1 PRN; Protocol PRN Reason: Rx to Dose Vancomycin HCl (Vancomycin) 1,000 mg in 200 mls @ 200 mls/hr IV Q24H [facility] Last Admin: 02/14/19 08:25 Dose: 200 mls/hr Insulin Human Lispro (Humalog Kwikpen (Bkc)) 0 unit SC ACHS [facility]; Protocol Last Admin: 02/14/19 11:58 Dose: Not Given Levothyroxine Sodium (Synthroid) 150 mcg PO DAILY@0600 [facility] Last Admin: 02/14/19 05:14 Dose: 150 mcg Melatonin (Melatonin) 5 mg PO QHS PRN PRN Reason: SLEEP Last Admin: 02/13/19 22:01 Dose: 5 mg Nutritional Formula (Lactose Free) (Glucerna Shake) 120 ml PO TIDCM [facility] Last Admin: 02/14/19 12:07 Dose: 120 ml Ondansetron HCl (Zofran) 4 mg IV Q8H PRN PRN PRN Reason: NAUSEA Last Admin: 02/14/19 09:48 Dose: 4 mg Oxycodone HCl (Oxyir) 5 - 10 mg PO Q4H PRN PRN PRN Reason: MOD-SEVERE PAIN (4-10/10) Last Admin: 02/14/19 08:32 Dose: 10 mg Oxycodone HCl (Oxycontin) 10 mg PO QHS [facility] Paroxetine HCl (Paxil) 40 mg PO DAILY [facility] Last Admin: 02/14/19 09:48 Dose: 40 mg Promethazine HCl (Phenergan) 12.5 mg IM Q6H PRN PRN; Protocol PRN Reason: NAUSEA/VOMITING Sodium Chloride () 5 - 15 ml IV UD PRN PRN Reason: SALINE FLUSH Last Admin: 02/14/19 09:50 Dose: 10 ml Tamsulosin HCl (Flomax) 0.4 mg PO DAILY@1730 [facility] Last Admin: 02/13/19 16:52 Dose: 0.4 mg Verapamil HCl (Calan Sr) 240 mg PO DAILY [facility] Last Admin: 02/14/19 09:49 Dose: 240 mg Medical Necessity - Tobacco Use Smoking Status: Former smoker Tobacco Use: Cigarettes, Chew Assessment/Plan All Active Problems (Last Updated 02/12/19 @ 16:29 by Dale Malik MD) Hyperkalemia (Acute) Acute renal failure (Acute) Prosthetic joint infection (Acute) 1. DEANDRA * improved * monitor 2. Prosthetic Joint infection, right knee * s/p explant with antibiotic spacer * 6 weeks of IV vancomycin 3. HTN * fair control * lisinopril held * continue verapamil 4. VTE prophylaxis * enoxaparin Code Visit Inpatient E&M: 82235 Subs Hosp L2
[2019-02-14] MEDS: Tamsulosin HCl 0.4 MG Capsule PO (16:52)
[2019-02-14 17:00] LABS: Bedside Glucose 113 mg/dL (70-110)
[2019-02-14 17:01] LABS: Bedside Glucose 136 mg/dL (70-110)
--- NOTE | 2019-02-14 18:04 | NURSING ---
Pt reeducated on usage and reasons for incentive spirometer. pt assisted to chair and educated on importance of increasing activity.
[2019-02-14] MEDS: Docusate Sodium 100 MG Capsule PO (21:07)
[2019-02-15] MEDS: DiphenhydrAMINE 25 MG Capsule 50 MG PO (00:38)
[2019-02-15 01:56] LABS: Bedside Glucose 122 mg/dL (70-110)
[2019-02-15 04:08] VITALS: BP 135/57; PULSE 79; RESP 18; TEMP 36.9; O2SAT 96
[2019-02-15] MEDS: Levothyroxine 150 MCG Tablet PO (06:59)
[2019-02-15] MEDS: Acetaminophen 500 MG Tablet 1000 MG PO (07:03)
[2019-02-15 07:04] VITALS: PULSE 104; RESP 20; O2SAT 87
[2019-02-15] MEDS: Budesonide Respules 0.5 MG/2 ML AMPUL.NEB. INHALATION (07:06)
[2019-02-15] MEDS: 0.9% NaCl Peripheral Flush Adult/Peds IV ×5 (07:08→10:34)
[2019-02-15 07:15] LABS: Bedside Glucose 123 mg/dL (70-110)
[2019-02-15 07:33] LABS: Hematocrit 28.8 % (40-54); Hemoglobin 9.2 g/dl (13.0-16.5); Mean Corp Hgb Conc 31.9 g/gl (32-36); Mean Corpuscular Hgb 29.1 pg (27.0-32.0); Mean Corpuscular Volume 91.1 fL (80-94); Mean Platelet Vol. 8.6 fl (6.2-12.0); Platelet Count 225 K/mm3 (150-450); RBC Distribution Width CV 14.4 % (11.6-14.6); RBC Distribution Width SD 47.9 fl (35.1-43.9); Red Blood Count 3.16 M/mm3 (4.6-6.2); White Blood Count 8.4 K/mm3 (4.4-11.0)
[2019-02-15 07:55] LABS: Scan Indicated on CBC? Y/N NO
--- NOTE | 2019-02-15 08:04 | PN.ORTHO_ITS ---
Patient Problems: Active and Suspected Problems (Last Updated 02/12/19 @ 16:29 by Dale Malik MD) Prosthetic joint infection (Acute) Subjective: The patient was sitting in bed upon examination. Patient denies any chest pain, shortness of breath, dizziness, lightheadedness, nausea or vomiting, or calf pain. Patient reports soreness and pain in the right knee. He does state the oxycodone is helpful when he takes it. Nursing states patient has been brought down from 3 L to 2 L nasal O2. Patient did not require any oxygen prior to surgery. Patient did come in with acute kidney complications and we have been holding any nephrotoxic medications. Patient is diabetic and we will be holding the metformin. Plan is for patient to go to transitional care unit today. Case was discussed with medicine and plan will be for possible discharge today. Patient will require to go on oxygen. Drainage from Hemovac drain has been trending down. Objective: Vital signs stable and afebrile. Patient currently now on 2 L nasal O2, patient has stable blood pressure Patient is able to plantarflex and dorsiflex actively. Sensation is intact to light touch to saphenous, sural, superficial and deep peroneal, and tibial distribution. Dressing is clean dry and intact. Hemovac drain in place: There is been 130 mL output, no output currently and drain. Hemovac drain was removed with Steri-Strip placed. New Mepilex dressing needed to be applied. Overall incision looks well with no active drainage. Negative Homans bilaterally, negative signs and symptoms of DVT. - Physical Exam General: Alert, Oriented x3, Cooperative, No apparent distress Vital Signs Temp Pulse Resp BP Pulse Ox 98.4 F 104 H 20 H 135/57 H 87 02/15/19 04:08 02/15/19 07:04 02/15/19 07:04 02/15/19 04:08 02/15/19 07:04 Oxygen Flow Rate (L/min) 3 Oxygen Delivery Method Room Air Weight: 131.6 kg Body Mass Index (BMI) 46.8 Finger Stick Blood Glucose 114 Intake and Output for Last 24 Hours 02/13/19 02/14/19 02/15/19 23:59 23:59 23:59 Intake Total 740 / 740 1800 / 1800 1480 / 1480 Output Total 515 / 515 2350 / 2350 960 / 960 Balance 225 / 225 -550 / -550 520 / 520 Microbiology Past 72 Hours 02/12/19 11:38 Gram Stain - Final Tissue - Other Wound Culture - Final No growth aerobically. Anaerobic Culture - Final No anaerobic bacteria isolated. 02/12/19 11:38 Gram Stain - Final Tissue - Other Wound Culture - Final No growth aerobically. Anaerobic Culture - Preliminary No growth in 48 hours. 02/12/19 11:38 Gram Stain - Final Tissue - Other Wound Culture - Final No growth aerobically. Anaerobic Culture - Preliminary No growth in 48 hours. Laboratory Tests Past 24 Hrs 02/15/19 07:15 WBC 8.4 RBC 3.16 L Hgb 9.2 L Hct 28.8 L MCV 91.1 MCH 29.1 MCHC 31.9 L RDW 14.4 RDW Differential 47.9 H Plt Count 225 MPV 8.6 POC Glucose 02/15/19 02/14/19 02/14/19 07:02 21:05 16:50 POC Glucose 123 H 122 H 136 H 02/14/19 11:49 POC Glucose 113 H Medical Necessity - Tobacco Use Smoking Status: Former smoker Tobacco Use: Cigarettes, Chew Assessment/Plan All Active Problems (Last Updated 02/12/19 @ 16:29 by Dale Malik MD) Hyperkalemia (Acute) Acute renal failure (Acute) Prosthetic joint infection (Acute) 1. S/P explant right total knee with placement of antibiotic spacer POD #3 2. Continue Pain Medications: Tylenol and OxyIR, patient required additional OxyContin due to increased pain. I am currently stopping the OxyContin due to patient's O2 saturation. Patient states that the oxycodone is helpful. He does continue though to have pain in the right knee as well as soreness. 3. DVT Prophylaxis: Continue with Lovenox due to a kidney function 4. PT/OT: Continue with knee immobilizer to allow for proper wound healing for the next 2 weeks. We will continue 50% weightbearing while this implant is in. At 2-week postop visit will begin range of motion without restrictions. Physical therapy planning on changing to a larger knee immobilizer for better fit 5. H & H: 9.2/28.8, asymptomatic 6. Encouraged Incentive Spirometry 7. Continue postoperative medical management with medicine: Discussed case with physician and will continue to hold nephrotoxic medications. Patient has significant comorbidities consisting of hypertension, chronic kidney disease, type 2 diabetes mellitus. Patient's creatinine has come down to 2.09 from 2.33 yesterday. 8. Infectious disease consult: Continue with antibiotics per infectious laurence major. Appreciate their input. Patient currently on vancomycin. Patient will require PICC line and 6 weeks IV antibiotics. PICC line has been placed and antibiotics have been signed on chart. 9. Hemovac drain: Output has been trending down and Hemovac drain was removed today. Steri-Strip placed over incision. New Mepilex dressing needed to be replaced. Incision looks well without any active drainage 10. Disposition: Plan will be for possible discharge to the transitional care unit today. Prescriptions will be attached to chart. We will continue to hold nephrotoxic medications at this time. Case was discussed with medicine. They will evaluate the patient today. As long as medicine feels patient can be discharged we will plan for discharge today. Patient will require continued aerosol treatments as well as nasal O2 keeping O2 sat duration greater than 92%. Patient will follow-up per postop instructions. I will have repeat CBC and BMP in 2 days to monitor kidney function. We will have patient once discharged from the transitional care unit follow-up with his primary care physician for continued management of his medications.
--- NOTE | 2019-02-15 08:20 | PCM.DC.TKR ---
Discharge Diet: 1800 Calorie Control Diet Discharge Activity: May Not Drive May shower in (days): 2 Ice area for (Minutes): 20 - every hour while awake. Weight Bearing Status: Partial weight bearing - 50% weightbearing with knee immobilizer and walker right lower extremity Elevate: Operative Extremity Additional Activity Instructions:: Wear elastic stockings for 2 weeks after your surgery. Call your doctor if your incision/area has: Continuous Slow Oozing, Sudden Increased Bleeding, Increased Pain/ Swelling, Increased Redness, Foul Smelling Discharge Call your doctor if you observe: Fever of 101 or Higher, Coldness, Increased Pain, Numbness or Tingling, Change in Color, Calf discomfort, Uncontrolled pain Remove Dressing in (days):: 5 - Okay to remove dressing on Feb 20 2019 Additional Instructions: Hold nephrotoxic medications: These include Lasix, metformin, and lisinopril Continue with Lovenox for DVT prophylaxis PT/OT: Continue with knee immobilizer to allow for proper wound healing for the next 2 weeks. We will continue 50% weightbearing while the implant is in. At 2-week postop visit at [facility] we will begin gentle range of motion without restrictions. Continue with aerosol treatment per hospital O2 protocol, also continue with 2 L of oxygen keeping O2 sat duration greater than 92% Patient will require follow-up with his primary care physician and continued management of his acute kidney injury, will follow BMP/CBC. Pain management: Continue with exercising Tylenol 500 mg 2 tablets 3 times daily as well as oxycodone 1 to 2 tablets every 4 hours for breakthrough pain. Allergies/Adverse Reactions: Allergies bacitracin [From Neosporin ([id number])] Allergy (Verified 02/12/19 13:41) Rash bacitracin zinc [From Neosporin ([id number])] Allergy (Verified 02/12/19 13:41) Rash cephalexin [From Keflex] Allergy (Verified 02/12/19 13:41) Rash doxycycline Allergy (Verified 02/12/19 13:41) Rash morphine Allergy (Verified 02/12/19 13:41) Other KIDNEY ISSUES neomycin sulfate [From Neosporin ([id number])] Allergy (Verified 02/12/19 13:41) Rash Penicillins [PCN] Allergy (Verified 02/12/19 13:41) Rash polymyxin B [From Neosporin ([id number])] Allergy (Verified 02/12/19 13:41) Rash Medications to take at Discharge Albuterol Sulfate [Ventolin Hfa] 2 inh INHALATION DAILY PRN 11/10/17 Cyclobenzaprine [Flexeril] 10 mg PO TID PRN 11/10/17 Levothyroxine [Synthroid] 150 mcg PO DAILY 11/10/17 Paroxetine HCl [Paxil] 40 mg PO DAILY 11/10/17 Verapamil [Calan Sr] 1 tab PO DAILY 11/10/17 ALPRAZolam [Xanax] 1 mg PO BID PRN PRN 01/29/19 Docusate Sodium [Stool Softener] 100 mg PO QHS 01/29/19 Fluticasone 0.05% [Flonase Nasal [place]] 2 spray NASAL DAILY PRN 01/29/19 Fluticasone 110 Mcg [Flovent 110 Mcg] 2 puff INHALATION BID 01/29/19 Melatonin 5 mg PO QHS PRN 01/29/19 Tamsulosin HCl [Flomax] 0.4 mg PO DAILY 01/29/19 Vancomycin/0.9 % Sod Chloride [Vanco 1.5 gm/300 ml-0.9% NaCl] 1.5 gm IV Q24H 40 Days #40 plast..bag 02/13/19 Acetaminophen [Tylenol] 1,000 mg PO Q8 14 Days tablet 02/15/19 Enoxaparin [Lovenox] 40 mg SUBCUT DAILY 21 Days #21 syringe 02/15/19 Insulin Lispro [Humalog KwikPen] See Protocol [place] ACHS insuln.pen 02/15/19 Ondansetron [Zofran] 4 mg IV Q8H PRN PRN vial 02/15/19 Oxycodone [Oxyir] 5 - 10 mg PO Q4H PRN PRN 5 Days #60 tab 02/15/19 The following prescriptions were given: Oxycodone [Oxyir] 5 - 10 mg PO Q4H PRN PRN 5 Days #60 tab PRN Reason: Mod-Severe Pain (4-07/17) Enoxaparin [Lovenox] 40 mg SUBCUT DAILY 21 Days #21 syringe Vancomycin/0.9 % Sod Chloride [Vanco 1.5 gm/300 ml-0.9% NaCl] 1.5 gm IV Q24H 40 Days #40 plast..bag Primary Care Physician: Chhaya Bills MD [Primary Care Provider] - Please follow up with your Primary Care Physician in: will need follow up with PCP upon discharge from TCU Test Results: Test results from this visit will be discussed in further detail at your follow-up appointment, if applicable. Please Follow Up With: Gustavo Middleton PA-C When: 02/26/19 @ 8:30 am
--- NOTE | 2019-02-15 08:26 | DCINST_ITS ---
Discharge Diet: 1800 Calorie Control Diet Discharge Activity: May Not Drive May shower in (days): 2 Ice area for (Minutes): 20 - every hour while awake. Weight Bearing Status: Partial weight bearing - 50% weightbearing with knee immobilizer and walker right lower extremity Elevate: Operative Extremity Additional Activity Instructions:: Wear elastic stockings for 2 weeks after your surgery. Call your doctor if your incision/area has: Continuous Slow Oozing, Sudden Increased Bleeding, Increased Pain/ Swelling, Increased Redness, Foul Smelling Discharge Call your doctor if you observe: Fever of 101 or Higher, Coldness, Increased Pain, Numbness or Tingling, Change in Color, Calf discomfort, Uncontrolled pain Remove Dressing in (days):: 5 - Okay to remove dressing on Feb 20 2019 Additional Instructions: Hold nephrotoxic medications: These include Lasix, metformin, and lisinopril Continue with Lovenox for DVT prophylaxis PT/OT: Continue with knee immobilizer to allow for proper wound healing for the next 2 weeks. We will continue 50% weightbearing while the implant is in. At 2-week postop visit at [facility] [place] we will begin gentle range of motion without restrictions. Continue with aerosol treatment per hospital O2 protocol, also continue with 2 L of oxygen keeping O2 sat duration greater than 92% Patient will require follow-up with his primary care physician and continued management of his acute kidney injury, will follow BMP/CBC. Pain management: Continue with exercising Tylenol 500 mg 2 tablets 3 times daily as well as oxycodone 1 to 2 tablets every 4 hours for breakthrough pain. Allergies/Adverse Reactions: Allergies bacitracin [From Neosporin ([id number])] Allergy (Verified 02/12/19 13:41) Rash bacitracin zinc [From Neosporin ([id number])] Allergy (Verified 02/12/19 13:41) Rash cephalexin [From Keflex] Allergy (Verified 02/12/19 13:41) Rash doxycycline Allergy (Verified 02/12/19 13:41) Rash morphine Allergy (Verified 02/12/19 13:41) Other KIDNEY ISSUES neomycin sulfate [From Neosporin ([id number])] Allergy (Verified 02/12/19 13:41) Rash Penicillins [PCN] Allergy (Verified 02/12/19 13:41) Rash polymyxin B [From Neosporin ([id number])] Allergy (Verified 02/12/19 13:41) Rash Medications to take at Discharge Albuterol Sulfate [Ventolin Hfa] 2 inh INHALATION DAILY PRN 11/10/17 Cyclobenzaprine [Flexeril] 10 mg PO TID PRN 11/10/17 Levothyroxine [Synthroid] 150 mcg PO DAILY 11/10/17 Paroxetine HCl [Paxil] 40 mg PO DAILY 11/10/17 Verapamil [Calan Sr] 1 tab PO DAILY 11/10/17 ALPRAZolam [Xanax] 1 mg PO BID PRN PRN 01/29/19 Docusate Sodium [Stool Softener] 100 mg PO QHS 01/29/19 Fluticasone 0.05% [Flonase Nasal [place]] 2 spray NASAL DAILY PRN 01/29/19 Fluticasone 110 Mcg [Flovent 110 Mcg] 2 puff INHALATION BID 01/29/19 Melatonin 5 mg PO QHS PRN 01/29/19 Tamsulosin HCl [Flomax] 0.4 mg PO DAILY 01/29/19 Vancomycin/0.9 % Sod Chloride [Vanco 1.5 gm/300 ml-0.9% NaCl] 1.5 gm IV Q24H 40 Days #40 plast..bag 02/13/19 Acetaminophen [Tylenol] 1,000 mg PO Q8 14 Days tablet 02/15/19 Enoxaparin [Lovenox] 40 mg SUBCUT DAILY 21 Days #21 syringe 02/15/19 Insulin Lispro [Humalog KwikPen] See Protocol CO ACHS insuln.pen 02/15/19 Ondansetron [Zofran] 4 mg IV Q8H PRN PRN vial 02/15/19 Oxycodone [Oxyir] 5 - 10 mg PO Q4H PRN PRN 5 Days #60 tab 02/15/19 The following prescriptions were given: Oxycodone [Oxyir] 5 - 10 mg PO Q4H PRN PRN 5 Days #60 tab PRN Reason: Mod-Severe Pain (4-07/17) Enoxaparin [Lovenox] 40 mg SUBCUT DAILY 21 Days #21 syringe Vancomycin/0.9 % Sod Chloride [Vanco 1.5 gm/300 ml-0.9% NaCl] 1.5 gm IV Q24H 40 Days #40 plast..bag Primary Care Physician: Chhaya Bills MD [Primary Care Provider] - Please follow up with your Primary Care Physician in: will need follow up with PCP upon discharge from TCU Test Results: Test results from this visit will be discussed in further detail at your follow- up appointment, if applicable. Please Follow Up With: Gustavo Middleton PA-C When: 02/26/19 @ 8:30 am
--- NOTE | 2019-02-15 08:31 | PCM.DC.SUM ---
Discharge Date and Diagnosis - Problem List Patient Problems: Active and Suspected Problems (Last Updated 02/12/19 @ 16:29 by Dale Malik MD) Prosthetic joint infection (Acute) Date of Admission: 02/12/19 Date of Discharge: 02/15/19 - Primary Discharge Diagnosis Active and Suspected Problems (Last Updated 02/12/19 @ 16:29 by Dale Malik MD) Prosthetic joint infection (Acute) - Secondary Discharge Diagnosis Chronic Problems (Last Updated 02/12/19 @ 16:29 by Dale Malik MD) History of total bilateral knee replacement (TKR) (Chronic) Hypothyroidism (Chronic) Benzodiazepine dependence (Chronic) Hypertension (Chronic) Osteoarthritis (Chronic) Morbid obesity (Chronic) Chronic anxiety (Chronic) Former smoker (Chronic) Status post total right knee replacement (Chronic) 11/05/[address] Jase Lopez at [facility] Course and Treatment Summary of Care Provided: Patient is a 68-year-old male who had history of right total knee arthroplasty in May 2017. Patient had subsequent infection with irrigation debridement with polyethylene exchange followed by long-term oral antibiotics in March 2018. Patient had recurrence of knee pain after completion of oral antibiotics. Aspiration was obtained which was consistent with infection. After failing conservative and surgical measures, the patient opted to proceed with a explant right total knee with placement of antibiotic spacer. The patient underwent the above-stated procedure on February 12, 2019. Patient did receive perioperative antibiotics. Intraoperatively was uneventful. For details please see dictated operative note. The patient was placed in thigh-high teds, bilateral SCDs, remained stable in recovery. Patient was admitted to the 3rd floor at [facility]. The patient's pain was managed with the use of IV and p.o. pain medications. Medicine and infectious disease was consulted for postoperative medical care. Patient prior to the surgery did have acute kidney complications and while in the hospital nephrotoxic medications have been held. Infectious disease has placed patient on vancomycin for 6 weeks postoperatively through the PICC line. Patient participated in physical therapy. Patient is currently in a knee immobilizer for 2 weeks postoperatively to allow for proper wound healing. Hemovac drain was removed on postoperative day #3. Patient will be 50% weightbearing on the right lower extremity with a knee immobilizer. Weightbearing status will be in effect until follow-up surgery. Patient was discharged on postoperative day #3 to transitional care unit at [facility]. Patient was given medications stated below. Patient will follow up with [facility] per postop instructions for reassessment. Patient will use Tylenol and oxycodone for pain control. He has been placed on Lovenox for DVT prophylaxis due to his kidney complications. Patient will also need follow-up with his primary care physician upon discharge from the transitional care unit to manage his diabetic and hypertensive medications. Patient will also follow with Dr. Gaines for management of the IV antibiotics. Patient did require discharge on 2 L of oxygen and will wean off. Continue with incentive spirometry. He will continue with daily aerosol treatments. Patient Problems: Active and Suspected Problems (Last Updated 02/12/19 @ 16:29 by Dale Malik MD) Prosthetic joint infection (Acute) - Physical Exam Vital Signs Temp Pulse Resp BP Pulse Ox 98.4 F 104 H 20 H 135/57 H 87 02/15/19 04:08 02/15/19 07:04 02/15/19 07:04 02/15/19 04:08 02/15/19 07:04 Oxygen Flow Rate (L/min) 3 Oxygen Delivery Method Room Air Weight: 131.6 kg Body Mass Index (BMI) 46.8 Finger Stick Blood Glucose 114 Intake and Output for Last 24 Hours 02/13/19 02/14/19 02/15/19 23:59 23:59 23:59 Intake Total 740 / 740 1800 / 1800 1480 / 1480 Output Total 515 / 515 2350 / 2350 960 / 960 Balance 225 / 225 -550 / -550 520 / 520 Microbiology Past 72 Hours 02/12/19 11:38 Gram Stain - Final Tissue - Other Wound Culture - Final No growth aerobically. Anaerobic Culture - Final No anaerobic bacteria isolated. 02/12/19 11:38 Gram Stain - Final Tissue - Other Wound Culture - Final No growth aerobically. Anaerobic Culture - Preliminary No growth in 48 hours. 02/12/19 11:38 Gram Stain - Final Tissue - Other Wound Culture - Final No growth aerobically. Anaerobic Culture - Preliminary No growth in 48 hours. Laboratory Tests Past 24 Hrs 02/15/19 07:15 WBC 8.4 RBC 3.16 L Hgb 9.2 L Hct 28.8 L MCV 91.1 MCH 29.1 MCHC 31.9 L RDW 14.4 RDW Differential 47.9 H Plt Count 225 MPV 8.6 POC Glucose 02/15/19 02/14/19 02/14/19 07:02 21:05 16:50 POC Glucose 123 H 122 H 136 H 02/14/19 11:49 POC Glucose 113 H Discharge Diet: 1800 Calorie Control Diet Discharge Activity: May Not Drive May shower in (days): 2 Ice area for (Minutes): 20 - every hour while awake. Weight Bearing Status: Partial weight bearing - 50% weightbearing with knee immobilizer and walker right lower extremity Keep extremity elevated above heart level: Operative Extremity Additional Activity Instructions:: Wear elastic stockings for 2 weeks after your surgery. Call your doctor if your incision/area has: Continuous Slow Oozing, Sudden Increased Bleeding, Increased Pain/ Swelling, Increased Redness, Foul Smelling Discharge Call your doctor if you observe: Fever of 101 or Higher, Coldness, Increased Pain, Numbness or Tingling, Change in Color, Calf discomfort, Uncontrolled pain Remove Dressing in (days):: 5 - Okay to remove dressing on Feb 20 2019 Home Medications: Medications to take at Discharge Albuterol Sulfate [Ventolin Hfa] 2 inh INHALATION DAILY PRN 11/10/17 Cyclobenzaprine [Flexeril] 10 mg PO TID PRN 11/10/17 Levothyroxine [Synthroid] 150 mcg PO DAILY 11/10/17 Paroxetine HCl [Paxil] 40 mg PO DAILY 11/10/17 Verapamil [Calan Sr] 1 tab PO DAILY 11/10/17 ALPRAZolam [Xanax] 1 mg PO BID PRN PRN 01/29/19 Docusate Sodium [Stool Softener] 100 mg PO QHS 01/29/19 Fluticasone 0.05% [Flonase Nasal [place]] 2 spray NASAL DAILY PRN 01/29/19 Fluticasone 110 Mcg [Flovent 110 Mcg] 2 puff INHALATION BID 01/29/19 Melatonin 5 mg PO QHS PRN 01/29/19 Tamsulosin HCl [Flomax] 0.4 mg PO DAILY 01/29/19 Vancomycin/0.9 % Sod Chloride [Vanco 1.5 gm/300 ml-0.9% NaCl] 1.5 gm IV Q24H 40 Days #40 plast..bag 02/13/19 Acetaminophen [Tylenol] 1,000 mg PO Q8 14 Days tablet 02/15/19 Enoxaparin [Lovenox] 40 mg SUBCUT DAILY 21 Days #21 syringe 02/15/19 Insulin Lispro [Humalog KwikPen] See Protocol [place] ACHS insuln.pen 02/15/19 Ondansetron [Zofran] 4 mg IV Q8H PRN PRN vial 02/15/19 Oxycodone [Oxyir] 5 - 10 mg PO Q4H PRN PRN 5 Days #60 tab 02/15/19 Following Prescrptions Were Given to Patient: Oxycodone [Oxyir] 5 - 10 mg PO Q4H PRN PRN 5 Days #60 tab PRN Reason: Mod-Severe Pain (-07/17) Enoxaparin [Lovenox] 40 mg SUBCUT DAILY 21 Days #21 syringe Vancomycin/0.9 % Sod Chloride [Vanco 1.5 gm/300 ml-0.9% NaCl] 1.5 gm IV Q24H 40 Days #40 plast..bag Primary Care Physician: Chhaya Bills MD [Primary Care Provider] - Please follow up with your Primary Care Physician in: will need follow up with PCP upon discharge from TCU Please Follow Up With: Gustavo Middleton PA-C When: 02/26/19 @ 8:30 am Additional Instructions: Hold nephrotoxic medications: These include Lasix, metformin, and lisinopril Continue with Lovenox for DVT prophylaxis PT/OT: Continue with knee immobilizer to allow for proper wound healing for the next 2 weeks. We will continue 50% weightbearing while the implant is in. At 2-week postop visit at [facility] we will begin gentle range of motion without restrictions. Continue with aerosol treatment per hospital O2 protocol, also continue with 2 L of oxygen keeping O2 sat duration greater than 92% Patient will require follow-up with his primary care physician and continued management of his acute kidney injury, will follow BMP/CBC. Pain management: Continue with exercising Tylenol 500 mg 2 tablets 3 times daily as well as oxycodone 1 to 2 tablets every 4 hours for breakthrough pain. Medical Necessity - Tobacco Use Smoking Status: Former smoker Tobacco Use: Cigarettes, Chew Meaningful Use Info Meaningful Use Diagnoses (Choose all that apply): None applicable
[2019-02-15 08:52] VITALS: BP 114/59; PULSE 84; RESP 18; TEMP 36.8; O2SAT 96
[2019-02-15] MEDS: Glucerna Shake 120 ML LIQUID PO ×2 (08:58→12:49)
[2019-02-15] MEDS: Vancomycin IV 1,000 MG/200 ML BAG 200 MG IV (08:58)
[2019-02-15] MEDS: Furosemide 20 MG Tablet PO (10:33)
[2019-02-15] MEDS: Paroxetine 20 MG Tablet 40 MG PO (10:33)
[2019-02-15] MEDS: Enoxaparin 40 MG/0.4 ML Syringe SC (10:33)
[2019-02-15] MEDS: Verapamil SR 240 MG Tablet PO (10:33)
[2019-02-15] MEDS: Famotidine 20 MG Tablet PO (10:33)
[2019-02-15 10:40] VITALS: PULSE 88
[2019-02-15] MEDS: oxyCODONE 5 MG Tablet PO (10:40)
--- NOTE | 2019-02-15 11:13 | PCM.PN.HOSP ---
Patient Problems: Active and Suspected Problems (Last Updated 02/12/19 @ 16:29 by Dale Malik MD) Prosthetic joint infection (Acute) Subjective: Feels well. No shortness of breath, but still on oxygen. Vitals/I&O's: Vital Signs Temp Pulse Resp BP Pulse Ox 36.8 C 84 18 114/59 L 96 02/15/19 08:52 02/15/19 08:52 02/15/19 08:52 02/15/19 08:52 02/15/19 08:52 Oxygen Flow Rate (L/min) 2.5 Oxygen Delivery Method Nasal Cannula Weight: 131.6 kg Body Mass Index (BMI) 46.8 Finger Stick Blood Glucose 114 Intake and Output for Last 24 Hours 02/13/19 02/14/19 02/15/19 23:59 23:59 23:59 Intake Total 740 / 740 1800 / 1800 1480 / 1480 Output Total 515 / 515 2350 / 2350 960 / 960 Balance 225 / 225 -550 / -550 520 / 520 General: Alert, No apparent distress HEENT: Atraumatic, Normocephalic Oral: Moist Mucosa, No Gingival or Mucosal Lesions/ Ulcerations Neck: No Nodes, Thyroid Normal Size and Texture Lungs: Clear to auscultation, Normal air movement, No rhonchi, No wheeze Cardiovascular: Regular rate, Regular Rhythm, Normal S1, Normal S2 Abdomen: Bowel Sounds Present, Soft, Non Tender, Non-Distended Extremities: No edema, No Calf Tenderness Psych/Mental Status: Normal Affect, Appropriate Microbiology Past 72 Hours 02/12/19 11:38 Tissue - Other Gram Stain - Final 02/12/19 11:38 Tissue - Other Wound Culture - Final No growth aerobically. 02/12/19 11:38 Tissue - Other Anaerobic Culture - Final No anaerobic bacteria isolated. 02/12/19 11:38 Tissue - Other Gram Stain - Final 02/12/19 11:38 Tissue - Other Wound Culture - Final No growth aerobically. 02/12/19 11:38 Tissue - Other Anaerobic Culture - Preliminary No growth in 48 hours. 02/12/19 11:38 Tissue - Other Gram Stain - Final 02/12/19 11:38 Tissue - Other Wound Culture - Final No growth aerobically. 02/12/19 11:38 Tissue - Other Anaerobic Culture - Preliminary No growth in 48 hours. Laboratory Results 02/14/19 11:49: POC Glucose 113 H 02/14/19 16:50: POC Glucose 136 H 02/14/19 21:05: POC Glucose 122 H 02/15/19 07:02: POC Glucose 123 H 02/15/19 07:15: WBC 8.4, RBC 3.16 L, Hgb 9.2 L, Hct 28.8 L, MCV 91.1, MCH 29.1, MCHC 31.9 L, RDW 14.4, RDW Differential 47.9 H, Plt Count 225, MPV 8.6 Current Medications Acetaminophen (Tylenol) 1,000 mg PO Q8 [facility] Last Admin: 02/15/19 07:03 Dose: 1,000 mg Albuterol Sulfate (Ventolin Aerosols) 2.5 mg INHALATION Q4H PRN PRN Reason: SHORTNESS OF BREATH Alprazolam (Xanax) 1 mg PO BID PRN PRN PRN Reason: ANXIETY/AGITATION Last Admin: 02/13/19 10:13 Dose: 1 mg Budesonide (Pulmicort Aerosol) 0.5 mg INHALATION Q12H.RT [facility] Last Admin: 02/15/19 07:06 Dose: 0.5 mg Cyclobenzaprine HCl (Flexeril) 10 mg PO TID PRN PRN Reason: PAIN Last Admin: 02/14/19 03:48 Dose: 10 mg Diphenhydramine HCl (Benadryl) 50 mg PO Q8H PRN PRN Reason: ITCHING Last Admin: 02/15/19 00:38 Dose: 50 mg Docusate Sodium (Colace) 100 mg PO QHS [facility] Last Admin: 02/14/19 21:07 Dose: 100 mg Enoxaparin Sodium (Lovenox) 40 mg SC DAILY [facility] Last Admin: 02/15/19 10:33 Dose: 40 mg Famotidine (Pepcid) 20 mg PO DAILY [facility] Last Admin: 02/15/19 10:33 Dose: 20 mg Fluticasone Propionate (Flonase Nasal [place]) 2 spray NASAL DAILY PRN PRN Reason: ALLERGIES Furosemide (Lasix) 20 mg PO QODAY [facility] Last Admin: 02/15/19 10:33 Dose: 20 mg Vancomycin IV Pharmacy to Dose (1 ea/ Sodium Chloride) 500 mls @ 250 mls/hr IV X1 PRN; Protocol PRN Reason: Rx to Dose Vancomycin HCl (Vancomycin) 1,000 mg in 200 mls @ 200 mls/hr IV Q24H [facility] Last Admin: 02/15/19 08:58 Dose: 200 mls/hr Insulin Human Lispro (Humalog Kwikpen (Bkc)) 0 unit SC ACHS [facility]; Protocol Last Admin: 02/15/19 07:06 Dose: Not Given Levothyroxine Sodium (Synthroid) 150 mcg PO DAILY@0600 [facility] Last Admin: 02/15/19 06:59 Dose: 150 mcg Melatonin (Melatonin) 5 mg PO QHS PRN PRN Reason: SLEEP Last Admin: 02/13/19 22:01 Dose: 5 mg Nutritional Formula (Lactose Free) (Glucerna Shake) 120 ml PO TIDCM [facility] Last Admin: 02/15/19 08:58 Dose: 120 ml Ondansetron HCl (Zofran) 4 mg IV Q8H PRN PRN PRN Reason: NAUSEA Last Admin: 02/14/19 09:48 Dose: 4 mg Oxycodone HCl (Oxyir) 5 - 10 mg PO Q4H PRN PRN PRN Reason: MOD-SEVERE PAIN (4-07/17) Last Admin: 02/15/19 10:40 Dose: 10 mg Oxycodone HCl (Oxycontin) 10 mg PO QHS [facility] Paroxetine HCl (Paxil) 40 mg PO DAILY [facility] Last Admin: 02/15/19 10:33 Dose: 40 mg Promethazine HCl (Phenergan) 12.5 mg IM Q6H PRN PRN; Protocol PRN Reason: NAUSEA/VOMITING Sodium Chloride () 5 - 15 ml IV UD PRN PRN Reason: SALINE FLUSH Last Admin: 02/15/19 10:34 Dose: 10 ml Tamsulosin HCl (Flomax) 0.4 mg PO DAILY@1730 [facility] Last Admin: 02/14/19 16:52 Dose: 0.4 mg Verapamil HCl (Calan Sr) 240 mg PO DAILY [facility] Last Admin: 02/15/19 10:33 Dose: 240 mg Medical Necessity - Tobacco Use Smoking Status: Former smoker Tobacco Use: Cigarettes, Chew Assessment/Plan All Active Problems (Last Updated 02/12/19 @ 16:29 by Dale Malik MD) Hyperkalemia (Acute) Acute renal failure (Acute) Prosthetic joint infection (Acute) 1. DEANDRA improved monitor 2. Prosthetic Joint infection, right knee s/p explant with antibiotic spacer 6 weeks of IV vancomycin 3. HTN fair control lisinopril held continue verapamil 4. VTE prophylaxis enoxaparin 5. Hypoxia encouraged patient to continue using incentive spirometer wean oxygen as tolerated TCU agree with minimizing narcotics. Code Visit Inpatient E&M: 37296 Subs Hosp L2
--- NOTE | 2019-02-15 11:18 | PN_ITS ---
Patient Problems: Active and Suspected Problems (Last Updated 02/12/19 @ 16:29 by Dale Malik MD) Prosthetic joint infection (Acute) Subjective: Feels well. No shortness of breath, but still on oxygen. Vitals/I&O's: Vital Signs Temp Pulse Resp BP Pulse Ox 36.8 C 84 18 114/59 L 96 02/15/19 08:52 02/15/19 08:52 02/15/19 08:52 02/15/19 08:52 02/15/19 08:52 Oxygen Flow Rate (L/min) 2.5 Oxygen Delivery Method Nasal Cannula Weight: 131.6 kg Body Mass Index (BMI) 46.8 Finger Stick Blood Glucose 114 Intake and Output for Last 24 Hours 02/13/19 02/14/19 02/15/19 23:59 23:59 23:59 Intake Total 740 / 740 1800 / 1800 1480 / 1480 Output Total 515 / 515 2350 / 2350 960 / 960 Balance 225 / 225 -550 / -550 520 / 520 General: Alert, No apparent distress HEENT: Atraumatic, Normocephalic Oral: Moist Mucosa, No Gingival or Mucosal Lesions/ Ulcerations Neck: No Nodes, Thyroid Normal Size and Texture Lungs: Clear to auscultation, Normal air movement, No rhonchi, No wheeze Cardiovascular: Regular rate, Regular Rhythm, Normal S1, Normal S2 Abdomen: Bowel Sounds Present, Soft, Non Tender, Non-Distended Extremities: No edema, No Calf Tenderness Psych/Mental Status: Normal Affect, Appropriate Microbiology Past 72 Hours 02/12/19 11:38 Tissue - Other Gram Stain - Final 02/12/19 11:38 Tissue - Other Wound Culture - Final No growth aerobically. 02/12/19 11:38 Tissue - Other Anaerobic Culture - Final No anaerobic bacteria isolated. 02/12/19 11:38 Tissue - Other Gram Stain - Final 02/12/19 11:38 Tissue - Other Wound Culture - Final No growth aerobically. 02/12/19 11:38 Tissue - Other Anaerobic Culture - Preliminary No growth in 48 hours. 02/12/19 11:38 Tissue - Other Gram Stain - Final 02/12/19 11:38 Tissue - Other Wound Culture - Final No growth aerobically. 02/12/19 11:38 Tissue - Other Anaerobic Culture - Preliminary No growth in 48 hours. Laboratory Results 02/14/19 11:49: POC Glucose 113 H 02/14/19 16:50: POC Glucose 136 H 02/14/19 21:05: POC Glucose 122 H 02/15/19 07:02: POC Glucose 123 H 02/15/19 07:15: WBC 8.4, RBC 3.16 L, Hgb 9.2 L, Hct 28.8 L, MCV 91.1, MCH 29.1, MCHC 31.9 L, RDW 14.4, RDW Differential 47.9 H, Plt Count 225, MPV 8.6 Current Medications Acetaminophen (Tylenol) 1,[address] [facility] Last Admin: 02/15/19 07:03 Dose: 1,000 mg Albuterol Sulfate (Ventolin Aerosols) 2.5 mg INHALATION Q4H PRN PRN Reason: SHORTNESS OF BREATH Alprazolam (Xanax) 1 mg PO BID PRN PRN PRN Reason: ANXIETY/AGITATION Last Admin: 02/13/19 10:13 Dose: 1 mg Budesonide (Pulmicort Aerosol) 0.[address] [facility] Last Admin: 02/15/19 07:06 Dose: 0.5 mg Cyclobenzaprine HCl (Flexeril) 10 mg PO TID PRN PRN Reason: PAIN Last Admin: 02/14/19 03:48 Dose: 10 mg Diphenhydramine HCl (Benadryl) 50 mg PO Q8H PRN PRN Reason: ITCHING Last Admin: 02/15/19 00:38 Dose: 50 mg Docusate Sodium (Colace) [address] [facility] Last Admin: 02/14/19 21:07 Dose: 100 mg Enoxaparin Sodium (Lovenox) [address] [facility] Last Admin: 02/15/19 10:33 Dose: 40 mg Famotidine (Pepcid) [address] [facility] Last Admin: 02/15/19 10:33 Dose: 20 mg Fluticasone Propionate (Flonase Nasal [place]) 2 spray NASAL DAILY PRN PRN Reason: ALLERGIES Furosemide (Lasix) [address] [facility] Last Admin: 02/15/19 10:33 Dose: 20 mg Vancomycin IV Pharmacy to Dose (1 ea/ Sodium Chloride) 500 mls @ 250 mls/hr IV X1 PRN; Protocol PRN Reason: Rx to Dose Vancomycin HCl (Vancomycin) 1,000 mg in 200 mls @ 200 mls/hr IV Q24H [facility] Last Admin: 02/15/19 08:58 Dose: 200 mls/hr Insulin Human Lispro (Humalog Kwikpen (Bkc)) [address] [facility]; Protocol Last Admin: 02/15/19 07:06 Dose: Not Given Levothyroxine Sodium (Synthroid) 150 mcg PO DAILY@0600 [facility] Last Admin: 02/15/19 06:59 Dose: 150 mcg Melatonin (Melatonin) 5 mg PO QHS PRN PRN Reason: SLEEP Last Admin: 02/13/19 22:01 Dose: 5 mg Nutritional Formula (Lactose Free) (Glucerna Shake) [address] [facility] Last Admin: 02/15/19 08:58 Dose: 120 ml Ondansetron HCl (Zofran) 4 mg IV Q8H PRN PRN PRN Reason: NAUSEA Last Admin: 02/14/19 09:48 Dose: 4 mg Oxycodone HCl (Oxyir) 5 - 10 mg PO Q4H PRN PRN PRN Reason: MOD-SEVERE PAIN (4-07/17) Last Admin: 02/15/19 10:40 Dose: 10 mg Oxycodone HCl (Oxycontin) [address] [facility] Paroxetine HCl (Paxil) [address] [facility] Last Admin: 02/15/19 10:33 Dose: 40 mg Promethazine HCl (Phenergan) 12.5 mg IM Q6H PRN PRN; Protocol PRN Reason: NAUSEA/VOMITING Sodium Chloride () 5 - 15 ml IV UD PRN PRN Reason: SALINE FLUSH Last Admin: 02/15/19 10:34 Dose: 10 ml Tamsulosin HCl (Flomax) 0.4 mg PO DAILY@1730 [facility] Last Admin: 02/14/19 16:52 Dose: 0.4 mg Verapamil HCl (Calan Sr) [address] [facility] Last Admin: 02/15/19 10:33 Dose: 240 mg Medical Necessity - Tobacco Use Smoking Status: Former smoker Tobacco Use: Cigarettes, Chew Assessment/Plan All Active Problems (Last Updated 02/12/19 @ 16:29 by Dale Malik MD) Hyperkalemia (Acute) Acute renal failure (Acute) Prosthetic joint infection (Acute) 1. DEANDRA * improved * monitor 2. Prosthetic Joint infection, right knee * s/p explant with antibiotic spacer * 6 weeks of IV vancomycin 3. HTN * fair control * lisinopril held * continue verapamil 4. VTE prophylaxis * enoxaparin 5. Hypoxia * encouraged patient to continue using incentive spirometer * wean oxygen as tolerated TCU * agree with minimizing narcotics. Code Visit Inpatient E&M: 87990 Subs Hosp L2
[2019-02-15 11:38] VITALS: BP 143/74; PULSE 94; RESP 18; TEMP 36.8; O2SAT 95
[2019-02-15] MEDS: ALPRAZolam 0.5 MG Tablet 1 MG PO (11:42)
[2019-02-15 12:10] LABS: Bedside Glucose 138 mg/dL (70-110)
== END 2019-02-15 13:00 | disposition skilled nursing facility (03) | DRG 467 ==
LOC: ACINP 07:42 → MS3 07:45
PROVIDERS: Anesthesiology; Internal Medicine Infectious Disease; Student in an Organized Health Care Education/Training Program; Admitting Provider Specialist; Family Provider Internal Medicine; PCP Internal Medicine; Referring Provider Specialist
PROC: 0SRC0EZ Replacement of Right Knee Joint with Articulating Spacer, Open Approach (ICD-10-PCS; CPT 27488; principal; 2019-02-12 09:05)
DX: T84.53XA Infection and inflammatory reaction due to internal right knee prosthesis, initial encounter (principal); Z68.42 Body mass index [BMI] 45.0-49.9, adult; N17.9 Acute kidney failure, unspecified; J44.9 Chronic obstructive pulmonary disease, unspecified; E03.9 Hypothyroidism, unspecified; E66.01 Morbid (severe) obesity due to excess calories; N40.0 Benign prostatic hyperplasia without lower urinary tract symptoms; I12.9 Hypertensive chronic kidney disease with stage 1 through stage 4 chronic kidney disease, or unspecified chronic kidney disease; E11.22 Type 2 diabetes mellitus with diabetic chronic kidney disease; N18.3 Chronic kidney disease, stage 3 (moderate); Z96.653 Presence of artificial knee joint, bilateral; Z79.84 Long term (current) use of oral hypoglycemic drugs; Z87.891 Personal history of nicotine dependence
CPT/HCPCS: 36415; 36569; 73560; 80048; 80202; 82962; 83036; 84443; 85025; 85027; 87015; 87070; 87075; 87081; 87102; 87116; 87176; 87205; 87206; 93005; 94640; 97110; 97116; 97162; 97166; 97530; 99251; C1776; J7030; J7040; J7120; A4216; G0463; J2405; J3260

== ENCOUNTER 2019-02-15 13:00 | Inpatient (IN) | payer MEDICARE, SELFPAY ==
[2019-02-12 13:45] VITALS: BMI 46.8
[2019-02-15 13:46] VITALS: BP 110/56; RESP 18; TEMP 36.6; O2SAT 95
[2019-02-15 14:40] VITALS: BMI 47.2
[2019-02-15 14:49] VITALS: BMI 47.2
[2019-02-15] MEDS: oxyCODONE 5 MG Tablet PO (14:55)
[2019-02-15] MEDS: Acetaminophen 500 MG Tablet 1000 MG PO ×2 (14:56→21:38)
--- NOTE | 2019-02-15 15:24 | NURSING ---
pt arrived from [facility] via w/ch @[id number]
--- NOTE | 2019-02-15 15:54 | PCM.HP.STD ---
Problem List (1) Infection of prosthetic right knee joint Status: Acute (2) Right knee pain Status: Acute (3) Diabetes mellitus Status: Chronic (4) Chronic obstructive pulmonary disease Status: Chronic (5) Osteoarthritis of right knee Status: Chronic (6) Depression Status: Chronic (7) Allergic rhinitis Status: Chronic (8) BPH (benign prostatic hyperplasia) Status: Chronic (9) Insomnia Status: Chronic (10) Hypothyroidism Status: Chronic (11) Hypertension Status: Chronic History of Present Illness Date of Admission: 02/15/19 Chief Complaint: Here for rehabilitation, strengthening, prior to discharge home with spouse. The patient is a 68 year old Male with below past medical history status post right total knee replacement. He had intravenous antibiotics for 6 weeks, then Doxycycline orally. Cultures positive for staph epi. Patient presents with infected right prosthetic knee. 02/12/2019 Dr. Thompson performed explant right total knee with placement of antibiotic spacer placement of nonbiodegradable antibiotic delivery system. 02/12/2019 Dr. Gaines noted acute kidney injury on bactrim, itchy rash on Keflex. Previous culture grew MSSE. Vancomycin, Clindamycin for now, plan 6 weeks intravenous antibiotics. PICC line placement. 02/14/2019 Acute kidney injury improved. IV Vancomycin x 6 weeks, stop date 03/26/2019. Blood pressure well controlled. Weekly labs. 02/15/2019 Admit to TCU with debility, here for rehabilitation, strengthening, intravenous antibiotics, prior to discharge home with spouse. Past Medical History Past Medical History (Chronic Problems): Chronic Problems (Last Updated 02/12/19 @ 16:29 by Dale Malik MD) Diabetes mellitus (Chronic) Chronic obstructive pulmonary disease (Chronic) Osteoarthritis of right knee (Chronic) Depression (Chronic) Allergic rhinitis (Chronic) BPH (benign prostatic hyperplasia) (Chronic) Insomnia (Chronic) History of total bilateral knee replacement (TKR) (Chronic) Hypothyroidism (Chronic) Benzodiazepine dependence (Chronic) Hypertension (Chronic) Osteoarthritis (Chronic) Morbid obesity (Chronic) Chronic anxiety (Chronic) Former smoker (Chronic) Status post total right knee replacement (Chronic) 11/05/[address] Jase Lopez at [facility] Medical History: Medical History (Last Updated 02/12/19 @ 16:29 by Dale Malik MD) Hypothyroidism (Chronic) E03.9 Benzodiazepine dependence (Chronic) F13.20 Hypertension (Chronic) I10 Osteoarthritis (Chronic) M19.90 Morbid obesity (Chronic) E66.01 Chronic anxiety (Chronic) F41.9 Former smoker (Chronic) Z87.891 Obstructive sleep apnea (Suspected) G47.33 Allergies bacitracin [From Neosporin ([id number])] Allergy (Verified 02/12/19 13:41) Rash bacitracin zinc [From Neosporin ([id number]-[id number])] Allergy (Verified 02/12/19 13:41) Rash cephalexin [From Keflex] Allergy (Verified 02/12/19 13:41) Rash doxycycline Allergy (Verified 02/12/19 13:41) Rash morphine Allergy (Verified 02/12/19 13:41) Other KIDNEY ISSUES neomycin sulfate [From Neosporin ([id number])] Allergy (Verified 02/12/19 13:41) Rash Penicillins [PCN] Allergy (Verified 02/12/19 13:41) Rash polymyxin B [From Neosporin ([id number]-[id number])] Allergy (Verified 02/12/19 13:41) Rash Home Medications: Ambulatory Orders Medication Instructions Recorded Albuterol Sulfate [Ventolin Hfa] 2 inh INHALATION DAILY PRN 11/10/17 Cyclobenzaprine [Flexeril] 10 mg PO TID PRN 11/10/17 Levothyroxine [Synthroid] 150 mcg PO DAILY 11/10/17 Paroxetine HCl [Paxil] 40 mg PO DAILY 11/10/17 Verapamil [Calan Sr] 1 tab PO DAILY 11/10/17 ALPRAZolam [Xanax] 1 mg PO BID PRN PRN 01/29/19 Docusate Sodium [Stool Softener] 100 mg PO QHS 01/29/19 Fluticasone 0.05% [Flonase Nasal 2 spray NASAL DAILY PRN 01/29/19 [place]] Fluticasone 110 Mcg [Flovent 110 2 puff INHALATION BID 01/29/19 Mcg] Melatonin 5 mg PO QHS PRN 01/29/19 Tamsulosin HCl [Flomax] 0.4 mg PO DAILY 01/29/19 Acetaminophen [Tylenol] 1,000 mg PO Q8 02/15/19 Enoxaparin [Lovenox] 40 mg SC DAILY 02/15/19 Insulin Lispro [Humalog KwikPen] See Protocol SC ACHS 02/15/19 Ondansetron [Zofran] 4 mg IV Q8H PRN PRN vial 02/15/19 Oxycodone [Oxyir] 5 - 10 mg PO Q4H PRN PRN 5 Days 02/15/19 #60 tab Vancomycin/0.9 % Sod Chloride 1.5 gm IV Q24H 02/15/19 [Vanco 1.5 gm/300 ml-0.9% NaCl] Surgical History: Surgical History (Last Updated 02/12/19 @ 16:29 by Dale Malik MD) History of total bilateral knee replacement (TKR) (Chronic) Z96.653 Status post total right knee replacement (Chronic) Z96.651 11/05/[address] Jase Lopez at [facility] Surgical History: total knee arthroplasty - Left., - - Fracture left foot. Right knee incision/drainage with poly exchange 03/25/2018. Psychiatric History: Depression Lives: Spouse/ Significant Other Smoking Status: Former smoker Tobacco Use: Non-smoker, Cigarettes Drugs: None - *Family History Maternal Family History: Family History (Last Updated 12/10/17 @ 08:22 by Ashley Newsome) Mother Diabetes History Items: No pertinent history Paternal Family History: Family History (Last Updated 12/10/17 @ 08:22 by Ashley Newsome) Mother Diabetes History Items: No pertinent history Review of Systems Constitutional: Denies: Chills, Fever, Weight Change HEENT: Denies: Head Aches, Sinus Congestion, Sinus Drainage Cardiovascular: Denies: Chest Pain, Palpitations Respiratory: Denies: Cough, Shortness of breath at rest, Sputum production Gastrointestinal: Denies: Abdominal Pain, Nausea, Vomiting Genitourinary: Denies: Dysuria Musculoskeletal: Denies: Joint Pain, Joint Tenderness Skin: Denies: Rash, Wounds Neurological: Denies: Numbness, Tingling, Focal weakness Psychiatric: Denies: Anxiety, Depression, Homicidal Ideations, Suicidal Ideations Hematologic/ Lymphatic: Denies: Easy Bruising, Easy Bleeding VTE Information - Inpt Only VTE Present on Admission: No VTE Mechan Device Prophylaxis: Knee High ALBERT Hose VTE Pharm Prophylaxis ordered?: Yes Patient Problems: Active and Suspected Problems (Last Updated 02/12/19 @ 16:29 by Dale Malik MD) Infection of prosthetic right knee joint (Acute) Right knee pain (Acute) - Physical Exam General: Alert, Oriented x3, Cooperative HEENT: Atraumatic, PERRLA, EOMI, Normocephalic Neck: Supple, No JVD, Negative Carotid Bruits Lungs: Clear to auscultation, Normal air movement Cardiovascular: Regular rate, No murmurs Abdomen: Bowel Sounds Present, Soft, Non Tender Extremities: No edema, Capillary Refill Less than 3 Seconds, - - PICC right upper extremity. Skin: No rashes, No breakdown Musculoskeletal: No Tenderness to Palpation of Joints or Extremities, - - Right knee dressed. Neurological: Cranial nerves II-XII grossly intact Psych/Mental Status: Normal Affect, Appropriate Vital Signs Temp Resp BP Pulse Ox 97.9 F 18 110/56 L 95 02/15/19 13:46 02/15/19 13:46 02/15/19 13:46 02/15/19 13:46 Oxygen Flow Rate (L/min) 2 Oxygen Delivery Method Nasal Cannula Weight: 136.8 kg Body Mass Index (BMI) 47.2 Finger Stick Blood Glucose 114 Assessment/Plan All Active Problems (Last Updated 02/12/19 @ 16:29 by Dale Malik MD) Infection of prosthetic right knee joint (Acute) Right knee pain (Acute) Hyperkalemia (Acute) Acute renal failure (Acute) Prosthetic joint infection (Acute) 68 year old male with below past medical history hospitalized for infected right prosthetic knee, underwent explant right total knee with placement of antibiotic spacer 02/12/[address] Thompson, admitted to TCU with debility, here for rehabilitation, strengthening, intravenous antibiotics, prior to discharge home with spouse. Debility - PT/OT. Pain - Tylenol 1000MG Q8H, Tramadol 50MG Q6H PRN moderate pain, Oxycodone 10MG Q4H PRN severe pain. Bowel - Miralax 17GM daily, Senokot 1 tablet BID, Dulcolax 10MG daily PRN. Pneumonia vaccination - Administer Prevnar 13 and/or Pneumovax 23 as necessary. DVT prophylaxis - Lovenox 40MG SC daily. COPD - Pulmicort 0.5MG Q12H, Albuterol 2.5MG daily PRN. Anxiety - Xanax 1MG BID PRN, chronic terminal press operator use, risk of withdrawal outweighs benefit of being off BZD on short term unit, do not recommend GDR. CV prophylaxis - Aspirin 81MG daily. Muscle spasm - Flexeril 10MG TID PRN. Allergic Rhinitis - Flonase 2 spray daily PRN. Hypothyroidism - Levothyroxine 150MCG daily. Insomnia - Melatonin 5MG QHS PRN. Nausea - Zofran 4MG IV Q8H PRN. Depression - Paroxetine 40MG daily, chronic jail use, risk of worsening mood outweighs benefit of tapering off SSRI, do not recommend GDR. BPH - Tamsulosin 0.4MG daily. Infected prosthetic right knee status post surgery - Vancomycin 1GM IV Q24H thru 03/26/2019, Dr. Gaines, Dr. Thompson following. Hypertension - Verapamil 240MG daily.
--- NOTE | 2019-02-15 16:05 | HP.PCM_ITS ---
Problem List (1) Infection of prosthetic right knee joint Status: Acute (2) Right knee pain Status: Acute (3) Diabetes mellitus Status: Chronic (4) Chronic obstructive pulmonary disease Status: Chronic (5) Osteoarthritis of right knee Status: Chronic (6) Depression Status: Chronic (7) Allergic rhinitis Status: Chronic (8) BPH (benign prostatic hyperplasia) Status: Chronic (9) Insomnia Status: Chronic (10) Hypothyroidism Status: Chronic (11) Hypertension Status: Chronic History of Present Illness Date of Admission: 02/15/19 Chief Complaint: Here for rehabilitation, strengthening, prior to discharge home with spouse. The patient is a 68 year old Male with below past medical history status post right total knee replacement. He had intravenous antibiotics for 6 weeks, then Doxycycline orally. Cultures positive for staph epi. Patient presents with infected right prosthetic knee. 02/12/2019 Dr. Thompson performed explant right total knee with placement of antibiotic spacer placement of nonbiodegradable antibiotic delivery system. 02/12/2019 Dr. Gaines noted acute kidney injury on bactrim, itchy rash on Keflex. Previous culture grew MSSE. Vancomycin, Clindamycin for now, plan 6 weeks intravenous antibiotics. PICC line placement. 02/14/2019 Acute kidney injury improved. IV Vancomycin x 6 weeks, stop date 03/26/2019. Blood pressure well controlled. Weekly labs. 02/15/2019 Admit to TCU with debility, here for rehabilitation, strengthening, intravenous antibiotics, prior to discharge home with spouse. Past Medical History Past Medical History (Chronic Problems): Chronic Problems (Last Updated 02/12/19 @ 16:29 by Dale Malik MD) Diabetes mellitus (Chronic) Chronic obstructive pulmonary disease (Chronic) Osteoarthritis of right knee (Chronic) Depression (Chronic) Allergic rhinitis (Chronic) BPH (benign prostatic hyperplasia) (Chronic) Insomnia (Chronic) History of total bilateral knee replacement (TKR) (Chronic) Hypothyroidism (Chronic) Benzodiazepine dependence (Chronic) Hypertension (Chronic) Osteoarthritis (Chronic) Morbid obesity (Chronic) Chronic anxiety (Chronic) Former smoker (Chronic) Status post total right knee replacement (Chronic) 11/05/[address] Jase Lopez at [facility] Medical History: Medical History (Last Updated 02/12/19 @ 16:29 by Dale Malik MD) Hypothyroidism (Chronic) E03.9 Benzodiazepine dependence (Chronic) F13.20 Hypertension (Chronic) I10 Osteoarthritis (Chronic) M19.90 Morbid obesity (Chronic) E66.01 Chronic anxiety (Chronic) F41.9 Former smoker (Chronic) Z87.891 Obstructive sleep apnea (Suspected) G47.33 Allergies bacitracin [From Neosporin ([id number]-[id number])] Allergy (Verified 02/12/19 13:41) Rash bacitracin zinc [From Neosporin ([id number]-dpl-yewsv)] Allergy (Verified 02/12/19 13:41) Rash cephalexin [From Keflex] Allergy (Verified 02/12/19 13:41) Rash doxycycline Allergy (Verified 02/12/19 13:41) Rash morphine Allergy (Verified 02/12/19 13:41) Other KIDNEY ISSUES neomycin sulfate [From Neosporin ([id number])] Allergy (Verified 02/12/19 13:41) Rash Penicillins [PCN] Allergy (Verified 02/12/19 13:41) Rash polymyxin B [From Neosporin ([id number]-ahz-[id number])] Allergy (Verified 02/12/19 13:41) Rash Home Medications: Ambulatory Orders Medication Instructions Recorded Albuterol Sulfate [Ventolin Hfa] 2 inh INHALATION DAILY PRN 11/10/17 Cyclobenzaprine [Flexeril] 10 mg PO TID PRN 11/10/17 Levothyroxine [Synthroid] 150 mcg PO DAILY 11/10/17 Paroxetine HCl [Paxil] 40 mg PO DAILY 11/10/17 Verapamil [Calan Sr] 1 tab PO DAILY 11/10/17 ALPRAZolam [Xanax] 1 mg PO BID PRN PRN 01/29/19 Docusate Sodium [Stool Softener] 100 mg PO QHS 01/29/19 Fluticasone 0.05% [Flonase Nasal 2 spray NASAL DAILY PRN 01/29/19 [place]] Fluticasone 110 Mcg [Flovent 110 2 puff INHALATION BID 01/29/19 Mcg] Melatonin 5 mg PO QHS PRN 01/29/19 Tamsulosin HCl [Flomax] 0.4 mg PO DAILY 01/29/19 Acetaminophen [Tylenol] 1,000 mg PO Q8 02/15/19 Enoxaparin [Lovenox] 40 mg SC DAILY 02/15/19 Insulin Lispro [Humalog KwikPen] See Protocol SC ACHS 02/15/19 Ondansetron [Zofran] 4 mg IV Q8H PRN PRN vial 02/15/19 Oxycodone [Oxyir] 5 - 10 mg PO Q4H PRN PRN 5 Days 02/15/19 #60 tab Vancomycin/0.9 % Sod Chloride 1.5 gm IV Q24H 02/15/19 [Vanco 1.5 gm/300 ml-0.9% NaCl] Surgical History: Surgical History (Last Updated 02/12/19 @ 16:29 by Dale Malik MD) History of total bilateral knee replacement (TKR) (Chronic) Z96.653 Status post total right knee replacement (Chronic) Z96.651 11/05/[address] Jase Lopez at [facility] Surgical History: total knee arthroplasty - Left., - - Fracture left foot. Right knee incision/drainage with poly exchange 03/25/2018. Psychiatric History: Depression Lives: Spouse/ Significant Other Smoking Status: Former smoker Tobacco Use: Non-smoker, Cigarettes Drugs: None - *Family History Maternal Family History: Family History (Last Updated 12/10/17 @ 08:22 by Ashley Newsome) Mother Diabetes History Items: No pertinent history Paternal Family History: Family History (Last Updated 12/10/17 @ 08:22 by Ashley Newsome) Mother Diabetes History Items: No pertinent history Review of Systems Constitutional: Denies: Chills, Fever, Weight Change HEENT: Denies: Head Aches, Sinus Congestion, Sinus Drainage Cardiovascular: Denies: Chest Pain, Palpitations Respiratory: Denies: Cough, Shortness of breath at rest, Sputum production Gastrointestinal: Denies: Abdominal Pain, Nausea, Vomiting Genitourinary: Denies: Dysuria Musculoskeletal: Denies: Joint Pain, Joint Tenderness Skin: Denies: Rash, Wounds Neurological: Denies: Numbness, Tingling, Focal weakness Psychiatric: Denies: Anxiety, Depression, Homicidal Ideations, Suicidal Ideations Hematologic/ Lymphatic: Denies: Easy Bruising, Easy Bleeding VTE Information - Inpt Only VTE Present on Admission: No VTE Mechan Device Prophylaxis: Knee High ALBERT Hose VTE Pharm Prophylaxis ordered?: Yes Patient Problems: Active and Suspected Problems (Last Updated 02/12/19 @ 16:29 by Dale Malik MD) Infection of prosthetic right knee joint (Acute) Right knee pain (Acute) - Physical Exam General: Alert, Oriented x3, Cooperative HEENT: Atraumatic, PERRLA, EOMI, Normocephalic Neck: Supple, No JVD, Negative Carotid Bruits Lungs: Clear to auscultation, Normal air movement Cardiovascular: Regular rate, No murmurs Abdomen: Bowel Sounds Present, Soft, Non Tender Extremities: No edema, Capillary Refill Less than 3 Seconds, - - PICC right upper extremity. Skin: No rashes, No breakdown Musculoskeletal: No Tenderness to Palpation of Joints or Extremities, - - Right knee dressed. Neurological: Cranial nerves II-XII grossly intact Psych/Mental Status: Normal Affect, Appropriate Vital Signs Temp Resp BP Pulse Ox 97.9 F 18 110/56 L 95 02/15/19 13:46 02/15/19 13:46 02/15/19 13:46 02/15/19 13:46 Oxygen Flow Rate (L/min) 2 Oxygen Delivery Method Nasal Cannula Weight: 136.8 kg Body Mass Index (BMI) 47.2 Finger Stick Blood Glucose 114 Assessment/Plan All Active Problems (Last Updated 02/12/19 @ 16:29 by Dale Malik MD) Infection of prosthetic right knee joint (Acute) Right knee pain (Acute) Hyperkalemia (Acute) Acute renal failure (Acute) Prosthetic joint infection (Acute) 68 year old male with below past medical history hospitalized for infected right prosthetic knee, underwent explant right total knee with placement of antibiotic spacer 02/12/[address] Thompson, admitted to TCU with debility, here for re habilitation, strengthening, intravenous antibiotics, prior to discharge home with spouse. * Debility - PT/OT. * Pain - Tylenol 1000MG Q8H, Tramadol 50MG Q6H PRN moderate pain, Oxycodone 10MG Q4H PRN severe pain. * Bowel - Miralax 17GM daily, Senokot 1 tablet BID, Dulcolax 10MG daily PRN. * Pneumonia vaccination - Administer Prevnar 13 and/or Pneumovax 23 as necessary. * DVT prophylaxis - Lovenox 40MG SC daily. * COPD - Pulmicort 0.5MG Q12H, Albuterol 2.5MG daily PRN. * Anxiety - Xanax 1MG BID PRN, chronic halfway use, risk of withdrawal outweighs benefit of being off BZD on short term unit, do not recommend GDR. * CV prophylaxis - Aspirin 81MG daily. * Muscle spasm - Flexeril 10MG TID PRN. * Allergic Rhinitis - Flonase 2 spray daily PRN. * Hypothyroidism - Levothyroxine 150MCG daily. * Insomnia - Melatonin 5MG QHS PRN. * Nausea - Zofran 4MG IV Q8H PRN. * Depression - Paroxetine 40MG daily, chronic property custodian use, risk of worsening mood outweighs benefit of tapering off SSRI, do not recommend GDR. * BPH - Tamsulosin 0.4MG daily. * Infected prosthetic right knee status post surgery - Vancomycin 1GM IV Q24H thru 03/26/2019, Dr. Gaines, Dr. Thompson following. * Hypertension - Verapamil 240MG daily.
[2019-02-15] MEDS: traMADol 50 MG Tablet PO (17:07)
[2019-02-15] MEDS: Senna Tablet 1 TABLET PO (17:11)
--- NOTE | 2019-02-15 17:19 | NURSING ---
nursing needs to notify Dr. Gaines on Sunday of pt's rash per Dr. Bowling
[2019-02-15 19:31] VITALS: PULSE 78; RESP 18; O2SAT 95
[2019-02-15] MEDS: Budesonide Respules 0.5 MG/2 ML AMPUL.NEB. INHALATION (19:31)
[2019-02-15] MEDS: oxyCODONE 5 MG Tablet 10 MG PO (19:58)
[2019-02-15] MEDS: Hydrocortisone 2.5% Crm 1 APPLIC TOPICAL (20:00)
[2019-02-15] MEDS: MELATONIN 10 MG TABLET 5 MG PO (22:54)
--- NOTE | 2019-02-15 23:04 | NURSING ---
Pt noted to have a single can of chewing tobacco on bedside table. Explained to pt that he is not allowed to use tobacco products while in the hospital. Pt states understanding and is cooperative. Can of chewing removed from pt room and placed in med room at this time.
[2019-02-16] MEDS: oxyCODONE 5 MG Tablet 10 MG PO ×3 (06:29→21:06)
[2019-02-16] MEDS: Verapamil SR 240 MG Tablet PO (06:31)
[2019-02-16] MEDS: Tamsulosin HCl 0.4 MG Capsule PO (06:31)
[2019-02-16] MEDS: Paroxetine 20 MG Tablet 40 MG PO (06:32)
[2019-02-16] MEDS: Acetaminophen 500 MG Tablet 1000 MG PO ×3 (06:32→21:06)
[2019-02-16] MEDS: Levothyroxine 150 MCG Tablet PO (06:32)
[2019-02-16] MEDS: Enoxaparin 40 MG/0.4 ML Syringe SC (06:32)
[2019-02-16 06:40] LABS: Bedside Glucose 114 mg/dL (70-110)
[2019-02-16 06:53] VITALS: PULSE 93; RESP 20; O2SAT 93
[2019-02-16] MEDS: Budesonide Respules 0.5 MG/2 ML AMPUL.NEB. INHALATION (06:53)
[2019-02-16 07:47] LABS: Absolute Lymphocyte Count 0.67 X10^3/ul (0.83-4.51); Absolute Neutrophil Count 6.2 X10^3/uL (2.0-7.7); Basophil# 0.02 X10^3/uL; Basophil% 0.2 % (0-1); Eosinophil# 0.54 X10^3/uL; Eosinophils% 6.3 % (0-5); Hematocrit 28.9 % (40-54); Hemoglobin 9.4 g/dl (13.0-16.5); Lymphocyte # 0.67 X10^3/ul (4.0); Lymphocyte % 7.9 % (19-41); Mean Corp Hgb Conc 32.5 g/gl (32-36); Mean Corpuscular Hgb 29.1 pg (27.0-32.0); Mean Corpuscular Volume 89.5 fL (80-94); Mean Platelet Vol. 8.3 fl (6.2-12.0); Monocyte# 1.02 X10^3/uL; Neutrophil # 6.21 X10^3/uL (2.7-7.7); Neutrophil % 72.8 % (47-70); Platelet Count 249 K/mm3 (150-450); RBC Distribution Width CV 14.2 % (11.6-14.6); RBC Distribution Width SD 46.6 fl (35.1-43.9); Red Blood Count 3.23 M/mm3 (4.6-6.2); White Blood Count 8.5 K/mm3 (4.4-11.0)
[2019-02-16 08:02] LABS: Erythrocyte Sedimentation Rate 49 mm/hr (0-20)
[2019-02-16 08:03] LABS: POSITIVE COUNT NO; POSITIVE DIFFERENTIAL NO; POSITIVE MORPHOLOGY NO
[2019-02-16 08:10] LABS: Anion Gap 6 (5-15); BUN 32 mg/dL (7-18); BUN/Creat Ratio 17.9 RATIO (10-20); Calcium,Total 8.8 mg/dL (8.5-10.1); Chloride 107 mmol/L (98-107); Creatinine, Serum 1.79 mg/dL (0.70-1.30); EST Glomerular Filtration Rate 40 mL/min (>60); Est Glom Filt Rate - Afr Amer 49 mL/min (>60); Estimated Creatinine Clearance 37.44 ml/min; Glucose 125 mg/dL (74-106); Potassium 5.1 mmol/L (3.5-5.1); Sodium Level 139 mmol/L (136-145)
[2019-02-16 08:16] LABS: Vancomycin, Trough Level 12.7 ug/mL (5.0-15.0)
[2019-02-16] MEDS: Tuberculin,Purif.prot.deriv. 50 TU/ML Vial 5 ML ID (09:10)
[2019-02-16] MEDS: Vancomycin IV 1,000 MG/200 ML BAG 200 MG IV (09:10)
[2019-02-16] MEDS: Aspirin 81 MG TAB.CHEW PO (09:10)
[2019-02-16] MEDS: traMADol 50 MG Tablet PO (09:22)
[2019-02-16] MEDS: ALPRAZolam 0.5 MG Tablet 1 MG PO (11:09)
[2019-02-16 11:20] LABS: Bedside Glucose 116 mg/dL (70-110)
--- NOTE | 2019-02-16 13:08 | PCM.RX.CS ---
Consult Pharmacy has been consulted to manage selected antiobiotic: Vancomycin Type of Consult: Follow-up Suspected Infection: Other Labs: Sodium 139 mmol/L (136-145) 02/16/19 07:35 Potassium 5.1 mmol/L (3.5-5.1) 02/16/19 07:35 Chloride 107 mmol/L (98-107) 02/16/19 07:35 Carbon Dioxide 26.0 mmol/L (21.0-32.0) 02/16/19 07:35 Anion Gap 6 (5-15) 02/16/19 07:35 BUN 32 mg/dL (7-18) H 02/16/19 07:35 Creatinine 1.79 mg/dL (0.70-1.30) H 02/16/19 07:35 Est GFR (MDRD) Af Amer 49 mL/min (>60) L 02/16/19 07:35 Est GFR (MDRD) Non-Af 40 mL/min (>60) L 02/16/19 07:35 BUN/Creatinine Ratio 17.9 RATIO (10-20) 02/16/19 07:35 Glucose 125 mg/dL (74-106) H 02/16/19 07:35 Vancomycin Trough 12.7 ug/mL (5.0-15.0) 02/16/19 07:35 Weight used for dosin kg Estimated Creatinine Clearance: 37 mL/min Goal Trough: 15-20 mcg/mL Pharmacy Plan for Drug Dosing: Trough below goal. Patient already received full dose this morning. Only recommend to increase slightly to 1250mg IV q24h so recommend to just adjust to an earlier time and start tomorrow. Thru 03/26 then stop. Pharmacy Service will continue to monitor and adjust dosing as required. Follow-Up Labs: Trough Vancomycin - 02/19 @ [id number]
[2019-02-16 16:00] VITALS: BP 138/73; PULSE 74; RESP 20; TEMP 36.8; O2SAT 95
[2019-02-16 17:01] LABS: Bedside Glucose 99 mg/dL (70-110)
[2019-02-16] MEDS: hydrOXYzine PAM 25 MG Capsule 50 MG PO (17:20)
--- NOTE | 2019-02-16 17:34 | PCM.PN.RX ---
<Harlan Gong D - Last Filed: 02/16/19 17:34> Progress Note - Pharmacy Subjective: TCU Admission Objective: Allergies bacitracin [From Neosporin ([id number]-fgk-[id number])] Allergy (Verified 02/12/19 13:41) Rash bacitracin zinc [From Neosporin ([id number]-rix-[id number])] Allergy (Verified 02/12/19 13:41) Rash cephalexin [From Keflex] Allergy (Verified 02/12/19 13:41) Rash doxycycline Allergy (Verified 02/12/19 13:41) Rash morphine Allergy (Verified 02/12/19 13:41) Other KIDNEY ISSUES neomycin sulfate [From Neosporin (bsp-ody-zlzsb)] Allergy (Verified 02/12/19 13:41) Rash Penicillins [PCN] Allergy (Verified 02/12/19 13:41) Rash polymyxin B [From Neosporin (van-izs-cggsi)] Allergy (Verified 02/12/19 13:41) Rash Current Medications Generic Name Dose Route Start Last Admin Trade Name Freq PRN Reason Stop Dose Admin Acetaminophen 1,000 mg 02/15/19 14:00 02/16/19 14:36 Tylenol PO 1,000 mg Q8 ANIYAH Administration Albuterol Sulfate 2.5 mg 02/15/19 14:25 Ventolin Aerosols INHALATION DAILY PRN PRN SHORTNESS OF BREATH Alprazolam 1 mg 02/15/19 13:56 02/16/19 11:09 Xanax PO 1 mg BID PRN PRN Administration ANXIETY/AGITATION Aspirin 81 mg 02/16/19 08:00 02/16/19 09:10 Aspirin, Baby PO 81 mg DAILY@0800 ANIYAH Administration Bisacodyl 10 mg 02/15/19 16:21 Dulcolax PO DAILY PRN Constipation Cyclobenzaprine HCl 10 mg 02/15/19 13:56 02/16/19 14:30 Flexeril PO 10 mg TID PRN Administration PAIN Enoxaparin Sodium 40 mg 02/16/19 06:00 02/16/19 06:32 Lovenox SC 40 mg DAILY ANIYAH Administration Fluticasone Propionate 2 spray 02/15/19 13:56 Flonase Nasal [place] NASAL DAILY PRN ALLERGIES Fluticasone Propionate 1 puff 02/16/19 18:00 02/16/19 17:11 Flovent Diskus 100 Mcg INHALATION 1 puff BID ANIYAH Administration Heparin Sodium (Beef Lung) 50 units 02/16/19 09:40 IV UD PRN HEPARIN FLUSH Hydrocortisone 1 applic 02/15/19 18:00 02/16/19 17:15 Hytone TOPICAL Not Given BID ANIYAH Protocol Hydroxyzine Pamoate 50 mg 02/15/19 17:14 02/16/19 17:20 Vistaril Pamoate Capsule PO 50 mg Q6H PRN Administration ITCHING Vancomycin IV Pharmacy to Dose 500 mls @ 250 mls/hr 02/15/19 14:13 1 ea/ Sodium Chloride IV X1 PRN Rx to Dose Protocol Sodium Chloride 250 mls @ 15 mls/hr 02/16/19 09:40 IV .[id number] PRN SALINE FLUSH Vancomycin HCl 1,250 mg/ 275 mls @ 167 mls/hr 02/17/19 06:00 Sodium Chloride IV 03/26/19 07:39 Q24H ANIYAH Levothyroxine Sodium 150 mcg 02/16/19 06:00 02/16/19 06:32 Synthroid PO 150 mcg DAILY ANIYAH Administration Melatonin 5 mg 02/15/19 22:00 02/15/19 22:54 Melatonin PO 5 mg QHS PRN PRN Administration SLEEP Ondansetron HCl 4 mg 02/15/19 13:56 Zofran IV Q8H PRN PRN NAUSEA Oxycodone HCl 10 mg 02/15/19 16:21 02/16/19 11:34 Oxyir PO 10 mg Q4H PRN PRN Administration SEVERE PAIN (6-10/10) Paroxetine HCl 40 mg 02/16/19 06:00 02/16/19 06:32 Paxil PO 40 mg DAILY ANIYAH Administration Polyethylene Glycol 17 gm 02/16/19 06:00 02/16/19 06:32 Miralax PO Not Given DAILY ANIYAH Senna 1 tablet 02/15/19 18:00 02/16/19 17:18 Senokot PO Not Given BID ANIYAH Sodium Chloride 10 - 20 ml 02/16/19 09:40 IV UD PRN PICC FLUSH Tamsulosin HCl 0.4 mg 02/16/19 06:00 02/16/19 06:31 Flomax PO 0.4 mg DAILY ANIYAH Administration Tramadol HCl 50 mg 02/15/19 16:20 02/16/19 09:22 Ultram PO 50 mg Q6H PRN PRN Administration MODERATE PAIN (4-5/10) Tuberculin PPD 5 tu 02/23/19 10:00 Tubersol, Aplisol, Ppd ID 02/23/19 10:01 X1 ONE Verapamil HCl 240 mg 02/16/19 06:00 02/16/19 06:31 Calan Sr PO 240 mg DAILY ANIYAH Administration Problem List (Last Updated 02/12/19 @ 16:29 by Dale Malik MD) Infection of prosthetic right knee joint (Acute) Right knee pain (Acute) Diabetes mellitus (Chronic) Chronic obstructive pulmonary disease (Chronic) Osteoarthritis of right knee (Chronic) Depression (Chronic) Allergic rhinitis (Chronic) BPH (benign prostatic hyperplasia) (Chronic) Insomnia (Chronic) Vital Signs Temp Pulse Resp BP Pulse Ox 97.9 F 93 20 H 110/56 L 93 02/15/19 13:46 02/16/19 06:53 02/16/19 06:53 02/15/19 13:46 02/16/19 06:53 Oxygen Flow Rate (L/min) 4 Oxygen Delivery Method Nasal Cannula Weight: 136.645 kg Body Mass Index (BMI) 47.2 Finger Stick Blood Glucose 114 Sodium 139 mmol/L (136-145) 02/16/19 07:35 Potassium 5.1 mmol/L (3.5-5.1) 02/16/19 07:35 Chloride 107 mmol/L (98-107) 02/16/19 07:35 Carbon Dioxide 26.0 mmol/L (21.0-32.0) 02/16/19 07:35 Anion Gap 6 (5-15) 02/16/19 07:35 BUN 32 mg/dL (7-18) H 02/16/19 07:35 Creatinine 1.79 mg/dL (0.70-1.30) H 02/16/19 07:35 Est GFR (MDRD) Af Amer 49 mL/min (>60) L 02/16/19 07:35 Est GFR (MDRD) Non-Af 40 mL/min (>60) L 02/16/19 07:35 BUN/Creatinine Ratio 17.9 RATIO (10-20) 02/16/19 07:35 Glucose 125 mg/dL (74-106) H 02/16/19 07:35 Vancomycin Trough 12.7 ug/mL (5.0-15.0) 02/16/19 07:35 Assessment/Plan: * 1) Pain APAP, oxycodone for severe pain, tramadol for moderate pain. Continue to monitor daily pain scores, prn medication use. * Cyclobenzaprine ordered for pain. Please clarify instructions. 2) ID Vancomycin thru 12/24. Pharmacy monitoring and adjusted as needed. Continue to monitor renal function, vancomycin levels, s/s infection. 3) Pulm Fluticasone, albuterol prn. Continue to monitor prn medication use, for shortness of breath. 4) Hypothyroidism Levothyroxine. Continue to monitor s/s hyper/hypothyroidism. 5) DVT PPx Enoxaparin. Continue to monitor s/s bleeding/clot. 6) Tamsulosin. Continue to monitor for Gu symptoms. 7) Sleep Melatonin as needed. Continue to monitor prn medication use, for insomnia. Psychotropic Medications: 8) Depression/Anxiety Paroxetine, alprazolam prn. Continue to monitor prn medication use, for anxiety/depression. Unnecessary Medications: None Bowel Regimen: 9) Senna, PEG, prn bisacodyl. Continue to monitor prn medication use, for constipation/diarrhea. Date of Note:: 02/16/19 - Provider Comments Provider responsibility: Provider responsible to enter orders to implement recommendations <Humphrey Bowling Chi - Last Filed: 02/17/19 07:56> Progress Note - Pharmacy Subjective: [] Objective: Allergies bacitracin [From Neosporin (tmo-sap-xlpug)] Allergy (Verified 02/12/19 13:41) Rash bacitracin zinc [From Neosporin (dsg-qpw-lsvye)] Allergy (Verified 02/12/19 13:41) Rash cephalexin [From Keflex] Allergy (Verified 02/12/19 13:41) Rash doxycycline Allergy (Verified 02/12/19 13:41) Rash morphine Allergy (Verified 02/12/19 13:41) Other KIDNEY ISSUES neomycin sulfate [From Neosporin (gye-ifi-fyone)] Allergy (Verified 02/12/19 13:41) Rash Penicillins [PCN] Allergy (Verified 02/12/19 13:41) Rash polymyxin B [From Neosporin (ihg-nvm-lahzb)] Allergy (Verified 02/12/19 13:41) Rash Current Medications Generic Name Dose Route Start Last Admin Trade Name Freq PRN Reason Stop Dose Admin Acetaminophen 1,000 mg 02/15/19 14:00 02/17/19 05:44 Tylenol PO 1,000 mg Q8 ANIYAH Administration Albuterol Sulfate 2.5 mg 02/15/19 14:25 Ventolin Aerosols INHALATION DAILY PRN PRN SHORTNESS OF BREATH Alprazolam 1 mg 02/15/19 13:56 02/16/19 11:09 Xanax PO 1 mg BID PRN PRN Administration ANXIETY/AGITATION Aspirin 81 mg 02/16/19 08:00 02/16/19 09:10 Aspirin, Baby PO 81 mg DAILY@0800 [facility] Administration Bisacodyl 10 mg 02/15/19 16:21 Dulcolax PO DAILY PRN Constipation Cyclobenzaprine HCl 10 mg 02/15/19 13:56 02/16/19 14:30 Flexeril PO 10 mg TID PRN Administration PAIN Enoxaparin Sodium 40 mg 02/16/19 06:00 02/17/19 05:45 Lovenox SC 40 mg DAILY [facility] Administration Fluticasone Propionate 2 spray 02/15/19 13:56 Flonase Nasal [place] NASAL DAILY PRN ALLERGIES Fluticasone Propionate 1 puff 02/16/19 18:00 02/17/19 05:45 Flovent Diskus 100 Mcg INHALATION 1 puff BID [facility] Administration Heparin Sodium (Beef Lung) 50 units 02/16/19 09:40 IV UD PRN HEPARIN FLUSH Hydrocortisone 1 applic 02/15/19 18:00 02/17/19 05:48 Hytone TOPICAL Not Given BID [facility] Protocol Hydroxyzine Pamoate 50 mg 02/15/19 17:14 02/16/19 17:20 Vistaril Pamoate Capsule PO 50 mg Q6H PRN Administration ITCHING Vancomycin IV Pharmacy to Dose 500 mls @ 250 mls/hr 02/15/19 14:13 1 ea/ Sodium Chloride IV X1 PRN Rx to Dose Protocol Sodium Chloride 250 mls @ 15 mls/hr 02/16/19 09:40 02/17/19 05:38 IV 15 mls/hr .[id number] PRN Administration SALINE FLUSH Vancomycin HCl 1,250 mg/ 275 mls @ 167 mls/hr 02/17/19 06:00 02/17/19 05:41 Sodium Chloride IV 03/26/19 07:39 167 mls/hr Q24H ANIYAH Administration Levothyroxine Sodium 150 mcg 02/16/19 06:00 02/17/19 05:44 Synthroid PO 150 mcg DAILY ANIYAH Administration Melatonin 5 mg 02/15/19 22:00 02/15/19 22:54 Melatonin PO 5 mg QHS PRN PRN Administration SLEEP Ondansetron HCl 4 mg 02/15/19 13:56 Zofran IV Q8H PRN PRN NAUSEA Oxycodone HCl 10 mg 02/15/19 16:21 02/16/19 21:06 Oxyir PO 10 mg Q4H PRN PRN Administration SEVERE PAIN (6-10/10) Paroxetine HCl 40 mg 02/16/19 06:00 02/17/19 05:44 Paxil PO 40 mg DAILY ANIYAH Administration Polyethylene Glycol 17 gm 02/16/19 06:00 02/17/19 05:56 Miralax PO 17 gm DAILY ANIYAH Administration Senna 1 tablet 02/15/19 18:00 02/16/19 17:18 Senokot PO Not Given BID ANIYAH Sodium Chloride 10 - 20 ml 02/16/19 09:40 IV UD PRN PICC FLUSH Tamsulosin HCl 0.4 mg 02/16/19 06:00 02/17/19 05:44 Flomax PO 0.4 mg DAILY ANIYAH Administration Tramadol HCl 50 mg 02/15/19 16:20 02/16/19 09:22 Ultram PO 50 mg Q6H PRN PRN Administration MODERATE PAIN (4-5/10) Tuberculin PPD 5 tu 02/23/19 10:00 Tubersol, Aplisol, Ppd ID 02/23/19 10:01 X1 ONE Verapamil HCl 240 mg 02/16/19 06:00 02/17/19 05:44 Calan Sr PO 240 mg DAILY ANIYAH Administration Problem List (Last Updated 02/12/19 @ 16:29 by Dale Malik MD) Infection of prosthetic right knee joint (Acute) Right knee pain (Acute) Diabetes mellitus (Chronic) Chronic obstructive pulmonary disease (Chronic) Osteoarthritis of right knee (Chronic) Depression (Chronic) Allergic rhinitis (Chronic) BPH (benign prostatic hyperplasia) (Chronic) Insomnia (Chronic) Vital Signs Temp Pulse Resp BP Pulse Ox 98.2 F 74 20 H 138/73 H 95 02/16/19 16:00 02/16/19 16:00 02/16/19 16:00 02/16/19 16:00 02/16/19 16:00 Oxygen Flow Rate (L/min) 2 Oxygen Delivery Method Nasal Cannula Weight: 136.645 kg Body Mass Index (BMI) 47.2 Finger Stick Blood Glucose 114 Sodium 139 mmol/L (136-145) 02/16/19 07:35 Potassium 5.1 mmol/L (3.5-5.1) 02/16/19 07:35 Chloride 107 mmol/L (98-107) 02/16/19 07:35 Carbon Dioxide 26.0 mmol/L (21.0-32.0) 02/16/19 07:35 Anion Gap 6 (5-15) 02/16/19 07:35 BUN 32 mg/dL (7-18) H 02/16/19 07:35 Creatinine 1.79 mg/dL (0.70-1.30) H 02/16/19 07:35 Est GFR (MDRD) Af Amer 49 mL/min (>60) L 02/16/19 07:35 Est GFR (MDRD) Non-Af 40 mL/min (>60) L 02/16/19 07:35 BUN/Creatinine Ratio 17.9 RATIO (10-20) 02/16/19 07:35 Glucose 125 mg/dL (74-106) H 02/16/19 07:35 Vancomycin Trough 12.7 ug/mL (5.0-15.0) 02/16/19 07:35 Assessment/Plan: Psychotropic Medications: Unnecessary Medications: Bowel Regimen: - Provider Comments Provider responsibility: Provider responsible to enter orders to implement recommendations Provider Comments to Recommendations by Pharmacy: Agree
--- NOTE | 2019-02-16 17:42 | PHA.CONS_ITS ---
<Harlan Gong D - Last Filed: 02/16/19 17:34> Progress Note - Pharmacy Subjective: TCU Admission Objective: Allergies bacitracin [From Neosporin (fhu-hlf-kcbjj)] Allergy (Verified 02/12/19 13:41) Rash bacitracin zinc [From Neosporin (iaw-ppj-xqgps)] Allergy (Verified 02/12/19 13:41) Rash cephalexin [From Keflex] Allergy (Verified 02/12/19 13:41) Rash doxycycline Allergy (Verified 02/12/19 13:41) Rash morphine Allergy (Verified 02/12/19 13:41) Other KIDNEY ISSUES neomycin sulfate [From Neosporin (xbu-das-snimh)] Allergy (Verified 02/12/19 13:41) Rash Penicillins [PCN] Allergy (Verified 02/12/19 13:41) Rash polymyxin B [From Neosporin (nlf-eyo-wlzbf)] Allergy (Verified 02/12/19 13:41) Rash Current Medications Generic Name Dose Route Start Last Admin Trade Name Freq PRN Reason Stop Dose Admin Acetaminophen 1,000 mg 02/15/19 14:00 02/16/19 14:36 Tylenol PO 1,000 mg Q8 ANIYAH Administration Albuterol Sulfate 2.5 mg 02/15/19 14:25 Ventolin Aerosols INHALATION DAILY PRN PRN SHORTNESS OF BREATH Alprazolam 1 mg 02/15/19 13:56 02/16/19 11:09 Xanax PO 1 mg BID PRN PRN Administration ANXIETY/AGITATION Aspirin 81 mg 02/16/19 08:00 02/16/19 09:10 Aspirin, Baby PO 81 mg DAILY@0800 ANIYAH Administration Bisacodyl 10 mg 02/15/19 16:21 Dulcolax PO DAILY PRN Constipation Cyclobenzaprine HCl 10 mg 02/15/19 13:56 02/16/19 14:30 Flexeril PO 10 mg TID PRN Administration PAIN Enoxaparin Sodium 40 mg 02/16/19 06:00 02/16/19 06:32 Lovenox SC 40 mg DAILY ANIYAH Administration Fluticasone Propionate 2 spray 02/15/19 13:56 Flonase Nasal [place] NASAL DAILY PRN ALLERGIES Fluticasone Propionate 1 puff 02/16/19 18:00 02/16/19 17:11 Flovent Diskus 100 Mcg INHALATION 1 puff BID ANIYAH Administration Heparin Sodium (Beef Lung) 50 units 02/16/19 09:40 IV UD PRN HEPARIN FLUSH Hydrocortisone 1 applic 02/15/19 18:00 02/16/19 17:15 Hytone TOPICAL Not Given BID ANIYAH Protocol Hydroxyzine Pamoate 50 mg 02/15/19 17:14 02/16/19 17:20 Vistaril Pamoate Capsule PO 50 mg Q6H PRN Administration ITCHING Vancomycin IV Pharmacy to Dose 500 mls @ 250 mls/hr 02/15/19 14:13 1 ea/ Sodium Chloride IV X1 PRN Rx to Dose Protocol Sodium Chloride 250 mls @ 15 mls/hr 02/16/19 09:40 IV .[id number] PRN SALINE FLUSH Vancomycin HCl 1,250 mg/ 275 mls @ 167 mls/hr 02/17/19 06:00 Sodium Chloride IV 03/26/19 07:39 Q24H ANIYAH Levothyroxine Sodium 150 mcg 02/16/19 06:00 02/16/19 06:32 Synthroid PO 150 mcg DAILY ANIYAH Administration Melatonin 5 mg 02/15/19 22:00 02/15/19 22:54 Melatonin PO 5 mg QHS PRN PRN Administration SLEEP Ondansetron HCl 4 mg 02/15/19 13:56 Zofran IV Q8H PRN PRN NAUSEA Oxycodone HCl 10 mg 02/15/19 16:21 02/16/19 11:34 Oxyir PO 10 mg Q4H PRN PRN Administration SEVERE PAIN (6-10/10) Paroxetine HCl 40 mg 02/16/19 06:00 02/16/19 06:32 Paxil PO 40 mg DAILY ANIYAH Administration Polyethylene Glycol 17 gm 02/16/19 06:00 02/16/19 06:32 Miralax PO Not Given DAILY ANIYAH Senna 1 tablet 02/15/19 18:00 02/16/19 17:18 Senokot PO Not Given BID ANIYAH Sodium Chloride 10 - 20 ml 02/16/19 09:40 IV UD PRN PICC FLUSH Tamsulosin HCl 0.4 mg 02/16/19 06:00 02/16/19 06:31 Flomax PO 0.4 mg DAILY ANIYAH Administration Tramadol HCl 50 mg 02/15/19 16:20 02/16/19 09:22 Ultram PO 50 mg Q6H PRN PRN Administration MODERATE PAIN (4-5/10) Tuberculin PPD 5 tu 02/23/19 10:00 Tubersol, Aplisol, Ppd ID 02/23/19 10:01 X1 ONE Verapamil HCl 240 mg 02/16/19 06:00 02/16/19 06:31 Calan Sr PO 240 mg DAILY ANIYAH Administration Problem List (Last Updated 02/12/19 @ 16:29 by Dale Malik MD) Infection of prosthetic right knee joint (Acute) Right knee pain (Acute) Diabetes mellitus (Chronic) Chronic obstructive pulmonary disease (Chronic) Osteoarthritis of right knee (Chronic) Depression (Chronic) Allergic rhinitis (Chronic) BPH (benign prostatic hyperplasia) (Chronic) Insomnia (Chronic) Vital Signs Temp Pulse Resp BP Pulse Ox 97.9 F 93 20 H 110/56 L 93 02/15/19 13:46 02/16/19 06:53 02/16/19 06:53 02/15/19 13:46 02/16/19 06:53 Oxygen Flow Rate (L/min) 4 Oxygen Delivery Method Nasal Cannula Weight: 136.645 kg Body Mass Index (BMI) 47.2 Finger Stick Blood Glucose 114 Sodium 139 mmol/L (136-145) 02/16/19 07:35 Potassium 5.1 mmol/L (3.5-5.1) 02/16/19 07:35 Chloride 107 mmol/L (98-107) 02/16/19 07:35 Carbon Dioxide 26.0 mmol/L (21.0-32.0) 02/16/19 07:35 Anion Gap 6 (5-15) 02/16/19 07:35 BUN 32 mg/dL (7-18) H 02/16/19 07:35 Creatinine 1.79 mg/dL (0.70-1.30) H 02/16/19 07:35 Est GFR (MDRD) Af Amer 49 mL/min (>60) L 02/16/19 07:35 Est GFR (MDRD) Non-Af 40 mL/min (>60) L 02/16/19 07:35 BUN/Creatinine Ratio 17.9 RATIO (10-20) 02/16/19 07:35 Glucose 125 mg/dL (74-106) H 02/16/19 07:35 Vancomycin Trough 12.7 ug/mL (5.0-15.0) 02/16/19 07:35 Assessment/Plan: * 1) Pain APAP, oxycodone for severe pain, tramadol for moderate pain. Continue to monitor daily pain scores, prn medication use. * Cyclobenzaprine ordered for pain. Please clarify instructions. 2) ID Vancomycin thru 12/24. Pharmacy monitoring and adjusted as needed. Continue to monitor renal function, vancomycin levels, s/s infection. 3) Pulm Fluticasone, albuterol prn. Continue to monitor prn medication use, for shortness of breath. 4) Hypothyroidism Levothyroxine. Continue to monitor s/s hyper/hypothyroidism. 5) DVT PPx Enoxaparin. Continue to monitor s/s bleeding/clot. 6) Tamsulosin. Continue to monitor for Gu symptoms. 7) Sleep Melatonin as needed. Continue to monitor prn medication use, for insomnia. Psychotropic Medications: 8) Depression/Anxiety Paroxetine, alprazolam prn. Continue to monitor prn medication use, for anxiety/depression. Unnecessary Medications: None Bowel Regimen: 9) Senna, PEG, prn bisacodyl. Continue to monitor prn medication use, for constipation/diarrhea. Date of Note:: 02/16/19 - Provider Comments Provider responsibility: Provider responsible to enter orders to implement recommendations <Humphrey Bowling Chi - Last Filed: 02/17/19 07:56> Progress Note - Pharmacy Subjective: [] Objective: Allergies bacitracin [From Neosporin (zib-jjf-olkhr)] Allergy (Verified 02/12/19 13:41) Rash bacitracin zinc [From Neosporin (hwd-xgj-odela)] Allergy (Verified 02/12/19 13:41) Rash cephalexin [From Keflex] Allergy (Verified 02/12/19 13:41) Rash doxycycline Allergy (Verified 02/12/19 13:41) Rash morphine Allergy (Verified 02/12/19 13:41) Other KIDNEY ISSUES neomycin sulfate [From Neosporin (btp-xvl-slbgi)] Allergy (Verified 02/12/19 13:41) Rash Penicillins [PCN] Allergy (Verified 02/12/19 13:41) Rash polymyxin B [From Neosporin (fzz-kkv-ndtas)] Allergy (Verified 02/12/19 13:41) Rash Current Medications Generic Name Dose Route Start Last Admin Trade Name Freq PRN Reason Stop Dose Admin Acetaminophen 1,000 mg 02/15/19 14:00 02/17/19 05:44 Tylenol PO 1,000 mg Q8 ANIYAH Administration Albuterol Sulfate 2.5 mg 02/15/19 14:25 Ventolin Aerosols INHALATION DAILY PRN PRN SHORTNESS OF BREATH Alprazolam 1 mg 02/15/19 13:56 02/16/19 11:09 Xanax PO 1 mg BID PRN PRN Administration ANXIETY/AGITATION Aspirin 81 mg 02/16/19 08:00 02/16/19 09:10 Aspirin, Baby PO 81 mg DAILY@0800 [facility] Administration Bisacodyl 10 mg 02/15/19 16:21 Dulcolax PO DAILY PRN Constipation Cyclobenzaprine HCl 10 mg 02/15/19 13:56 02/16/19 14:30 Flexeril PO 10 mg TID PRN Administration PAIN Enoxaparin Sodium 40 mg 02/16/19 06:00 02/17/19 05:45 Lovenox SC 40 mg DAILY [facility] Administration Fluticasone Propionate 2 spray 02/15/19 13:56 Flonase Nasal [place] NASAL DAILY PRN ALLERGIES Fluticasone Propionate 1 puff 02/16/19 18:00 02/17/19 05:45 Flovent Diskus 100 Mcg INHALATION 1 puff BID [facility] Administration Heparin Sodium (Beef Lung) 50 units 02/16/19 09:40 IV UD PRN HEPARIN FLUSH Hydrocortisone 1 applic 02/15/19 18:00 02/17/19 05:48 Hytone TOPICAL Not Given BID [facility] Protocol Hydroxyzine Pamoate 50 mg 02/15/19 17:14 02/16/19 17:20 Vistaril Pamoate Capsule PO 50 mg Q6H PRN Administration ITCHING Vancomycin IV Pharmacy to Dose 500 mls @ 250 mls/hr 02/15/19 14:13 1 ea/ Sodium Chloride IV X1 PRN Rx to Dose Protocol Sodium Chloride 250 mls @ 15 mls/hr 02/16/19 09:40 02/17/19 05:38 IV 15 mls/hr .[id number] PRN Administration SALINE FLUSH Vancomycin HCl 1,250 mg/ 275 mls @ 167 mls/hr 02/17/19 06:00 02/17/19 05:41 Sodium Chloride IV 03/26/19 07:39 167 mls/hr Q24H ANIYAH Administration Levothyroxine Sodium 150 mcg 02/16/19 06:00 02/17/19 05:44 Synthroid PO 150 mcg DAILY ANIYAH Administration Melatonin 5 mg 02/15/19 22:00 02/15/19 22:54 Melatonin PO 5 mg QHS PRN PRN Administration SLEEP Ondansetron HCl 4 mg 02/15/19 13:56 Zofran IV Q8H PRN PRN NAUSEA Oxycodone HCl 10 mg 02/15/19 16:21 02/16/19 21:06 Oxyir PO 10 mg Q4H PRN PRN Administration SEVERE PAIN (6-10/10) Paroxetine HCl 40 mg 02/16/19 06:00 02/17/19 05:44 Paxil PO 40 mg DAILY ANIYAH Administration Polyethylene Glycol 17 gm 02/16/19 06:00 02/17/19 05:56 Miralax PO 17 gm DAILY ANIYAH Administration Senna 1 tablet 02/15/19 18:00 02/16/19 17:18 Senokot PO Not Given BID ANIYAH Sodium Chloride 10 - 20 ml 02/16/19 09:40 IV UD PRN PICC FLUSH Tamsulosin HCl 0.4 mg 02/16/19 06:00 02/17/19 05:44 Flomax PO 0.4 mg DAILY ANIYAH Administration Tramadol HCl 50 mg 02/15/19 16:20 02/16/19 09:22 Ultram PO 50 mg Q6H PRN PRN Administration MODERATE PAIN (4-5/10) Tuberculin PPD 5 tu 02/23/19 10:00 Tubersol, Aplisol, Ppd ID 02/23/19 10:01 X1 ONE Verapamil HCl 240 mg 02/16/19 06:00 02/17/19 05:44 Calan Sr PO 240 mg DAILY ANIYAH Administration Problem List (Last Updated 02/12/19 @ 16:29 by Dale Malik MD) Infection of prosthetic right knee joint (Acute) Right knee pain (Acute) Diabetes mellitus (Chronic) Chronic obstructive pulmonary disease (Chronic) Osteoarthritis of right knee (Chronic) Depression (Chronic) Allergic rhinitis (Chronic) BPH (benign prostatic hyperplasia) (Chronic) Insomnia (Chronic) Vital Signs Temp Pulse Resp BP Pulse Ox 98.2 F 74 20 H 138/73 H 95 02/16/19 16:00 02/16/19 16:00 02/16/19 16:00 02/16/19 16:00 02/16/19 16:00 Oxygen Flow Rate (L/min) 2 Oxygen Delivery Method Nasal Cannula Weight: 136.645 kg Body Mass Index (BMI) 47.2 Finger Stick Blood Glucose 114 Sodium 139 mmol/L (136-145) 02/16/19 07:35 Potassium 5.1 mmol/L (3.5-5.1) 02/16/19 07:35 Chloride 107 mmol/L (98-107) 02/16/19 07:35 Carbon Dioxide 26.0 mmol/L (21.0-32.0) 02/16/19 07:35 Anion Gap 6 (5-15) 02/16/19 07:35 BUN 32 mg/dL (7-18) H 02/16/19 07:35 Creatinine 1.79 mg/dL (0.70-1.30) H 02/16/19 07:35 Est GFR (MDRD) Af Amer 49 mL/min (>60) L 02/16/19 07:35 Est GFR (MDRD) Non-Af 40 mL/min (>60) L 02/16/19 07:35 BUN/Creatinine Ratio 17.9 RATIO (10-20) 02/16/19 07:35 Glucose 125 mg/dL (74-106) H 02/16/19 07:35 Vancomycin Trough 12.7 ug/mL (5.0-15.0) 02/16/19 07:35 Assessment/Plan: Psychotropic Medications: Unnecessary Medications: Bowel Regimen: - Provider Comments Provider responsibility: Provider responsible to enter orders to implement recommendations Provider Comments to Recommendations by Pharmacy: Agree
[2019-02-16 21:26] LABS: Bedside Glucose 95 mg/dL (70-110)
[2019-02-17] MEDS: 0.9% NaCl IVPB Med Flush (250 mL) 15 ML IV (05:38)
[2019-02-17] MEDS: Acetaminophen 500 MG Tablet 1000 MG PO ×3 (05:44→21:03)
[2019-02-17] MEDS: Verapamil SR 240 MG Tablet PO (05:44)
[2019-02-17] MEDS: Tamsulosin HCl 0.4 MG Capsule PO (05:44)
[2019-02-17] MEDS: Levothyroxine 150 MCG Tablet PO (05:44)
[2019-02-17] MEDS: Paroxetine 20 MG Tablet 40 MG PO (05:44)
[2019-02-17] MEDS: Enoxaparin 40 MG/0.4 ML Syringe SC (05:45)
[2019-02-17] MEDS: Polyethylene Glycol 3350 17 GM PACKET PO (05:56)
[2019-02-17 06:05] LABS: Bedside Glucose 112 mg/dL (70-110)
[2019-02-17 06:40] VITALS: O2SAT 94
[2019-02-17] MEDS: Aspirin 81 MG TAB.CHEW PO (08:31)
[2019-02-17] MEDS: oxyCODONE 5 MG Tablet 10 MG PO ×3 (08:36→17:08)
[2019-02-17] MEDS: ALPRAZolam 0.5 MG Tablet 1 MG PO (08:37)
--- NOTE | 2019-02-17 10:42 | NURSING ---
Dr. Nathan office called in regards to consult order for Rt knee infection and ABX maintenance. Reported that resident developed a rash from Keflex and is no longer taking it.
[2019-02-17] MEDS: traMADol 50 MG Tablet PO ×2 (10:53→20:22)
[2019-02-17] MEDS: 0.9% NaCl PICC Flush IV (11:22)
[2019-02-17 11:26] LABS: Bedside Glucose 126 mg/dL (70-110)
--- NOTE | 2019-02-17 13:15 | PCM.PN.ID ---
Patient Problems: Active and Suspected Problems (Last Updated 02/12/19 @ 16:29 by Dale Malik MD) Infection of prosthetic right knee joint (Acute) Right knee pain (Acute) Subjective: Feeling ok, wants to go home, no fever - Physical Exam General: Alert, Cooperative, No apparent distress Lungs: Clear to auscultation, Normal air movement Cardiovascular: Regular rate, Regular Rhythm Abdomen: Soft, Non Tender, Non-Distended Skin: No rashes, Incision - leg wrapped Vital Signs Temp Pulse Resp BP Pulse Ox 98.2 F 74 20 H 138/73 H 95 02/16/19 16:00 02/16/19 16:00 02/16/19 16:00 02/16/19 16:00 02/16/19 16:00 Oxygen Flow Rate (L/min) 2 Oxygen Delivery Method Nasal Cannula Weight: 136.645 kg Body Mass Index (BMI) 47.2 Finger Stick Blood Glucose 114 Intake and Output for Last 24 Hours 02/15/19 02/16/19 02/17/19 23:59 23:59 23:59 Intake Total 180 / 180 960 / 960 240 / 240 Balance 180 / 180 960 / 960 240 / 240 POC Glucose 02/17/19 02/17/19 02/16/19 11:20 05:59 21:09 POC Glucose 126 H 112 H 95 02/16/19 16:56 POC Glucose 99 Medical Necessity - Tobacco Use Smoking Status: Former smoker Tobacco Use: Non-smoker, Cigarettes Route of nutrition/ use of supplements: [] Nutritional Intake: [] IV Site: [] Lake Catheter: [] - Assessment/Plan Antibiotics: [] Assessment/Plan: [] Active and Suspected Problems (Last Updated 02/12/19 @ 16:29 by Dale Malik MD) Infection of prosthetic right knee joint (Acute) Right knee pain (Acute) R knee PJI - Initial debridement done in [place], managed by ID there (Dr. Tatum). Recently developed DEANDRA on bactrim, then itchy rash on keflex. Taken to OR 02/[address] Thompson for spacer placement. Surg cx neg so far. Aspiration cx 01/2019 with msse. Continue vanc. Cr stable. On iv vanc for 6 week course, stop date 03/26/19, weekly bmp, cbc, esr, and vanc trough while on iv abx. Will follow
[2019-02-17 14:17] VITALS: BP 135/56; PULSE 91; RESP 18; TEMP 36.6; O2SAT 94
--- NOTE | 2019-02-17 15:59 | NURSING ---
Resident does not wear O2 at home. 94% on 2l. Will attempt to wean down. O2 turned down to 1 l/min at this time.
[2019-02-17 17:10] VITALS: O2SAT 98
--- NOTE | 2019-02-17 17:31 | CASEMGMT ---
Social Work SW received phone call from pt stating she does not know why pt is admitted to TCU and she can care for pt at home. SW reveiwed pt medical record and spoke with therapy and pt. Return call to pt explaining pt is requiring IV ATB Q24 thru 03/26 and pt is benefiting from PT/OT for right knee infection, knee immobilizer. Explained to pt how pt is doing functionally with therapy. Pt and feel that pt can manage at home. Pt has had home IV ATB previously and was able to assist and would like to do this again. Pt also had home PT/OT previously and pt and feel this will be adequate treatment. SW explained that home IV ATB will need to be set up with [facility] and home health will need arranged prior to d/c. Pt and agreeable. Possible d/c on Sunday02/19/19. SW will make referral to [facility] and [facility] per request. Plan: Tenative d/c on 02/19 with home IV ATB and Home Health RN/PT/OT SHILPA Martinez
[2019-02-17] MEDS: MELATONIN 10 MG TABLET 5 MG PO (23:17)
[2019-02-18] MEDS: Tamsulosin HCl 0.4 MG Capsule PO (05:34)
[2019-02-18] MEDS: 0.9% NaCl PICC Flush IV ×2 (05:35→21:43)
[2019-02-18] MEDS: Verapamil SR 240 MG Tablet PO (05:35)
[2019-02-18] MEDS: Acetaminophen 500 MG Tablet 1000 MG PO ×3 (05:35→21:42)
[2019-02-18] MEDS: Levothyroxine 150 MCG Tablet PO (05:35)
[2019-02-18] MEDS: Senna Tablet 1 TABLET PO (05:35)
[2019-02-18] MEDS: Enoxaparin 40 MG/0.4 ML Syringe SC (05:36)
[2019-02-18] MEDS: Paroxetine 20 MG Tablet 40 MG PO (05:44)
[2019-02-18 06:35] LABS: Bedside Glucose 117 mg/dL (70-110)
[2019-02-18 06:55] VITALS: O2SAT 94
[2019-02-18] MEDS: Aspirin 81 MG TAB.CHEW PO (08:43)
[2019-02-18] MEDS: ALPRAZolam 0.5 MG Tablet 1 MG PO (08:47)
--- NOTE | 2019-02-18 09:02 | PCM.DC ---
- Discharge Diagnoses Current Active Problems: Current Active and Chronic Problems (Last Updated 02/12/19 @ 16:29 by Dale Malik MD) Infection of prosthetic right knee joint (Acute) Right knee pain (Acute) Diabetes mellitus (Chronic) Chronic obstructive pulmonary disease (Chronic) Osteoarthritis of right knee (Chronic) Depression (Chronic) Allergic rhinitis (Chronic) BPH (benign prostatic hyperplasia) (Chronic) Insomnia (Chronic) You will use the following diet at home:: No restrictions, Regular Your food should be the consistency of: Regular Your liquids should be the consistency of: Regular/Thin Discharge Activity: Return to Normal Activity, Use Walker Weight Bearing Status: Weight bearing as tolerated Call your doctor if you observe: Fever of 101 or Higher, Inability to urinate, Inability to have a bowel movement, Shortness of breath, Chest pain, Uncontrolled pain Allergies/Adverse Reactions: Allergies bacitracin [From Neosporin ([id number])] Allergy (Verified 02/12/19 13:41) Rash bacitracin zinc [From Neosporin ([id number])] Allergy (Verified 02/12/19 13:41) Rash cephalexin [From Keflex] Allergy (Verified 02/12/19 13:41) Rash doxycycline Allergy (Verified 02/12/19 13:41) Rash morphine Allergy (Verified 02/12/19 13:41) Other KIDNEY ISSUES neomycin sulfate [From Neosporin ([id number])] Allergy (Verified 02/12/19 13:41) Rash Penicillins [PCN] Allergy (Verified 02/12/19 13:41) Rash polymyxin B [From Neosporin ([id number])] Allergy (Verified 02/12/19 13:41) Rash Medications to take at Discharge Albuterol Sulfate [Ventolin Hfa] 2 inh INHALATION DAILY PRN 11/10/17 Cyclobenzaprine [Flexeril] 10 mg PO TID PRN 11/10/17 Levothyroxine [Synthroid] 150 mcg PO DAILY 11/10/17 Paroxetine HCl [Paxil] 40 mg PO DAILY 11/10/17 Verapamil [Calan Sr] 1 tab PO DAILY 11/10/17 ALPRAZolam [Xanax] 1 mg PO BID PRN PRN 01/29/19 Fluticasone 0.05% [Flonase Nasal [place]] 2 spray NASAL DAILY PRN 01/29/19 Fluticasone 110 Mcg [Flovent 110 Mcg] 2 puff INHALATION BID 01/29/19 Melatonin 5 mg PO QHS PRN 01/29/19 Tamsulosin HCl [Flomax] 0.4 mg PO DAILY 01/29/19 Acetaminophen [Tylenol] 1,000 mg PO Q8 02/15/19 Vancomycin/0.9 % Sod Chloride [Vanco 1.5 gm/300 ml-0.9% NaCl] 1.5 gm IV Q24H 02/15/19 Aspirin [Aspirin, Baby] 81 mg PO DAILY@0800 tab.chew 02/18/19 Enoxaparin [Lovenox] 40 mg SC DAILY #21 syringe 02/18/19 Fluticasone Prop 100 mcg [Flovent Diskus 100 Mcg] 1 puff INHALATION BID inhaler 02/18/19 Hydrocortisone 2.5% Crm [Hytone] 1 applic TOPICAL BID #1 tube 02/18/19 Oxycodone [Oxyir] 5 - 10 mg PO Q4H PRN PRN 5 Days #60 tab 02/18/19 Polyethylene Glycol 3350 [Miralax] 17 gm PO DAILY #30 packet 02/18/19 Senna [Senokot] 1 tablet PO BID #60 tablet 02/18/19 Vancomycin IV 1,250 mg IV Q24H vial 02/18/19 Vancomycin IV Pharmacy to Dose 1 ea IV X1 PRN each 02/18/19 traMADol [Ultram] 50 mg PO Q6H PRN PRN 7 Days #30 tab 02/18/19 The following prescriptions were given: Oxycodone [Oxyir] 5 - 10 mg PO Q4H PRN PRN 5 Days #60 tab PRN Reason: Mod-Severe Pain (4-10/10) traMADol [Ultram] 50 mg PO Q6H PRN PRN 7 Days #30 tab PRN Reason: Moderate Pain (4-5/10) Enoxaparin [Lovenox] 40 mg SC DAILY #21 syringe Polyethylene Glycol 3350 [Miralax] 17 gm PO DAILY #30 packet Hydrocortisone 2.5% Crm [Hytone] 1 applic TOPICAL BID #1 tube Senna [Senokot] 1 tablet PO BID #60 tablet Primary Care Physician: Chhaya Bills MD [Primary Care Provider] - Please follow up with your Primary Care Physician in: 1 week. Test Results: Test results from this visit will be discussed in further detail at your follow-up appointment, if applicable. Please Follow Up With: Gustavo Middleton PA-C When: 2 weeks. Please Follow Up With: Chhaya Bills MD Please Follow Up With: Ashish Gaines MD When: 2 weeks. Proposed Discharge Date: 02/19/19
--- NOTE | 2019-02-18 09:05 | DS.PCM_ITS ---
Discharge Date and Diagnosis - Problem List Patient Problems: Active and Suspected Problems (Last Updated 02/12/19 @ 16:29 by Dale Malik MD) Infection of prosthetic right knee joint (Acute) Right knee pain (Acute) Date of Admission: 02/15/19 Date of Discharge: 02/19/19 - Primary Discharge Diagnosis Active and Suspected Problems (Last Updated 02/12/19 @ 16:29 by Dale Malik MD) Infection of prosthetic right knee joint (Acute) Right knee pain (Acute) - Secondary Discharge Diagnosis Chronic Problems (Last Updated 02/12/19 @ 16:29 by Dale Malik MD) Diabetes mellitus (Chronic) Chronic obstructive pulmonary disease (Chronic) Osteoarthritis of right knee (Chronic) Depression (Chronic) Allergic rhinitis (Chronic) BPH (benign prostatic hyperplasia) (Chronic) Insomnia (Chronic) History of total bilateral knee replacement (TKR) (Chronic) Hypothyroidism (Chronic) Benzodiazepine dependence (Chronic) Hypertension (Chronic) Osteoarthritis (Chronic) Morbid obesity (Chronic) Chronic anxiety (Chronic) Former smoker (Chronic) Status post total right knee replacement (Chronic) 11/05/[address] Jase Lopez at [facility] Course and Treatment Imaging Results: 02/15/19 13:55 Diet: Calorie Controlled Type of Dietary Supplement:: Glucerna Shake How many daily calories?: 1800 calorie Labs (Last 48 Hours) 02/16/19 02/16/19 02/16/19 11:04 16:56 21:09 POC Glucose 116 H 99 95 02/17/19 02/17/19 02/18/19 05:59 11:20 06:17 POC Glucose 112 H 126 H 117 H Operations: None Procedures: None Summary of Care Provided: The patient is a 68 year old Male with below past medical history hospitalized for infected right prosthetic knee, underwent explant right total knee with placement of antibiotic spacer 02/12/[address] Thompson, admitted to TCU with debility, here for rehabilitation, strengthening, intravenous antibiotics, prior to discharge home with spouse. Discharge home with spouse, Home Health Services RN/PT/OT, Home IV antibiotics. Patient Problems: Active and Suspected Problems (Last Updated 02/12/19 @ 16:29 by Dale Malik MD) Infection of prosthetic right knee joint (Acute) Right knee pain (Acute) - Physical Exam Vital Signs Temp Pulse Resp BP Pulse Ox 98 F 91 18 135/56 H 98 02/17/19 14:17 02/17/19 14:17 02/17/19 14:17 02/17/19 14:17 02/17/19 17:10 Oxygen Flow Rate (L/min) 1 Oxygen Delivery Method Nasal Cannula Weight: 136.645 kg Body Mass Index (BMI) 47.2 Finger Stick Blood Glucose 114 Intake and Output for Last 24 Hours 02/16/19 02/17/19 02/18/19 23:59 23:59 23:59 Intake Total 960 / 960 480 / 480 1245 / 1245 Output Total 700 / 700 Balance 960 / 960 480 / 480 545 / 545 POC Glucose 02/18/19 02/17/19 06:17 11:20 POC Glucose 117 H 126 H Discharge Diet: No Restrictions Discharge Activity: Return to Normal Activity, Use Walker Weight Bearing Status: Weight bearing as tolerated Call your doctor if you observe: Fever of 101 or Higher, Inability to urinate, Inability to have a bowel movement, Shortness of breath, Chest pain, Uncontrolled pain Home Medications: Medications to take at Discharge Albuterol Sulfate [Ventolin Hfa] 2 inh INHALATION DAILY PRN 11/10/17 Cyclobenzaprine [Flexeril] 10 mg PO TID PRN 11/10/17 Levothyroxine [Synthroid] 150 mcg PO DAILY 11/10/17 Paroxetine HCl [Paxil] 40 mg PO DAILY 11/10/17 Verapamil [Calan Sr] 1 tab PO DAILY 11/10/17 ALPRAZolam [Xanax] 1 mg PO BID PRN PRN 01/29/19 Fluticasone 0.05% [Flonase Nasal [place]] 2 spray NASAL DAILY PRN 01/29/19 Fluticasone 110 Mcg [Flovent 110 Mcg] 2 puff INHALATION BID 01/29/19 Melatonin 5 mg PO QHS PRN 01/29/19 Tamsulosin HCl [Flomax] 0.4 mg PO DAILY 01/29/19 Acetaminophen [Tylenol] 1,000 mg PO Q8 02/15/19 Vancomycin/0.9 % Sod Chloride [Vanco 1.5 gm/300 ml-0.9% NaCl] 1.5 gm IV Q24H 02/15/19 Aspirin [Aspirin, Baby] 81 mg PO DAILY@0800 tab.chew 02/18/19 Enoxaparin [Lovenox] 40 mg SC DAILY #21 syringe 02/18/19 Fluticasone Prop 100 mcg [Flovent Diskus 100 Mcg] 1 puff INHALATION BID inhaler 02/18/19 Hydrocortisone 2.5% Crm [Hytone] 1 applic TOPICAL BID #1 tube 02/18/19 Oxycodone [Oxyir] 5 - 10 mg PO Q4H PRN PRN 5 Days #60 tab 02/18/19 Polyethylene Glycol 3350 [Miralax] 17 gm PO DAILY #30 packet 02/18/19 Senna [Senokot] 1 tablet PO BID #60 tablet 02/18/19 Vancomycin IV 1,250 mg IV Q24H vial 02/18/19 Vancomycin IV Pharmacy to Dose 1 ea IV X1 PRN each 02/18/19 traMADol [Ultram] 50 mg PO Q6H PRN PRN 7 Days #30 tab 02/18/19 Following Prescrptions Were Given to Patient: Oxycodone [Oxyir] 5 - 10 mg PO Q4H PRN PRN 5 Days #60 tab PRN Reason: Mod-Severe Pain (4-10/10) traMADol [Ultram] 50 mg PO Q6H PRN PRN 7 Days #30 tab PRN Reason: Moderate Pain (4-5/10) Enoxaparin [Lovenox] 40 mg SC DAILY #21 syringe Polyethylene Glycol 3350 [Miralax] 17 gm PO DAILY #30 packet Hydrocortisone 2.5% Crm [Hytone] 1 applic TOPICAL BID #1 tube Senna [Senokot] 1 tablet PO BID #60 tablet Primary Care Physician: Chhaya Bills MD [Primary Care Provider] - Please follow up with your Primary Care Physician in: 1 week. Please Follow Up With: Gustavo Middleton PA-C When: 2 weeks. Please Follow Up With: Chhaya Bills MD Please Follow Up With: Ashish Gaines MD When: 2 weeks. Disposition: Home with Home Health Minutes spent on discharge:: 35 Patient Condition:: Stable Medical Necessity - Tobacco Use Smoking Status: Former smoker Tobacco Use: Non-smoker, Cigarettes Meaningful Use Info Meaningful Use Diagnoses (Choose all that apply): None applicable
--- NOTE | 2019-02-18 09:05 | PCM.PN.HH ---
Home Health Note - Plan Overview of reason of hospitalization: The patient is a 68 year old Male with below past medical history hospitalized for infected right prosthetic knee, underwent explant right total knee with placement of antibiotic spacer 02/12/[address] Thompson, admitted to TCU with debility, here for rehabilitation, strengthening, intravenous antibiotics, prior to discharge home with spouse. Discharge home with spouse, Home Health Services RN/PT/OT, Home IV antibiotics. Problems: Patient was seen for (Last Updated 02/12/19 @ 16:29 by Dale Malik MD) Infection of prosthetic right knee joint (Acute) Right knee pain (Acute) Diabetes mellitus (Chronic) Chronic obstructive pulmonary disease (Chronic) Osteoarthritis of right knee (Chronic) Depression (Chronic) Allergic rhinitis (Chronic) BPH (benign prostatic hyperplasia) (Chronic) Insomnia (Chronic) Complete List of Medical Problems (Last Updated 02/12/19 @ 16:29 by Dale Malik MD) Infection of prosthetic right knee joint (Acute) Right knee pain (Acute) Diabetes mellitus (Chronic) Chronic obstructive pulmonary disease (Chronic) Osteoarthritis of right knee (Chronic) Depression (Chronic) Allergic rhinitis (Chronic) BPH (benign prostatic hyperplasia) (Chronic) Insomnia (Chronic) Hyperkalemia (Acute) Acute renal failure (Acute) Prosthetic joint infection (Acute) History of total bilateral knee replacement (TKR) (Chronic) Hypothyroidism (Chronic) Benzodiazepine dependence (Chronic) Hypertension (Chronic) Osteoarthritis (Chronic) Morbid obesity (Chronic) Chronic anxiety (Chronic) Former smoker (Chronic) Status post total right knee replacement (Chronic) - Requirements and Reasons Disciplines Needed/Ordered: Senior Care, Physical Therapy Reason for Disciplines: Disease Specific Monitoring/education, Wound Care, Infusion Therapy, Gait Training, Stair Training, Fall Prevention, Home Safety/Equipment Instruction, Balance and/or Posture Training, Transfer Training Related To: Change in Medical Treatment Plan, Limited/Poor Endurance, Physical Impairments, Unsteady Gait/Balance, Fall Risk Patient is unable to leave the home: Without Aid of Supportive Devices (crutches, cane, wheelchair, walker), Without the assistance of another person - Additional Disciplines Additional Disciplines Needed/Ordered: Occupational Therapy
--- NOTE | 2019-02-18 10:12 | CASEMGMT ---
Social Work Call to [facility] and referral faxed for home IV ATB. I to review and return call to . Phone call to Sophie at [facility] and left with referral. to continue to follow for d/c planning. SHILPA Martinez
[2019-02-18] MEDS: oxyCODONE 5 MG Tablet 10 MG PO ×3 (10:29→21:41)
--- NOTE | 2019-02-18 10:53 | PCM.PN.ID ---
Patient Problems: Active and Suspected Problems (Last Updated 02/12/19 @ 16:29 by Dale Malik MD) Infection of prosthetic right knee joint (Acute) Right knee pain (Acute) Subjective: Feeling ok, wants to go home, no fever - Physical Exam General: Alert, Cooperative, No apparent distress Lungs: Clear to auscultation, Normal air movement Cardiovascular: Regular rate, Regular Rhythm Abdomen: Soft, Non Tender, Non-Distended Skin: Ulcer/ Wound - bandaged Vital Signs Temp Pulse Resp BP Pulse Ox 98 F 91 18 135/56 H 98 02/17/19 14:17 02/17/19 14:17 02/17/19 14:17 02/17/19 14:17 02/17/19 17:10 Oxygen Flow Rate (L/min) 1 Oxygen Delivery Method Nasal Cannula Weight: 132.562 kg Body Mass Index (BMI) 47.2 Finger Stick Blood Glucose 114 Intake and Output for Last 24 Hours 02/16/19 02/17/19 02/18/19 23:59 23:59 23:59 Intake Total 960 / 960 480 / 480 1245 / 1245 Output Total 700 / 700 Balance 960 / 960 480 / 480 545 / 545 POC Glucose 02/18/19 02/17/19 06:17 11:20 POC Glucose 117 H 126 H Medical Necessity - Tobacco Use Smoking Status: Former smoker Tobacco Use: Non-smoker, Cigarettes Route of nutrition/ use of supplements: [] Nutritional Intake: [] IV Site: [] Lake Catheter: [] - Assessment/Plan Antibiotics: [] Assessment/Plan: [] Active and Suspected Problems (Last Updated 02/12/19 @ 16:29 by Dale Malik MD) Infection of prosthetic right knee joint (Acute) Right knee pain (Acute) R knee PJI - Initial debridement done in [place], managed by ID there (Dr. Tatum). Recently developed DEANDRA on bactrim, then itchy rash on keflex. Taken to OR 02/[address] Thompson for spacer placement. Surg cx neg so far. Aspiration cx 01/2019 with msse. Continue vanc. Cr stable. On iv vanc for 6 week course, stop date 03/26/19, weekly bmp, cbc, esr, and vanc trough while on iv abx. Wrote rx for home going abx. Will follow. ID followup in 3-4 weeks.
[2019-02-18] MEDS: traMADol 50 MG Tablet PO (13:10)
--- NOTE | 2019-02-18 15:48 | CASEMGMT ---
BIMS and PHQ9 interviews completed on this date for MDS assessment. SHILPA Martinez
[2019-02-18 15:50] VITALS: BP 161/91; PULSE 92; RESP 18; TEMP 36.8; O2SAT 95
--- NOTE | 2019-02-18 16:16 | CHAPLAIN ---
Type of Pastoral Visit _x__ Initial Visit ___ Follow-up Visit ___ On-call Visit ___ General Patient Visit ___ Spiritual Assessment ___ Family Conference ___ Bereavement ___ Rapid Response ___ Code Blue ___ Other (describe below) Pastoral Care Referral From _x__ Patient ___ Family ___ Nurse ___ Physician ___ Computer Technologist ___ Box Cutter ___ Other (describe below) Sacrament/Intervention _x__ Active listening ___ Anointing ___ Christian ___ Bereavement ___ Communion ___ Barbara exploration ___ _x__ Life review _x__ Prayer ___ Reconciliation ___ Sacrament of Sick ___ Supportive presence ___ Wedding ___ Other (describe below) Pastoral Comments
--- NOTE | 2019-02-18 16:39 | CASEMGMT ---
Social Work Call to [facility]. Benefits have not yet been verified. Cynthia will call when referral completed. SW spoke with Sophie at [facility] and they are able to accept pt for home health services PT/OT/RN. Pt notified that still waiting on IV ATBs to be arranged. SHILPA Martinez
[2019-02-19] MEDS: oxyCODONE 5 MG Tablet 10 MG PO (04:53)
[2019-02-19] MEDS: Levothyroxine 150 MCG Tablet PO (04:55)
[2019-02-19] MEDS: Acetaminophen 500 MG Tablet 1000 MG PO (04:55)
[2019-02-19] MEDS: Verapamil SR 240 MG Tablet PO (04:55)
[2019-02-19] MEDS: Enoxaparin 40 MG/0.4 ML Syringe SC (04:56)
[2019-02-19] MEDS: Paroxetine 20 MG Tablet 40 MG PO (04:56)
[2019-02-19] MEDS: Tamsulosin HCl 0.4 MG Capsule PO (04:56)
[2019-02-19 06:27] LABS: Vancomycin, Trough Level 7.3 ug/mL (5.0-15.0)
[2019-02-19 06:31] LABS: Bedside Glucose 130 mg/dL (70-110)
[2019-02-19] MEDS: 0.9% NaCl IVPB Med Flush (250 mL) 15 ML IV (06:34)
[2019-02-19] MEDS: 0.9% NaCl PICC Flush IV (06:41)
[2019-02-19 06:49] VITALS: O2SAT 93
[2019-02-19] MEDS: Aspirin 81 MG TAB.CHEW PO (08:03)
[2019-02-19 09:22] VITALS: BP 153/79; PULSE 95; RESP 20; TEMP 36.6; O2SAT 93
[2019-02-19 09:26] VITALS: RESP 18; O2SAT 93
--- NOTE | 2019-02-19 09:33 | PCM.RX.CS ---
Consult Pharmacy has been consulted to manage selected antiobiotic: Vancomycin Type of Consult: Follow-up Suspected Infection: Other Prior Doses of Antibiotics Received/Current Regimen: currently on 1250mg IV q24h Labs: Sodium 139 mmol/L (136-145) 02/16/19 07:35 Potassium 5.1 mmol/L (3.5-5.1) 02/16/19 07:35 Chloride 107 mmol/L (98-107) 02/16/19 07:35 Carbon Dioxide 26.0 mmol/L (21.0-32.0) 02/16/19 07:35 Anion Gap 6 (5-15) 02/16/19 07:35 BUN 32 mg/dL (7-18) H 02/16/19 07:35 Creatinine 1.79 mg/dL (0.70-1.30) H 02/16/19 07:35 Est GFR (MDRD) Af Amer 49 mL/min (>60) L 02/16/19 07:35 Est GFR (MDRD) Non-Af 40 mL/min (>60) L 02/16/19 07:35 BUN/Creatinine Ratio 17.9 RATIO (10-20) 02/16/19 07:35 Glucose 125 mg/dL (74-106) H 02/16/19 07:35 Vancomycin Trough 7.3 ug/mL (5.0-15.0) 02/19/19 05:20 Goal Trough: 15-20 mcg/mL Pharmacy Plan for Drug Dosing: Trough drawn before this morning's dose was 7.3 mg/L. Since this is well below the goal trough range of 15-20, would normally recommend the dose to be increased. However, the patient is about to be discharged in a few minutes. Spoke with the patient's nurse who will mention this to the community mental health social worker in case the doctor would want to change the patient's home going prescription or just wait until the next labwork is drawn.
--- NOTE | 2019-02-19 09:41 | PHA.PHARE_ITS ---
Consult Pharmacy has been consulted to manage selected antiobiotic: Vancomycin Type of Consult: Follow-up Suspected Infection: Other Prior Doses of Antibiotics Received/Current Regimen: currently on 1250mg IV q24h Labs: Sodium 139 mmol/L (136-145) 02/16/19 07:35 Potassium 5.1 mmol/L (3.5-5.1) 02/16/19 07:35 Chloride 107 mmol/L (98-107) 02/16/19 07:35 Carbon Dioxide 26.0 mmol/L (21.0-32.0) 02/16/19 07:35 Anion Gap 6 (5-15) 02/16/19 07:35 BUN 32 mg/dL (7-18) H 02/16/19 07:35 Creatinine 1.79 mg/dL (0.70-1.30) H 02/16/19 07:35 Est GFR (MDRD) Af Amer 49 mL/min (>60) L 02/16/19 07:35 Est GFR (MDRD) Non-Af 40 mL/min (>60) L 02/16/19 07:35 BUN/Creatinine Ratio 17.9 RATIO (10-20) 02/16/19 07:35 Glucose 125 mg/dL (74-106) H 02/16/19 07:35 Vancomycin Trough 7.3 ug/mL (5.0-15.0) 02/19/19 05:20 Goal Trough: 15-20 mcg/mL Pharmacy Plan for Drug Dosing: Trough drawn before this morning's dose was 7.3 mg/L. Since this is well below the goal trough range of 15-20, would normally recommend the dose to be increased. However, the patient is about to be discharged in a few minutes. Spoke with the patient's nurse who will mention this to the group social worker in case the doctor would want to change the patient's home going prescription or just wait until the next labwork is drawn.
--- NOTE | 2019-02-19 09:51 | NURSING ---
notified Dr Gaines for new orders on wkly Vanc trough draws. [employer] school social studies tutor updated.
--- NOTE | 2019-02-19 09:53 | CASEMGMT ---
Social Work Phone call to Cynthia at [facility] who is able to provide the IV ATB and supplies at a cost of $56 per week. Drugs and supplies to be delivered today to pt home. ALEXANDRO placed call to Sophie at [facility]. RN to visit pt morning at 8Am for start of care. Plan of care meeting held with pt and present. receiving d/c instructions and eagar to take pt home at this time. ALEXANDRO informed pt and of copay amount and of plan for HHC. They are agreeable. Pt also to receive PT/OT at home. D/C at this time. SHILPA Martinez
--- NOTE | 2019-02-19 10:07 | CASEMGMT ---
Insurance Call to insurance and notified of pt d/c today home with . [facility] PT/OT/RN. [facility] faxed. Auth# [id number] SHILPA Pendleton
--- NOTE | 2019-02-27 08:44 | MDS.RN ---
Information for the mds was obtained from review of the clinical record, interview of resident, staff, and direct observation of resident's care.
== END 2019-02-19 09:42 | disposition home health service (06) | DRG 949 ==
PROVIDERS: Admitting Provider Family Medicine Geriatric Medicine; Family Provider Internal Medicine; PCP Internal Medicine; Visit Provider Family Medicine Geriatric Medicine
DX: T84.53XD Infection and inflammatory reaction due to internal right knee prosthesis, subsequent encounter (principal); Z68.42 Body mass index [BMI] 45.0-49.9, adult; F13.20 Sedative, hypnotic or anxiolytic dependence, uncomplicated; Y83.1 Surgical operation with implant of artificial internal device as the cause of abnormal reaction of the patient, or of later complication, without mention of misadventure at the time of the procedure; Z23 Encounter for immunization; E03.9 Hypothyroidism, unspecified; F32.9 Major depressive disorder, single episode, unspecified; F41.9 Anxiety disorder, unspecified; I10 Essential (primary) hypertension; E11.9 Type 2 diabetes mellitus without complications; J44.9 Chronic obstructive pulmonary disease, unspecified; E66.01 Morbid (severe) obesity due to excess calories; Z87.891 Personal history of nicotine dependence; N40.0 Benign prostatic hyperplasia without lower urinary tract symptoms
CPT/HCPCS: 36415; 80048; 80202; 82962; 85025; 85652; 94640; 97110; 97116; 97162; 97166; 97530; 97535; 97802; J7050; 90670; A4216

== ENCOUNTER 2019-03-06 11:15 | Outpatient (RCR) | payer MEDICARE, SELFPAY ==
[2019-02-24 10:18] LABS: Erythrocyte Sedimentation Rate 38 mm/hr (0-20)
[2019-02-24 10:20] LABS: Hematocrit 34.7 % (40-54); Hemoglobin 10.8 g/dl (13.0-16.5); Mean Corp Hgb Conc 31.1 g/gl (32-36); Mean Corpuscular Hgb 28.7 pg (27.0-32.0); Mean Corpuscular Volume 92.3 fL (80-94); Mean Platelet Vol. 8.3 fl (6.2-12.0); Platelet Count 398 K/mm3 (150-450); RBC Distribution Width CV 14.8 % (11.6-14.6); RBC Distribution Width SD 48.9 fl (35.1-43.9); Red Blood Count 3.76 M/mm3 (4.6-6.2); White Blood Count 11.1 K/mm3 (4.4-11.0)
[2019-02-24 10:21] LABS: Scan Indicated on CBC? Y/N NO
[2019-02-24 10:27] LABS: Anion Gap 6 (5-15); BUN 15 mg/dL (7-18); BUN/Creat Ratio 12.2 RATIO (10-20); Calcium,Total 9.4 mg/dL (8.5-10.1); Chloride 106 mmol/L (98-107); Creatinine, Serum 1.23 mg/dL (0.70-1.30); EST Glomerular Filtration Rate 62 mL/min (>60); Est Glom Filt Rate - Afr Amer 75 mL/min (>60); Glucose 124 mg/dL (74-106); Potassium 4.5 mmol/L (3.5-5.1); Sodium Level 143 mmol/L (136-145)
[2019-02-24 10:28] LABS: Vancomycin, Trough Level 6.9 ug/mL (5.0-15.0)
[2019-03-04 11:22] LABS: Erythrocyte Sedimentation Rate 35 mm/hr (0-20)
[2019-03-04 11:25] LABS: Hematocrit 37.7 % (40-54); Hemoglobin 11.8 g/dl (13.0-16.5); Mean Corp Hgb Conc 31.3 g/gl (32-36); Mean Corpuscular Hgb 28.4 pg (27.0-32.0); Mean Corpuscular Volume 90.8 fL (80-94); Mean Platelet Vol. 8.4 fl (6.2-12.0); Platelet Count 307 K/mm3 (150-450); RBC Distribution Width CV 14.6 % (11.6-14.6); RBC Distribution Width SD 48.6 fl (35.1-43.9); Red Blood Count 4.15 M/mm3 (4.6-6.2); Scan Indicated on CBC? Y/N NO; White Blood Count 12.1 K/mm3 (4.4-11.0)
[2019-03-04 11:33] LABS: Anion Gap 6 (5-15); BUN 22 mg/dL (7-18); BUN/Creat Ratio 17.3 RATIO (10-20); Chloride 105 mmol/L (98-107); Creatinine, Serum 1.27 mg/dL (0.70-1.30); EST Glomerular Filtration Rate 60 mL/min (>60); Est Glom Filt Rate - Afr Amer 73 mL/min (>60); Glucose 122 mg/dL (74-106); Potassium 4.3 mmol/L (3.5-5.1); Sodium Level 140 mmol/L (136-145)
[2019-03-04 12:05] LABS: Vancomycin, Trough Level 9.3 ug/mL (5.0-15.0)
== END 2019-03-07 23:59 ==
LOC: HHLAB 11:15
PROVIDERS: Family Provider Internal Medicine; PCP Internal Medicine; Referring Provider Internal Medicine Infectious Disease; Visit Provider Internal Medicine
DX: R05 Cough (principal); T84.53XA Infection and inflammatory reaction due to internal right knee prosthesis, initial encounter; B95.7 Other staphylococcus as the cause of diseases classified elsewhere
CPT/HCPCS: 80048; 80202; 85027; 85652; 87070; 87077; 87205

== ENCOUNTER 2019-03-17 12:09 | Outpatient (RCR) | payer MEDICARE, SELFPAY ==
[2019-03-10 11:20] LABS: Anion Gap 7 (5-15); BUN 17 mg/dL (7-18); BUN/Creat Ratio 14.9 RATIO (10-20); Calcium,Total 8.8 mg/dL (8.5-10.1); Chloride 108 mmol/L (98-107); Creatinine, Serum 1.14 mg/dL (0.70-1.30); EST Glomerular Filtration Rate 68 mL/min (>60); Est Glom Filt Rate - Afr Amer 82 mL/min (>60); Glucose 105 mg/dL (74-106); Potassium 4.6 mmol/L (3.5-5.1); Sodium Level 145 mmol/L (136-145)
[2019-03-10 11:22] LABS: Vancomycin, Trough Level 8.9 ug/mL (5.0-15.0)
[2019-03-10 11:24] LABS: Erythrocyte Sedimentation Rate 34 mm/hr (0-20)
[2019-03-10 11:25] LABS: Hematocrit 35.2 % (40-54); Hemoglobin 10.7 g/dl (13.0-16.5); Mean Corp Hgb Conc 30.4 g/gl (32-36); Mean Corpuscular Hgb 27.9 pg (27.0-32.0); Mean Corpuscular Volume 91.7 fL (80-94); Mean Platelet Vol. 8.7 fl (6.2-12.0); Platelet Count 271 K/mm3 (150-450); RBC Distribution Width CV 14.6 % (11.6-14.6); RBC Distribution Width SD 48.9 fl (35.1-43.9); Red Blood Count 3.84 M/mm3 (4.6-6.2); White Blood Count 7.1 K/mm3 (4.4-11.0)
[2019-03-10 11:27] LABS: Scan Indicated on CBC? Y/N NO
[2019-03-17 12:27] LABS: Erythrocyte Sedimentation Rate 27 mm/hr (0-20)
[2019-03-17 12:28] LABS: Hematocrit 36.4 % (40-54); Hemoglobin 10.8 g/dl (13.0-16.5); Mean Corp Hgb Conc 29.7 g/gl (32-36); Mean Corpuscular Hgb 27.4 pg (27.0-32.0); Mean Corpuscular Volume 92.4 fL (80-94); Mean Platelet Vol. 8.8 fl (6.2-12.0); Platelet Count 229 K/mm3 (150-450); RBC Distribution Width SD 50.6 fl (35.1-43.9); Red Blood Count 3.94 M/mm3 (4.6-6.2); White Blood Count 9.6 K/mm3 (4.4-11.0)
[2019-03-17 12:29] LABS: Scan Indicated on CBC? Y/N NO
[2019-03-17 12:38] LABS: Vancomycin, Trough Level 17.7 ug/mL (5.0-15.0)
[2019-03-17 12:49] LABS: Anion Gap 5 (5-15); BUN 18 mg/dL (7-18); BUN/Creat Ratio 16.1 RATIO (10-20); Calcium,Total 8.6 mg/dL (8.5-10.1); Chloride 105 mmol/L (98-107); Creatinine, Serum 1.12 mg/dL (0.70-1.30); EST Glomerular Filtration Rate 69 mL/min (>60); Est Glom Filt Rate - Afr Amer 84 mL/min (>60); Glucose 130 mg/dL (74-106); Potassium 4.1 mmol/L (3.5-5.1); Sodium Level 141 mmol/L (136-145)
== END 2019-04-06 23:59 ==
LOC: HHLAB 12:09
PROVIDERS: Family Provider Internal Medicine; PCP Internal Medicine; Referring Provider Internal Medicine Infectious Disease; Visit Provider Internal Medicine
DX: T84.53XA Infection and inflammatory reaction due to internal right knee prosthesis, initial encounter (principal); B95.7 Other staphylococcus as the cause of diseases classified elsewhere; E11.9 Type 2 diabetes mellitus without complications
CPT/HCPCS: 80048; 80202; 85027; 85652

== ENCOUNTER 2019-03-24 11:47 | Outpatient (RCR) | payer MEDICARE, SELFPAY ==
[2019-03-24 13:18] LABS: Hematocrit 40.3 % (40-54); Hemoglobin 12.1 g/dl (13.0-16.5); Mean Corpuscular Hgb 27.2 pg (27.0-32.0); Mean Corpuscular Volume 90.6 fL (80-94); Mean Platelet Vol. 8.4 fl (6.2-12.0); Platelet Count 257 K/mm3 (150-450); RBC Distribution Width CV 14.7 % (11.6-14.6); RBC Distribution Width SD 48.5 fl (35.1-43.9); Red Blood Count 4.45 M/mm3 (4.6-6.2); White Blood Count 7.5 K/mm3 (4.4-11.0)
[2019-03-24 13:19] LABS: Anion Gap 6 (5-15); BUN 15 mg/dL (7-18); BUN/Creat Ratio 12.4 RATIO (10-20); Calcium,Total 8.9 mg/dL (8.5-10.1); Chloride 102 mmol/L (98-107); Creatinine, Serum 1.21 mg/dL (0.70-1.30); EST Glomerular Filtration Rate 64 mL/min (>60); Est Glom Filt Rate - Afr Amer 77 mL/min (>60); Glucose 110 mg/dL (74-106); Potassium 4.2 mmol/L (3.5-5.1); Scan Indicated on CBC? Y/N NO; Sodium Level 142 mmol/L (136-145); Vancomycin, Trough Level 15.6 ug/mL (5.0-15.0)
[2019-03-24 14:27] LABS: Erythrocyte Sedimentation Rate 40 mm/hr (0-20)
== END 2019-04-06 23:59 ==
LOC: HHLAB 11:47
PROVIDERS: Family Provider Internal Medicine; PCP Internal Medicine; Referring Provider Specialist; Visit Provider Specialist
DX: T84.53XA Infection and inflammatory reaction due to internal right knee prosthesis, initial encounter (principal); B95.7 Other staphylococcus as the cause of diseases classified elsewhere; E11.9 Type 2 diabetes mellitus without complications
CPT/HCPCS: 80048; 80202; 85027; 85652

== ENCOUNTER → 2019-03-27 | Outpatient (CLI) | payer MEDICARE, SELFPAY ==
[2019-03-27 15:26] LABS: Absolute Lymphocyte Count 1.07 X10^3/ul (0.83-4.51); Absolute Neutrophil Count 6.4 X10^3/uL (2.0-7.7); Basophil# 0.02 X10^3/uL; Basophil% 0.2 % (0-1); Eosinophil# 0.57 X10^3/uL; Eosinophils% 6.4 % (0-5); Hemoglobin 12.6 g/dl (13.0-16.5); Lymphocyte # 1.07 X10^3/ul (4.0); Lymphocyte % 12.1 % (19-41); Mean Corp Hgb Conc 30.7 g/gl (32-36); Mean Corpuscular Hgb 26.8 pg (27.0-32.0); Mean Platelet Vol. 8.7 fl (6.2-12.0); Monocyte# 0.77 X10^3/uL; Monocyte% 8.7 % (0-10); Neutrophil % 72.1 % (47-70); Platelet Count 319 K/mm3 (150-450); RBC Distribution Width CV 14.7 % (11.6-14.6); RBC Distribution Width SD 46.2 fl (35.1-43.9); Red Blood Count 4.71 M/mm3 (4.6-6.2); White Blood Count 8.9 K/mm3 (4.4-11.0)
[2019-03-27 15:27] LABS: POSITIVE COUNT NO; POSITIVE DIFFERENTIAL NO; POSITIVE MORPHOLOGY NO
[2019-03-27 15:36] LABS: Erythrocyte Sedimentation Rate 23 mm/hr (0-20)
== END | disposition home or self-care (01) ==
LOC: MTLAB 14:41
PROVIDERS: Family Provider Internal Medicine; PCP Internal Medicine; Referring Provider Specialist; Visit Provider Specialist
DX: T84.53XD Infection and inflammatory reaction due to internal right knee prosthesis, subsequent encounter (principal)
CPT/HCPCS: 36415; 85025; 85652; 86140

== ENCOUNTER → 2019-04-09 | Outpatient (CLI) | payer MEDICARE, SELFPAY ==
[2019-04-09 12:45] LABS: Erythrocyte Sedimentation Rate 8 mm/hr (0-20)
[2019-04-09 12:49] LABS: Absolute Lymphocyte Count 0.93 X10^3/ul (0.83-4.51); Basophil# 0.04 X10^3/uL; Basophil% 0.7 % (0-1); Eosinophil# 0.38 X10^3/uL; Eosinophils% 6.3 % (0-5); Hematocrit 43.8 % (40-54); Hemoglobin 13.8 g/dl (13.0-16.5); Lymphocyte # 0.93 X10^3/ul (4.0); Lymphocyte % 15.5 % (19-41); Mean Corp Hgb Conc 31.5 g/gl (32-36); Mean Corpuscular Hgb 26.8 pg (27.0-32.0); Mean Corpuscular Volume 85.2 fL (80-94); Mean Platelet Vol. 9.6 fl (6.2-12.0); Monocyte# 0.62 X10^3/uL; Monocyte% 10.4 % (0-10); Neutrophil # 3.99 X10^3/uL (2.7-7.7); Neutrophil % 66.6 % (47-70); Platelet Count 290 K/mm3 (150-450); RBC Distribution Width CV 14.4 % (11.6-14.6); RBC Distribution Width SD 44.4 fl (35.1-43.9); Red Blood Count 5.14 M/mm3 (4.6-6.2)
[2019-04-09 12:54] LABS: POSITIVE COUNT NO; POSITIVE DIFFERENTIAL NO; POSITIVE MORPHOLOGY NO
== END | disposition home or self-care (01) ==
LOC: MTLAB 10:38
PROVIDERS: Family Provider Internal Medicine; PCP Internal Medicine; Referring Provider Specialist; Visit Provider Specialist
DX: T84.53XD Infection and inflammatory reaction due to internal right knee prosthesis, subsequent encounter (principal)
CPT/HCPCS: 36415; 85025; 85652; 86140

== ENCOUNTER 2019-05-07 11:07 | Inpatient (IN) | payer MEDICARE, SELFPAY ==
[2019-04-28 13:50] LABS: Hematocrit 47.2 % (40-54); Hemoglobin 14.8 g/dL (13.0-16.5); Mean Corp Hgb Conc 31.4 g/dL (32-36); Mean Corpuscular Hgb 27.2 pg (27.0-32.0); Mean Corpuscular Volume 86.8 fL (80-94); Mean Platelet Vol. 9.3 fl (6.2-12.0); Platelet Count 263 K/mm3 (150-450); RBC Distribution Width CV 14.1 % (11.6-14.6); RBC Distribution Width SD 44.7 fl (35.1-43.9); Red Blood Count 5.44 M/mm3 (4.6-6.2); White Blood Count 9.4 K/mm3 (4.4-11.0)
[2019-04-28 14:06] LABS: Anion Gap 8 (5-15); BUN 17 mg/dL (7-18); BUN/Creat Ratio 12.1 RATIO (10-20); Calcium,Total 9.4 mg/dL (8.5-10.1); Chloride 103 mmol/L (98-107); EST Glomerular Filtration Rate 54 mL/min (>60); Est Glom Filt Rate - Afr Amer 65 mL/min (>60); Glucose 130 mg/dL (74-106); Potassium 4.2 mmol/L (3.5-5.1); Sodium Level 141 mmol/L (136-145)
--- NOTE | 2019-04-28 22:00 | HP.PCM_ITS ---
History and Physical History and Physical Patient Name: Vance Gonzalez : 1950 DATE OF SURGERY: 05/07/2019 SCHEDULED PROCEDURE: Right Total Knee Arthroplasty with Explant right knee antibiotic spacer HISTORY OF PRESENT ILLNESS: Preoperative history and physical exam was performed on April 28, 2018. This is a 68-year-old male who currently underwent removal of total knee arthroplasty with placement of antibiotic spacer on February 12, 2019. Patient had initial right total knee arthroplasty by Dr. Jase Lopez on June 25, 2017. Patient had a second surgery with a right knee irrigation and debridement with polyethylene exchange on March 25, 2019. Patient had bilateral antibiotics following the surgeries and had return of knee pain and swelling once completion of the antibiotics. Aspiration was done which was consistent with infection. Patient then proceeded with the antibiotic spacer. Patient had a 6 week IV antibiotics postoperatively followed by antibiotic holiday. Patient had lab work which did show ESR and CRP trending down. Patient has been followed by the primary care physician for his kidney function. Patient has been using [id number] ibuprofen which the primary care has Half. He does continue to have pain in the right knee and is ready for this upcoming surgery. He denies any new trauma or injury. He has been using a walker for ambulatory assistance. After discussion with Dr. Jalen Thompson, the patient does wish to proceed with explant right knee antibiotic spacer with placement of right total knee arthroplasty. Patient has medical history pertinent for type 2 diabetes mellitus, COPD, kidney disease, hypertension. REVIEW OF SYSTEMS: ROS: Const: Denies change in appetite, fever and weight change. CV: Denies chest pain, heart murmur and irregular heartbeat. Resp: Denies cough, pneumonia, shortness of breath, tuberculosis and wheezing. GI: Denies constipation, diarrhea, heartburn, nausea, rectal itching, bloody stools and vomiting. : Denies incontinence. Musculo: Reports leg swelling, pain and trouble walking, but denies weakness. Skin: Reports tattoo, but denies Raynaud's and history of shingles. Neuro: Reports tremor but denies ambulatory dysfunction, dizziness and numbness/tingling. Psych: Reports anxiety, but denies insomnia and stress. Dylan/Lymph: Reports anemia, but denies bleeding/bruising tendency and past transfusion. Reviewed and updated. PAST MEDICAL HISTORY: Advance Care Plan: No Advance Directives Effective Date: 07/04/2017 PMH: Medical Problems: Arthritis, High Blood Pressure Thyroid Disease - THYROID REMOVED Diabetes, [place] Obstructive Pulmonary Disease (COPD), Kidney Disease/Renal Failure Accidents: Fracture - LT FOOT RT ARM Surgical Hx: LT Leg, LT Foot, RT Leg Knee Replacement RT - (06/25/2017) [email or web address] LT TKR - (11/05/2017) TANJA @ [facility] RT Knee I&D W/Poly Exchange - (03/25/2018) TANJA @ [facility] RT Knee Antibiotic Spacer - (02/12/2019) [email or web address] Anesthesia Complications: Mental Impairment Assistive Devices: Glasses, Dentures, Walker Reviewed and updated. SOCIAL HISTORY: SH: Marital: .Occupation: Retired.Work Status: Retired.Hand Dominance: Right-handed. Personal Habits: Smoking: Patient is a former smoker.Cigarette Use: Former Cigarette Smoker.Smokeless Tobacco: Current Smokeless Tobacco User.E-Cigarette Use: Never used.Alcohol: Has consumed alcohol in the past.Drug Use: Denies Use.Enjoy Exercising: Never Exercises. Reviewed, no changes. VITALS: Ht: 66 Wt: 285lb Wt k.276 BMI: 46.0 BP: 124/89 Pulse: 100 Resp: 28 T: 98.2 T: 36.8C ALLERGIES: Neosporin Penicillin MEDICATIONS: Brimson 5-325 mg 1-2 by mouth every 6 hour as needed pain, Paroxetine HCL 40 mg 1 tab PO daily, Fluticasone Propionate 50 mcg/Act 2 sprays each nostril daily, Alprazolam 1 mg one PO daily, Tamsulosin HCL 0.4 mg 1po qday, Furosemide 20 mg 1 tab PO every other day, Flovent HFA 110 mcg/Act 2 puffs PO bid, Levothyroxine Sodium 150 mcg 1 tab PO daily, Verapamil HCL ER 240 mg 1 cap PO daily, Ventolin HFA 108 (90 Base) mcg/Act 2 puffs PO every hour prn, Stool Softener 2 caps PO qhs, Melatonin 5 mg 1 cap PO qhs, Triamcinolone Acetonide 0.5 % aad to rash, Tyl enol Extra Strength 500 mg 2 by mouth every 8 hours, Ibuprofen 200 200 mg 2po bid, Iron 24 MG 1 tab PO every other day, Oxygen as directed PRE-OP EXAM: General appearance:NORMAL Other: Eyes: Conjunctivae and lids: NORMAL Pupils: ERR Ears, Nose, Mouth, and Throat: NORMAL Other: Inspection of lips, teeth and gums: NORMAL Other: Neck: Examination of neck: no masses noted. Respiratory: Assessment of respiratory effort: NORMAL Other: Auscultation of lungs: clear to auscultation no wheezes, rhonchi or rales. Cardiovascular: Auscultation of heart: regular rate and rhythm, no murmurs, gallops or rubs. Gastrointestinal: Exam of abdomen: soft, nontender, nondistended bowel sounds present. PHYSICAL EXAMINATION: Patient walks with use of walker for ambulatory assistance. Patient's right knee incision is well-healed without erythema. Patient does have moderate swelling to the right knee. Range of motion right knee: Lacks 10 of full extension to 105 flexion. Sensation intact to light touch. Neurovascularly intact. IMAGING STUDIES: Previous x-ray of the right knee shows a stable well aligned antibiotic spacer with polyethylene tibia. IMPRESSION: 1. Right knee antibiotic spacer 2. Hypertension 3. Chronic obstructive pulmonary disease 4. Type 2 diabetes mellitus 5. Kidney disease 6. Thyroid disease PLAN: Dr. Jalen Thompson did discuss and review with the patient all treatment options including surgical versus nonsurgical options. Patient does wish to proceed with the above-stated procedure. Potential risks, benefits, and complications of the procedure were discussed in detail including but not limited to , infection, nerve and blood vessel damage, persistent pain, numbness, tingling, paresthesias, blood clot, pulmonary embolism, and requirement for possible further surgery. The patient expressed full understanding and has no further questions for the doctor. Patient does agree to proceed with the above-stated procedure and has signed the surgery consent form. This dictation was created using voice recognition software. Phonetic and/or grammatical errors may exist.. ___ I have re-examined the patient. There are no clinical changes since date of exam. ___ See progress notes for changes. ___ Dictated on admission Date: Time: Signature:
[2019-04-29 10:26] VITALS: BP 119/72; PULSE 89; RESP 18; TEMP 36.3; O2SAT 96; BMI 45.2
[2019-04-29 11:09] LABS: Absolute Lymphocyte Count 1.16 X10^3/uL (0.83-4.51); Basophil# 0.07 X10^3/uL; Basophil% 0.7 % (0-1); Eosinophil# 0.35 X10^3/uL; Eosinophils% 3.7 % (0-5); Lymphocyte # 1.16 X10^3/ul (4.0); Lymphocyte % 12.4 % (19-41); Monocyte# 0.77 X10^3/uL; Monocyte% 8.2 % (0-10); NRBC Flagged by Analyzer 0 % (0-5); Neutrophil # 6.95 X10^3/uL (2.7-7.7); Neutrophil % 74.1 % (47-70)
[2019-04-29 11:30] LABS: Thyroid Stim Hormone (TSH) 2.24 uIU/mL (0.358-3.74)
[2019-05-07] VITALS (9 sets, daily range): BP systolic 105–161; BP diastolic 55–93; PULSE 75–100; RESP 16–20; TEMP 36–36.8; O2SAT 94–99; BMI 43.8
[2019-05-07 11:35] LABS: Bedside Glucose 168 mg/dL (70-110)
[2019-05-07] MEDS: Magnesium Sulfate 4gm/100mL 4 GM/100 ML IV.SOLN. IV (11:48)
[2019-05-07] MEDS: Acetaminophen 500 MG Tablet 1000 MG PO ×2 (11:48→20:59)
[2019-05-07] MEDS: Gabapentin 600 MG Tablet PO (11:48)
[2019-05-07] MEDS: Scopolamine 1mg/72hr Patch 1 PATCH TRANSDERM. (11:50)
--- NOTE | 2019-05-07 16:36 | RAD_ITS ---
STUDY: X-RAY - RIGHT KNEE REASON FOR EXAM: Male, 68 years old. Postoperative TECHNIQUE: 2 view(s) of the knee. COMPARISON: X-ray right knee February 12, 2019 FINDINGS: Total right knee arthroplasty is placed. There is no evidence of complication. There is no radiology foreign body. RAD/Knee 1 or 2 Views IMPRESSION: Right knee arthroplasty as above. Electronically Signed: Peyman Haynes, at 17:41 EDT Tel , Service support ,
--- NOTE | 2019-05-07 17:08 | OP.PCM_ITS ---
Report of Operation Date of Procedure: 05/07/19 Pre-Operative Diagnosis: Right total knee infection, previous placement of temporary knee replacement and nonbiodegradable antibiotic delivery system Post-Operative Diagnosis: Right total knee infection, previous placement of temporary knee replacement and nonbiodegradable antibiotic delivery system Surgery/Procedure Performed:: Right knee removal of nonbiodegradable antibiotic delivery system. Right knee revision total knee replacement entire femur and tibia Description of Surgical Findings:: Stable knee with good patella tracking auto service instructor: Gustavo Middleton Type of Anesthesia:: Spinal Anesthesiologist: Ellis Croft Special Medications: 900 mg Cleocin, 1 g TXA at incision, 1 g TXA closure, 10 mg Decadron, joint cocktail (5 mg Duramorph, 30 mL of 0.5% Ropivicaine, 1000 units of epinephrine, 30 mg of Toradol). 600 mg Cleocin after 2-1/2 hours from incision Specimen's removed: 3 Separate specimens were sent to microbiology Estimated Blood Loss (mL): 150 mL Fluids Replaced: 1 L crystalloid Description of Procedure: On the date of the procedure patient's right knee was marked in the preoperative area. Patient was brought back to the operating room with her transferred to the table in the supine position. Anesthesia assumed control of the C-spine and airway and remained controlled throughout the remainder the procedure. All bony prominences were identified well-padded. A bump was placed underneath the right hip and tourniquet was placed on the right upper thigh. Right lower extremity was then prepped in a sterile fashion while surgeon scrubbed. Upon reentering the room the right lower extremity was draped in a standard orthopedic fashion incision was marked out and a timeout was called and everyone agreed upon the side, the site, the procedure performed, patient's identity and antibiotics given. After everyone agreed on the timeout Esmarch bandage was used to exsanguinate the extremity and tourniquet was placed up to 250 mmHg. Incision was taken down through skin subtenons tissue fat down to fascia. Once we identified some normal structures proximally due to multiple previous surgeries we then raised medial and lateral flaps as appropriate until we were able to visualize the extensor mechanism. A standard medial parapatellar arthrotomy was made. Knee was placed in extension and we began an aggressive synovectomy. We started in the medial gutter then to the suprapatellar pouch then to the lateral gutter. After appropriate releases were done and appropriate synovectomy was performed he was flexed up and the tibial component was removed. This was done using an osteotome. Once this was done we remove the cement fixing the polyethylene tibial component. We removed some membrane and sent for culture. At this time with the knee flexed up and osteotome was used to break up the bone cement interface and the femoral component was removed from the knee with a bone tamp. Once this was done we then remove the nonbiodegradable antibiotic delivery cement rods from the femoral canal and the tibial canal. Once this was completed a bur was used to remove all the membrane off the distal femur proximal tibia. We then debrided out the canals. We use an extra medullary guide to cut the tibia and using a drop fuad we verified it was perpendicular to the chemical axis and with appropriate slope. Once this was done we then reamed both femoral and tibial canals. Tibia was reamed to a 15 femoral canal was reamed to a 17. With the canal reamer in the tibial canal we then reamed for the appropriate tibial cone size B. A size B trial was placed. The size 5 tibial baseplate was sized and after find this to be the appropriate size the keel was punched in the size 5 tibial tray was put into place. We then directed our attention back to the femur. The TC G femoral cutting guide was placed down the femoral canal using the medial epicondyle to set the joint line. Once this was done it was pinned into place for allowable rotation to obtain the appropriate external rotation. This was done with a 17 mm x 100 mm press-fit stem. The knee was taken through range of motion with a size 22 polyethylene trial and after we were happy with the balance of the knee and position of the size 5 component we pinned it into place. We cut for 5 mm distal augments medially and laterally as well as 5 mm posterior augments medially and laterally. Once this was done the trial components were assembled and the trial femur was put into place. Knee was taken through range of motion with 22 mm TS polyethylene and found to be stable with good extension good flexion and good stability throughout range of motion. The patella tracked slightly laterally. We continued with the raising the superficial lateral flaps and this helped mobilize the patella more. Patella was then everted and a 32 mm patella guide was used to drill the lug holes for a press-fit patella. Once this was done all trial components were removed from the knee and the wound was copiously irrigated out with 6 L of normal saline under low-pressure lavage. Once this was completed bone ends were dried cement restrictors were placed in the femur and tibia at the appropriate length. Final components were verified opened and assembled and cement was mixed. Tibial cone was impacted into place and once cement was ready we pressurized the tibial canal and cemented the tibia into place. Once excess cement was removed trial polyethylene was put into place and the knee was flexed. Femoral canal was pressurized with cement and femoral component was impacted into place. 16mm trial polyethylene component was removed and 22 mm trial polyethylene component was put into place knee was placed in extension. All excess cement was removed. Patella was everted and press-fit patella was pressed into place. Knee was held in extension while cement cured. Once cement was cured the tourniquet was let down. Hemostasis was obtained. Knee was taken through range of motion. There was still mild lateral tightness at this time we did a partial thickness lateral release which improved patella tracking. A 1 L Irricept lavage was performed for 1 minute and then the wound was copiously irrigated out normal saline. Once hemostasis was obtained the proximal portion of the arthrotomy was closed using #2 FiberWire the distal portion was closed using #1 Vicryl. The deep layers were closed with #1 Vicryl. Skin was closed with 2-0 Vicryl and final skin closure was done with gray. Sterile dressing was placed. A compressive dressing was placed. Patient was awakened by anesthesia and transferred to the PACU for recovery. Postop plan for this patient aspirin for DVT prophylaxis, weightbearing as tolerated, activity as tolerated. Patient will follow-up in the office in 2 weeks. My physician assistant to the ceo was a vital part of this case. He was important in appropriate retraction during the case, and protection of soft tissues during bony cuts. His intimate knowledge of the case and my steps aided in safe and expedient completion of the procedure as well as appropriate position of the leg during the case. He was also vital in assisting with closure under my direct supervision. Grafts/Implants Used: [place] triathlon total knee - Complications No intraoperative complications - Admit VTE Documentation VTE Present on Admission: No VTE Mechan Device Prophylaxis: SCD's, Thigh High ALBERT Hose VTE Pharm Prophylaxis ordered?: Yes
[2019-05-07] MEDS: Lactated Ringers 1,000 ML 999 ML IV (17:10)
[2019-05-07 17:41] LABS: Bedside Glucose 174 mg/dL (70-110)
[2019-05-07] MEDS: Aspirin 81 MG TAB.CHEW PO (18:36)
[2019-05-07] MEDS: oxyCODONE 5 MG Tablet PO ×2 (18:37→22:49)
--- NOTE | 2019-05-07 19:41 | NURSING ---
Dr. Rodriguez called on another pt and I asked him if he knew who was seeing this pt as a consult. He asked Dr. Ayala if he was (must have been sitting beside him) and he responded yes.
[2019-05-07] MEDS: Albuterol 2.5 MG/3 ML VIAL.NEB. INHALATION (19:57)
[2019-05-07] MEDS: Budesonide Respules 0.5 MG/2 ML AMPUL.NEB. INHALATION (19:57)
[2019-05-07] MEDS: cycloBENZAPRine HCl 10 MG Tablet PO (20:32)
[2019-05-07] MEDS: ALPRAZolam 0.5 MG Tablet 1 MG PO (20:32)
[2019-05-07] MEDS: Lactated Ringers 1,000 ML 125 ML IV (20:58)
[2019-05-07] MEDS: Senna/Docusate Sodium 1 Tablet 2 TABLET PO (20:59)
[2019-05-07] MEDS: oxyCODONE HCl Cr 10 MG Tablet PO (20:59)
--- NOTE | 2019-05-07 21:31 | PCM.CONS.B ---
Problem List (1) Acute and chronic respiratory failure with hypoxia Status: Chronic - Consult Date of Consult: 05/07/19 68-year-old male who underwent knee surgery today. Medicine consulted for routine medical management. Informed by nurse that patient was hypoxic on normal lung examination had diminished air entry. Patient has a history of COPD/emphysema. I also suspect he may have obstructive sleep apnea that has been up to now undiagnosed. Patient states he feels fine and is not short of breath. Denies any distress or any pain Physical examination General examination. Middle-aged man morbidly obese not in any obvious distress. Lung examination. Barrel-shaped chest. Markedly diminished air entry and breath sounds. Heart examination. Lung sounds are barely heard and are quite distant. Assessment and plan 1. Acute on chronic hypoxic respiratory failure. Suspect secondary to atelectasis following general anesthesia occurring on top of known COPD/emphysema. Strongly encouraged to use incentive spirometry. Will give breathing treatments scheduled every 4 hours. Mucolytic's with Mucinex. Continue oxygen supplementation. Next 2. Type 2 diabetes. A1c of 6.0. This is quite well controlled. Will continue current regimen of anti-diabetic treatment. 3. Hypertension. Well-controlled. Will continue antihypertensives. 4. Morbid obesity. Lifestyle modifications. 5. Possible obstructive sleep apnea. Upon discharge she will be evaluated with the polysomnograph. - Reason for Consult 68-year-old male Code Visit Office Visits / Consults: [id number] IP Consult L5
[2019-05-07] MEDS: guaiFENesin 1,200 MG Tablet 1200 MG PO (22:34)
[2019-05-07] MEDS: MELATONIN 10 MG TABLET 5 MG PO (22:49)
--- NOTE | 2019-05-07 23:08 | NURSING ---
stood at bedside with 2 staff assist, used walker to take a few steps tolerated well. returned to bed
[2019-05-08] VITALS (17 sets, daily range): BP systolic 141–168; BP diastolic 75–89; PULSE 86–103; RESP 18–20; TEMP 36.4–37.1; O2SAT 89–99
[2019-05-08] MEDS: oxyCODONE 5 MG Tablet PO ×5 (03:34→20:16)
[2019-05-08] MEDS: Ipratropium/Albuterol Sulfate 3 ML AMPUL.NEB INHALATION ×5 (03:51→22:37)
[2019-05-08] MEDS: Levothyroxine 150 MCG Tablet PO (05:52)
[2019-05-08] MEDS: Acetaminophen 500 MG Tablet 1000 MG PO ×3 (05:52→21:35)
[2019-05-08] MEDS: cycloBENZAPRine HCl 10 MG Tablet PO ×3 (05:52→21:34)
[2019-05-08 06:27] LABS: Hematocrit 44.5 % (40-54); Hemoglobin 13.9 g/dL (13.0-16.5); Mean Corp Hgb Conc 31.2 g/dL (32-36); Mean Corpuscular Hgb 27.9 pg (27.0-32.0); Mean Corpuscular Volume 89.4 fL (80-94); Mean Platelet Vol. 9.7 fl (6.2-12.0); Platelet Count 244 K/mm3 (150-450); RBC Distribution Width SD 45.5 fl (35.1-43.9); Red Blood Count 4.98 M/mm3 (4.6-6.2); White Blood Count 20.4 K/mm3 (4.4-11.0)
[2019-05-08 06:46] LABS: Anion Gap 9 (5-15); BUN 27 mg/dL (7-18); Calcium,Total 8.5 mg/dL (8.5-10.1); Chloride 101 mmol/L (98-107); Creatinine, Serum 1.69 mg/dL (0.70-1.30); EST Glomerular Filtration Rate 43 mL/min (>60); Est Glom Filt Rate - Afr Amer 52 mL/min (>60); Estimated Creatinine Clearance 39.66 ml/min; Glucose 171 mg/dL (74-106); Potassium 5.2 mmol/L (3.5-5.1); Sodium Level 135 mmol/L (136-145)
[2019-05-08] MEDS: Furosemide 20 MG Tablet PO (07:53)
[2019-05-08] MEDS: Famotidine 20 MG Tablet PO (07:53)
[2019-05-08] MEDS: Aspirin 81 MG TAB.CHEW PO ×2 (07:53→16:14)
[2019-05-08] MEDS: Paroxetine 20 MG Tablet 40 MG PO (07:54)
[2019-05-08] MEDS: Verapamil SR 240 MG Tablet PO (07:54)
[2019-05-08] MEDS: Senna/Docusate Sodium 1 Tablet 2 TABLET PO ×2 (07:54→21:34)
[2019-05-08] MEDS: Tamsulosin HCl 0.4 MG Capsule PO (07:54)
[2019-05-08] MEDS: guaiFENesin 1,200 MG Tablet 1200 MG PO ×2 (07:55→21:34)
--- NOTE | 2019-05-08 08:52 | PCM.PN.ORT ---
Subjective: The patient was sitting in bedside chair upon examination. Patient denies any chest pain, shortness of breath, dizziness, lightheadedness, nausea or vomiting, or calf pain. Pain is controlled on medications. No adverse overnight events. Patient is requiring 3 L nasal O2 postoperatively. Patient had similar episode after the last surgery when the spacer was placed and was sent to the transitional care unit on oxygen. Patient also states he has oxygen at home from 2 months ago. Patient has not had any formal therapy postoperatively yet. There is small amount of drainage over the distal incision. Objective: Vital signs stable and afebrile. Currently requiring 3 L nasal O2 at 93% O2 saturation Patient is able to plantarflex and dorsiflex actively. Sensation is intact to light touch to saphenous, sural, superficial and deep peroneal, and tibial distribution. Dressing is with quarter size drainage over the distal dressing. Negative Homans bilaterally, negative signs and symptoms of DVT. - Physical Exam General: Alert, Oriented x3, Cooperative, No apparent distress Vital Signs Temp Pulse Resp BP Pulse Ox 97.9 F 98 18 168/79 H 93 05/08/19 08:05 05/08/19 08:05 05/08/19 08:05 05/08/19 08:05 05/08/19 08:30 Oxygen Flow Rate (L/min) 3 Oxygen Delivery Method Nasal Cannula Weight: 127.006 kg Body Mass Index (BMI) 43.8 Finger Stick Blood Glucose 174 Intake and Output for Last 24 Hours 05/06/19 05/07/19 05/08/19 23:59 23:59 23:59 Intake Total 2067 / 2067 846 / 846 Output Total 150 / 150 300 / 300 Balance 1917 / 1917 546 / 546 Laboratory Tests Past 24 Hrs 05/08/19 05/08/19 06:06 06:06 WBC 20.4 H RBC 4.98 Hgb 13.9 Hct 44.5 MCV 89.4 MCH 27.9 MCHC 31.2 L RDW Std Deviation 45.5 H RDW Coeff of Lazara 14.0 Plt Count 244 MPV 9.7 Sodium 135 L Potassium 5.2 H Chloride 101 Carbon Dioxide 25.0 Anion Gap 9 BUN 27 H Creatinine 1.69 H Estim Creat Clear Calc 39.66 Est GFR (MDRD) Af Amer 52 L Est GFR (MDRD) Non-Af 43 L BUN/Creatinine Ratio 16.0 Glucose 171 H Calcium 8.5 POC Glucose 05/07/19 05/07/19 17:36 11:31 POC Glucose 174 H 168 H Medical Necessity - Tobacco Use Smoking Status: Former smoker Assessment/Plan All Active Problems (Last Updated 02/12/19 @ 16:29 by Dale Malik MD) Infection of prosthetic right knee joint (Acute) Right knee pain (Acute) Hyperkalemia (Acute) Acute renal failure (Acute) Prosthetic joint infection (Acute) 1. S/P removal antibiotic spacer with placement of right revision total knee arthroplasty POD #1 2. Continue Pain Medications: Tylenol, OxyIR, OxyContin 3. DVT Prophylaxis: Aspirin 81 mg 4 weeks postoperatively 4. PT/OT: Weightbearing as tolerated with walker 5. H & H: 13.9/44.5, asymptomatic 6. Reactive leukocytosis: Currently 20.4, afebrile. Patient did receive Decadron intraoperatively. We will continue to monitor 7. Encouraged Incentive Spirometry 8. Continue postoperative medical management per medicine: Patient has acute on chronic hypoxic respiratory failure currently requiring 3 L nasal O2 postoperatively. Patient had similar circumstance postoperatively after the antibiotic spacer. Patient may require oxygen on discharge. Case was discussed with hospitalist. Patient also has history of COPD. 9. Disposition: Due to patient's requirement for oxygen and some mild drainage at the distal incision, I would like to keep patient an additional night. If drainage increases with formal physical therapy patient may need to be required to be placed in a knee immobilizer and wound VAC. We will also have to see how patient is doing with possible discharge home with oxygen.
--- NOTE | 2019-05-08 09:27 | PCM.PN.HOSP ---
Subjective: Patient is a 68-year-old gentleman with multiple comorbidities admitted with Right total knee infection, previous placement of temporary knee replacement and nonbiodegradable antibiotic delivery system patient underwent Right knee removal of nonbiodegradable antibiotic delivery system. Right knee revision total knee replacement entire femur and tibia on 05/07/2019. Procedure was performed by Dr. gavin Thompson orthopedic surgery. Consultation was placed to the hospitalist service for management of patient medical comorbidities 05/08/2019: Patient seen complains of some discharge from his incision site. There is been a slight increase in his kidney function from 1.4-1.6. Potassium up to 5.2 Objective: GENERAL: cooperative HEENT: Atraumatic; moist oral mucosa EYES; Anicteric, Normal Conjunctiva NECK; supple, normal thyroid, no distended JVD. RESPIRATORY: Diminished to auscultation bilaterally, CARDIOVASCULAR: Regular S1 S2, no audible murmurs GI: soft, non-tender, normoactive bowel sounds, : No Renal angle tenderness; EXTREMITIES: No edema, no clubbing, no cyanosis. MUSCULOSKELETAL: Right knee in surgical dressing NEURO: Awake; no lateralizing signs. SKIN: No Rash PSYCH; Normal affect Vitals/I&O's: Vital Signs Temp Pulse Resp BP Pulse Ox 97.9 F 98 18 168/79 H 93 05/08/19 08:05 05/08/19 08:05 05/08/19 08:05 05/08/19 08:05 05/08/19 08:30 Oxygen Flow Rate (L/min) 3 Oxygen Delivery Method Nasal Cannula Weight: 127.006 kg Body Mass Index (BMI) 43.8 Finger Stick Blood Glucose 174 Intake and Output for Last 24 Hours 05/06/19 05/07/19 05/08/19 23:59 23:59 23:59 Intake Total 2067 / 2067 846 / 846 Output Total 150 / 150 300 / 300 Balance 1917 / 1917 546 / 546 Laboratory Results 05/07/19 11:31: POC Glucose 168 H 05/07/19 17:36: POC Glucose 174 H 05/08/19 06:06: WBC 20.4 H, RBC 4.98, Hgb 13.9, Hct 44.5, MCV 89.4, MCH 27.9, MCHC 31.2 L, RDW Std Deviation 45.5 H, RDW Coeff of Lazara 14.0, Plt Count 244, MPV 9.7 05/08/19 06:06: Sodium 135 L, Potassium 5.2 H, Chloride 101, Carbon Dioxide 25.0, Anion Gap 9, BUN 27 H, Creatinine 1.69 H, Estim Creat Clear Calc 39.66, Est GFR (MDRD) Af Amer 52 L, Est GFR (MDRD) Non-Af 43 L, BUN/Creatinine Ratio 16.0, Glucose 171 H, Calcium 8.5 Current Medications Acetaminophen (Tylenol) 1,000 mg PO Q8 [facility] Last Admin: 05/08/19 05:52 Dose: 1,000 mg Documented by: Albuterol/Ipratropium (Duoneb) 3 ml INHALATION Q4H.RT [facility] Last Admin: 05/08/19 03:51 Dose: 3 ml Documented by: Alprazolam (Xanax) 1 mg PO BID PRN PRN PRN Reason: ANXIETY/AGITATION Last Admin: 05/07/19 20:32 Dose: 1 mg Documented by: Aspirin (Aspirin, Baby) 81 mg PO BIDCM [facility] Last Admin: 05/08/19 07:53 Dose: 81 mg Documented by: Budesonide (Pulmicort Aerosol) 0.5 mg INHALATION Q12H.RT [facility] Last Admin: 05/07/19 19:57 Dose: 0.5 mg Documented by: Cyclobenzaprine HCl (Flexeril) 10 mg PO TID PRN PRN Reason: PAIN Last Admin: 05/08/19 05:52 Dose: 10 mg Documented by: Famotidine (Pepcid) 20 mg PO DAILY [facility] Last Admin: 05/08/19 07:53 Dose: 20 mg Documented by: Ferrous Sulfate (Ferrous Sulfate) 325 mg PO Q48@0800 [facility] Fluticasone Propionate (Flonase Nasal [place]) 2 spray NASAL DAILY PRN PRN Reason: ALLERGIES Furosemide (Lasix) 20 mg PO DAILY [facility] Last Admin: 05/08/19 07:53 Dose: 20 mg Documented by: Guaifenesin (Mucinex) 1,200 mg PO BID [facility] Last Admin: 05/08/19 07:55 Dose: 1,200 mg Documented by: Hydromorphone HCl (Dilaudid Inj) 1 mg IV Q4H PRN PRN PRN Reason: SEVERE PAIN (6-10/10) Lactated Ringer's () 1,000 mls @ 125 mls/hr IV .Q8H [facility] Last Admin: 05/07/19 20:58 Dose: 125 mls/hr Documented by: Clindamycin Phosphate 600 mg/ (Dextrose) 54 mls @ 100 mls/hr IV Q6H [facility] Stop: 05/08/19 11:03 Last Admin: 05/08/19 03:34 Dose: 100 mls/hr Documented by: Levothyroxine Sodium (Synthroid) 150 mcg PO DAILY@0600 [facility] Last Admin: 05/08/19 05:52 Dose: 150 mcg Documented by: Melatonin (Melatonin) 5 mg PO QHS PRN PRN Reason: SLEEP Last Admin: 05/07/19 22:49 Dose: 5 mg Documented by: Ondansetron HCl (Zofran) 4 mg IV Q8H PRN PRN PRN Reason: NAUSEA Oxycodone HCl (Oxyir) 5 - 10 mg PO Q4H PRN PRN PRN Reason: MOD-SEVERE PAIN () Last Admin: 05/08/19 07:58 Dose: 10 mg Documented by: Oxycodone HCl (Oxycontin) 10 mg PO BID [facility] Last Admin: 05/07/19 20:59 Dose: 10 mg Documented by: Paroxetine HCl (Paxil) 40 mg PO DAILY [facility] Last Admin: 05/08/19 07:54 Dose: 40 mg Documented by: Polyethylene Glycol (Miralax) 17 gm PO DAILY [facility] Last Admin: 05/08/19 07:55 Dose: Not Given Documented by: Promethazine HCl (Phenergan) 12.5 mg IM Q6H PRN PRN; Protocol PRN Reason: NAUSEA/VOMITING Senna/Docusate Sodium (Senokot-S, Lisa-Colace) 2 tablet PO BID [facility] Last Admin: 05/08/19 07:54 Dose: 2 tablet Documented by: Tamsulosin HCl (Flomax) 0.4 mg PO DAILY@0830 [facility] Last Admin: 05/08/19 07:54 Dose: 0.4 mg Documented by: Verapamil HCl (Calan Sr) 240 mg PO DAILY [facility] Last Admin: 05/08/19 07:54 Dose: 240 mg Documented by: Medical Necessity - Tobacco Use Smoking Status: Former smoker Assessment/Plan All Active Problems (Last Updated 02/12/19 @ 16:29 by Dale Malik MD) Infection of prosthetic right knee joint (Acute) Right knee pain (Acute) Hyperkalemia (Acute) Acute renal failure (Acute) Prosthetic joint infection (Acute) Patient is a 68-year-old gentleman with multiple comorbidities admitted with Right total knee infection, previous placement of temporary knee replacement and nonbiodegradable antibiotic delivery system patient underwent Right knee removal of nonbiodegradable antibiotic delivery system. Right knee revision total knee replacement entire femur and tibia on 05/07/2019. Procedure was performed by Dr. alonso [facility] orthopedic surgery. Consultation was placed to the hospitalist service for management of patient medical comorbidities 1. Status post Right knee removal of nonbiodegradable antibiotic delivery system. Right knee revision total knee replacement entire femur and tibia on 05/07/2019 on account of Right total knee infection, previous placement of temporary knee replacement and nonbiodegradable antibiotic delivery system procedure was performed by Dr. Larson. Patient postoperative orders regarding pain management DVT prophylaxis as well as PT OT defer to primary service 2. Acute respiratory insufficiency suspected to be secondary to multiple factors including patient underlying COPD/emphysema as well as obesity hypoventilation syndrome and atelectasis following surgery did encourage the use of incentive spirometry. Patient was placed on oxygen titrated to keep saturation greater than 90 also ordered chest x-ray for subsequent evaluation 3. Chronic hypoxic respiratory failure secondary to COPD/ emphysema did continue patient aerosol treatment 4. Diabetes mellitus type 2 with hemoglobin A1 C of 6.0 managed with diet 5. Morbid obesity with BMI 43.9 weight loss advised 6. Hypothyroidism-patient is on levothyroxine home dose continued 7. Hypertension-blood pressure controlled, home medications continued with dose adjustment as needed 8. Suspected obstructive sleep apnea patient undergo sleep study as outpatient 9. DVT prophylaxis deferred to primary service (patient currently on aspirin 81 mg p.o. twice daily) 10. Chronic kidney disease stage III with slight increase in kidney function will continue to monitor 11. Mild hyperkalemia plan is to repeat labs in a.m. Active Medications Acetaminophen (Tylenol) 1,000 mg PO Q8 [facility] Last Admin: 05/08/19 05:52 Dose: 1,000 mg Documented by: Albuterol/Ipratropium (Duoneb) 3 ml INHALATION Q4H.RT [facility] Last Admin: 05/08/19 03:51 Dose: 3 ml Documented by: Alprazolam (Xanax) 1 mg PO BID PRN PRN PRN Reason: ANXIETY/AGITATION Last Admin: 05/07/19 20:32 Dose: 1 mg Documented by: Aspirin (Aspirin, Baby) 81 mg PO BIDCM [facility] Last Admin: 05/08/19 07:53 Dose: 81 mg Documented by: Budesonide (Pulmicort Aerosol) 0.5 mg INHALATION Q12H.RT [facility] Last Admin: 05/07/19 19:57 Dose: 0.5 mg Documented by: Cyclobenzaprine HCl (Flexeril) 10 mg PO TID PRN PRN Reason: PAIN Last Admin: 05/08/19 05:52 Dose: 10 mg Documented by: Famotidine (Pepcid) 20 mg PO DAILY [facility] Last Admin: 05/08/19 07:53 Dose: 20 mg Documented by: Ferrous Sulfate (Ferrous Sulfate) 325 mg PO Q48@0800 [facility] Fluticasone Propionate (Flonase Nasal [place]) 2 spray NASAL DAILY PRN PRN Reason: ALLERGIES Furosemide (Lasix) 20 mg PO DAILY [facility] Last Admin: 05/08/19 07:53 Dose: 20 mg Documented by: Guaifenesin (Mucinex) 1,200 mg PO BID [facility] Last Admin: 05/08/19 07:55 Dose: 1,200 mg Documented by: Hydromorphone HCl (Dilaudid Inj) 1 mg IV Q4H PRN PRN PRN Reason: SEVERE PAIN (6-10/10) Lactated Ringer's () 1,000 mls @ 125 mls/hr IV .Q8H [facility] Last Admin: 05/07/19 20:58 Dose: 125 mls/hr Documented by: Clindamycin Phosphate 600 mg/ (Dextrose) 54 mls @ 100 mls/hr IV Q6H [facility] Stop: 05/08/19 11:03 Last Admin: 05/08/19 03:34 Dose: 100 mls/hr Documented by: Levothyroxine Sodium (Synthroid) 150 mcg PO DAILY@0600 [facility] Last Admin: 05/08/19 05:52 Dose: 150 mcg Documented by: Melatonin (Melatonin) 5 mg PO QHS PRN PRN Reason: SLEEP Last Admin: 05/07/19 22:49 Dose: 5 mg Documented by: Ondansetron HCl (Zofran) 4 mg IV Q8H PRN PRN PRN Reason: NAUSEA Oxycodone HCl (Oxyir) 5 - 10 mg PO Q4H PRN PRN PRN Reason: MOD-SEVERE PAIN (4-10/10) Last Admin: 05/08/19 07:58 Dose: 10 mg Documented by: Oxycodone HCl (Oxycontin) 10 mg PO BID [facility] Last Admin: 05/07/19 20:59 Dose: 10 mg Documented by: Paroxetine HCl (Paxil) 40 mg PO DAILY [facility] Last Admin: 05/08/19 07:54 Dose: 40 mg Documented by: Polyethylene Glycol (Miralax) 17 gm PO DAILY [facility] Last Admin: 05/08/19 07:55 Dose: Not Given Documented by: Promethazine HCl (Phenergan) 12.5 mg IM Q6H PRN PRN; Protocol PRN Reason: NAUSEA/VOMITING Senna/Docusate Sodium (Senokot-S, Lisa-Colace) 2 tablet PO BID [facility] Last Admin: 05/08/19 07:54 Dose: 2 tablet Documented by: Tamsulosin HCl (Flomax) 0.4 mg PO DAILY@0830 [facility] Last Admin: 05/08/19 07:54 Dose: 0.4 mg Documented by: Verapamil HCl (Calan Sr) 240 mg PO DAILY [facility] Last Admin: 05/08/19 07:54 Dose: 240 mg Documented by: Code Visit Inpatient E&M: [id number] [facility] Hosp L3
[2019-05-08] MEDS: oxyCODONE HCl Cr 10 MG Tablet PO ×2 (09:47→21:34)
[2019-05-08] MEDS: ALPRAZolam 0.5 MG Tablet 1 MG PO ×2 (10:24→15:46)
[2019-05-08] MEDS: Budesonide Respules 0.5 MG/2 ML AMPUL.NEB. INHALATION ×2 (10:30→19:21)
--- NOTE | 2019-05-08 10:50 | CASEMGMT ---
NIK STERN Face to Face with patient for initial transition planning/care coordination assessment. NIK STERN introduced self and role at [facility]. Patient sitting in chair, alert and oriented. Patient willing to participate in assessment and is able to answer all questions appropriately. Care providers, pharmacy, and demographics verified. Patient wishes to discharge home with HHC with [facility]. Patient states he has no further needs or concerns at this time. CM to follow for discharge planning needs that may arise. PCP: Sanju Specialists: quique Thompson Pharmacy: [facility] Insurance: [employer] [facility] Prescription Benefit: yes Living Will/HPOA: none LNOK: Living Arrangements: Patient lives with in 2 story home with bed and bath on first floor. Patient states he was independent at home prior to surgery Transportation: DME/HHC: Patient states he has shower chair, raised toilet seat, cane, walker, grab bars, and oxygen with portability through [employer]. Patient states [facility] in the past. NIK STERN called [facility] to inquire how much oxygen patients script is for. Jessica at [employer] states order was written in March 2019 for 2 lpm at rest and 3-4 lpm with activity. Referral made to [facility] for home therapy and they are able to accept the patient. Disposition Plan: Patient to discharge home with [facility], family support, and follow-up plans in place. Charleen LAWRENCE, RN, CM
--- NOTE | 2019-05-08 13:47 | RAD_ITS ---
STUDY: X-RAY CHEST REASON FOR EXAM: Male, 68 years old. Shortness of breath TECHNIQUE: Frontal view of the chest COMPARISON: X-ray chest November 10, 2017 FINDINGS: Pulmonary vascular prominence is present without marcelino edema. Mild left base atelectasis is present. There are no pleural effusions. There is no pneumothorax. The heart is normal in size. The visualized osseous structures are within normal limits. RAD/Chest 1 View (Portable) IMPRESSION: Pulmonary vascular prominence without marcelino edema. Mild left base atelectasis. Electronically Signed: Peyman Haynes, at 16:09 EDT Tel , Service support ,
[2019-05-08] MEDS: MELATONIN 10 MG TABLET 5 MG PO (21:43)
[2019-05-08] MEDS: HYDROmorphone 1 MG/ML Syringe IV (23:35)
[2019-05-09 02:20] VITALS: BP 114/66; PULSE 92; RESP 20; TEMP 36.6; O2SAT 95
[2019-05-09] MEDS: Ipratropium/Albuterol Sulfate 3 ML AMPUL.NEB INHALATION ×2 (02:45→06:52)
[2019-05-09 02:46] VITALS: PULSE 94; RESP 20
[2019-05-09] MEDS: oxyCODONE 5 MG Tablet PO (03:36)
[2019-05-09] MEDS: Levothyroxine 150 MCG Tablet PO (05:10)
[2019-05-09] MEDS: Acetaminophen 500 MG Tablet 1000 MG PO (05:10)
[2019-05-09] MEDS: ALPRAZolam 0.5 MG Tablet 1 MG PO (05:11)
[2019-05-09] MEDS: cycloBENZAPRine HCl 10 MG Tablet PO (05:11)
[2019-05-09 06:03] LABS: Hematocrit 38.8 % (40-54); Hemoglobin 12.2 g/dL (13.0-16.5); Mean Corp Hgb Conc 31.4 g/dL (32-36); Mean Corpuscular Hgb 27.8 pg (27.0-32.0); Mean Corpuscular Volume 88.4 fL (80-94); Mean Platelet Vol. 9.6 fl (6.2-12.0); Platelet Count 201 K/mm3 (150-450); RBC Distribution Width CV 14.4 % (11.6-14.6); RBC Distribution Width SD 46.5 fl (35.1-43.9); Red Blood Count 4.39 M/mm3 (4.6-6.2); White Blood Count 15.8 K/mm3 (4.4-11.0)
[2019-05-09 06:26] LABS: Anion Gap 6 (5-15); BUN 28 mg/dL (7-18); BUN/Creat Ratio 21.2 RATIO (10-20); Calcium,Total 8.4 mg/dL (8.5-10.1); Chloride 101 mmol/L (98-107); Creatinine, Serum 1.32 mg/dL (0.70-1.30); EST Glomerular Filtration Rate 57 mL/min (>60); Est Glom Filt Rate - Afr Amer 69 mL/min (>60); Estimated Creatinine Clearance 50.77 ml/min; Glucose 146 mg/dL (74-106); Magnesium 2.1 mg/dL (1.6-2.6); Potassium 4.6 mmol/L (3.5-5.1); Sodium Level 136 mmol/L (136-145)
[2019-05-09] MEDS: Budesonide Respules 0.5 MG/2 ML AMPUL.NEB. INHALATION (06:51)
[2019-05-09 06:52] VITALS: PULSE 108; RESP 20; O2SAT 92
--- NOTE | 2019-05-09 07:16 | PN.ORTHO_ITS ---
Subjective: The patient was sitting in bed upon examination. Patient denies any chest pain, shortness of breath, dizziness, lightheadedness, nausea or vomiting, or calf pain. Pain is controlled on medications. No adverse overnight events. Patient required IV Dilaudid overnight. Pain is much better today. Patient is currently on OxyContin and OxyIR. Patient had physical therapy placed on hold and he was put in a knee immobilizer due to drainage. He currently has compressive dressing. Postoperatively patient also had elevated potassium and creatinine but these are trending down today with lab work. Patient also has oxygen at home that he has been using and follows his primary care physician. Patient is now on 2 L of nasal oxygen in the hospital. Patient currently wishes to go home upon discharge and not to any retirement facility. Objective: Vital signs stable and afebrile. Patient is able to plantarflex and dorsiflex actively. Sensation is intact to light touch to saphenous, sural, superficial and deep peroneal, and tibial distribution. Compressive dressing is clean dry and intact. There is no breakthrough bleeding at this time. Dressing needed to be changed. Patient is currently in a knee immobilizer to take stress off the incision and knee. Negative Homans bilaterally, negative signs and symptoms of DVT. - Physical Exam Vital Signs Temp Pulse Resp BP Pulse Ox 97.9 F 94 20 H 114/66 95 05/09/19 02:20 05/09/19 02:46 05/09/19 02:46 05/09/19 02:20 05/09/19 02:20 Oxygen Flow Rate (L/min) 2 Oxygen Delivery Method Nasal Cannula Weight: 127.006 kg Body Mass Index (BMI) 43.8 Finger Stick Blood Glucose 174 Intake and Output for Last 24 Hours 05/07/19 05/08/19 05/09/19 23:59 23:59 23:59 Intake Total 2067 / 8 2471 / 2471 200 / 200 Output Total 150 / 150 2975 / 2975 950 / 950 Balance 1917 / 1917 -504 / -504 -750 / -750 Microbiology Past 72 Hours 05/07/19 14:41 Gram Stain - Final Tissue - Knee Wound Culture - Preliminary No growth-Final to follow 05/07/19 14:34 Gram Stain - Final Tissue - Knee Wound Culture - Preliminary No growth-Final to follow 05/07/19 14:29 Gram Stain - Final Tissue - Knee Wound Culture - Preliminary No growth-Final to follow Laboratory Tests Past 24 Hrs 05/09/19 05/09/19 05:50 05:50 WBC 15.8 H RBC 4.39 L Hgb 12.2 L Hct 38.8 L MCV 88.4 MCH 27.8 MCHC 31.4 L RDW Std Deviation 46.5 H RDW Coeff of Lazara 14.4 Plt Count 201 MPV 9.6 Sodium 136 Potassium 4.6 Chloride 101 Carbon Dioxide 29.0 Anion Gap 6 BUN 28 H Creatinine 1.32 H Estim Creat Clear Calc 50.77 Est GFR (MDRD) Af Amer 69 Est GFR (MDRD) Non-Af 57 L BUN/Creatinine Ratio 21.2 H Glucose 146 H Calcium 8.4 L Magnesium 2.1 Medical Necessity - Tobacco Use Smoking Status: Former smoker Assessment/Plan All Active Problems (Last Updated 02/12/19 @ 16:29 by Dale Malik MD) Infection of prosthetic right knee joint (Acute) Right knee pain (Acute) Hyperkalemia (Acute) Acute renal failure (Acute) Prosthetic joint infection (Acute) 1. S/P removal antibiotic spacer with placement of right revision total knee arthroplasty POD #2 2. Continue Pain Medications: Tylenol, OxyIR, OxyContin 3. DVT Prophylaxis: Aspirin 81 mg 4 weeks postoperatively 4. PT/OT: Weightbearing as tolerated with walker 5. H & H: 12.2/38.8, asymptomatic 6. Reactive leukocytosis: Trending down currently 15.8, afebrile. Patient did receive Decadron intraoperatively. We will continue to monitor 7. Encouraged Incentive Spirometry 8. Continue postoperative medical management per medicine: Patient has acute on chronic hypoxic respiratory failure currently requiring 2 L nasal O2 postoperatively. Patient had similar circumstance postoperatively after the antibiotic spacer. Patient has history of COPD/emphysema and requires oxygen at home. He is followed by his primary care physician. Patient's creatinine is also trending down in which she has chronic kidney disease. His potassium has trended down as well. 9. Disposition: At this time order for wound VAC was given and patient will continue with the knee immobilizer without physical therapy for the next 1 week. Patient will need to be followed in our office in 1 week for incision check and removal of wound VAC. Patient also has oxygen at home that he uses and I recommended he follow-up with his primary care physician early next week for continued management. If medicine feels patient is medically stable I am okay with patient being discharged home today. Patient will follow-up per postop instructions as well as in 1 week for recheck. Prescriptions will be attached to chart. Patient will follow-up with the primary care physician next week. Plan for possible discharge home today if medically cleared.
--- NOTE | 2019-05-09 07:22 | PCM.PN.HOSP ---
Subjective: Patient seen plan is for patient undergo knee immobilizer as well as wound VAC prior to discharge Objective: GENERAL: cooperative HEENT: Atraumatic; moist oral mucosa EYES; Anicteric, Normal Conjunctiva NECK; supple, normal thyroid, no distended JVD. RESPIRATORY: Diminished to auscultation bilaterally, CARDIOVASCULAR: Regular S1 S2, no audible murmurs GI: soft, non-tender, normoactive bowel sounds, : No Renal angle tenderness; EXTREMITIES: No edema, no clubbing, no cyanosis. MUSCULOSKELETAL: Right knee in surgical dressing NEURO: Awake; no lateralizing signs. SKIN: No Rash PSYCH; Normal affect Vitals/I&O's: Vital Signs Temp Pulse Resp BP Pulse Ox 97.9 F 94 20 H 114/66 95 05/09/19 02:20 05/09/19 02:46 05/09/19 02:46 05/09/19 02:20 05/09/19 02:20 Oxygen Flow Rate (L/min) 2 Oxygen Delivery Method Nasal Cannula Weight: 127.006 kg Body Mass Index (BMI) 43.8 Finger Stick Blood Glucose 174 Intake and Output for Last 24 Hours 05/07/19 05/08/19 05/09/19 23:59 23:59 23:59 Intake Total 2068 / 2068 2471 / 2471 200 / 200 Output Total 150 / 150 2975 / 2975 950 / 950 Balance 1917 / 1917 -504 / -504 -750 / -750 Microbiology Past 72 Hours 05/07/19 14:41 Tissue - Knee Gram Stain - Final 05/07/19 14:41 Tissue - Knee Wound Culture - Preliminary No growth-Final to follow 05/07/19 14:34 Tissue - Knee Gram Stain - Final 05/07/19 14:34 Tissue - Knee Wound Culture - Preliminary No growth-Final to follow 05/07/19 14:29 Tissue - Knee Gram Stain - Final 05/07/19 14:29 Tissue - Knee Wound Culture - Preliminary No growth-Final to follow Laboratory Results 05/09/19 05:50: WBC 15.8 H, RBC 4.39 L, Hgb 12.2 L, Hct 38.8 L, MCV 88.4, MCH 27.8, MCHC 31.4 L, RDW Std Deviation 46.5 H, RDW Coeff of [place]az[place] 14.4, Plt Count 201, MPV 9.6 05/09/19 05:50: Sodium 136, Potassium 4.6, Chloride 101, Carbon Dioxide 29.0, Anion Gap 6, BUN 28 H, Creatinine 1.32 H, Estim Creat Clear Calc 50.77, Est GFR (MDRD) Af Amer 69, Est GFR (MDRD) Non-Af 57 L, BUN/Creatinine Ratio 21.2 H, Glucose 146 H, Calcium 8.4 L, Magnesium 2.1 Current Medications Acetaminophen (Tylenol) 1,000 mg PO Q8 [facility] Last Admin: 05/09/19 05:10 Dose: 1,000 mg Documented by: Albuterol/Ipratropium (Duoneb) 3 ml INHALATION Q4H.RT [facility] Last Admin: 05/09/19 06:52 Dose: 3 ml Documented by: Alprazolam (Xanax) 1 mg PO TID PRN PRN PRN Reason: ANXIETY/AGITATION Last Admin: 05/09/19 05:11 Dose: 1 mg Documented by: [facility] Last Admin: 05/08/19 16:14 Dose: 81 mg Documented by: Budesonide (Pulmicort Aerosol) 0.5 mg INHALATION Q12H.RT [facility] Last Admin: 05/09/19 06:51 Dose: 0.5 mg Documented by: Cyclobenzaprine HCl (Flexeril) 10 mg PO TID PRN PRN Reason: PAIN Last Admin: 05/09/19 05:11 Dose: 10 mg Documented by: Famotidine (Pepcid) 20 mg PO DAILY [facility] Last Admin: 05/08/19 07:53 Dose: 20 mg Documented by: Ferrous Sulfate (Ferrous Sulfate) 325 mg PO Q48@0800 [facility] Fluticasone Propionate (Flonase Nasal [place]) 2 spray NASAL DAILY PRN PRN Reason: ALLERGIES Furosemide (Lasix) 20 mg PO DAILY [facility] Last Admin: 05/08/19 07:53 Dose: 20 mg Documented by: Guaifenesin (Mucinex) 1,200 mg PO BID [facility] Last Admin: 05/08/19 21:34 Dose: 1,200 mg Documented by: Hydromorphone HCl (Dilaudid Inj) 1 mg IV Q4H PRN PRN PRN Reason: SEVERE PAIN (6-10/10) Last Admin: 05/08/19 23:35 Dose: 1 mg Documented by: Levothyroxine Sodium (Synthroid) 150 mcg PO DAILY@0600 [facility] Last Admin: 05/09/19 05:10 Dose: 150 mcg Documented by: Melatonin (Melatonin) 5 mg PO QHS PRN PRN Reason: SLEEP Last Admin: 05/08/19 21:43 Dose: 5 mg Documented by: Ondansetron HCl (Zofran) 4 mg IV Q8H PRN PRN PRN Reason: NAUSEA Oxycodone HCl (Oxyir) 5 - 10 mg PO Q4H PRN PRN PRN Reason: MOD-SEVERE PAIN (4-10/10) Last Admin: 05/09/19 03:36 Dose: 10 mg Documented by: Oxycodone HCl (Oxycontin) 10 mg PO BID [facility] Last Admin: 05/08/19 21:34 Dose: 10 mg Documented by: Paroxetine HCl (Paxil) 40 mg PO DAILY [facility] Last Admin: 05/08/19 07:54 Dose: 40 mg Documented by: Polyethylene Glycol (Miralax) 17 gm PO DAILY [facility] Last Admin: 05/08/19 07:55 Dose: Not Given Documented by: Promethazine HCl (Phenergan) 12.5 mg IM Q6H PRN PRN; Protocol PRN Reason: NAUSEA/VOMITING Senna/Docusate Sodium (Senokot-S, [place]-Colace) 2 tablet PO BID [facility] Last Admin: 05/08/19 21:34 Dose: 2 tablet Documented by: Tamsulosin HCl (Flomax) 0.4 mg PO DAILY@0830 [facility] Last Admin: 05/08/19 07:54 Dose: 0.4 mg Documented by: Verapamil HCl (Calan Sr) 240 mg PO DAILY [facility] Last Admin: 05/08/19 07:54 Dose: 240 mg Documented by: Medical Necessity - Tobacco Use Smoking Status: Former smoker Assessment/Plan All Active Problems (Last Updated 02/12/19 @ 16:29 by Dale Malik MD) Infection of prosthetic right knee joint (Acute) Right knee pain (Acute) Hyperkalemia (Acute) Acute renal failure (Acute) Prosthetic joint infection (Acute) Patient is a 68-year-old gentleman with multiple comorbidities admitted with Right total knee infection, previous placement of temporary knee replacement and nonbiodegradable antibiotic delivery system patient underwent Right knee removal of nonbiodegradable antibiotic delivery system. Right knee revision total knee replacement entire femur and tibia on 05/07/2019. Procedure was performed by Dr. gavin Thompson orthopedic surgery. Consultation was placed to the hospitalist service for management of patient medical comorbidities 1. Status post Right knee removal of nonbiodegradable antibiotic delivery system. Right knee revision total knee replacement entire femur and tibia on 05/07/2019 on account of Right total knee infection, previous placement of temporary knee replacement and nonbiodegradable antibiotic delivery system procedure was performed by Dr. Larson. Patient postoperative orders regarding pain management DVT prophylaxis as well as PT OT defer to primary service ~ plan is for patient undergo knee immobilizer as well as wound VAC prior to discharge 2. Acute respiratory insufficiency suspected to be secondary to multiple factors including patient underlying COPD/emphysema as well as obesity hypoventilation syndrome and atelectasis following surgery did encourage the use of incentive spirometry. Patient was placed on oxygen titrated to keep saturation greater than 90 also ordered chest x-ray for subsequent evaluation 3. Chronic hypoxic respiratory failure secondary to COPD/ emphysema did continue patient aerosol treatment 4. Diabetes mellitus type 2 with hemoglobin A1 C of 6.0 managed with diet 5. Morbid obesity with BMI 43.9 weight loss advised 6. Hypothyroidism-patient is on levothyroxine home dose continued 7. Hypertension-blood pressure controlled, home medications continued with dose adjustment as needed 8. Suspected obstructive sleep apnea patient undergo sleep study as outpatient 9. DVT prophylaxis deferred to primary service (patient currently on aspirin 81 mg p.o. twice daily) 10. Chronic kidney disease stage III with slight increase in kidney function will continue to monitor 11. Mild hyperkalemia plan is to repeat labs in a.m. Active Medications Acetaminophen (Tylenol) 1,000 mg PO Q8 [facility] Last Admin: 05/08/19 05:52 Dose: 1,000 mg Documented by: Albuterol/Ipratropium (Duoneb) 3 ml INHALATION Q4H.RT [facility] Last Admin: 05/08/19 03:51 Dose: 3 ml Documented by: Alprazolam (Xanax) 1 mg PO BID PRN PRN PRN Reason: ANXIETY/AGITATION Last Admin: 05/07/19 20:32 Dose: 1 mg Documented by: Aspirin (Aspirin, Baby) 81 mg PO BIDCM [facility] Last Admin: 05/08/19 07:53 Dose: 81 mg Documented by: Budesonide (Pulmicort Aerosol) 0.5 mg INHALATION Q12H.RT [facility] Last Admin: 05/07/19 19:57 Dose: 0.5 mg Documented by: Cyclobenzaprine HCl (Flexeril) 10 mg PO TID PRN PRN Reason: PAIN Last Admin: 05/08/19 05:52 Dose: 10 mg Documented by: Famotidine (Pepcid) 20 mg PO DAILY [facility] Last Admin: 05/08/19 07:53 Dose: 20 mg Documented by: Ferrous Sulfate (Ferrous Sulfate) 325 mg PO Q48@0800 [facility] Fluticasone Propionate (Flonase Nasal [place]) 2 spray NASAL DAILY PRN PRN Reason: ALLERGIES Furosemide (Lasix) 20 mg PO DAILY [facility] Last Admin: 05/08/19 07:53 Dose: 20 mg Documented by: Guaifenesin (Mucinex) 1,200 mg PO BID [facility] Last Admin: 05/08/19 07:55 Dose: 1,200 mg Documented by: Hydromorphone HCl (Dilaudid Inj) 1 mg IV Q4H PRN PRN PRN Reason: SEVERE PAIN (6-10/10) Lactated Ringer's () 1,000 mls @ 125 mls/hr IV .Q8H [facility] Last Admin: 05/07/19 20:58 Dose: 125 mls/hr Documented by: Clindamycin Phosphate 600 mg/ (Dextrose) 54 mls @ 100 mls/hr IV Q6H [facility] Stop: 05/08/19 11:03 Last Admin: 05/08/19 03:34 Dose: 100 mls/hr Documented by: Levothyroxine Sodium (Synthroid) 150 mcg PO DAILY@0600 [facility] Last Admin: 05/08/19 05:52 Dose: 150 mcg Documented by: Melatonin (Melatonin) 5 mg PO QHS PRN PRN Reason: SLEEP Last Admin: 05/07/19 22:49 Dose: 5 mg Documented by: Ondansetron HCl (Zofran) 4 mg IV Q8H PRN PRN PRN Reason: NAUSEA Oxycodone HCl (Oxyir) 5 - 10 mg PO Q4H PRN PRN PRN Reason: MOD-SEVERE PAIN (4-10/10) Last Admin: 05/08/19 07:58 Dose: 10 mg Documented by: Oxycodone HCl (Oxycontin) 10 mg PO BID [facility] Last Admin: 05/07/19 20:59 Dose: 10 mg Documented by: Paroxetine HCl (Paxil) 40 mg PO DAILY [facility] Last Admin: 05/08/19 07:54 Dose: 40 mg Documented by: Polyethylene Glycol (Miralax) 17 gm PO DAILY [facility] Last Admin: 05/08/19 07:55 Dose: Not Given Documented by: Promethazine HCl (Phenergan) 12.5 mg IM Q6H PRN PRN; Protocol PRN Reason: NAUSEA/VOMITING Senna/Docusate Sodium (Senokot-S, Lisa-Colace) 2 tablet PO BID [facility] Last Admin: 05/08/19 07:54 Dose: 2 tablet Documented by: Tamsulosin HCl (Flomax) 0.4 mg PO DAILY@0830 [facility] Last Admin: 05/08/19 07:54 Dose: 0.4 mg Documented by: Verapamil HCl (Calan Sr) 240 mg PO DAILY [facility] Last Admin: 05/08/19 07:54 Dose: 240 mg Documented by: Code Visit Inpatient E&M: [id number] Subs Hosp L2
--- NOTE | 2019-05-09 07:27 | PCM.DC.TKR ---
Discharge Diet: No Restrictions Discharge Activity: May Not Drive Ice area for (Minutes): 20 - every hour while awake. Weight Bearing Status: Weight bearing as tolerated - With walker and knee immobilizer Elevate: Operative Extremity Additional Activity Instructions:: Wear elastic stockings for 2 weeks after your surgery. Call your doctor if your incision/area has: Continuous Slow Oozing, Sudden Increased Bleeding, Increased Pain/ Swelling, Increased Redness, Foul Smelling Discharge Call your doctor if you observe: Fever of 101 or Higher, Coldness, Increased Pain, Numbness or Tingling, Change in Color, Calf discomfort, Uncontrolled pain Additional Instructions: Continue with wound VAC for 1 week, will follow up with [facility] in 1 week for incision check and removal of wound VAC. Continue with oxygen 2 L at home keeping O2 saturation greater than 90% Needs follow-up with primary care physician next week to follow oxygen needs and chronic pulmonary issues, consider sleep study test Allergies/Adverse Reactions: Allergies bacitracin [From Neosporin ([id number])] Allergy (Verified 05/07/19 11:36) Rash bacitracin zinc [From Neosporin ([id number])] Allergy (Verified 05/07/19 11:36) Rash cephalexin [From Keflex] Allergy (Verified 05/07/19 11:36) Rash doxycycline Allergy (Verified 05/07/19 11:36) Rash morphine Allergy (Verified 05/07/19 11:36) Other KIDNEY ISSUES neomycin sulfate [From Neosporin ([id number])] Allergy (Verified 05/07/19 11:36) Rash Penicillins [PCN] Allergy (Verified 05/07/19 11:36) Rash polymyxin B [From Neosporin ([id number])] Allergy (Verified 05/07/19 11:36) Rash Medications to take at Discharge Albuterol Sulfate [Ventolin Hfa] 2 inh INHALATION DAILY PRN 11/10/17 Levothyroxine [Synthroid] 150 mcg PO DAILY 11/10/17 Paroxetine HCl [Paxil] 40 mg PO DAILY 11/10/17 Verapamil [Calan Sr] 1 tab PO DAILY 11/10/17 cycloBENZAPRine HCl [Flexeril] 10 mg PO TID PRN 11/10/17 ALPRAZolam [Xanax] 1 mg PO BID PRN PRN 01/29/19 Fluticasone 0.05% [Flonase Nasal [place]] 2 spray NASAL DAILY PRN 01/29/19 Fluticasone 110 Mcg [Flovent 110 Mcg] 2 puff INHALATION BID 01/29/19 Melatonin 5 mg PO QHS PRN 01/29/19 Tamsulosin HCl [Flomax] 0.4 mg PO DAILY 01/29/19 Furosemide [Lasix] 20 mg PO DAILY 04/29/19 Iron,Carbonyl [Perfect Iron] 25 mg PO QODAY 04/29/19 Polyethylene Glycol 3350 [Miralax] 17 gm PO DAILY 04/29/19 Acetaminophen [Tylenol] 1,000 mg PO Q8 #100 tab 05/09/19 Aspirin [Aspirin, Baby] 81 mg PO BIDCM #60 tab.chew 05/09/19 Famotidine [Pepcid] 20 mg PO DAILY #30 tab 05/09/19 Oxycodone CR [Oxycontin] 10 mg PO BID 4 Days #8 tab 05/09/19 Oxycodone [Oxyir] 5 - 10 mg PO Q4H PRN PRN 7 Days #60 tab 05/09/19 Senna/Docusate Sodium [Senokot-S] 2 tab PO BID #20 tab 05/09/19 The following prescriptions were given: Aspirin [Aspirin, Baby] 81 mg PO BIDCM #60 tab.chew Prescription Printed Oxycodone CR [Oxycontin] 10 mg PO BID 4 Days #8 tab Prescription Printed Oxycodone [Oxyir] 5 - 10 mg PO Q4H PRN PRN 7 Days #60 tab PRN Reason: Mod-Severe Pain (4-07/17) Prescription Printed Famotidine [Pepcid] 20 mg PO DAILY #30 tab Prescription Printed Senna/Docusate Sodium [Senokot-S] 2 tab PO BID #20 tab Prescription Printed Acetaminophen [Tylenol] 1,000 mg PO Q8 #100 tab Prescription Printed Primary Care Physician: Chhaya Bills MD [Primary Care Provider] - Please follow up with your Primary Care Physician in: within 1 week upon discharge Test Results: Test results from this visit will be discussed in further detail at your follow-up appointment, if applicable. Please Follow Up With: Gustavo Middleton PA-C When: will need follow up in 1 week for incision check Please Follow Up With: Gustavo Middleton PA-C When: 05/21/19 @ 10:30 am
[2019-05-09 08:50] VITALS: BP 156/76; PULSE 103; RESP 18; TEMP 36.8; O2SAT 97
[2019-05-09] MEDS: Aspirin 81 MG TAB.CHEW PO (08:56)
[2019-05-09] MEDS: Ferrous Sulfate 325 MG Tablet PO (08:56)
[2019-05-09] MEDS: Tamsulosin HCl 0.4 MG Capsule PO (08:57)
[2019-05-09] MEDS: Famotidine 20 MG Tablet PO (08:57)
[2019-05-09] MEDS: Paroxetine 20 MG Tablet 40 MG PO (08:57)
[2019-05-09] MEDS: guaiFENesin 1,200 MG Tablet 1200 MG PO (08:57)
[2019-05-09] MEDS: Senna/Docusate Sodium 1 Tablet 2 TABLET PO (08:57)
[2019-05-09] MEDS: Verapamil SR 240 MG Tablet PO (08:57)
[2019-05-09] MEDS: Polyethylene Glycol 3350 17 GM PACKET PO (08:57)
[2019-05-09] MEDS: Furosemide 20 MG Tablet PO (08:57)
[2019-05-09] MEDS: oxyCODONE HCl Cr 10 MG Tablet PO (09:00)
--- NOTE | 2019-05-09 10:03 | NURSING ---
wound photo: right knee
[2019-05-09 12:30] VITALS: BP 141/92; PULSE 109; RESP 18; TEMP 37.2; O2SAT 98
[2019-05-09] MEDS: 0.9% NaCl Peripheral Flush Adult/Peds IV (12:47)
== END 2019-05-09 12:51 | disposition home health service (06) | DRG 466 ==
LOC: ACINP 11:08 → MS3 13:35
PROVIDERS: Anesthesiology; Admitting Provider Specialist; Family Provider Internal Medicine; PCP Internal Medicine; Referring Provider Specialist; Visit Provider Internal Medicine
PROC: 0SPC0EZ Removal of Articulating Spacer from Right Knee Joint, Open Approach (ICD-10-PCS; principal; 2019-05-07 12:35)
DX: T84.53XA Infection and inflammatory reaction due to internal right knee prosthesis, initial encounter (principal); J96.21 Acute and chronic respiratory failure with hypoxia; E66.2 Morbid (severe) obesity with alveolar hypoventilation; Z68.42 Body mass index [BMI] 45.0-49.9, adult; N18.3 Chronic kidney disease, stage 3 (moderate); J44.9 Chronic obstructive pulmonary disease, unspecified; I12.9 Hypertensive chronic kidney disease with stage 1 through stage 4 chronic kidney disease, or unspecified chronic kidney disease; E11.22 Type 2 diabetes mellitus with diabetic chronic kidney disease; Z87.891 Personal history of nicotine dependence; Z79.891 Long term (current) use of opiate analgesic; Z79.51 Long term (current) use of inhaled steroids; Z79.899 Other long term (current) drug therapy; E89.0 Postprocedural hypothyroidism; Z86.2 Personal history of diseases of the blood and blood-forming organs and certain disorders involving the immune mechanism; F41.9 Anxiety disorder, unspecified; F32.9 Major depressive disorder, single episode, unspecified; D72.828 Other elevated white blood cell count; E87.5 Hyperkalemia
CPT/HCPCS: 36415; 71045; 73560; 80048; 82962; 83036; 83735; 84443; 85025; 85027; 87015; 87070; 87075; 87081; 87102; 87116; 87176; 87205; 87206; 94640; 97162; 97166; 97530; 99251; C1776; J7120; A4216; G0463; J2405